=== PATIENT | male | born 2000 | race Caucasian/White ===

== ENCOUNTER 2020-02-02 20:01 | Emergency (ER) | payer BC, OTHER ==
[~2020-02-02] VITALS: Ht 188 cm; Wt 71.3 kg
[2020-02-02 20:21] LABS: BASOPHILS % (AUTO) 0 % (0-10); EOSINOPHILS # (AUTO) 0.2 10^3/uL (0.0-0.3); EOSINOPHILS % (AUTO) 3 % (0-10); HEMATOCRIT 50 % (40-54); HEMOGLOBIN 16.9 G/DL (13.3-17.7); LYMPHOCYTES # (AUTO) 2.8 X 10^3 (1.0-4.0); LYMPHOCYTES % (AUTO) 33 % (12-44); MEAN CORPUSCULAR HEMOGLOBIN 29 PG (25-34); MEAN CORPUSCULAR HGB CONC 34 G/DL (32-36); MEAN CORPUSCULAR VOLUME 86 FL (80-99); MEAN PLATELET VOLUME 11.5 FL (7.4-10.4); MONOCYTES # (AUTO) 0.7 X 10^3 (0.0-1.0); MONOCYTES % (AUTO) 8 % (0-12); NEUTROPHILS # (AUTO) 4.8 X 10^3 (1.8-7.8); NEUTROPHILS % (AUTO) 56 % (42-75); PLATELET COUNT 213 10^3/uL (130-400); RED CELL DISTRIBUTION WIDTH 12.9 % (10.0-14.5); WHITE BLOOD COUNT 8.6 10^3/uL (4.3-11.0)
[2020-02-02 20:26] LABS: BILIRUBIN,URINE NEGATIVE (NEGATIVE); CLARITY,URINE CLEAR; COLOR,URINE YELLOW; GLUCOSE, URINE (UA) NEGATIVE (NEGATIVE); KETONES,URINE NEGATIVE (NEGATIVE); LEUKOCYTE ESTERASE ,URINE NEGATIVE (NEGATIVE); NITRITE,URINE NEGATIVE (NEGATIVE); PH,URINE 7.5 (5-9); PROTEIN,URINE NEGATIVE (NEGATIVE)
--- NOTE | 2020-02-02 20:26 | ED Abdominal Pain ---
General Chief Complaint: Abdominal/GI Problems Stated Complaint: R SIDE PAIN Nursing Triage Note: right sided abdominal pain, worse today. Sepsis Screen: No Definite Risk Source of Information: Patient Exam Limitations: No Limitations History of Present Illness Date Seen by Provider: Feb 02, 2020 Time Seen by Provider: 20:13 Initial Comments 19-year-old male who presents to the emergency room with complaints of right lower quadrant abdominal pain that occurs every 3 months since 2017. He reports that the pain has been worse today and has mild diarrhea. He denies any fevers, nausea or vomiting. Associated Symptoms: Denies Symptoms Allergies and Home Medications Allergies Coded Allergies: No Known Drug Allergies (Unverified , 02/02/20) Home Medications No Active Prescriptions or Reported Meds Patient Home Medication List Home Medication List Reviewed: Yes Review of Systems Review of Systems Constitutional: see HPI; No chills, No fever Gastrointestinal: Abdominal Pain, Diarrhea All Other Systems Reviewed Negative Unless Noted: Yes Past Fkdoght-Ynzkip-Eqizwt Hx Past Med/Social Hx: Reviewed Nursing Past Med/Soc Hx Patient Social History Alcohol Use: Denies Use Recreational Drug Use: No Smoking Status: Never a Smoker 2nd Hand Smoke Exposure: No Recent Foreign Travel: No Contact w/Someone Who Travel: No Recent Infectious Disease Expo: No Recent Hopitalizations: No Physical Abuse: No Sexual Abuse: No Mistreated: No Fear: No Immunizations Up To Date Tetanus Booster (TDap): Unknown Seasonal Allergies Seasonal Allergies: No Past Medical History Surgeries: Yes (intestine resection as infant) Cardiac: No Neurological: No Genitourinary: No Gastrointestinal: No Musculoskeletal: No Endocrine: No HEENT: No Cancer: No Psychosocial: No Integumentary: No Blood Disorders: No Family Medical History Reviewed Nursing Family Hx Physical Exam Vital Signs Vital Signs - First Documented 02/02/20 20:06 Temp 37.1 Pulse 97 Resp 16 B/P (MAP) 129/87 (101) Pulse Ox 99 Capillary Refill : Less Than 3 Seconds Height/Weight/BMI Height: '" Weight: lbs. oz. kg; 20.00 BMI Method: General Appearance: WD/WN, no apparent distress Respiratory: chest non-tender, lungs clear, normal breath sounds, no respiratory distress, no accessory muscle use Cardiovascular: normal peripheral pulses, regular rate, rhythm, no edema, no gallop, no JVD, no murmur Gastrointestinal: normal bowel sounds, non tender, soft, no organomegaly, no pulsatile mass Extremities: normal capillary refill Neurologic/Psychiatric: alert, normal mood/affect, oriented x 3 Skin: normal color, warm/dry Progress/Results/Core Measures Results/Orders Lab Results Laboratory Tests Test 02/02/20 20:12 02/02/20 20:16 Range/Units White Blood Count 8.6 4.3-11.0 10^3/uL Red Blood Count 5.78 4.35-5.85 10^6/uL Hemoglobin 16.9 13.3-17.7 G/DL Hematocrit 50 40-54 % Mean Corpuscular Volume 86 80-99 FL Mean Corpuscular Hemoglobin 29 25-34 PG Mean Corpuscular Hemoglobin Concent 34 32-36 G/DL Red Cell Distribution Width 12.9 10.0-14.5 % Platelet Count 213 130-400 10^3/uL Mean Platelet Volume 11.5 H 7.4-10.4 FL Neutrophils (%) (Auto) 56 42-75 % Lymphocytes (%) (Auto) 33 12-44 % Monocytes (%) (Auto) 8 0-12 % Eosinophils (%) (Auto) 3 0-10 % Basophils (%) (Auto) 0 0-10 % Neutrophils # (Auto) 4.8 1.8-7.8 X 10^3 Lymphocytes # (Auto) 2.8 1.0-4.0 X 10^3 Monocytes # (Auto) 0.7 0.0-1.0 X 10^3 Eosinophils # (Auto) 0.2 0.0-0.3 10^3/uL Basophils # (Auto) 0.0 0.0-0.1 10^3/uL Sodium Level 141 135-145 MMOL/L Potassium Level 4.3 3.6-5.0 MMOL/L Chloride Level 103 98-107 MMOL/L Carbon Dioxide Level 27 21-32 MMOL/L Anion Gap 11 5-14 MMOL/L Blood Urea Nitrogen 16 7-18 MG/DL Creatinine 1.12 0.60-1.30 MG/DL Estimat Glomerular Filtration Rate > 60 BUN/Creatinine Ratio 14 Glucose Level 96 70-105 MG/DL Calcium Level 10.8 H 8.5-10.1 MG/DL Corrected Calcium 8.5-10.1 MG/DL Total Bilirubin 0.5 0.1-1.0 MG/DL Aspartate Amino Transf (AST/SGOT) 15 5-34 U/L Alanine Aminotransferase (ALT/SGPT) 17 0-55 U/L Alkaline Phosphatase 108 40-136 U/L Total Protein 8.0 6.4-8.2 GM/DL Albumin 4.9 H 3.2-4.5 GM/DL Amylase Level 63 25-125 U/L Lipase 19 8-78 U/L Urine Color YELLOW Urine Clarity CLEAR Urine pH 7.5 5-9 Urine Specific [place] 1.010 L 1.016-1.022 Urine Protein NEGATIVE NEGATIVE Urine Glucose (UA) NEGATIVE NEGATIVE Urine Ketones NEGATIVE NEGATIVE Urine Nitrite NEGATIVE NEGATIVE Urine Bilirubin NEGATIVE NEGATIVE Urine Urobilinogen 1.0 < = 1.0 MG/DL Urine Leukocyte Esterase NEGATIVE NEGATIVE Urine RBC (Auto) NEGATIVE NEGATIVE Urine RBC NONE /HPF Urine WBC NONE /HPF Urine Squamous Epithelial Cells RARE /HPF Urine Crystals NONE /LPF Urine Bacteria TRACE /HPF Urine Casts NONE /LPF Urine Mucus NEGATIVE /LPF Urine Culture Indicated NO My Orders Orders - HARSHAD SANFORD Ua Culture If Indicated (02/02/20 20:04) Comprehensive Metabolic Panel (02/02/20 20:12) Lipase (02/02/20 20:12) Amylase (02/02/20 20:12) Ed Iv/Invasive Line Start (02/02/20 20:12) Cbc With Automated Diff (02/02/20 20:12) Vital Signs/I&O 02/02/20 20:06 Temp 37.1 Pulse 97 Resp 16 B/P (MAP) 129/87 (101) Pulse Ox 99 Blood Pressure Mean: 101 Progress Progress Note : Time: 21:09 Progress Note I have seen and evaluated the patient. He is not tender on his abdominal exam. His labs were relatively normal. I have informed the patient of his laboratory findings. He agrees with plan of care, plans for discharge, return precautions were given. Departure Impression Primary Impression: Abdominal pain Additional Impression: Diarrhea Disposition: 01 HOME, SELF-CARE Condition: Stable/Unchanged Departure-Patient Inst. Decision time for Depature: 21:07 Referrals: NO,LOCAL PHYSICIAN (PCP/Family) Primary Care Physician Patient Instructions: Severe Abdominal Pain, Adult (DC) Add. Discharge Instructions: You may use ibuprofen and Tylenol as needed for pain relief. Take Imodium [id number] as needed for diarrhea. Follow-up with your primary care provider within 1 week for recheck. If you do not have one a list has been provided. Return back to the emergency room for worsening symptoms or concerns as needed. All discharge instructions reviewed with patient and/or family. Voiced understanding. Scripts No Active Prescriptions or Reported Meds HARSHAD SANFORD Feb 02, 2020 20:26
[2020-02-02 20:34] LABS: BACTERIA,URINE TRACE /HPF; SQUAMOUS EPITHELIAL CELL,UR RARE /HPF
[2020-02-02 20:44] LABS: ALANINE AMINOTRANSFERASE 17 U/L (0-55); ALBUMIN 4.9 GM/DL (3.2-4.5); ALKALINE PHOSPHATASE 108 U/L (40-136); AMYLASE 63 U/L (25-125); BILIRUBIN,TOTAL 0.5 MG/DL (0.1-1.0); BUN/CREATININE RATIO 14; CALCIUM 10.8 MG/DL (8.5-10.1); CARBON DIOXIDE 27 MMOL/L (21-32); CHLORIDE 103 MMOL/L (98-107); CREATININE SERUM 1.12 MG/DL (0.60-1.30); GFR ESTIMATED > 60; GLUCOSE 96 MG/DL (70-105); LIPASE 19 U/L (8-78); POTASSIUM 4.3 MMOL/L (3.6-5.0); SODIUM 141 MMOL/L (135-145)
[2020-02-02 21:21] VITALS: BP 126/87
== END 2020-02-02 21:22 | disposition home or self-care (01) ==
LOC: ER 20:04
DX: R10.31 Right lower quadrant pain (principal); R19.7 Diarrhea, unspecified
CPT/HCPCS: 36415; 80053; 81000; 82150; 83690; 85025

== ENCOUNTER 2020-02-03 18:18 | Inpatient (IN) | payer BC ==
[~2020-02-03] VITALS: Ht 187 cm; Wt 74.9 kg
[2020-02-03] MEDS ORDERED: LACTATED RINGERS 1,000 ML IV ONE (18:32)
--- NOTE | 2020-02-03 18:41 | ED Abdominal Pain ---
General Stated Complaint: RLQ PAIN Source of Information: Patient History of Present Illness Date Seen by Provider: Feb 03, 2020 Time Seen by Provider: 18:30 Initial Comments C/O RIGHT SIDED ABDOMINAL PAIN SINCE Thursday01/29/20 PAIN COMES AND GOES, AND IS SEVERE AT TIMES PT STATES LAYING DOWN IMPROVES PAIN, WALKING WORSENS PAIN TRIED TO EACH CHICKEN SOUP JUST PRIOR TO ARRIVAL, AND PAIN WAS SEVERE, SO CAME HERE NO NAUSEA/VOMITING/DIARRHEA LAST BM WAS Thursday02/01/20 NO FEVER DOES HAVE SOME RIGHT SIDED PAIN ON URINATION SEEN HERE YESTERDAY FOR SAME, LAB DONE,BUT NO CT OR ULTRASOUND OR XRAYS. HAS HAD THIS PROBLEM OFF AND ON FOR MANY YEARS "AT LEAST 10-15 TIMES" "AND THEY CAN NEVER FIND ANYTHING" HAS NOT TAKEN ANYTHING FOR PAIN Allergies and Home Medications Allergies Coded Allergies: No Known Drug Allergies (Unverified , 02/02/20) Home Medications No Active Prescriptions or Reported Meds Patient Home Medication List Home Medication List Reviewed: Yes Review of Systems Review of Systems Constitutional: no symptoms reported; No chills, No diaphoresis, No fever Respiratory: No Symptoms Reported Cardiovascular: No Symptoms Reported Gastrointestinal: See HPI, Abdominal Pain, Constipated; Denies Diarrhea, Denies Nausea; Poor Appetite; Denies Vomiting Genitourinary: See HPI Musculoskeletal: no symptoms reported; No back pain Skin: no symptoms reported Psychiatric/Neurological: No Symptoms Reported Endocrine: No Symptoms Reported Hematologic/Lymphatic: No Symptoms Reported Past Bpiiqsh-Aanjss-Miyiow Hx Past Med/Social Hx: Reviewed and Corrections made Patient Social History Alcohol Use: Denies Use Recreational Drug Use: No Smoking Status: Never a Smoker 2nd Hand Smoke Exposure: No Recent Foreign Travel: No Contact w/Someone Who Travel: No Recent Hopitalizations: No Immunizations Up To Date Tetanus Booster (TDap): Unknown Seasonal Allergies Seasonal Allergies: No Past Medical History Surgeries: Yes (intestine resection as ) Abdominal Respiratory: No Cardiac: No Neurological: No Genitourinary: No Gastrointestinal: Yes (INTESTINAL RESECTION INFANT) Musculoskeletal: No Endocrine: No HEENT: No Cancer: No Psychosocial: No Integumentary: No Blood Disorders: No Physical Exam Vital Signs Vital Signs - First Documented 02/03/20 18:45 Temp 37.1 Pulse 107 Resp 20 B/P (MAP) 115/83 (94) Pulse Ox 99 O2 Delivery Room Air Capillary Refill : Height/Weight/BMI Height: '" Weight: lbs. oz. kg; 20.00 BMI Method: General Appearance: WD/WN, no apparent distress, thin, other (WALKS UPRIGHT AND MOVES WITHOUT DIFFICULTY. 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, no motor/sensory deficits, alert, normal mood/affect, oriented x 3 Skin: normal color, warm/dry; No rash Progress/Results/Core Measures Results/Orders Lab Results Laboratory Tests Test 02/03/20 18:40 Range/Units White Blood Count 8.7 4.3-11.0 10^3/uL Red Blood Count 6.41 H 4.35-5.85 10^6/uL Hemoglobin 18.5 H 13.3-17.7 G/DL Hematocrit 55 H 40-54 % Mean Corpuscular Volume 85 80-99 FL Mean Corpuscular Hemoglobin 29 25-34 PG Mean Corpuscular Hemoglobin Concent 34 32-36 G/DL Red Cell Distribution Width 13.0 10.0-14.5 % Platelet Count 239 130-400 10^3/uL Mean Platelet Volume 11.5 H 7.4-10.4 FL Neutrophils (%) (Auto) 65 42-75 % Lymphocytes (%) (Auto) 25 12-44 % Monocytes (%) (Auto) 8 0-12 % Eosinophils (%) (Auto) 2 0-10 % Basophils (%) (Auto) 0 0-10 % Neutrophils # (Auto) 5.7 1.8-7.8 X 10^3 Lymphocytes # (Auto) 2.2 1.0-4.0 X 10^3 Monocytes # (Auto) 0.7 0.0-1.0 X 10^3 Eosinophils # (Auto) 0.2 0.0-0.3 10^3/uL Basophils # (Auto) 0.0 0.0-0.1 10^3/uL Sodium Level 137 135-145 MMOL/L Potassium Level 4.2 3.6-5.0 MMOL/L Chloride Level 99 98-107 MMOL/L Carbon Dioxide Level 26 21-32 MMOL/L Anion Gap 12 5-14 MMOL/L Blood Urea Nitrogen 13 7-18 MG/DL Creatinine 1.10 0.60-1.30 MG/DL Estimat Glomerular Filtration Rate > 60 BUN/Creatinine Ratio 12 Glucose Level 100 70-105 MG/DL Calcium Level 10.7 H 8.5-10.1 MG/DL Corrected Calcium 8.5-10.1 MG/DL Total Bilirubin 0.7 0.1-1.0 MG/DL Aspartate Amino Transf (AST/SGOT) 20 5-34 U/L Alanine Aminotransferase (ALT/SGPT) 20 0-55 U/L Alkaline Phosphatase 114 40-136 U/L Total Protein 8.9 H 6.4-8.2 GM/DL Albumin 5.2 H 3.2-4.5 GM/DL Amylase Level 58 25-125 U/L Lipase 11 8-78 U/L My Orders Orders - MATY BRIONES DO Ed Iv/Invasive Line Start (02/03/20 18:32) Ct Abd/Pelv W (Appendicitis) (02/03/20 18:32) Amylase (02/03/20 18:32) Cbc With Automated Diff (02/03/20 18:32) Comprehensive Metabolic Panel (02/03/20 18:32) Drug Screen Stat (Urine) (02/03/20 18:32) Lipase (02/03/20 18:32) Ua Culture If Indicated (02/03/20 18:32) Ed Iv/Invasive Line Start (02/03/20 18:32) Lactated Ringers (Lr 1000 Ml Iv Solution (02/03/20 18:32) Iohexol Injection (Omnipaque 350 Mg/Ml 1 (02/03/20 19:15) Received Contrast (Hold Metformin- Contr (02/03/20 19:15) Sodium Chloride Flush (Catheter Flush Sy (02/03/20 19:15) Ns (Ivpb) (Sodium Chloride 0.9% Ivpb Bag (02/03/20 19:15) Medications Given in ED Current Medications Medications Dose Ordered Sig/Devorah Route Start Time Stop Time Status Last Admin Dose Admin Iohexol 100 ml ONCE ONCE IV 02/03/20 19:15 02/03/20 19:16 DC 02/03/20 19:13 85 ML Lactated Ringer's 1,000 ml @ 0 mls/hr Q0M ONCE IV 02/03/20 18:32 02/03/20 18:34 DC 02/03/20 18:56 0 MLS/HR Sodium Chloride 10 ml NEEDED PRN IV 02/03/20 19:15 02/03/20 19:13 10 ML Sodium Chloride 100 ml ONCE ONCE IV 02/03/20 19:15 02/03/20 19:16 DC 02/03/20 19:13 80 ML Vital Signs/I&O 02/03/20 18:45 Temp 37.1 Pulse 107 Resp 20 B/P (MAP) 115/83 (94) Pulse Ox 99 O2 Delivery Room Air Progress Progress Note : Progress Note UNEVENTFUL ER STAY Diagnostic Imaging Comments CT ABDOMEN/PELVIS--PER RADIOLOGIST REPORT AT 193 INDICATION: Right lower quadrant pain Lung bases are clear. Liver appears normal. Gallbladder is present. Pancreas is normal. Spleen is not enlarged. Kidneys and adrenals appear normal. Aorta and IVC appear normal. Urinary bladder appears normal. The stomach is decompressed. The colon is decompressed. There are markedly dilated loops of small bowel in the upper abdomen measuring up to 11.4 cm in diameter that contain air-fluid levels. There is no intraperitoneal free air or free fluid. IMPRESSION: There appears be a closed loop obstruction of the small bowel. This could be from an internal hernia Departure Communication (Admissions) Family Conversation 1934--SPOKE WITH DAD ON PHONE, INFORMED HIM OF PT'S CONDITION AND NEED FOR ADMIT. 1931--SPOKE WITH DR. DSOUZA, SURGEON, ACCEPTS PT FOR ADMIT. WILL PLACE NG TUBE AND DO SMALL BOWEL FOLLOW THROUGH IN AM. Impression Primary Impression: Small bowel obstruction Disposition: ADMITTED INPATIENT Condition: Stable Admissions Decision to Admit Reason: Admit from ER (General) Decision to Admit/Date: Feb 03, 2020 Time/Decision to Admit Time: 19:35 Departure-Patient Inst. Referrals: NO,LOCAL PHYSICIAN (PCP/Family) Primary Care Physician Scripts No Active Prescriptions or Reported Meds MATY BRIONES DO Feb 03, 2020 18:41
[2020-02-03 18:53] LABS: BASOPHILS % (AUTO) 0 % (0-10); EOSINOPHILS % (AUTO) 2 % (0-10); HEMATOCRIT 55 % (40-54); HEMOGLOBIN 18.5 G/DL (13.3-17.7); LYMPHOCYTES % (AUTO) 25 % (12-44); MEAN CORPUSCULAR HEMOGLOBIN 29 PG (25-34); MEAN CORPUSCULAR HGB CONC 34 G/DL (32-36); MEAN CORPUSCULAR VOLUME 85 FL (80-99); MEAN PLATELET VOLUME 11.5 FL (7.4-10.4); MONOCYTES % (AUTO) 8 % (0-12); NEUTROPHILS # (AUTO) 5.7 X 10^3 (1.8-7.8); NEUTROPHILS % (AUTO) 65 % (42-75); PLATELET COUNT 239 10^3/uL (130-400); WHITE BLOOD COUNT 8.7 10^3/uL (4.3-11.0)
[2020-02-03 18:54] LABS: EOSINOPHILS # (AUTO) 0.2 10^3/uL (0.0-0.3); LYMPHOCYTES # (AUTO) 2.2 X 10^3 (1.0-4.0); MONOCYTES # (AUTO) 0.7 X 10^3 (0.0-1.0)
--- NOTE | 2020-02-03 18:55 | NUR ---
REPORT FROM YEN MENARD
[2020-02-03 19:11] LABS: ALANINE AMINOTRANSFERASE 20 U/L (0-55); ALBUMIN 5.2 GM/DL (3.2-4.5); ALKALINE PHOSPHATASE 114 U/L (40-136); AMYLASE 58 U/L (25-125); BILIRUBIN,TOTAL 0.7 MG/DL (0.1-1.0); BUN/CREATININE RATIO 12; CALCIUM 10.7 MG/DL (8.5-10.1); CARBON DIOXIDE 26 MMOL/L (21-32); CHLORIDE 99 MMOL/L (98-107); GFR ESTIMATED > 60; GLUCOSE 100 MG/DL (70-105); LIPASE 11 U/L (8-78); POTASSIUM 4.2 MMOL/L (3.6-5.0); SODIUM 137 MMOL/L (135-145); TOTAL PROTEIN 8.9 GM/DL (6.4-8.2)
[2020-02-03] MEDS ORDERED: IOHEXOL 350 MG/ML 100 ML (OMNIPAQUE 350) VIAL IV ONE (19:15)
[2020-02-03] MEDS ORDERED: CATHETER FLUSH 10 ML SYR IV PRN (19:15)
[2020-02-03] MEDS ORDERED: NS 100 ML (IVPB) BAG IV ONE (19:15)
[2020-02-03] MEDS ORDERED: HOLD METFORMIN - RECEIVED CONTRAST 20 ML VIAL IV SCH (19:15)
--- NOTE | 2020-02-03 19:28 | Diagnostic Imaging Report ---
PROCEDURE: CT abdomen and pelvis with contrast, rule out appendicitis. TECHNIQUE: Multiple contiguous axial images were obtained through the abdomen and pelvis after the administration of intravenous contrast. All CT scans use one or more of the following dose optimizing techniques: automated exposure control, MA and/or KvP adjustment based on patient size and exam type or iterative reconstruction. INDICATION: Right lower quadrant pain Lung bases are clear. Liver appears normal. Gallbladder is present. Pancreas is normal. Spleen is not enlarged. Kidneys and adrenals appear normal. Aorta and IVC appear normal. Urinary bladder appears normal. The stomach is decompressed. The colon is decompressed. There are markedly dilated loops of small bowel in the upper abdomen measuring up to 11.4 cm in diameter that contain air-fluid levels. There is no intraperitoneal free air or free fluid. IMPRESSION: There appears be a closed loop obstruction of the small bowel. This could be from an internal hernia Dictated by: Dictated on workstation # [id number]
[2020-02-03] MEDS ORDERED: fentaNYL INJECTION 100 MCG/2 ML AMP IVP STA (19:40)
[2020-02-03] MEDS ORDERED: PANTOPRAZOLE 40 MG (PROTONIX) VIAL IV ONE (19:45)
--- NOTE | 2020-02-03 19:58 | NUR ---
18F NG TUBE PLACED TO RT NARE BY THIS RN. PT TOLERATED WELL. GASTRIC CONTENTS NOTED WHEN ATTACHED TO LOW WALL SUCTION
[2020-02-03 20:07] LABS: BILIRUBIN,URINE NEGATIVE (NEGATIVE); CLARITY,URINE CLEAR; COLOR,URINE YELLOW; GLUCOSE, URINE (UA) NEGATIVE (NEGATIVE); KETONES,URINE NEGATIVE (NEGATIVE); LEUKOCYTE ESTERASE ,URINE NEGATIVE (NEGATIVE); NITRITE,URINE NEGATIVE (NEGATIVE); PROTEIN,URINE NEGATIVE (NEGATIVE)
[2020-02-03 20:15] LABS: AMPHETAMINE SCREEN, URINE NEGATIVE (NEGATIVE); BARBITURATE SCREEN URINE NEGATIVE (NEGATIVE); BENZODIAZEPINES SCREEN URINE NEGATIVE (NEGATIVE); CANNABINOID SCREEN, URINE NEGATIVE (NEGATIVE); COCAINE SCREEN URINE NEGATIVE (NEGATIVE); METHADONE STAT NEGATIVE (NEGATIVE); METHAMPHETAMINE SCREEN URINE S NEGATIVE (NEGATIVE); OPIATE SCREEN URINE NEGATIVE (NEGATIVE); OXYCODONE STAT NEGATIVE (NEGATIVE); PROPOXYPHENE STAT NEGATIVE (NEGATIVE); TRICYCLIC ANTIDEPRESSANTS SCRE NEGATIVE (NEGATIVE)
[2020-02-03 20:16] LABS: BACTERIA,URINE NEGATIVE /HPF; SQUAMOUS EPITHELIAL CELL,UR RARE /HPF
[2020-02-03 21:40] VITALS: BP 131/92
--- NOTE | 2020-02-03 22:06 | NUR ---
MATT NAPOLES admitted to room 418-1, with an admitting diagnosis of small bowel obstruction, on 02/03/20 from ED via wheelchair accompanied by staff.MATT NAPOLES introduced to surroundings, call light, bed controls, phone, TV, temperature control, lights, meal times, smoking policy, visitor policy, side rail policy, bathrooms and showers. Patient Rights given to patient in the handbook. MATT NAPOLES verbalizes understanding that [facility] is not responsible for the loss or damage to any personal effects or valuables that are kept in the patients posession during their hospitalization.
[2020-02-03] MEDS: D5 1/2 NS W/KCL 20 MEQ/L 1,000 ML IV SCH (23:07)
[2020-02-03 23:30] VITALS: BP 139/76
--- NOTE | 2020-02-03 23:47 | History & Physical-Surgical ---
History of Present Illness History of Present Illness Reason for visit/HPI CC: abdominal pain 19 year old male who had previous bowel surgery when born. Last several years been having episodes where belly gets big and uncomfortable and resolves on his own. Has been getting worse over the last 6 days and today severe 12/10 pain when he came to ER. RIght side no radiation of pain. Laying down made better, and walking was making it worse. Now he rates his pain at a 2. He is passing flatus. Has seen several surgeons before for similar episode. His abdomen was a lot bigger, but ng tube was placed and he said it went down a lot. Had a ct scan showing obstruction possibly internal hernia. Denies fever sweats chills shortness of breath chest pain. Date of Admission Feb 03, 2020 at 19:35 Date Seen by a Provider: Feb 03, 2020 Time Seen by a Provider: 11:22 I consulted on this patient on 02/03/20 23:42 Attending Physician Mitali Jordan DO Admitting Physician No,Local Physician Consult Allergies and Home Medications Allergies Coded Allergies: No Known Drug Allergies (Unverified , 02/02/20) Home Medications No Active Prescriptions or Reported Meds Patient Home Medication List Home Medication List Reviewed: Yes Past Smflkzi-Wfwdms-Osywyi Hx Patient Social History Alcohol Use: Denies Use Recreational Drug Use: No Smoking Status: Never a Smoker 2nd Hand Smoke Exposure: No Recent Foreign Travel: No Contact w/Someone Who Travel: No Recent Infectious Disease Expo: No Recent Hopitalizations: No Immunizations Up To Date Tetanus Booster (TDap): Unknown Seasonal Allergies Seasonal Allergies: No Surgeries History of Surgeries: Yes (intestine resection as infant) Surgeries: Abdominal Respiratory History of Respiratory Disorde: No Cardiovascular History of Cardiac Disorders: No Neurological History of Neurological Disord: No Genitourinary History of Genitourinary Disor: No Gastrointestinal History of Gastrointestinal Di: Yes (INTESTINAL RESECTION ) Musculoskeletal History of Musculoskeletal Dis: No Endocrine History of Endocrine Disorders: No HEENT History of HEENT Disorders: No Cancer History of Cancer: No Psychosocial History of Psychiatric Problem: No Integumentary History of Skin or Integumenta: No Blood Transfusions History of Blood Disorders: No Reviewed Nursing Assessment Reviewed/Agree w Nursing PMH: Yes Family Medical History Significant Family History: No Pertinent Family Hx Review of Systems Constitutional: No chills, No diaphoresis EENTM: No blurred vision, No double vision Respiratory: No cough, No dyspnea on exertion Cardiovascular: No chest pain, No palpitations Gastrointestinal: abdominal pain (RLQ); No nausea, No vomiting Genitourinary: No decreased output, No discharge Musculoskeletal: No back pain, No joint pain Skin: No change in color, No change in hair/nails Psychiatric/Neurological: Denies Anxiety, Denies Depressed All Other Systems Reviewed Negative Unless Noted: Yes (Negative excepted noted.) Physical Exam Vital Signs Vital Signs - First Documented 02/03/20 18:45 Temp 37.1 Pulse 107 Resp 20 B/P (MAP) 115/83 (94) Pulse Ox 99 O2 Delivery Room Air Capillary Refill : Less Than 3 Seconds Height, Weight, BMI Height: '" Weight: lbs. oz. kg; 19.44 BMI Method: General Appearance: No Apparent Distress, WD/WN HEENT: PERRL/EOMI, Normal ENT Inspection, Other (NG Tube in place) Neck: Normal Inspection, Non Tender Respiratory: Chest Non Tender, No Accessory Muscle Use, No Respiratory Distress Cardiovascular: Regular Rate, Rhythm, No Edema Gastrointestinal: Soft, Distended (minimal), Tenderness (minimal right side, scar right side of abdomen) Rectal: Deferred Back: No CVA Tenderness, No Vertebral Tenderness Extremity: Normal Inspection, Non Tender, No Calf Tenderness Neurologic/Psychiatric: Alert, Oriented x3, No Motor/Sensory Deficits, Normal Mood/Affect, 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 Skin: Normal Color, Warm/Dry Lymphatic: No Adenopathy Data Review Labs Laboratory Tests 02/03/20 18:40: White Blood Count 8.7, Red Blood Count 6.41H, Hemoglobin 18.5H, Hematocrit 55H, Mean Corpuscular Volume 85, Mean Corpuscular Hemoglobin 29, Mean Corpuscular Hemoglobin Concent 34, Red Cell Distribution Width 13.0, Platelet Count 239, Mean Platelet Volume 11.5H, Neutrophils (%) (Auto) 65, Lymphocytes (%) (Auto) 25, Monocytes (%) (Auto) 8, Eosinophils (%) (Auto) 2, Basophils (%) (Auto) 0, Neutrophils # (Auto) 5.7, Lymphocytes # (Auto) 2.2, Monocytes # (Auto) 0.7, Eosinophils # (Auto) 0.2, Basophils # (Auto) 0.0, Sodium Level 137, Potassium Level 4.2, Chloride Level 99, Carbon Dioxide Level 26, Anion Gap 12, Blood Urea Nitrogen 13, Creatinine 1.10, Estimat Glomerular Filtration Rate > 60, BUN/Creatinine Ratio 12, Glucose Level 100, Calcium Level 10.7H, Corrected Calcium , Total Bilirubin 0.7, Aspartate Amino Transf (AST/SGOT) 20, Alanine Aminotransferase (ALT/SGPT) 20, Alkaline Phosphatase 114, Total Protein 8.9H, Albumin 5.2H, Amylase Level 58, Lipase 11 02/03/20 19:50: Urine Color YELLOW, Urine Clarity CLEAR, Urine pH 7.0, Urine Specific [place] <=1.005, Urine Protein NEGATIVE, Urine Glucose (UA) NEGATIVE, Urine Ketones NEGATIVE, Urine Nitrite NEGATIVE, Urine Bilirubin NEGATIVE, Urine Urobilinogen 0.2, Urine Leukocyte Esterase NEGATIVE, Urine RBC (Auto) NEGATIVE, Urine RBC NONE, Urine WBC NONE, Urine Squamous Epithelial Cells RARE, Urine Crystals NONE, Urine Bacteria NEGATIVE, Urine Casts NONE, Urine Mucus NEGATIVE, Urine Culture Indicated NO, Urine Opiates Screen NEGATIVE, Urine Oxycodone Screen NEGATIVE, Urine Methadone Screen NEGATIVE, Urine Propoxyphene Screen NEGATIVE, Urine Barbiturates Screen NEGATIVE, Ur Tricyclic Antidepressants Screen NEGATIVE, Urine Phencyclidine Screen NEGATIVE, Urine Amphetamines Screen NEGATIVE, Urine Methamphetamines Screen NEGATIVE, Urine Benzodiazepines Screen NEGATIVE, Urine Cocaine Screen NEGATIVE, Urine Cannabinoids Screen NEGATIVE Assessment/Plan Assessment/Plan Admission Diagonsis Small bowel obstruction right abdominal pain History of bowel resection as child. Admission Status: Inpatient Order (span 2 midnights) Reason for Inpatient Admission: Patient to stay over two midnights for imaging studies and need for repeat follow up exams. Trying conservative measures,but still may need surgical intervention. Assessment/Plan Small bowel obstruction right abdominal pain History of bowel resection as child. Ng tube placed and feeling much better, to liws will get small bowel follow through in am scd's for dvt prophylaxis NPO Iv hydration will try conservative measures, like he has had in the past and resolved on its own. may need surgical intervention which he understands. Clinical Quality Measures DVT/VTE Risk/Contraindication: Risk Factor Score Per Nursin RFS Level Per Nursing on Admit: 2=Moderate MITALI JORDAN DO Feb 03, 2020 23:47
[2020-02-04] VITALS (21 sets, daily range): BP systolic 112–151; BP diastolic 72–95
[2020-02-04] MEDS: D5 1/2 NS W/KCL 20 MEQ/L 1,000 ML IV SCH ×3 (05:43→18:07)
[2020-02-04 07:03] LABS: BASOPHILS % (AUTO) 0 % (0-10); EOSINOPHILS # (AUTO) 0.1 10^3/uL (0.0-0.3); EOSINOPHILS % (AUTO) 2 % (0-10); HEMATOCRIT 47 % (40-54); HEMOGLOBIN 15.9 G/DL (13.3-17.7); LYMPHOCYTES % (AUTO) 33 % (12-44); MEAN CORPUSCULAR HEMOGLOBIN 29 PG (25-34); MEAN CORPUSCULAR HGB CONC 34 G/DL (32-36); MEAN CORPUSCULAR VOLUME 87 FL (80-99); MEAN PLATELET VOLUME 11.6 FL (7.4-10.4); MONOCYTES # (AUTO) 0.5 X 10^3 (0.0-1.0); MONOCYTES % (AUTO) 8 % (0-12); NEUTROPHILS # (AUTO) 3.5 X 10^3 (1.8-7.8); NEUTROPHILS % (AUTO) 58 % (42-75); PLATELET COUNT 185 10^3/uL (130-400); WHITE BLOOD COUNT 6.1 10^3/uL (4.3-11.0)
[2020-02-04 07:25] LABS: ALANINE AMINOTRANSFERASE 14 U/L (0-55); ALBUMIN 4.3 GM/DL (3.2-4.5); ALKALINE PHOSPHATASE 92 U/L (40-136); BILIRUBIN,TOTAL 0.6 MG/DL (0.1-1.0); BUN/CREATININE RATIO 10; CALCIUM 9.4 MG/DL (8.5-10.1); CARBON DIOXIDE 24 MMOL/L (21-32); CHLORIDE 107 MMOL/L (98-107); CREATININE SERUM 0.98 MG/DL (0.60-1.30); GFR ESTIMATED > 60; GLUCOSE 110 MG/DL (70-105); POTASSIUM 4.2 MMOL/L (3.6-5.0); SODIUM 140 MMOL/L (135-145)
--- NOTE | 2020-02-04 08:07 | Progress Note - Surgery ---
JANETADRIANO MED STUDENT 02/04/20 0807: Subjective Date Seen by a Provider: Feb 04, 2020 Time Seen by a Provider: 07:40 Subjective/Events-last exam Pt comfortable sitting up in bed in NAD. Reports that pain has subsided to a 0/10 and his only complaint now is discomfort from the NG tube. Claims he has been passing gas but no BM currently. Says he feels like he will have a BM soon. Abdomen is nontender. Denies n/v, fever, chills, sob, chest pain. Objective Exam Vital Signs Date Time Temp Pulse Resp B/P (MAP) Pulse Ox O2 Delivery O2 Flow Rate FiO2 02/04/20 04:00 36.6 75 20 120/72 (88) 99 Room Air 02/03/20 23:53 99 Room Air 02/03/20 23:30 36.8 97 20 139/76 (97) 99 Room Air 02/03/20 23:08 92 02/03/20 21:40 37.6 107 18 131/92 99 Room Air 02/03/20 21:35 106 18 117/92 98 Room Air 02/03/20 18:45 37.1 107 20 115/83 (94) 99 Room Air I & O 02/04/20 07:00 Intake Total 1010 ml Output Total 725 ml Balance 285 ml Capillary Refill : Less Than 3 Seconds General Appearance: No Apparent Distress, WD/WN HEENT: PERRL/EOMI, Normal ENT Inspection, Other (NG Tube in place) Neck: Normal Inspection, Non Tender Respiratory: Chest Non Tender, No Accessory Muscle Use, No Respiratory Distress Cardiovascular: Regular Rate, Rhythm, No Edema Gastrointestinal: soft, no organomegaly, no pulsatile mass, abnormal bowel sounds (DECREASED); No distended, No guarding, No rebound; tenderness (DIFFUSE RIGHT SIDED TENDERNESS, MOST TENDER IN RIGHT MID ABDOMEN); No hernia, No mass Extremity: Normal Inspection, Non Tender, No Calf Tenderness Neurologic/Psychiatric: Alert, Oriented x3, No Motor/Sensory Deficits, Normal Mood/Affect, motorman/woman II-XII Norm as Tested Skin: Normal Color, Warm/Dry Lymphatic: No Adenopathy Results Lab Laboratory Tests 02/03/20 18:40: White Blood Count 8.7, Red Blood Count 6.41H, Hemoglobin 18.5H, Hematocrit 55H, Mean Corpuscular Volume 85, Mean Corpuscular Hemoglobin 29, Mean Corpuscular Hemoglobin Concent 34, Red Cell Distribution Width 13.0, Platelet Count 239, Mean Platelet Volume 11.5H, Neutrophils (%) (Auto) 65, Lymphocytes (%) (Auto) 25, Monocytes (%) (Auto) 8, Eosinophils (%) (Auto) 2, Basophils (%) (Auto) 0, Neutrophils # (Auto) 5.7, Lymphocytes # (Auto) 2.2, Monocytes # (Auto) 0.7, Eosinophils # (Auto) 0.2, Basophils # (Auto) 0.0, Sodium Level 137, Potassium Level 4.2, Chloride Level 99, Carbon Dioxide Level 26, Anion Gap 12, Blood Urea Nitrogen 13, Creatinine 1.10, Estimat Glomerular Filtration Rate > 60, BUN/Creatinine Ratio 12, Glucose Level 100, Calcium Level 10.7H, Corrected Calcium , Total Bilirubin 0.7, Aspartate Amino Transf (AST/SGOT) 20, Alanine Aminotransferase (ALT/SGPT) 20, Alkaline Phosphatase 114, Total Protein 8.9H, Albumin 5.2H, Amylase Level 58, Lipase 11 02/03/20 19:50: Urine Color YELLOW, Urine Clarity CLEAR, Urine pH 7.0, Urine Specific Hudson <=1.005, Urine Protein NEGATIVE, Urine Glucose (UA) NEGATIVE, Urine Ketones NEGATIVE, Urine Nitrite NEGATIVE, Urine Bilirubin NEGATIVE, Urine Urobilinogen 0.2, Urine Leukocyte Esterase NEGATIVE, Urine RBC (Auto) NEGATIVE, Urine RBC NONE, Urine WBC NONE, Urine Squamous Epithelial Cells RARE, Urine Crystals NONE, Urine Bacteria NEGATIVE, Urine Casts NONE, Urine Mucus NEGATIVE, Urine Culture Indicated NO, Urine Opiates Screen NEGATIVE, Urine Oxycodone Screen NEGATIVE, Urine Methadone Screen NEGATIVE, Urine Propoxyphene Screen NEGATIVE, Urine Barbiturates Screen NEGATIVE, Ur Tricyclic Antidepressants Screen NEGATIVE, Urine Phencyclidine Screen NEGATIVE, Urine Amphetamines Screen NEGATIVE, Urine Methamphetamines Screen NEGATIVE, Urine Benzodiazepines Screen NEGATIVE, Urine Cocaine Screen NEGATIVE, Urine Cannabinoids Screen NEGATIVE 02/04/20 06:20: White Blood Count 6.1, Red Blood Count 5.40, Hemoglobin 15.9, Hematocrit 47, Mean Corpuscular Volume 87, Mean Corpuscular Hemoglobin 29, Mean Corpuscular Hemoglobin Concent 34, Red Cell Distribution Width 12.8, Platelet Count 185, Mean Platelet Volume 11.6H, Neutrophils (%) (Auto) 58, Lymphocytes (%) (Auto) 33, Monocytes (%) (Auto) 8, Eosinophils (%) (Auto) 2, Basophils (%) (Auto) 0, Neutrophils # (Auto) 3.5, Lymphocytes # (Auto) 2.0, Monocytes # (Auto) 0.5, Eosinophils # (Auto) 0.1, Basophils # (Auto) 0.0, Sodium Level 140, Potassium Level 4.2, Chloride Level 107, Carbon Dioxide Level 24, Anion Gap 9, Blood Urea Nitrogen 10, Creatinine 0.98, Estimat Glomerular Filtration Rate > 60, BUN/Creatinine Ratio 10, Glucose Level 110H, Calcium Level 9.4, Corrected Calcium 9.2, Total Bilirubin 0.6, Aspartate Amino Transf (AST/SGOT) 15, Alanine Aminotransferase (ALT/SGPT) 14, Alkaline Phosphatase 92, Total Protein 7.0, Albumin 4.3 Assessment/Plan Assessment/Plan Assessment/Plan Small bowel obstruction History of bowel resection as child. sbft today scd's for dvt prophylaxis remove ng tube increase diet and activity if sbft shows improved obstruction Clinical Quality Measures DVT/VTE Risk/Contraindication: Risk Factor Score Per Nursin RFS Level Per Nursing on Admit: 2=Moderate MITALI JORDAN DO 02/04/20 1148: Subjective Subjective/Events-last exam More comfortable today. Not having much pain/discomfort. Passing some flatus, no bm. NPO NG tube in place Objective Exam General Appearance: No Apparent Distress, WD/WN HEENT: PERRL/EOMI, Normal ENT Inspection, Other (NG Tube in place) Neck: Normal Inspection Respiratory: Chest Non Tender, No Accessory Muscle Use, No Respiratory Distress Cardiovascular: Regular Rate, Rhythm, No Edema Gastrointestinal: distended (minimal distention); No guarding, No rebound; tenderness (DIFFUSE RIGHT SIDED TENDERNESS, MOST TENDER IN RIGHT MID ABDOMEN) Extremity: Normal Inspection, Non Tender, No Calf Tenderness Neurologic/Psychiatric: Alert, Oriented x3, No Motor/Sensory Deficits, Normal Mood/Affect, motorman/woman II-XII Norm as Tested Skin: Normal Color, Warm/Dry Lymphatic: No Adenopathy Assessment/Plan Assessment/Plan Assessment/Plan small bowel obstruction history of bowel resection as child has been having intermittent small bowel obstruction, i am concerned he has an internal hernia i discussed with patient and patient father and they are concerned that this continues to occur. we discussed doing exploratory laparotomy all other indicated procedures and they understand and wish to proceed. NPO To OR today. Supervisory-Addendum Brief Verification & Attestation Participated in pt care: history, MDM, physical Personally performed: exam, history, MDM, supervision of care Care discussed with: Medical Student Procedures: n/a Results interpretation: Verified all documentation Verification and Attestation of Medical Student E/M Service A medical student performed and documented this service in my presence. I reviewed and verified all information documented by the medical student and made modifications to such information, when appropriate. I personally performed the physical exam and medical decision making. Mitali Jordan, Feb 04, 2020,11:52 ADRIANO GONZALES MED STUDENT Feb 04, 2020 08:07 MITALI JORDAN DO Feb 04, 2020 11:48
[2020-02-04] MEDS: PANTOPRAZOLE 40 MG (PROTONIX) VIAL IV SCH (08:48)
--- NOTE | 2020-02-04 09:00 | NUR ---
NG CLAMPED AND DOWN FOR SM BOWEL FOLLOW THROUGH
[2020-02-04] MEDS ORDERED: DIATRIZOATE MEGLUM/SODIUM 37% 120 ML (GASTROGRAFIN) NG ONE (09:15)
[2020-02-04] MEDS ORDERED: ceFAZolin INJECTION 1,000 MG in WATER (STERILE) FOR INJECTION 10 ML IV ONE (12:00)
[2020-02-04] MEDS ORDERED: MEPERIDINE (DEMEROL) INJ 50 MG/ML ONE (12:20)
[2020-02-04] MEDS ORDERED: HYDROmorphone 2 MG/ML VIAL (DILAUDID) ONE ×2 (12:20→14:50)
[2020-02-04] MEDS ORDERED: morphine INJ 10 MG/ML 1ML (SYR OR VIAL) ONE (12:20)
[2020-02-04] MEDS ORDERED: proPOfol 200 MG/20 ML (DIPRIVAN) VIAL IV ONE (12:23)
[2020-02-04] MEDS ORDERED: SEVOFLURANE (ULTANE) 15 ML INHAL SOLN ONE ×7 (12:23→15:06)
[2020-02-04] MEDS ORDERED: MIDAZOLAM 2 MG/2 ML (VERSED) VIAL ONE ×2 (12:23→13:15)
[2020-02-04] MEDS ORDERED: ROCURONIUM 10 MG/ML 5 ML SYRINGE IV ONE (12:23)
[2020-02-04] MEDS ORDERED: LIDOCAINE PF 2% 5 ML (XYLOCAINE) VIAL ONE (12:23)
[2020-02-04] MEDS ORDERED: fentaNYL INJECTION 100 MCG/2 ML AMP ONE (12:24)
[2020-02-04] MEDS ORDERED: BUP/EPI 0.5% 1:200,000 (MARCAINE) 10ML VIAL IJ ONE (12:47)
--- NOTE | 2020-02-04 13:06 | NUR ---
PT TAKEN DOWN TO PREOP --
[2020-02-04] MEDS ORDERED: LACTATED RINGERS 1,000 ML IV PRN (13:51)
[2020-02-04] MEDS ORDERED: GLYCOPYRROLATE 0.2 MG/ML (ROBINUL) 2 ML VIAL ONE (14:35)
[2020-02-04] MEDS ORDERED: NEOSTIGMINE 3 MG/3 ML VIAL ONE (14:35)
[2020-02-04] MEDS ORDERED: HYDROmorphone 2 MG/ML VIAL (DILAUDID) IV ONE (15:00)
[2020-02-04] MEDS ORDERED: morphine INJ 10 MG/ML 1ML (SYR OR VIAL) IVP ONE (15:00)
[2020-02-04] MEDS ORDERED: MEPERIDINE (DEMEROL) INJ 50 MG/ML IVP ONE (15:00)
--- NOTE | 2020-02-04 15:01 | Progress Note-Post Operative ---
Post-Operative Progess Note Surgeon (s)/Phys Assistant (s) Surgeon MITALI DSOUZA DO Phys Assistant: Dr. Simms Pre-Operative Diagnosis small bowel obstruction Post-Operative Diagnosis small bowel obstruction secondary to internal hernia due to adhesive bands appendicolith Procedure & Operative Findings Date of Procedure 02/04/20 Procedure Performed/Findings exploratory laparotomy release of small bowel obstruction secondary to internal hernia caused by adhesive bands lysis of adhesions 40 min appendectomy Anesthesia Type gen Estimated Blood Loss Estimated blood loss (mL): min Specimens/Packing Specimens Removed appendix MITALI DSOUZA DO Feb 04, 2020 15:01
[2020-02-04] MEDS ORDERED: BUPIVACAINE 0.5% 30 ML (SENSORCAINE) VIAL ONE (15:03)
--- NOTE | 2020-02-04 16:33 | Diagnostic Imaging Report ---
HISTORY: Small bowel obstruction. COMPARISON: CT from 02/03/2020 TECHNIQUE: 120 mL of Gastrografin with 120 mL wire was administered via the enteric tube in the stomach. Multiple abdominal radiographs were obtained. FINDINGS: There is severe bowel distention of the small bowel. Contrast does move through the small bowel into the colon and is seen definitively in the colon by 1 hour and 30 minutes. No large collection of free air is appreciated. IMPRESSION: Severe distention of small bowel; however, small bowel transit of contrast to the colon is normal. Dictated by: Dictated on workstation # [id number]
--- NOTE | 2020-02-04 16:50 | NUR ---
DR DSOUZA NOTIFIED THIS NURSE HE WOULD LIKE TO KEEP PT IN ICU FOR PAIN CONTROL AND EXTRA MONITORING. DR DSOUZA AWARE PT PAIN IS NOT CONTROLLED AT THIS TIME. THIS NURSE TO CALL EICU OR DR DSOUZA IF PAIN CONTINUES TO BE OUT OF CONTROL.
[2020-02-04] MEDS: ONDANSETRON 4 MG/2 ML (SDV) Z0FRAN IVP PRN (16:54)
[2020-02-04] MEDS: fentaNYL INJECTION 100 MCG/2 ML AMP IV PRN ×3 (16:56→23:35)
--- NOTE | 2020-02-04 17:19 | NUR ---
THIS NURSE NOTIFIED DR Terry WITH EICU THAT PT PAIN IS NOT UNDER CONTROL. THIS NURSE NOTIFIED DR Terry WHAT PAIN MEDICATIONS THE PT HAD RECEIVED IN RECOVERY, WHAT THIS NURSE HAD ADMINISTERED, AND THE PT WAS STILL MOANING IN PAIN AND HIS IS HEART RATE IN 140-150S. ORDER GIVEN FOR ONE TIME DOSE OF TORADOL. SEE ORDER HX. WILL CONTINUE TO MONITOR AND UPDATE EICU OF PT CONDITION. Addendum: 02/04/20 at 2017 by LEA MCMAHON RN THIS NURSE NOTIFIED DR Terry WITH EICU THAT PT PAIN IS NOT UNDER CONTROL. THIS NURSE NOTIFIED DR Terry WHAT PAIN MEDICATIONS THE PT HAD RECEIVED IN RECOVERY, WHAT THIS NURSE HAD ADMINISTERED, AND THE PT WAS STILL MOANING IN PAIN AND HIS HEART RATE IN 140-150S. ORDER GIVEN FOR ONE TIME DOSE OF TORADOL. SEE ORDER HX. WILL CONTINUE TO MONITOR AND UPDATE EICU OF PT CONDITION.
[2020-02-04] MEDS ORDERED: KETOROLAC 30 MG/ML VIAL ONE (17:25)
[2020-02-04] MEDS ORDERED: KETOROLAC 30 MG/ML VIAL IVP ONE (17:30)
--- NOTE | 2020-02-04 17:40 | NUR ---
THIS NURSE RECEIVED REPORT FROM DHARMESH MENARD ON FOURTH FLOOR.
[2020-02-04] MEDS ORDERED: RT-ALBUTEROL SULF 2.5 MG/3 ML PRE-MIX VIAL INH PRN (19:30)
--- NOTE | 2020-02-04 20:45 | NUR ---
Pt reports pain when blood pressure cuff inflates, and also when SCDs inflate. He states the pain travels to his abdomen and hurts. Pt also reports that his pain was better when he could "swallow my own saliva". This RN attempted therapeutic communication, discussed splinting with a pillow and discussed importance of early ambulation for pain control. Ice pack placed on abdomen, mouth swabs given with ice water for pt comfort.
[2020-02-04] MEDS ORDERED: WATER (STERILE) FOR INJECTION 10 ML ONE (21:01)
[2020-02-04] MEDS ORDERED: ceFAZolin INJECTION 1,000 MG ONE (21:01)
[2020-02-04] MEDS: ceFAZolin INJECTION 1,000 MG in WATER (STERILE) FOR INJECTION 10 ML IV SCH (21:22)
--- NOTE | 2020-02-04 21:30 | NUR ---
Pt has not yet urinated, this RN assisted pt get out of bed, therapeutic communication attempted, instructed at length on importance of early ambulation and deep breathing, utilizing IS at bedside and splinting to assist with pain. Pt states he feels like he has to urinate, but it hurts too bad for him to try. This RN attempted multiple techniques to assist pt, encouraged pt with getting up and ambulating at bedside, guided imagery, breathing techniques, etc to help with pain and assist pt with urination. Pt states he is in too much pain to urinate.
--- NOTE | 2020-02-04 21:44 | OPERATIVE REPORT ---
DATE OF SERVICE: 02/04/2020 PREOPERATIVE DIAGNOSIS: Small-bowel obstruction. POSTOPERATIVE DIAGNOSES: Small-bowel obstruction secondary to internal hernia due to adhesive bands, appendicolith, multiple adhesions. PROCEDURE: Exploratory laparotomy with release of small bowel obstruction secondary to internal hernia caused by adhesive bands, lysis of adhesions 40 minutes, appendectomy and decompression of small bowel. SURGEON: Philippe Jordan DO DEPARTMENT STORE DOOR GREETER: Dr. Simms, assisted in retraction, dissection and closure. ANESTHESIA: General. ESTIMATED BLOOD LOSS: 100 mL or minimum. INDICATIONS: The patient is a 19-year-old male who had a previous abdominal surgery a 1-day old unknown exactly what surgical intervention was, but approximately for the last 3 to 5 years he has been having episodes of abdominal pain, distention and symptoms that are consistent with bowel obstruction that has always resolved on its own, but continued to be occurring. He has been evaluated at other facilities and he states that nothing has ever been done. The patient was evaluated in the Emergency Department last night while he has been visiting a family member. He started having symptoms again, so he was evaluated in the Emergency Department and admitted. The patient had CT findings consistent with small bowel obstruction, which is suggestive of an internal hernia. The patient today was feeling better, but overall I do not feel his symptoms long-term will improve without surgical intervention. He understood risks and benefits of procedure, also discussed with his father, which they understand and wish to proceed. Consent was signed in the chart. DESCRIPTION OF PROCEDURE: The patient was taken to the operating suite. He was prepped and draped in sterile fashion. Timeout was performed. Midline incision was made. Cautery was used to dissect down to the subcutaneous tissue and the abdomen was then entered. The small bowel was extremely dilated and then begun to be run towards the right colon. There was an internal hernia noted created by 3 adhesive bands which were then cauterized and removed, freeing the defect. The small bowel was then continued to be ran noting multiple adhesions throughout the abdomen of small bowel. The small bowel which were then approximately 40 minutes were used freeing all of these adhesions. The small bowel was then able to be ran from the cecum, proximal still noting significant dilatation of the small bowel, but as it was continued to be ran the adhesions were continued to be dissected and freed with both cautery and Metzenbaums all the way to the ligament of Treitz. At this time, the area of distention, a small enterostomy was created and a pursestring suture was placed around it and the small bowel was then decompressed. This was then tied and then oversewn with 3-0 Vicryl. The small bowel again was then ran from the cecum all the way to the ligament of Treitz, noting an anastomosis near the cecum. The appendix was visualized, appeared to be slightly enlarged and it did feel to be an appendicolith. Therefore, the base was dissected around an Endo-STARLA 2.5 stapler was then fired across the base of the appendix. A 2.0 reload was then fired across the mesoappendix. A specimen was sent for pathology. The abdomen was then irrigated with copious amounts of irrigation and suction. The fascia was then closed using 1-0 looped PDS and the skin was then stapled closed. The area was washed and dried and sterile bandage was applied. The patient tolerated procedure well without any complications and taken to recovery room in stable condition. Job ID: [id number] DocumentID: [id number] Dictated Date: 02/04/2020 16:31:36 Networking Technology Instructor Date: 02/04/2020 21:43:40 Dictated By: DO CHUCK DELUCA
--- NOTE | 2020-02-04 23:50 | NUR ---
Pt requesting a Harley, reports being unable to urinate d/t "it hurts too much." Therapeutic communication attempted, urinal at bedside, this RN described the process at length, pt still agrees, says he "can't pee". Harley placed, see interventions. Importance of early ambulation discussed with pt, along with consequences of not moving frequently, Pt verbalized understanding, needs reinforcement.
[2020-02-05] VITALS (21 sets, daily range): BP systolic 104–131; BP diastolic 72–96
--- NOTE | 2020-02-05 00:52 | NUR ---
This RN to room, pt c/o pain rated 9/10 and "hot flashes". Pt reports that the pain is intensified by the SCD's. This RN attempted therapeutic communication, adjusted pillows/blankets, took SCD's off, refilled ice bag on abdomen. Pt states that the pain medication doesn't last very long. This RN educated pt again on guided imagery and breathing techniques, and called teleICU to request Tordol.
[2020-02-05] MEDS ORDERED: KETOROLAC 30 MG/ML VIAL ONE (01:22)
[2020-02-05] MEDS: KETOROLAC 30 MG/ML VIAL IVP PRN ×4 (01:27→21:29)
--- NOTE | 2020-02-05 01:30 | NUR ---
Pt called out, repeatedly hitting call button, crying, screaming, rating pain "24" out of 10. Tordol given for pain. Therapeutic communication attempted, breathing techniques attempted, pt continues to scream, stating "it hurts to breath, I can't do this", reports that if a family member could stay with him, it would help his pain. Repositioning attempted, pt to side of bed, this RN held pt's hand, coaching him again on breathing exercises and utilizing distraction techniques. Pt states "I can't breath like this, you might as well ventilate me." This RN again attempted therapeutic communication and encouraged pt with breathing exercises, distraction techniques, and guided imagery. Pt requesting nurses stay at his side all night "so you can be here when it hurts again."
[2020-02-05] MEDS: D5 1/2 NS W/KCL 20 MEQ/L 1,000 ML IV SCH ×3 (01:45→14:56)
[2020-02-05] MEDS: fentaNYL INJECTION 100 MCG/2 ML AMP IV PRN (02:02)
--- NOTE | 2020-02-05 02:09 | NUR ---
Prn fentanyl administered as ordered, pt contacted grandmother, requested her to come in and sit with him. This RN contacted cost control supervisor to approve exception for this visitor.
--- NOTE | 2020-02-05 02:35 | NUR ---
Pt c/o pain coming back, rating it "12 out of 10". Dr Jordan contacted, updated on pt condition, orders received for one-time ativan 0.25mg IV, and fentanyl ALL ROUND LOGGER.
[2020-02-05] MEDS ORDERED: fentaNYL INJECTION 1,000 MCG in NS (IVPB) 80 ML IV SCH (02:45)
[2020-02-05] MEDS ORDERED: LORazepam INJ 2 MG/ML (ATIVAN) VIAL ONE (02:45)
[2020-02-05] MEDS ORDERED: LORazepam INJ 2 MG/ML (ATIVAN) VIAL IVP ONE (02:45)
[2020-02-05] MEDS ORDERED: NALOXONE 0.4 MG/ML 1 ML (NARCAN) VIAL IV PRN (02:45)
[2020-02-05] MEDS ORDERED: NS (IVPB) 100 ML ONE (02:52)
[2020-02-05] MEDS ORDERED: fentaNYL (OMNICELL DRIP KIT ONLY) 250 MCG/5 ML AMP ONE (02:52)
[2020-02-05] MEDS ORDERED: FENTANYL IV SCH (03:00)
[2020-02-05] MEDS ORDERED: NS IV SCH (03:00)
--- NOTE | 2020-02-05 03:45 | NUR ---
Pt's gma at bedside, pt still c/o pain, is drowsy and appears comfortable. Pt repositioned, gma reports to this RN that pt is an anxious person. Pt and gma updated, all questions answered, will continue to monitor.
--- NOTE | 2020-02-05 05:14 | NUR ---
End-tidal CO2 monitoring has been on pt during this RN's entire shift, see interventions.
[2020-02-05] MEDS ORDERED: ceFAZolin INJECTION 1,000 MG ONE (05:22)
[2020-02-05] MEDS ORDERED: WATER (STERILE) FOR INJECTION 10 ML ONE (05:22)
[2020-02-05] MEDS: ceFAZolin INJECTION 1,000 MG in WATER (STERILE) FOR INJECTION 10 ML IV SCH (05:28)
[2020-02-05 06:08] LABS: HEMOGLOBIN 16.1 G/DL (13.3-17.7); MEAN PLATELET VOLUME 11.3 FL (7.4-10.4); WHITE BLOOD COUNT 8.3 10^3/uL (4.3-11.0)
[2020-02-05 06:34] LABS: BUN/CREATININE RATIO 12; CALCIUM 8.8 MG/DL (8.5-10.1); CARBON DIOXIDE 22 MMOL/L (21-32); CHLORIDE 107 MMOL/L (98-107); CREATININE SERUM 1.04 MG/DL (0.60-1.30); GFR ESTIMATED > 60; GLUCOSE 104 MG/DL (70-105); MAGNESIUM 1.6 MG/DL (1.6-2.4); POTASSIUM 4.6 MMOL/L (3.6-5.0); SODIUM 139 MMOL/L (135-145)
--- NOTE | 2020-02-05 08:01 | Progress Note - Surgery ---
JANETADRIANO MED STUDENT 02/05/20 0801: Subjective Date Seen by a Provider: Feb 05, 2020 Time Seen by a Provider: 07:42 Subjective/Events-last exam Pt in NAD but in visible discomfort sitting up in bed. States he has been having left sided abdominal pain radiating around his left side. Describes the pain as stabbing and is 12/10 at its worst and 4/10 currently. Incision site c/d/i and very tender. Pt says he is using IS but has struggled with it due to his pain. Denies n/v, fever, chills, sob, chest pain. Objective Exam Vital Signs Date Time Temp Pulse Resp B/P (MAP) Pulse Ox O2 Delivery O2 Flow Rate FiO2 02/05/20 07:44 16 02/05/20 07:00 113 17 97 Room Air 02/05/20 07:00 113 02/05/20 06:00 110 22 96 Room Air 02/05/20 05:00 102 15 113/75 (88) 96 Room Air 02/05/20 04:00 104 16 110/80 (90) 95 Room Air 02/05/20 04:00 Room Air 02/05/20 03:56 36.8 02/05/20 03:00 121 14 116/84 (95) 97 Room Air 02/05/20 03:00 Room Air 02/05/20 02:00 Room Air 02/05/20 02:00 112 12 104/86 (92) 92 Room Air 02/05/20 01:30 Room Air 02/05/20 01:00 87 02/05/20 01:00 Nasal Cannula 1.00 02/05/20 01:00 101 16 118/88 (98) 97 Nasal Cannula 1.00 02/05/20 00:00 Nasal Cannula 1.00 02/05/20 00:00 101 24 115/85 (95) 96 Nasal Cannula 1.00 02/04/20 23:54 Nasal Cannula 1.00 02/04/20 23:37 37.4 02/04/20 23:00 111 12 112/90 (97) 97 Nasal Cannula 2.00 02/04/20 23:00 Nasal Cannula 2.00 02/04/20 22:00 Nasal Cannula 2.00 02/04/20 22:00 110 12 116/82 (93) 96 Nasal Cannula 2.00 02/04/20 21:00 Nasal Cannula 2.00 02/04/20 21:00 87 15 121/89 (100) 98 Nasal Cannula 2.00 02/04/20 20:04 37.2 Nasal Cannula 2.00 02/04/20 20:00 87 19 112/72 (85) 96 Nasal Cannula 3.00 02/04/20 20:00 Nasal Cannula 3.00 02/04/20 20:00 Nasal Cannula 2.00 02/04/20 19:24 36.2 94 96 21 02/04/20 19:00 129 15 119/81 (94) 98 Nasal Cannula 3.00 02/04/20 19:00 Nasal Cannula 3.00 02/04/20 19:00 Nasal Cannula 3.00 02/04/20 19:00 123 02/04/20 18:00 95 12 128/80 (96) 97 Room Air 02/04/20 17:30 100 Nasal Cannula 3.00 02/04/20 17:00 117 12 141/85 (103) 96 Room Air 02/04/20 16:59 106 02/04/20 16:45 126 19 136/94 (108) 100 Room Air 02/04/20 16:30 36.2 20 141/88 (105) 100 Nasal Cannula 3 02/04/20 16:30 Nasal Cannula 3 02/04/20 16:20 20 151/95 (113) 99 Nasal Cannula 3 02/04/20 16:15 Nasal Cannula 3 02/04/20 16:10 20 140/87 (104) 100 Nasal Cannula 3 02/04/20 16:00 20 132/94 (107) 100 Nasal Cannula 3 02/04/20 16:00 Nasal Cannula 3 02/04/20 15:50 20 132/94 (107) 100 OxyMask 3 02/04/20 15:45 OxyMask 4 02/04/20 15:40 20 133/94 (107) 100 OxyMask 4 02/04/20 15:30 20 135/82 (99) 100 OxyMask 5 02/04/20 15:30 OxyMask 5 02/04/20 15:20 20 130/72 (91) 100 OxyMask 5 02/04/20 15:15 36.2 20 132/92 (105) 100 OxyMask 5 02/04/20 15:15 OxyMask 5 02/04/20 12:24 36.7 84 20 118/80 (93) 96 Room Air 02/04/20 08:01 99 Room Air 02/04/20 08:00 36.9 86 20 129/84 (99) 95 Room Air I & O 02/05/20 07:00 Intake Total 2030 ml Output Total 2000 ml Balance 30 ml Capillary Refill : Less Than 3 SecondsLess Than 3 Seconds General Appearance: No Apparent Distress, WD/WN, Anxious HEENT: PERRL/EOMI, Normal ENT Inspection, Other (NG Tube in place) Neck: Normal Inspection Respiratory: Chest Non Tender, No Accessory Muscle Use, No Respiratory Distress Cardiovascular: Regular Rate, Rhythm, No Edema Gastrointestinal: distended (minimal distention); No guarding, No rebound; tenderness (DIFFUSE RIGHT SIDED TENDERNESS, MOST TENDER IN RIGHT MID ABDOMEN) Extremity: Normal Inspection, Non Tender, No Calf Tenderness Neurologic/Psychiatric: Alert, Oriented x3, No Motor/Sensory Deficits, Normal Mood/Affect, 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 as Tested Skin: Normal Color, Warm/Dry Lymphatic: No Adenopathy Results Lab Laboratory Tests 02/05/20 05:35: White Blood Count 8.3, Red Blood Count 5.52, Hemoglobin 16.1, Hematocrit 48, Mean Corpuscular Volume 87, Mean Corpuscular Hemoglobin 29, Mean Corpuscular Hemoglobin Concent 34, Red Cell Distribution Width 13.3, Platelet Count 214, Mean Platelet Volume 11.3H, Sodium Level 139, Potassium Level 4.6, Chloride Level 107, Carbon Dioxide Level 22, Anion Gap 10, Blood Urea Nitrogen 12, Creatinine 1.04, Estimat Glomerular Filtration Rate > 60, BUN/Creatinine Ratio 12, Glucose Level 104, Calcium Level 8.8, Magnesium Level 1.6 Assessment/Plan Assessment/Plan Assessment/Plan small bowel obstruction history of bowel resection as child exlap post-op monitor incision site healing increase diet and activity as tolerated pain control Clinical Quality Measures DVT/VTE Risk/Contraindication: Risk Factor Score Per Nursin RFS Level Per Nursing on Admit: 2=Moderate MITALI JORDAN DO 02/05/20 1022: Subjective Subjective/Events-last exam Had trouble urinating and arreola had to be placed overnight. Patient pain hard to get under control. Better this morning. Pain around incision and at worst is 12/10. Not using IS much. Denies n/v fever sweats chills shortness of breath or chest pain. 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 as Tested Skin: Normal Color (incision c/d/i no signs of infection), Warm/Dry Lymphatic: No Adenopathy Assessment/Plan Assessment/Plan Assessment/Plan small bowel obstruction history of bowel resection as child s/p exlap release of sbo secondary to 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, appendectomy, lysis of adhesions, decompression of small bowel urinary retention arreola for accurate i/o and retention pain control 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 I rev iewed and verified all information documented by the medical student and made modifications to such information, when appropriate. I personally performed the physical exam and medical decision making. Mitali Jordan, Feb 05, 2020,10:22 ADRIANO GNOZALES MED STUDENT Feb 05, 2020 08:01 MITALI JORDAN DO Feb 05, 2020 10:22
[2020-02-05] MEDS: PANTOPRAZOLE 40 MG (PROTONIX) VIAL IV SCH (08:22)
[2020-02-05] MEDS: ONDANSETRON 4 MG/2 ML (SDV) Z0FRAN IV PRN (08:51)
--- NOTE | 2020-02-05 09:36 | NUR ---
jennifer dc per Dr Jordan.
--- NOTE | 2020-02-05 12:43 | Anesthesia-General Post-Op ---
General Patient Condition Mental Status/LOC: Same as Preop Cardiovascular: Satisfactory Nausea/Vomiting: Absent Respiratory: Satisfactory Pain: Controlled Complications: Absent Post Op Complications Complications None Follow Up Care/Instructions Patient Instructions None needed. Anesthesia/Patient Condition Patient Condition Patient is doing well, no complaints, stable vital signs, no apparent adverse anesthesia problems. No complications reported per nursing. DISHA RANGEL CRNA Feb 05, 2020 12:43
[2020-02-05] MEDS ORDERED: ENOXAPARIN 30 MG/0.3 ML (LOVENOX) SYR SC SCH (15:00)
--- NOTE | 2020-02-05 18:36 | NUR ---
THIS NURSE NOTIFIED E-ICU PT URINE OUT PUT HAS BEEN MINIMAL THAT LAST FEW HOURS AND THROUGHOUT THE DAY. PT IS ABLE TO TAKE SIPS OF WATER BUT IS NOT EATING. ORDER GIVEN. SEE ORDER HX.
[2020-02-05] MEDS: LACTATED RINGERS 500 ML IV SCH ×2 (18:45→22:10)
--- NOTE | 2020-02-05 20:30 | NUR ---
This Alliance Manager in to see pt per RN request, pt requesting someone to stay the night with him "or I don't know what is going to happen." Pt and grandmother at bedside, this HS visited in length with pt and grandmother. Pt appears very anxious, pt and grandmother and pt advised this HS that there were a lot of psycho-social issues that were going on with pt. This HS offered therapeutic communication, discussed the importance of mental health and counselors for helping with issues, social service consult placed.
[2020-02-06] VITALS (15 sets, daily range): BP systolic 94–132; BP diastolic 64–84
[2020-02-06] MEDS: D5 1/2 NS W/KCL 20 MEQ/L 1,000 ML IV SCH ×3 (00:19→18:37)
[2020-02-06 04:01] LABS: BASOPHILS % (AUTO) 0 % (0-10); EOSINOPHILS # (AUTO) 0.2 10^3/uL (0.0-0.3); EOSINOPHILS % (AUTO) 4 % (0-10); HEMATOCRIT 45 % (40-54); HEMOGLOBIN 14.9 G/DL (13.3-17.7); LYMPHOCYTES # (AUTO) 1.3 X 10^3 (1.0-4.0); LYMPHOCYTES % (AUTO) 25 % (12-44); MEAN CORPUSCULAR HEMOGLOBIN 30 PG (25-34); MEAN CORPUSCULAR HGB CONC 33 G/DL (32-36); MEAN CORPUSCULAR VOLUME 89 FL (80-99); MEAN PLATELET VOLUME 11.4 FL (7.4-10.4); MONOCYTES # (AUTO) 0.6 X 10^3 (0.0-1.0); MONOCYTES % (AUTO) 11 % (0-12); NEUTROPHILS # (AUTO) 3.2 X 10^3 (1.8-7.8); NEUTROPHILS % (AUTO) 60 % (42-75); PLATELET COUNT 159 10^3/uL (130-400); WHITE BLOOD COUNT 5.3 10^3/uL (4.3-11.0)
[2020-02-06 04:18] LABS: ALANINE AMINOTRANSFERASE 20 U/L (0-55); ALBUMIN 3.9 GM/DL (3.2-4.5); ALKALINE PHOSPHATASE 85 U/L (40-136); BILIRUBIN,TOTAL 0.9 MG/DL (0.1-1.0); BUN/CREATININE RATIO 11; CARBON DIOXIDE 22 MMOL/L (21-32); CHLORIDE 103 MMOL/L (98-107); CREATININE SERUM 1.08 MG/DL (0.60-1.30); GFR ESTIMATED > 60; GLUCOSE 102 MG/DL (70-105); POTASSIUM 4.4 MMOL/L (3.6-5.0); SODIUM 135 MMOL/L (135-145); TOTAL PROTEIN 6.8 GM/DL (6.4-8.2)
--- NOTE | 2020-02-06 07:44 | Progress Note - Surgery ---
JANETADRIANO MED STUDENT 02/06/20 0744: Subjective Date Seen by a Provider: Feb 06, 2020 Time Seen by a Provider: 07:20 Subjective/Events-last exam Pt much more comfortable today sitting up in bed. Says his pain is improved and he has been able to start moving around. Denies flatulence. Is improving using IS. Incision c/d/i. Denies n/v, fever, chills, sob, chest pain. Objective Exam Vital Signs Date Time Temp Pulse Resp B/P (MAP) Pulse Ox O2 Delivery O2 Flow Rate FiO2 02/06/20 07:39 16 02/06/20 06:00 69 15 100/67 (78) 99 Room Air 02/06/20 05:00 74 16 100/66 (77) 98 Room Air 02/06/20 04:18 37.0 02/06/20 04:00 100 Room Air 02/06/20 04:00 71 25 111/69 (83) 100 Room Air 02/06/20 03:00 84 20 116/78 (91) 99 Room Air 02/06/20 02:00 67 15 94/64 (74) 99 Room Air 02/06/20 01:59 97 Room Air 02/06/20 01:00 75 02/06/20 01:00 75 16 100/66 (77) 96 Room Air 02/06/20 00:00 100 Room Air 02/06/20 00:00 90 18 108/78 (88) 96 Room Air 02/05/20 23:46 37.2 02/05/20 23:00 84 17 112/75 (87) 98 Room Air 02/05/20 22:00 83 23 110/76 (87) 98 Room Air 02/05/20 21:00 16 02/05/20 21:00 94 23 131/82 (98) 99 Room Air 02/05/20 20:22 37.4 02/05/20 20:00 85 10 117/80 (92) 100 Room Air 02/05/20 20:00 100 Room Air 02/05/20 19:00 87 25 107/73 (84) 99 Room Air 02/05/20 19:00 87 02/05/20 16:00 100 Room Air 02/05/20 16:00 87 18 117/76 (90) 99 Room Air 02/05/20 15:00 97 23 116/96 (103) 98 Room Air 02/05/20 14:00 102 19 108/90 (96) 97 Room Air 02/05/20 13:00 113 29 117/89 (98) 98 Room Air 02/05/20 12:39 110 02/05/20 12:00 110 29 105/85 (92) 97 Room Air 02/05/20 11:43 100 Room Air 02/05/20 11:30 36.8 02/05/20 11:00 110 14 111/82 (92) 99 Room Air 02/05/20 10:00 111 33 109/79 (89) 92 Room Air 02/05/20 09:00 112 12 117/72 (87) 96 Room Air 02/05/20 08:00 100 Room Air 02/05/20 08:00 113 13 124/86 (99) 97 Room Air 02/05/20 08:00 37.5 02/05/20 07:44 16 I & O 02/06/20 07:00 Intake Total 600 ml Output Total 1250 ml Balance -650 ml Capillary Refill : Less Than 3 SecondsLess Than 3 Seconds General Appearance: No Apparent Distress, WD/WN, Anxious HEENT: PERRL/EOMI, Normal ENT Inspection, Other (NG Tube in place) Neck: Normal Inspection Respiratory: Chest Non Tender, No Accessory Muscle Use, No Respiratory Distress Cardiovascular: No Edema, Tachycardia Gastrointestinal: soft, distended (minimal distention); No guarding, No rebound; tenderness (incisional) Extremity: Normal Inspection, Non Tender, No Calf Tenderness Neurologic/Psychiatric: Alert, Oriented x3, No Motor/Sensory Deficits, Normal Mood/Affect, 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 Norm as Tested Skin: Normal Color (incision c/d/i no signs of infection), Warm/Dry Lymphatic: No Adenopathy Results Lab Laboratory Tests 02/06/20 03:49: White Blood Count 5.3, Red Blood Count 5.04, Hemoglobin 14.9, Hematocrit 45, Mean Corpuscular Volume 89, Mean Corpuscular Hemoglobin 30, Mean Corpuscular Hemoglobin Concent 33, Red Cell Distribution Width 13.3, Platelet Count 159, Mean Platelet Volume 11.4H, Neutrophils (%) (Auto) 60, Lymphocytes (%) (Auto) 25, Monocytes (%) (Auto) 11, Eosinophils (%) (Auto) 4, Basophils (%) (Auto) 0, Neutrophils # (Auto) 3.2, Lymphocytes # (Auto) 1.3, Monocytes # (Auto) 0.6, Eosinophils # (Auto) 0.2, Basophils # (Auto) 0.0, Sodium Level 135, Potassium Level 4.4, Chloride Level 103, Carbon Dioxide Level 22, Anion Gap 10, Blood Urea Nitrogen 12, Creatinine 1.08, Estimat Glomerular Filtration Rate > 60, BUN/Creatinine Ratio 11, Glucose Level 102, Calcium Level 9.0, Corrected Calcium 9.1, Total Bilirubin 0.9, Aspartate Amino Transf (AST/SGOT) 25, Alanine Aminotransferase (ALT/SGPT) 20, Alkaline Phosphatase 85, Total Protein 6.8, Albumin 3.9 Microbiology 02/04/20 MRSA Screen - Final, Complete MRSA not isolated Assessment/Plan Assessment/Plan Assessment/Plan small bowel obstruction history of bowel resection as child s/p exlap release of sbo secondary to 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 Ambulating. Using IS some. No bowel function. Harley removed and urinating. Denies n/v fever sweats chills shortness of breath or chest pain. Objective Exam General Appearance: No Apparent Distress, WD/WN, Anxious HEENT: PERRL/EOMI, Normal ENT Inspection Neck: Normal Inspection, Non Tender Respiratory: Chest Non Tender, No Accessory Muscle Use, No Respiratory Distress Cardiovascular: Regular Rate, Rhythm, No Edema Gastrointestinal: soft, distended (minimal distention); No guarding, No rebound; tenderness (incisional, incision c/d/i no erythema) Extremity: Normal Inspection, Non Tender, No Calf Tenderness Neurologic/Psychiatric: Alert, Oriented x3, No Motor/Sensory Deficits, Normal Mood/Affect, 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 Norm as Tested Skin: Normal Color, Warm/Dry Lymphatic: No Adenopathy Assessment/Plan Assessment/Plan Assessment/Plan small bowel obstruction history of bowel resection as child s/p exlap release of sbo secondary to 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 I reviewed and verified all information documented by the medical student and made modifications to such information, when appropriate. I personally performed the physical exam and medical decision making. Mitali Jordan, Feb 06, 2020,17:52 ADRIANO GONZALES MED STUDENT Feb 06, 2020 07:44 MITALI JORDAN DO Feb 07, 2020 07:52
[2020-02-06] MEDS: PANTOPRAZOLE 40 MG (PROTONIX) VIAL IV SCH (08:26)
--- NOTE | 2020-02-06 09:00 | NUR ---
[place] CATHETER REMOVED WITHOUT DIFFICULTIES. PT TO SEE PATIENT AND HE WALKED WITH ONLY SBA AROUND ICU X2. PT DID WELL. ENCOURAGED USE OF IS. PT STATES IT HURTS TO DO IT. ADVISED PATIENT TO USE 10X HR AND EDUCATED ON RISK OF PNEUMONIA IF CONTINUE TO BREATH SHALLOW.
--- NOTE | 2020-02-06 09:39 | Physical Therapy Evaluation ---
PT Evaluation-General Medical Diagnosis Admission Date Feb 03, 2020 at 19:35 Medical Diagnosis: small bowel obstruction Onset Date: Feb 03, 2020 Therapy Diagnosis Therapy Diagnosis: debility Precautions Precautions/Isolations: Fall Prevention, Standard Precautions Weight Bear Status Right Lower Extremity: Right Weight Bearing/Tolerated Left Lower Extremity: Left Weight Bearing/Tolerated Referral Physician: Nikki Reason for Referral: Evaluation/Treatment Medical History Current History ER with abdominal pain Reviewed History: Yes Social History Home: Single Level Current Living Status: Alone Prior Prior Level of Function SCALE: Activities may be completed with or without assistive devices. 0-Millojjltz-exwygsx completes the activity by him/herself with no assistance from a helper. 5-Set-up or Clean-up Assistance-helper sets up or cleans up; patient completes activity. Ethel assists only prior to or following the activity. 4-Supervision or Touching Assistance-helper provides verbal cues and/or touching/steadying and/or contact guard assistance as patient completes activity. Assistance may be provided throughout the activity or intermittently. 3-Partial/Moderate Assistance-helper does LESS THAN HALF the effort. Ethel lifts, holds or supports trunk or limbs, but provides less than half the effort. 2-Substantial/Maximal Assistance-helper does MORE THAN HALF the effort. Ethel lifts or holds trunk or limbs and provides more than half the effort. 1-Ozcgbkrxk-xxuuvm does ALL the effort. Patient does none of the effort to complete the activity. Or, the assistance of 2 or more helpers is required for the patient to complete the activity. If activity was not attempted, code reason: 7-Patient Refused. 9-Not Applicable-not attempted and the patient did not perform the activity before the current illness, exacerbation or injury. 10-Not Attempted due to Environmental Limitations-(lack of equipment, weather restraints, etc.). 88-Not Attempted due to Medical Conditions or Safety Concerns. Bed Mobility: 6 Transfers (B,C,W/C): 6 Gait: 6 Stairs: 6 Indoor Mobility (Ambulation): Independent Stairs: Independent Prior Devices Use: None PT Evaluation-Current Subjective Patient agrees to PT. He reports his pain is under control. Pain Numeric Pain Scale: 5-Moderate Pain Location: Medial, Lower Location Body Site: Abdomen Pain Description: Acute Objective Patient Orientation: Normal For Age Attachments: Oxygen, IV ROM/Strength ROM Lower Extremities bilateral LE WFL Strength Lower Extremities 5/5 grossly bilateral LE Integumentary/Posture Integumentary refer to nursing notes Bowel Incontinence: No Bladder Incontinence: No Posture slightly kyphotic due to abdominal pain Neuromuscular (Tone, Coordination, Reflexes) grossly intact Sensory Vision: Wears Glasses Hearing: Functional Sensation Right Lower Extremit: Intact Sensation Left Lower Extremity: Intact Transfers Roll Left to Right (QC): 6 Sit to Lying (QC): 6 Lying to Sitting/Side of Bed(Q: 6 Sit to Stand (QC): 6 Chair/Cqb-jw-Cmzie Xfer(QC): 6 Gait Does the Patient Walk?: Yes Mode of Locomotion: Walk Anticipated Mode of Locomotion: Walk Walk 10 feet (QC): 6 Walk 50 ft with 2 Turns(QC): 6 Walk 150 ft (QC): 6 Distance: 700' Gait Assistive Device: None Comments/Gait Description safe and functional with no deviation Balance Sitting Static: Normal Sitting Dynamic: Normal Standing Static: Normal Standing Dynamic: Normal Assessment/Needs 19 y.o. male, is currently at [facility] with gross motor skills and does not require skilled therapy intervention. Patient and family have been instructed to ambulate PRN in hallway. RN notified. Rehab Potential: Good PT Plan Treatment/Plan Treatment Plan: Discontinue PT, goals met Treatment Duration: Feb 06, 2020 Frequency: 1 time per week Estimated Hrs Per Day: .25 hour per day Patient and/or Family Agrees t: Yes Time/GCodes Time In: 910 Time Out: 920 Total Billed Treatment Time: 10 Total Billed Treatment 1 visit EVLowC 10 min CARLOS GARCIA PT Feb 06, 2020 09:39
--- NOTE | 2020-02-06 10:10 | NUR ---
REPORT GIVEN TO BOB MENARD AND PATIENT TRANSPORTED TO ROOM 422 VIA WHEELCHAIR. PATIENT ASKED GRANDMOTHER TO HELP HIM GET UP. THIS RN ASKED PATIENT TO TRY HIMSELF AND HE DID INDEPENDENTLY WITH NO DIFFICULTIES. PT DOES REPORT A GAS TYPE PAIN AND FULLNESS IN HIS ABDOMEN WHEN HE STANDS UP AND TRIES TO SIT DOWN. ALL PATIENTS BELONGINGS WITH PATIENT UPON TRANSFER. GRANDMOTHER AT SIDE. BOB MENARD AT BEDSIDE UPON ENTERING ROOM.
[2020-02-06] MEDS: KETOROLAC 30 MG/ML VIAL IVP PRN ×2 (10:40→22:34)
[2020-02-06] MEDS: fentaNYL INJECTION 100 MCG/2 ML AMP IV PRN ×2 (12:18→16:03)
[2020-02-06] MEDS ORDERED: OMEP20TA33 PO (13:09)
[2020-02-06] MEDS ORDERED: ACET325T38 PO (13:09)
[2020-02-06] MEDS ORDERED: IBUP-2185 PO (13:09)
--- NOTE | 2020-02-06 13:37 | NUR ---
SPOKE WITH PT TO COMPLETE THE MED REC PT DENIES TAKING ANY PRESCRIPTION MEDICATION OTC MEDS: PRILOSEC TYLENOL IBUPROFEN I DID ENTER [place] FOR THE PATIENTS PREFERRED PHARMACY PT THOUGHT THAT WOULD BE THE MOST CONVENIENT TO STOP AT
--- NOTE | 2020-02-06 13:53 | NUR ---
"RD ASSESSMENT PMHx: hx of gastrointestinal resection as infant; Current - SBO PT INTERACTION: Pt was awake and pleasant during dietary consult for MST score. Pt states current appetite is poor. Note pt has been NPO x2d, per chart review. Pt states following a regular diet at home, and has no issues with chewing/swallowing food. Pt states some recent issues with constipation and diarrhea, and that his last BM was 01/31. Note pt not currently on bowel regimen per chart review. Pt states recent 30# wt loss x7mon. This is 15% x7mon. Note unable to determine recent wt hx, per chart review. Upon visual assessment, pt appears to be adequately nourished with no visible signs of muscle/fat wasting, and a BMI of 21.4 (Normal BMI for age). Though PO intake is poor, given visual assessment and wt hx, pt does not meet criteria for malnutrition per ASPEN guidelines at this time. ABNORMAL NUTRITION-RELATED LAB VALUES Labs WNL at this time Est. kcal needs: 1875 kcal | 25 kcal/kg Est. Pro needs: 60 g Pro | 0.8 g Pro/kg PES STATEMENT: Inadequate oral intake (NI-2.1) related to loss of appetite | constipation | diarrhea | NPO status as evidenced by pt interview | chart review INTERVENTION: Note pt is currently NPO. Would recommend diet advancement as medically able and as tolerated, to avoid increased risk of malnutrition. Will continue to follow and reassess as pt needs, intake, and status change. MONITOR/EVALUATE: PO Intake; Plan of Care; Hydration Status; Weight Status; Lab Values Cande Hubbard, MS, RD, LD"
[2020-02-06] MEDS ORDERED: RT-ALBUTEROL SULF 2.5 MG/3 ML PRE-MIX VIAL INH PRN (14:00)
[2020-02-06] MEDS: LORazepam INJ 2 MG/ML (ATIVAN) VIAL IVP PRN ×2 (16:04→22:34)
[2020-02-06] MEDS: ENOXAPARIN 40 MG/0.4 ML (LOVENOX) SYR SC SCH (16:06)
[2020-02-07] MEDS: D5 1/2 NS W/KCL 20 MEQ/L 1,000 ML IV SCH ×4 (03:01→20:17)
[2020-02-07 03:30] VITALS: BP 140/93
[2020-02-07] MEDS: ONDANSETRON 4 MG/2 ML (SDV) Z0FRAN IV PRN ×3 (03:31→16:45)
[2020-02-07] MEDS: fentaNYL INJECTION 100 MCG/2 ML AMP IV PRN ×4 (03:31→21:47)
[2020-02-07] MEDS: KETOROLAC 30 MG/ML VIAL IVP PRN ×3 (05:51→19:33)
--- NOTE | 2020-02-07 07:19 | Progress Note - Surgery ---
JANETADRIANO MED STUDENT 02/07/20 0719: Subjective Date Seen by a Provider: Feb 07, 2020 Time Seen by a Provider: 07:05 Subjective/Events-last exam Pt comfortable sitting up in bed. Reports and episode of emesis overnight of little volume. Believes episode was due to the pain he is in. Abdomen still diffusely sore but tenderness seems improved. Tolerated increase in activity and IS usage well yesterday. Pt also states he experienced some flatulence this morning. Incision site c/d/i. Denies fever, chills, sob, chest pain. Objective Exam Vital Signs Date Time Temp Pulse Resp B/P (MAP) Pulse Ox O2 Delivery O2 Flow Rate FiO2 02/07/20 03:30 37.2 89 18 140/93 (109) 98 Room Air 02/06/20 23:55 37.1 94 18 129/76 (93) 98 Room Air 02/06/20 21:20 Room Air 02/06/20 21:20 37.4 107 20 132/84 (100) 98 Room Air 02/06/20 15:30 36.6 82 20 117/75 (89) 100 Room Air 02/06/20 12:53 36.6 84 99 21 02/06/20 12:00 36.6 85 16 117/72 (87) 97 Room Air 02/06/20 09:00 90 16 122/78 (93) 98 Room Air 02/06/20 08:00 75 19 105/77 (86) 100 Room Air 02/06/20 07:42 36.7 02/06/20 07:40 100 Room Air 02/06/20 07:39 16 I & O 02/07/20 07:00 Intake Total 175 ml Output Total 2350 ml Balance -2175 ml Capillary Refill : Less Than 3 SecondsLess Than 3 Seconds General Appearance: No Apparent Distress, WD/WN, Anxious HEENT: PERRL/EOMI, Normal ENT Inspection, Other (NG Tube in place) Neck: Normal Inspection Respiratory: Chest Non Tender, No Accessory Muscle Use, No Respiratory Distress Cardiovascular: No Edema, Tachycardia Gastrointestinal: soft, distended (minimal distention); No guarding, No rebound; tenderness (incisional) Extremity: Normal Inspection, Non Tender, No Calf Tenderness Neurologic/Psychiatric: Alert, Oriented x3, No Motor/Sensory Deficits, Normal Mood/Affect, buyer planner II-XII Norm as Tested Skin: Normal Color (incision c/d/i no signs of infection), Warm/Dry Lymphatic: No Adenopathy Results Lab Microbiology 02/04/20 MRSA Screen - Final, Complete MRSA not isolated Assessment/Plan Assessment/Plan Assessment/Plan small bowel obstruction history of bowel resection as child s/p exlap release of sbo secondary to 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, appendectomy, lysis of adhesions, decompression of small bowel pain control on fentanyl 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 Had nose bleed. Pain better. Pass some flatus/diarrhea. Minimal use of IS. Ambulating some. Denies fever sweats chills shortness of breath or chest pain. Objective Exam General Appearance: No Apparent Distress HEENT: PERRL/EOMI Neck: Normal Inspection Respiratory: Chest Non Tender, No Accessory Muscle Use, No Respiratory Distress Cardiovascular: Regular Rate, Rhythm, No Edema Gastrointestinal: soft, distended (minimal distention); No guarding, No rebound; tenderness (incisional) Neurologic/Psychiatric: Alert, Oriented x3, No Motor/Sensory Deficits, Normal Mood/Affect Skin: Normal Color (incision c/d/i no signs of infection), Warm/Dry Lymphatic: No Adenopathy Assessment/Plan Assessment/Plan Assessment/Plan small bowel obstruction history of bowel resection as child s/p exlap release of sbo secondary to 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, appendectomy, lysis of adhesions, decompression of small bowel increase use of is increase activity clears since started having bowel function if emesis will replace NG Supervisory-Addendum Brief Verification & Attestation Participated in pt care: history, MDM, physical Personally performed: exam, history, MDM, supervision of care Care discussed with: Medical Student Procedures: n/a Results interpretation: Verified all documentation Verification and Attestation of Medical Student E/M Service A medical student performed and documented this service in my presence. I reviewed and verified all information documented by the medical student and made modifications to such information, when appropriate. I personally performed the physical exam and medical decision making. Mitali Jordan, Feb 07, 2020,08:26 ADRIANO GONZALES MED STUDENT Feb 07, 2020 07:19 MITALI JORDAN DO Feb 08, 2020 08:26
--- NOTE | 2020-02-07 07:20 | NUR ---
pt is in no respiratory distress at this time. pt is feeling nauseated. pt denies any problems breathing. pt is on room air at this time. Addendum: 02/07/20 at 1037 by JENNIFER RASHID RT Amended: Links added.
[2020-02-07 08:00] VITALS: BP 136/99
[2020-02-07] MEDS: PANTOPRAZOLE 40 MG (PROTONIX) VIAL IV SCH (08:32)
--- NOTE | 2020-02-07 08:50 | NUR ---
PT RELUCTANT AT FIRST BUT AGREED TO AMBULATE IN HALLWAY WITH THIS RN . REPORTS HE IS DIZZY AND HIS PAIN IS TO BAD TO AMBULATE BUT THAT HE WILL TRY, ALSO STATES HE MAY NEED TO SIT IN A CHAIR IN THE HALLWAY LIKE HE HAD TO DO YESTERDAY. PT WAS GIVEN PILLOW TO HOLD TO ABDOMEN AND WAS ABLE TO STAND UP FROM CHAIR ON HIS OWN WITH DIRECTIONS FROM THIS RN. PT AMBULATED 300 FT IN HALLWAY AND TOLERATED FAIRLY. PT REPORTS GAS PAINS, EDUCATED PT ON CONTINUING TO AMBULATING TO HELP WITH THE GAS PAINS. PAIN MEDIATION WAS GIVEN AT 0830 PRIOR TO AMBULATING.
--- NOTE | 2020-02-07 10:09 | NUR ---
CM/SS: Visited with pt as to plan for discharge and per consult related to mental health needs Plan: Pt reports going to his aunts home who lives local prior to returning home with his father and sister in [place], [place] Summary: Pt reports that he feels as if he is going to vomit as he has already and that he thinks he will again. Pt reports that he has been previously living at home with his dad and sister age 13 and that his mother of brain cancer and breast cancer in 2011. Pt was in counseling services throughout high school and no longer attends counseling. Was unable to pursue this further as pt was talking about being sick and going to vomit again. Note: Pt never vomited during this worker visit, only indicated that he felt like it. Pt does share that he has the support of his grandparents and that they have been able to come and see him. Pt report he has graduated from high school in 2019 and he went to [employer] through [employer] for [employer]. Pt has had a couple of jobs. One he shares he was fired from as he backed a $70,000 truck through a closed garage. Pt reports currently he is looking for a job. Pt continues to share that he going to be sick. Pt reports that he thought he was feeling better until this morning and then he vomited and reports he is not better. Pt is encouraged to think positive thoughts and know that he will have pain, and should feel a little better each day. Pt disagrees with that. Pt request to talk later as he is not feeling well at this time. Pt does share that a grand father will plan to visit today. This worker will follow up.
--- NOTE | 2020-02-07 10:47 | NUR ---
PT REPORTS PASSING GAS AND X1 MED LOOSE BM THIS AM PT NOTED TO HAVE X1 EMESIS AT 0915 THIS AM. CLEAR LIQUID BILE. HR RANGING FROM 100-108. 1030 PT HAD X1 EMESIS PER AIDE THAT SMELLED LIKE BM AND WAS BROWN IN COLOR. VS OBTAINED: 36.6 TEMP 101 HR 20 RESP. 97% ON RA BP 129/88. DR DSOUZA NOTIFIED VIA PHONE. ORDER RECEIVED TO GIVE PRN ATIVAN AND TO ORDER CBC,BMP,MAG AT THIS TIME.
[2020-02-07] MEDS: LORazepam INJ 2 MG/ML (ATIVAN) VIAL IVP PRN ×2 (10:59→21:47)
[2020-02-07 11:33] LABS: BASOPHILS % (AUTO) 0 % (0-10); EOSINOPHILS # (AUTO) 0.1 10^3/uL (0.0-0.3); EOSINOPHILS % (AUTO) 2 % (0-10); HEMATOCRIT 47 % (40-54); HEMOGLOBIN 15.4 G/DL (13.3-17.7); LYMPHOCYTES # (AUTO) 0.3 X 10^3 (1.0-4.0); LYMPHOCYTES % (AUTO) 6 % (12-44); MEAN CORPUSCULAR HEMOGLOBIN 29 PG (25-34); MEAN CORPUSCULAR HGB CONC 33 G/DL (32-36); MEAN CORPUSCULAR VOLUME 88 FL (80-99); MEAN PLATELET VOLUME 10.7 FL (7.4-10.4); MONOCYTES # (AUTO) 0.5 X 10^3 (0.0-1.0); MONOCYTES % (AUTO) 9 % (0-12); NEUTROPHILS # (AUTO) 4.1 X 10^3 (1.8-7.8); NEUTROPHILS % (AUTO) 83 % (42-75); PLATELET COUNT 200 10^3/uL (130-400)
[2020-02-07 11:59] LABS: BUN/CREATININE RATIO 10; CALCIUM 9.8 MG/DL (8.5-10.1); CARBON DIOXIDE 21 MMOL/L (21-32); CHLORIDE 103 MMOL/L (98-107); CREATININE SERUM 0.86 MG/DL (0.60-1.30); GFR ESTIMATED > 60; GLUCOSE 134 MG/DL (70-105); MAGNESIUM 2.1 MG/DL (1.6-2.4); POTASSIUM 4.7 MMOL/L (3.6-5.0); SODIUM 137 MMOL/L (135-145)
[2020-02-07 12:00] VITALS: BP 133/92
[2020-02-07] MEDS: ENOXAPARIN 40 MG/0.4 ML (LOVENOX) SYR SC SCH ×2 (15:16→16:00)
[2020-02-07 15:44] VITALS: BP 134/94
--- NOTE | 2020-02-07 16:00 | NUR ---
LOVENOX HELD TODAY PER DR DSOUZA ORDER D/T PT HAVING NOSE BLEEDS.
[2020-02-07] MEDS: ONDANSETRON 4 MG/2 ML (SDV) Z0FRAN IVP PRN (19:33)
[2020-02-07 19:38] VITALS: BP 133/87
[2020-02-08] VITALS (7 sets, daily range): BP systolic 111–143; BP diastolic 66–99
[2020-02-08] MEDS: fentaNYL INJECTION 100 MCG/2 ML AMP IV PRN ×7 (00:56→23:32)
--- NOTE | 2020-02-08 01:11 | NUR ---
This RN notified Dr. Jordan at 0034 on 02/08/20. was notified pt this pt was expieriencing consistent vommiting of brown bile, a firm/distended abdomen, chest pain from gas, and and increase in swelling of the pt's right testicle (testicle is more swollen/warm). ordered a NG tube in the left nare on low intermittent suction and was notified of the pt's frequent nose bleeds and that we are holding lovenox. A NG tube was then placed in the pt's left nare, and immediately drained 1,600 mL of brown/green bile on continuous low suction. Once drainage started to slow, we placed suction on low intermittent. Will continue to monitor pt's status.
[2020-02-08] MEDS: KETOROLAC 30 MG/ML VIAL IVP PRN ×4 (01:54→20:45)
[2020-02-08 05:10] LABS: BASOPHILS % (AUTO) 0 % (0-10); EOSINOPHILS # (AUTO) 0.2 10^3/uL (0.0-0.3); EOSINOPHILS % (AUTO) 2 % (0-10); HEMATOCRIT 41 % (40-54); LYMPHOCYTES # (AUTO) 0.8 X 10^3 (1.0-4.0); LYMPHOCYTES % (AUTO) 14 % (12-44); MEAN CORPUSCULAR HEMOGLOBIN 30 PG (25-34); MEAN CORPUSCULAR HGB CONC 34 G/DL (32-36); MEAN CORPUSCULAR VOLUME 87 FL (80-99); MEAN PLATELET VOLUME 10.7 FL (7.4-10.4); MONOCYTES # (AUTO) 0.7 X 10^3 (0.0-1.0); MONOCYTES % (AUTO) 11 % (0-12); NEUTROPHILS # (AUTO) 4.5 X 10^3 (1.8-7.8); NEUTROPHILS % (AUTO) 73 % (42-75); PLATELET COUNT 225 10^3/uL (130-400); WHITE BLOOD COUNT 6.2 10^3/uL (4.3-11.0)
[2020-02-08 05:37] LABS: BUN/CREATININE RATIO 12; CARBON DIOXIDE 25 MMOL/L (21-32); CHLORIDE 101 MMOL/L (98-107); CREATININE SERUM 1.01 MG/DL (0.60-1.30); GFR ESTIMATED > 60; GLUCOSE 134 MG/DL (70-105); MAGNESIUM 1.9 MG/DL (1.6-2.4); POTASSIUM 4.3 MMOL/L (3.6-5.0); SODIUM 139 MMOL/L (135-145)
[2020-02-08] MEDS: ONDANSETRON 4 MG/2 ML (SDV) Z0FRAN IV PRN (06:06)
--- NOTE | 2020-02-08 07:45 | NUR ---
DR DSOUZA NOTIFIED OF PAIN RATING AND NG OUTPUT OVERNIGHT. ABD X-RAY ORDERED
--- NOTE | 2020-02-08 07:57 | NUR ---
Initial Spiritual Care visit by PRN Associate Land Law Examineradalid Chand.
--- NOTE | 2020-02-08 07:58 | Progress Note - Surgery ---
ABBIELEOBARDO MED STUDENT 02/08/20 0758: Subjective Date Seen by a Provider: Feb 08, 2020 Time Seen by a Provider: 07:45 Subjective/Events-last exam Pt in severe pain this morning and experiencing constant nausea with no vomiting since yesterday, although he vomited 10-15 times yesterday. He has new onset LUQ/chest pain that began last night which is sharp and comes in waves rated at a 10/10 at times. Incision site c/d/i. He denies shortness of breath and fevers. Objective Exam Vital Signs Date Time Temp Pulse Resp B/P (MAP) Pulse Ox O2 Delivery O2 Flow Rate FiO2 02/08/20 04:00 37.0 112 18 132/94 (107) 98 Room Air 02/08/20 00:00 37.6 136 18 143/84 (103) 96 Room Air 02/07/20 19:52 100 Room Air 02/07/20 19:38 37.7 109 20 133/87 (102) 96 Room Air 02/07/20 18:45 Room Air 02/07/20 15:44 37.1 99 20 134/94 (107) 99 Room Air 02/07/20 12:00 37.1 109 20 133/92 (106) 99 Room Air 02/07/20 09:00 100 Room Air 02/07/20 08:00 37.0 108 20 136/99 (111) 100 Room Air I & O 02/08/20 07:00 Intake Total 1200 ml Output Total 2100 ml Balance -900 ml Capillary Refill : Less Than 3 SecondsLess Than 3 Seconds General Appearance: WD/WN, Anxious HEENT: PERRL/EOMI Respiratory: No Chest Non Tender; Lungs Clear, Normal Breath Sounds, No Accessory Muscle Use, No Respiratory Distress Cardiovascular: No Edema, No Murmur, Tachycardia Gastrointestinal: soft, tenderness Neurologic/Psychiatric: Alert, Oriented x3, No Motor/Sensory Deficits, Normal Mood/Affect, mender knit goods II-XII Norm as Tested Skin: Normal Color, Warm/Dry Results Lab Laboratory Tests 02/07/20 11:28: White Blood Count 5.0, Red Blood Count 5.29, Hemoglobin 15.4, Hematocrit 47, Mean Corpuscular Volume 88, Mean Corpuscular Hemoglobin 29, Mean Corpuscular Hemoglobin Concent 33, Red Cell Distribution Width 13.2, Platelet Count 200, Mean Platelet Volume 10.7H, Neutrophils (%) (Auto) 83H, Lymphocytes (%) (Auto) 6L, Monocytes (%) (Auto) 9, Eosinophils (%) (Auto) 2, Basophils (%) (Auto) 0, Neutrophils # (Auto) 4.1, Lymphocytes # (Auto) 0.3L, Monocytes # (Auto) 0.5, Eosinophils # (Auto) 0.1, Basophils # (Auto) 0.0, Sodium Level 137, Potassium Level 4.7, Chloride Level 103, Carbon Dioxide Level 21, Anion Gap 13, Blood Urea Nitrogen 9, Creatinine 0.86, Estimat Glomerular Filtration Rate > 60, BUN/Creatinine Ratio 10, Glucose Level 134H, Calcium Level 9.8, Magnesium Level 2.1 02/08/20 04:55: White Blood Count 6.2, Red Blood Count 4.71, Hemoglobin 14.0, Hematocrit 41, Mean Corpuscular Volume 87, Mean Corpuscular Hemoglobin 30, Mean Corpuscular Hemoglobin Concent 34, Red Cell Distribution Width 12.8, Platelet Count 225, Mean Platelet Volume 10.7H, Neutrophils (%) (Auto) 73, Lymphocytes (%) (Auto) 14, Monocytes (%) (Auto) 11, Eosinophils (%) (Auto) 2, Basophils (%) (Auto) 0, Neutrophils # (Auto) 4.5, Lymphocytes # (Auto) 0.8L, Monocytes # (Auto) 0.7, Eosinophils # (Auto) 0.2, Basophils # (Auto) 0.0, Sodium Level 139, Potassium Level 4.3, Chloride Level 101, Carbon Dioxide Level 25, Anion Gap 13, Blood Urea Nitrogen 12, Creatinine 1.01, Estimat Glomerular Filtration Rate > 60, BUN/Creatinine Ratio 12, Glucose Level 134H, Calcium Level 9.0, Magnesium Level 1.9 Microbiology 02/04/20 MRSA Screen - Final, Complete MRSA not isolated Assessment/Plan Assessment/Plan Assessment/Plan small bowel obstruction history of bowel resection as child s/p exlap release of sbo secondary to 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, appendectomy, lysis of adhesions, decompression of small bowel Clinical Quality Measures DVT/VTE Risk/Contraindication: Risk Factor Score Per Nursin RFS Level Per Nursing on Admit: 2=Moderate PHILIPPE JORDAN DO 02/08/20 0950: Subjective Subjective/Events-last exam Having nausea and vomiting. Ng tub placed. Luq abd pain. comes and goes. Anxious. Denies fever sweats chills shortness of breath or chest pain. minimal ambulation/use of IS Objective Exam General Appearance: Anxious HEENT: PERRL/EOMI Respiratory: Chest Non Tender, No Accessory Muscle Use, No Respiratory Distress Cardiovascular: Regular Rate, Rhythm, No Edema Gastrointestinal: non tender, distended (minimal), tenderness (incisional) Neurologic/Psychiatric: Alert, Oriented x3 Skin: Normal Color, Warm/Dry Lymphatic: No Adenopathy Assessment/Plan Assessment/Plan Assessment/Plan small bowel obstruction history of bowel resection as child s/p exlap release of sbo secondary to 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, appendectomy, lysis of adhesions, decompression of small bowel Postop ileus N/V ng tube placed get abd x ray increase activity ng tube to liws Supervisory-Addendum Brief Verification & Attestation Participated in pt care: history, MDM, physical Personally performed: exam, history, MDM, supervision of care Care discussed with: Medical Student Procedures: n/a Results interpretation: Verified all documentation Verification and Attestation of Medical Student E/M Service A medical student performed and documented this service in my presence. I reviewed and verified all information documented by the medical student and made modifications to such information, when appropriate. I personally performed the physical exam and medical decision making. Philippe Jordan, Feb 08, 2020,09:50 LEOBARDO LEIVA MED STUDENT Feb 08, 2020 07:58 PHILIPPE JORDAN DO Feb 08, 2020 09:50
[2020-02-08] MEDS: PANTOPRAZOLE 40 MG (PROTONIX) VIAL IV SCH (08:07)
[2020-02-08] MEDS: LORazepam INJ 2 MG/ML (ATIVAN) VIAL IVP PRN (08:38)
--- NOTE | 2020-02-08 09:45 | NUR ---
PT TO X-RAY VIA WC
[2020-02-08] MEDS: D5 1/2 NS W/KCL 20 MEQ/L 1,000 ML IV SCH ×3 (10:24→20:03)
--- NOTE | 2020-02-08 10:58 | NUR ---
PT UP AMBULATING IN [place] WITH FAMILY
--- NOTE | 2020-02-08 11:28 | Diagnostic Imaging Report ---
INDICATION: Abdominal pain and diarrhea. TIME OF EXAM: 9:51 AM. FINDINGS: Midline skin kimmie are noted. There is contrast throughout the colon. There are continued gaseous distended bowel loops in the upper abdomen, similar to the small bowel study of 3 days earlier. These appear to represent small bowel loops. No wall thickening is seen. No unexpected radiopaque foreign object is identified. IMPRESSION: Continued marked gaseous distended small bowel loops in the central and upper abdomen, similar to the CT study from 02/03/2020 as well as the small bowel study from 02/04/2020. The colon is decompressed. There are postop changes. The NG tube appears to be within the stomach. No unexpected radiopaque foreign object is detected. Dictated by: Dictated on workstation # [id number]
--- NOTE | 2020-02-08 13:18 | NUR ---
Pt ambulating in [place] with family.
--- NOTE | 2020-02-08 15:17 | Consultation - Hospitalist ---
HPI History of Present Illness: HPI/Chief Complaint Pt is a 19yoCM with a PMH of multiple abdominal surgeries who presented to the ER due to right sided abdominal pain. It states on 01/28. He was found to have an SBO. He was admitted on 02/02 and went to the OR for resection on 02/03. He has had a protracted recovery and I am consulted for medical management. He had a BM and gas yesterday but then became very nauseated and had his NGT replaced with over 2L out. He feels better today and has been up and ambulating. No further BM or gas though. Only complaint is about the NGT bothering his throat. Source: patient Date Seen 02/08/20 Attending Physician Mitali Dsouza DO PCP No,Local Physician Referring Physician Date of Admission Feb 03, 2020 at 19:35 Home Medications & Allergies Home Medications Reviewed patient Home Medication Reconciliation performed by pharmacy medication reconciliations photonic laboratory technician and/or nursing. Patients Allergies have been reviewed. Allergies Allergies Coded Allergies No Known Drug Allergies (Unverified02/02/20) Past Baqndsz-Xmgvkb-Aoyywm Hx Past Med/Social Hx: Reviewed Nursing Past Med/Soc Hx, Reviewed and Corrections made Patient Social History Alcohol Use: Denies Use Recreational Drug Use: No Smoking Status: Never a Smoker 2nd Hand Smoke Exposure: No Recent Foreign Travel: No Contact w/other who traveled: No Recent Hopitalizations: No Recent Infectious Disease Expo: No Immunizations Up To Date Tetanus Booster (TDap): Unknown Seasonal Allergies Seasonal Allergies: No Past Medical History Surgeries: Abdominal Currently Using CPAP: No Currently Using BIPAP: No History of Blood Disorders: No Family History Reviewed Nursing Family Hx No Pertinent Family Hx Review of Systems Constitutional: No chills, No fever EENTM: throat pain Respiratory: No cough, No short of breath Cardiovascular: chest pain Gastrointestinal: abdominal pain, constipation, nausea, vomiting Genitourinary: No dysuria, No frequency Musculoskeletal: no symptoms reported Skin: no symptoms reported Psychiatric/Neurological: No Symptoms Reported Physical Exam Physical Exam Vital Signs Vital Signs - First Documented 02/03/20 02/04/20 18:45 19:24 Temp 37.1 Pulse 107 Resp 20 B/P (MAP) 115/83 (94) Pulse Ox 99 O2 Delivery Room Air FiO2 21 Capillary Refill : Less Than 3 SecondsLess Than 3 Seconds Height, Weight, BMI Height: '" Weight: lbs. oz. kg; 19.44 BMI Method: General Appearance: No Apparent Distress, WD/WN HEENT: Moist Mucous Membranes, Other (NGT in place) Respiratory: Lungs Clear, No Accessory Muscle Use, No Respiratory Distress Cardiovascular: Regular Rate, Rhythm, No Edema Gastrointestinal: Soft, Abnormal Bowel Sounds (absent), Distended (minimal), Tenderness (diffuse, mild) Neurologic/Psychiatric: Alert, Oriented x3, Normal Mood/Affect Skin: Normal Color, Warm/Dry Lymphatic: No Adenopathy Results Results/Procedures Labs Laboratory Tests 02/07/20 11:28 02/08/20 04:55 Patient resulted labs reviewed. Imaging: Reviewed Imaging Report Imaging [facility] [place], [place] NAME: [facility] REC#: [id number] PT STATUS: ADM IN : 2000 PHYSICIAN: MITALI DSOUZA DO ADMIT DATE: 02/03/20 Draft Date of Exam:02/08/20 ABDOMEN/KUB 1VIEW INDICATION: Abdominal pain and diarrhea. TIME OF EXAM: 9:51 AM. FINDINGS: Midline skin kimmie are noted. There is contrast throughout the colon. There are continued gaseous distended bowel loops in the upper abdomen, similar to the small bowel study of 3 days earlier. These appear to represent small bowel loops. No wall thickening is seen. No unexpected radiopaque foreign object is identified. IMPRESSION: Continued marked gaseous distended small bowel loops in the central and upper abdomen, similar to the CT study from 02/03/2020 as well as the small bowel study from 02/04/2020. The colon is decompressed. There are postop changes. The NG tube appears to be within the stomach. No unexpected radiopaque foreign object is detected. Dictated on workstation # [id number] Dict: 02/08/20 1117 Trans: 02/08/20 1127 [id number] Interpreted by: NASIR ZAZUETA MD Electronically signed by: Assessment/Plan Assessment and Plan Assess & Plan/Chief Complaint SBO s/p resection Postop ileus Intractable nausea Improved with NGT Chloraseptic spray prn for throat discomfort Discussed expectant management for patient Pain management per primary IVF Will round prn Clinical Quality Measures DVT/VTE Risk/Contraindication: Risk Factor Score Per Nursin RFS Level Per Nursing on Admit: 2=Moderate KRISTI HOUSER MD Feb 08, 2020 15:17
[2020-02-08] MEDS: ENOXAPARIN 40 MG/0.4 ML (LOVENOX) SYR SC SCH (15:25)
--- NOTE | 2020-02-08 16:30 | NUR ---
PT AMBULATING IN [place] WITH FAMILY
--- NOTE | 2020-02-08 16:47 | Diagnostic Imaging Report ---
INDICATION: Postop abdomen. Now with pain. COMPARISON: None. FINDINGS: A single frontal radiographic view of the chest was obtained and demonstrates a large amount of free air under the diaphragm. The lungs are clear. There is no focal consolidation, large effusion, or pneumothorax. The cardiac silhouette and pulmonary vasculature are within normal limits. An indwelling gastric tube is noted with the side-port likely just above the esophageal hiatus. The tip is likely within the lumen of the stomach. The osseous structures show no acute abnormalities. IMPRESSION: 1. Large amount of pneumoperitoneum. This is greater than expected to be residual from recent abdominal surgery and does raise concern for hollow viscus perforation. 2. No acute cardiopulmonary process. 3. The results were called to Dr. Simms by Dr. Garcia at 1630 hours on 02/08/2020. Dictated by: Dictated on workstation # [id number]
[2020-02-08] MEDS: CHLORASEPTIC SPRAY 177 ML LIQUID MC PRN ×2 (16:53→20:41)
--- NOTE | 2020-02-08 18:41 | NUR ---
PT AMBULATING IN [place]
--- NOTE | 2020-02-09 03:18 | NUR ---
THIS RN NOTIFIED MEET OF PT'S C/O INCREASE IN SCROTAL/TESTICULAR PAIN, RIB DISCOMFORT, 101.4 TEMP, AND URINE RETENTION OF 557ML. ORDERS TO START [place], STAT CHEST XRAY, ULTRA SOUND OF SCROTUM, UA, STOP TORADOL, AND CONSULT KO IN THE AM. Addendum: 02/09/20 at 0518 by ROGERIO ALEMAN RN MEET ALSO NOTIFIED OF CHANGE IN NG TUBE OUTPUT FROM LIGHT GREEN TO DARK GREEN.
[2020-02-09] MEDS ORDERED: LIDOCAINE UROJET 2% GEL 10 ML PKG ONE (03:33)
[2020-02-09] MEDS: LORazepam INJ 2 MG/ML (ATIVAN) VIAL IVP PRN ×2 (03:43→20:26)
[2020-02-09] MEDS: fentaNYL INJECTION 100 MCG/2 ML AMP IV PRN ×5 (03:44→18:46)
[2020-02-09] MEDS ORDERED: LIDOCAINE UROJET 2% GEL 10 ML PKG TOP ONE (03:45)
[2020-02-09] MEDS: D5 1/2 NS W/KCL 20 MEQ/L 1,000 ML IV SCH ×3 (04:09→20:25)
[2020-02-09 04:23] LABS: HEMOGLOBIN 13.2 G/DL (13.3-17.7); MEAN PLATELET VOLUME 10.6 FL (7.4-10.4); WHITE BLOOD COUNT 6.5 10^3/uL (4.3-11.0)
[2020-02-09 04:43] LABS: BILIRUBIN,URINE NEGATIVE (NEGATIVE); CLARITY,URINE SL CLOUDY; COLOR,URINE YELLOW; GLUCOSE, URINE (UA) NEGATIVE (NEGATIVE); KETONES,URINE NEGATIVE (NEGATIVE); LEUKOCYTE ESTERASE ,URINE NEGATIVE (NEGATIVE); NITRITE,URINE NEGATIVE (NEGATIVE); PH,URINE 7.5 (5-9); PROTEIN,URINE NEGATIVE (NEGATIVE)
[2020-02-09 04:43] LABS: CHLORIDE 103 MMOL/L (98-107); POTASSIUM 4.2 MMOL/L (3.6-5.0); SODIUM 136 MMOL/L (135-145)
[2020-02-09 04:44] LABS: CALCIUM 8.7 MG/DL (8.5-10.1); GLUCOSE 114 MG/DL (70-105)
[2020-02-09 04:46] LABS: CARBON DIOXIDE 21 MMOL/L (21-32)
[2020-02-09 04:48] LABS: CREATININE SERUM 0.88 MG/DL (0.60-1.30); GFR ESTIMATED > 60
[2020-02-09 04:49] LABS: BUN/CREATININE RATIO 14
[2020-02-09 04:51] LABS: MAGNESIUM 1.9 MG/DL (1.6-2.4)
[2020-02-09 05:00] VITALS: BP 133/61
[2020-02-09 05:00] LABS: BACTERIA,URINE NEGATIVE /HPF; SQUAMOUS EPITHELIAL CELL,UR RARE /HPF
--- NOTE | 2020-02-09 05:28 | Diagnostic Imaging Report ---
INDICATION: Pneumoperitoneum. Recent abdominal surgery. Indwelling gastric tube. COMPARISON: 02/08/2020 FINDINGS: Single frontal radiographic view of the chest was obtained and shows normal cardiac silhouette and pulmonary vasculature. Lungs are clear. There is no focal consolidation, large effusion, nor pneumothorax. Osseous structures show no new acute abnormalities. Indwelling gastric tube has since been advanced. Side port and tip now likely terminate within the lumen of the stomach. Moderate amount of pneumoperitoneum is also again identified. IMPRESSION: 1. Gastric tube as above. 2. Redemonstration of moderate pneumoperitoneum. 3. No new acute cardiopulmonary process. Dictated by: Dictated on workstation # [id number]
--- NOTE | 2020-02-09 06:52 | NUR ---
ATTEMPTED TO CONTACT KO FOR CONSULTATION. NO ANSWER.
--- NOTE | 2020-02-09 07:59 | Progress Note - Surgery ---
DAYLEOBARDO Spicer MED STUDENT 02/09/20 0759: Subjective Date Seen by a Provider: Feb 09, 2020 Time Seen by a Provider: 07:45 Subjective/Events-last exam Pt seemed to be in slightly less pain this morning. He rates his abdominal pain as a 6/10 and was TTP mostly in RLQ. He did not mention the chest pain that was bothering him yesterday. He has not had a bowel movement since yesterday but reports increased activity walking in hallway. Last night he started having increased right testicular pain and an US has been performed, awaiting results. He denies nausea and vomiting, chills, and chest pain. He reports mild shortness of breath and a fever last night. Incision is i/c/d. Objective Exam Vital Signs Date Time Temp Pulse Resp B/P (MAP) Pulse Ox O2 Delivery O2 Flow Rate FiO2 02/09/20 05:00 37.6 88 20 133/61 (85) 95 Room Air 02/08/20 23:31 38.4 87 18 119/66 (83) 96 Room Air 02/08/20 20:13 Room Air 02/08/20 19:13 37.4 97 16 113/73 (86) 98 Room Air 02/08/20 15:29 37.1 91 16 111/75 (87) 100 Room Air 02/08/20 11:40 36.6 99 18 116/72 (87) 96 Room Air 02/08/20 08:00 36.4 113 20 127/99 (108) 97 Room Air 02/08/20 08:00 Room Air I & O 02/09/20 07:00 Output Total 3250 ml Balance -3250 ml Capillary Refill : Less Than 3 SecondsLess Than 3 Seconds General Appearance: No Apparent Distress, WD/WN HEENT: Moist Mucous Membranes, Other (NGT in place) Respiratory: Lungs Clear, No Accessory Muscle Use, No Respiratory Distress Cardiovascular: Regular Rate, Rhythm, No Edema, No Murmur, Normal Peripheral Pulses (mildly tachycardic) Gastrointestinal: non tender, distended (minimal), tenderness (RLQ) Neurologic/Psychiatric: Alert, Oriented x3, Normal Mood/Affect Skin: Normal Color, Warm/Dry Lymphatic: No Adenopathy Results Lab Laboratory Tests 02/09/20 04:16: White Blood Count 6.5, Red Blood Count 4.52, Hemoglobin 13.2L, Hematocrit 40, Mean Corpuscular Volume 88, Mean Corpuscular Hemoglobin 29, Mean Corpuscular Hemoglobin Concent 33, Red Cell Distribution Width 12.7, Platelet Count 223, Mean Platelet Volume 10.6H, Sodium Level 136, Potassium Level 4.2, Chloride L evel 103, Carbon Dioxide Level 21, Anion Gap 12, Blood Urea Nitrogen 12, Creatinine 0.88, Estimat Glomerular Filtration Rate > 60, BUN/Creatinine Ratio 14, Glucose Level 114H, Calcium Level 8.7, Magnesium Level 1.9 02/09/20 04:20: Urine Color YELLOW, Urine Clarity SL CLOUDY, Urine pH 7.5, Urine Specific [place] 1.010L, Urine Protein NEGATIVE, Urine Glucose (UA) NEGATIVE, Urine Ketones NEGATIVE, Urine Nitrite NEGATIVE, Urine Bilirubin NEGATIVE, Urine Urobilinogen 0.2, Urine Leukocyte Esterase NEGATIVE, Urine RBC (Auto) NEGATIVE, Urine RBC NONE, Urine WBC NONE, Urine Squamous Epithelial Cells RARE, Urine Crystals NONE, Urine Bacteria NEGATIVE, Urine Casts NONE, Urine Mucus NEGATIVE, Urine Culture Indicated NO Microbiology 02/04/20 MRSA Screen - Final, Complete MRSA not isolated Assessment/Plan Assessment/Plan Assessment/Plan small bowel obstruction history of bowel resection as child s/p exlap release of sbo secondary to 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, appendectomy, lysis of adhesions, decompression of small bowel Postop ileus Right testicular pain Clinical Quality Measures DVT/VTE Risk/Contraindication: Risk Factor Score Per Nursin RFS Level Per Nursing on Admit: 2=Moderate MITALI DSOUZA DO 02/09/202047: Subjective Subjective/Events-last exam Paitent with fever over night. Unable to urinate, arreola had to be placed. Complains of right testicular pain. U/s showing no evidence of testicular mass or vascular compromise. Findings suggestive of epididymitis. There is also a moderate-sized hydrocele on the right which does show some complexity and debris. Ng tube in place. No fever since fever last night. Using IS minimally. Not ambulating today thus far. No flatus or bm. Had chest x ray showing moderate free air and dilated loops of small bowel. Objective Exam General Appearance: No Apparent Distress, Anxious HEENT: PERRL/EOMI, Normal ENT Inspection, Other (NGT in place) Neck: Normal Inspection, Non Tender Respiratory: Chest Non Tender, No Accessory Muscle Use, No Respiratory Distress Cardiovascular: Regular Rate, Rhythm, No Edema Gastrointestinal: distended (minimal), tenderness (minimal mostly to right of incision, incision c/d/i) Extremity: Non Tender, No Calf Tenderness Neurologic/Psychiatric: Alert, Oriented x3 Skin: Normal Color, Warm/Dry Lymphatic: No Adenopathy Assessment/Plan Assessment/Plan Assessment/Plan small bowel obstruction history of bowel resection as child s/p exlap release of sbo secondary to 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, appendectomy, lysis of adhesions, decompression of small bowel Postop ileus Right testicular pain Urinary retention chest x ray with free air and and dilated bowels, his exam is what i would expect postoperatively. patient told he needs to ambulate and use IS Still holding lovenox since nose bleed and reported some red ng output over night, it is clear now. await bowel function urology consulted Supervisory-Addendum Brief Verification & Attestation Participated in pt care: history, MDM, physical Personally performed: exam, history, MDM, supervision of care Care discussed with: Medical Student Procedures: n/a Results interpretation: Verified all documentation Verification and Attestation of Medical Student E/M Service A medical student performed and documented this service in my presence. I reviewed and verified all information documented by the medical student and made modifications to such information, when appropriate. I personally performed the physical exam and medical decision making. Mitali Dsouza, Feb 09, 2020,20:48 LEOBARDO LEIVA MED STUDENT Feb 09, 2020 07:59 MITALI DSOUZA DO Feb 09, 2020 20:48
[2020-02-09 08:00] VITALS: BP 118/67
[2020-02-09] MEDS: PANTOPRAZOLE 40 MG (PROTONIX) VIAL IV SCH (09:27)
--- NOTE | 2020-02-09 09:35 | Diagnostic Imaging Report ---
PROCEDURE: US Scrotum. TECHNIQUE: Multiple real-time grayscale images were obtained over the scrotum in various projections bilaterally. INDICATION: Testicular pain and edema. Right testicle measures 2.6 x 1.7 x 1.6 cm and the left testicle measures 2.6 x 1.4 x 1.8 cm. Both testes demonstrate homogeneous echotexture. No testicular mass is detected. There is blood flow to the testes. Both epididymides are somewhat prominent and show some increased vascularity which could indicate epididymitis. There is a moderate-sized hydrocele as well on the right which does show some internal debris. No left-sided hydrocele is seen. There is no varicocele. IMPRESSION: 1. No evidence of testicular mass or vascular compromise. 2. Findings suggestive of epididymitis. There is also a moderate-sized hydrocele on the right which does show some complexity and debris. Dictated by: Dictated on workstation # [id number]
--- NOTE | 2020-02-09 10:30 | NUR ---
PT AMBULATED IN HALLWAY
--- NOTE | 2020-02-09 11:25 | NUR ---
DR CONNELL NOTIFIED OF CONSULT AND WILL SEE PT SHORTLY
[2020-02-09 12:00] VITALS: BP 118/74
--- NOTE | 2020-02-09 12:00 | NUR ---
PT DECLINED TO GET INTO CHAIR AND WALK AT THIS TIME.
[2020-02-09] MEDS: cefTRIAXone FOR IV USE 1,000 MG in WATER (STERILE) FOR INJECTION 10 ML IV SCH (12:30)
[2020-02-09] MEDS: CHLORASEPTIC SPRAY 177 ML LIQUID MC PRN ×2 (12:32→15:13)
--- NOTE | 2020-02-09 14:39 | CONSULTATION REPORT ---
DATE OF SERVICE: 02/09/2020 ATTENDING PHYSICIAN: Dr. Philippe Jordan/Francisco Simms DO. SUMMARY: After reviewing the patient's records, interviewing him and examining him, this is a 19-year-old white man, who underwent an exploratory laparotomy with release of adhesions and appendectomy as well as decompression of small bowel about 5 days ago. He was voiding well, but then went into retention. The catheter was reinserted. He also started having nausea and vomiting. An NG tube was inserted. The patient denies any voiding symptoms at home. He also did some heavy lifting prior to admission and then later on gradually started having pain and swelling of the right testicle. He had an ultrasound. On physical exam, the phallus is with adequate meatus with catheter draining clear urine. The left testicle and epididymis are normal and the right testicle is normal. The right epididymis is tender and 1+ enlarged and firm with some fluid reactive type hydrocele. His ultrasound, I reviewed it and it did confirm this diagnosis. He is not actually now on any antibiotics. ALLERGIES: He has no known drug allergies. IMPRESSION: 1. Postoperative urinary retention, neurogenic secondary to surgical procedure, intraoperative and postoperative. 2. Right epididymo-orchitis. PLAN: 1. Start him on Rocephin. 2. Scrotal support. 3. Once he gets more active and the NG tube is out, we will give him trial of voiding. Plan was fully explained to him and his grandmother. Job ID: [id number] DocumentID: [id number] Dictated Date: 02/09/2020 11:51:02 Hog Room Supervisor Date: 02/09/2020 14:38:43 Dictated By: SARAH CONNELL MD
[2020-02-09 14:52] VITALS: BP 118/74
[2020-02-09 15:58] VITALS: BP 116/80
[2020-02-09 19:41] VITALS: BP 123/79
[2020-02-09] MEDS: ONDANSETRON 4 MG/2 ML (SDV) Z0FRAN IV PRN (20:25)
[2020-02-09] MEDS: ENOXAPARIN 40 MG/0.4 ML (LOVENOX) SYR SC SCH (20:58)
[2020-02-10 00:47] VITALS: BP 138/75
[2020-02-10 04:00] VITALS: BP 115/68
[2020-02-10] MEDS: D5 1/2 NS W/KCL 20 MEQ/L 1,000 ML IV SCH ×2 (04:08→11:52)
[2020-02-10] MEDS: CHLORASEPTIC SPRAY 177 ML LIQUID MC PRN (04:10)
[2020-02-10] MEDS: fentaNYL INJECTION 100 MCG/2 ML AMP IV PRN ×6 (05:55→23:10)
[2020-02-10] MEDS: ONDANSETRON 4 MG/2 ML (SDV) Z0FRAN IV PRN ×2 (05:55→23:10)
--- NOTE | 2020-02-10 07:49 | Progress Note - Surgery ---
ABBIELEOBARDO MED STUDENT 02/10/20 0749: Subjective Date Seen by a Provider: Feb 10, 2020 Time Seen by a Provider: 07:35 Subjective/Events-last exam Pt is feeling "a lot better" this morning and seems to be encouraged with his progress. He has passed gas but not had a bowel movement and denies N/V. His abdominal pain and right testicular pain are minimal today and chest pain has subsided. He denies shortness of breath and has not had a fever in the last 24 hours. He reports increased activity and use of incentive spirometer. Incision is c/d/i. Objective Exam Vital Signs Date Time Temp Pulse Resp B/P (MAP) Pulse Ox O2 Delivery O2 Flow Rate FiO2 02/10/20 07:36 96 Room Air 02/10/20 06:17 36.2 02/10/20 05:55 36.2 02/10/20 04:40 36.2 02/10/20 04:10 36.2 02/10/20 04:00 37.2 98 20 115/68 (84) 100 Room Air 02/10/20 00:47 36.2 71 21 138/75 (96) 96 Room Air 02/09/20 22:56 Nasal Cannula 1.00 02/09/20 20:00 99 Room Air 1.00 02/09/20 19:41 37.8 114 18 123/79 (94) 99 Room Air 02/09/20 19:16 37.8 02/09/20 15:58 37.8 108 18 116/80 (92) 98 Room Air 02/09/20 14:52 93 Room Air 02/09/20 14:52 37.1 96 93 21 02/09/20 12:00 37.1 98 24 118/74 (89) 99 Room Air 02/09/20 09:00 97 Room Air 02/09/20 08:00 37.3 93 24 118/67 (84) 97 Room Air I & O 02/10/20 07:00 Intake Total 0 ml Output Total 2625 ml Balance -2625 ml Capillary Refill : Less Than 3 SecondsLess Than 3 Seconds General Appearance: No Apparent Distress, WD/WN HEENT: PERRL/EOMI, Moist Mucous Membranes, Other (NGT in place) Neck: Normal Inspection, Non Tender Respiratory: Chest Non Tender, No Accessory Muscle Use, No Respiratory Distress Cardiovascular: Regular Rate, Rhythm, No Edema, No Gallop, No Murmur, Normal Peripheral Pulses Gastrointestinal: non tender, soft, no pulsatile mass Extremity: Non Tender, No Calf Tenderness Neurologic/Psychiatric: Alert, Oriented x3, Normal Mood/Affect Skin: Normal Color, Warm/Dry Lymphatic: No Adenopathy Results Lab Microbiology 02/04/20 MRSA Screen - Final, Complete MRSA not isolated Assessment/Plan Assessment/Plan Assessment/Plan small bowel obstruction history of bowel resection as child s/p exlap release of sbo secondary to 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, appendectomy, lysis of adhesions, decompression of small bowel Postop ileus Right testicular pain Urinary retention Clinical Quality Measures DVT/VTE Risk/Contraindication: Risk Factor Score Per Nursin RFS Level Per Nursing on Admit: 2=Moderate PHILIPPE DSOUZA DO 02/10/202048: Subjective Subjective/Events-last exam Feeling better. Passed flatus one time, no bm, but none since. Pain controll ed. Not ambulating much. Not using incentive spirometer. NG tube in place. Arreola removed today and has voided without difficulty. Father at bedside. Hgb stable. Objective Exam General Appearance: No Apparent Distress, WD/WN HEENT: PERRL/EOMI, Moist Mucous Membranes, Other (NGT in place) Neck: Normal Inspection, Non Tender Respiratory: Chest Non Tender, No Accessory Muscle Use, No Respiratory Distress Cardiovascular: Regular Rate, Rhythm, No Edema Gastrointestinal: non tender, soft Extremity: Non Tender, No Calf Tenderness Neurologic/Psychiatric: Alert, Oriented x3 Skin: Normal Color, Warm/Dry Lymphatic: No Adenopathy Assessment/Plan Assessment/Plan Assessment/Plan small bowel obstruction history of bowel resection as child s/p exlap release of sbo secondary to 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, appendectomy, lysis of adhesions, decompression of small bowel Postop ileus Right testicular pain Urinary retention epididymitis right on rocephin for epididymitis arreola removed today and urinating okay so far small amount of flatus one time, if it continue remove ng and start on diet since has not been able to eat will start tpn and have picc line placed dvt prophylaxis was on hold will restart patient and father encouraged to increase ambulation and use incentive spirometer, which patient has not been compliant with doing thus far. Supervisory-Addendum Brief Verification & Attestation Participated in pt care: history, MDM, physical Personally performed: exam, history, MDM, supervision of care Care discussed with: Medical Student Procedures: n/a Results interpretation: Verified all documentation Verification and Attestation of Medical Student E/M Service A medical student performed and documented this service in my presence. I reviewed and verified all information documented by the medical student and made modifications to such information, when appropriate. I personally performed the physical exam and medical decision making. Philippe Dsouza, Feb 10, 2020,20:49 LEOBARDO LEIVA MED STUDENT Feb 10, 2020 07:49 PHILIPPE DSOUZA DO Feb 10, 2020 20:49
[2020-02-10 08:00] VITALS: BP 112/70
[2020-02-10 08:20] LABS: HEMOGLOBIN 13.5 G/DL (13.3-17.7); MEAN PLATELET VOLUME 10.4 FL (7.4-10.4); WHITE BLOOD COUNT 7.7 10^3/uL (4.3-11.0)
[2020-02-10 08:39] LABS: ALANINE AMINOTRANSFERASE 12 U/L (0-55); ALBUMIN 3.7 GM/DL (3.2-4.5); ALKALINE PHOSPHATASE 70 U/L (40-136); BILIRUBIN,TOTAL 0.5 MG/DL (0.1-1.0); BUN/CREATININE RATIO 10; CALCIUM 9.5 MG/DL (8.5-10.1); CARBON DIOXIDE 27 MMOL/L (21-32); CHLORIDE 101 MMOL/L (98-107); CREATININE SERUM 0.78 MG/DL (0.60-1.30); GFR ESTIMATED > 60; GLUCOSE 101 MG/DL (70-105); MAGNESIUM 2.1 MG/DL (1.6-2.4); SODIUM 138 MMOL/L (135-145); TOTAL PROTEIN 6.8 GM/DL (6.4-8.2)
[2020-02-10] MEDS: PANTOPRAZOLE 40 MG (PROTONIX) VIAL IV SCH (08:40)
[2020-02-10] MEDS: cefTRIAXone FOR IV USE 1,000 MG in WATER (STERILE) FOR INJECTION 10 ML IV SCH (08:40)
[2020-02-10 11:48] VITALS: BP 109/72
[2020-02-10] MEDS ORDERED: TPN IV SCH (12:00)
--- NOTE | 2020-02-10 12:06 | Progress Note - Urology ---
Progress Note-Urology Progress Notes/Assess & Plan Progress/Assessment & Plan PLAN TOV TODAY Final Diagnosis URINE RETENTION SARAH CONNELL MD Feb 10, 2020 12:06
[2020-02-10 12:55] LABS: INR 1.3 (0.8-1.4); PROTHROMBIN TIME PATIENT 16.3 SEC (12.2-14.7)
--- NOTE | 2020-02-10 13:26 | NUR ---
TPN: TPN TO START AT 78 ML/HR, WILL PROVIDE 2090 KCAL WITH 100 GM PROTEIN, 0.45%NS AT 35 ML/HR.
--- NOTE | 2020-02-10 14:43 | NUR ---
Visited with patient et his father via phone about continued care planning. We talked about the importance of ambulation and using the incentive spirometer. Jabari reports that Dr. Jordan instructed him to use his incentive spirometry 10X every hour and so we set a goal for him to walk around the loop(around the nurses station) 10X every hour as well. He reports that he is using the IV Fentanyl and asked if he should not use that. I encouraged him that has that ordered and available for him but also reminded him that narcotics slow the motility of the bowel. He voiced understanding and reported that he is going to walk more and use his pain medication less if he can. We also talked about him having [facility] home benefits available to him if needed. His father and the patient voiced that they would like to try and avoid that level of care and go straight home from the hospital if they can. Encouraged them in that and again stressed the importance of movement/ambulation. voiced that he was hopeful he could remove the NG tube on Thursday and begin a clear liquid diet depending on the patient's bowel function. I talked with both Jabari and his dad about that plan. Jabari appeared to be motivated by having clear goals set for him to obtain. Will f/u on Thursday to see how he is feeling.
[2020-02-10 16:00] VITALS: BP 107/72
--- NOTE | 2020-02-10 16:33 | Progress Note - Hospitalist ---
Subjective HPI/CC On Admission Date Seen by Provider: Feb 10, 2020 Time Seen by Provider: 16:32 Pt is a 19yoCM with a PMH of multiple abdominal surgeries who presented to the ER due to right sided abdominal pain. It states on 01/28. He was found to have an SBO. He was admitted on 02/02 and went to the OR for resection on 02/03. He has had a protracted recovery and I am consulted for medical management. He had a BM and gas yesterday but then became very nauseated and had his NGT replaced with over 2L out. He feels better today and has been up and ambulating. No further BM or gas though. Only complaint is about the NGT bothering his throat. Subjective/Events-last exam Pt reports feeling ok today. Still having pain but has been up and moving. Had flatus today. Still no BM. Objective Exam Vital Signs Vital Signs Date Time Temp Pulse Resp B/P (MAP) Pulse Ox O2 Delivery O2 Flow Rate FiO2 02/10/20 15:50 37.2 02/10/20 11:48 82 18 109/72 (84) 99 Room Air 02/09/20 22:56 1.00 02/09/20 14:52 21 Capillary Refill : Less Than 3 SecondsLess Than 3 Seconds General Appearance: No Apparent Distress, Thin HEENT: Other (NGT in place) Respiratory: Lungs Clear, No Respiratory Distress Cardiovascular: Regular Rate, Rhythm, No Murmur Gastrointestinal: Abnormal Bowel Sounds (absent); No Guarding, No Tenderness Neurologic/Psychiatric: Alert, Oriented x3 Results/Procedures Lab Laboratory Tests 02/10/20 08:10 Patient resulted labs reviewed. Imaging: Reviewed Imaging Report Assessment/Plan Assessment and Plan Assess & Plan/Chief Complaint SBO s/p resection Postop ileus Intractable nausea Improved with NGT Chloraseptic spray prn for throat discomfort Discussed expectant management for patient Encouraged ambulation and IS use Pain management per primary IVF TPN started today Will round prn Clinical Quality Measures DVT/VTE Risk/Contraindication: Risk Factor Score Per Nursin RFS Level Per Nursing on Admit: 2=Moderate KRISTI HOUSER MD Feb 10, 2020 16:33
[2020-02-10] MEDS: SODIUM ACETATE IV SCH ×11 (16:59)
[2020-02-10] MEDS: SODIUM CHLORIDE IV SCH ×11 (16:59)
[2020-02-10] MEDS: [UNRECOGNIZED DRUG - OTHER] IV SCH ×11 (16:59)
[2020-02-10] MEDS: 1/2 NS IV SOLUTION 1,000 ML IV SCH (17:26)
[2020-02-10 20:00] VITALS: BP 119/82
[2020-02-10] MEDS ORDERED: CYCLOBENZAPRINE 10 MG (FLEXERIL) TAB PO PRN (23:00)
[2020-02-10] MEDS ORDERED: CYCLOBENZAPRINE 10 MG (FLEXERIL) TAB ONE (23:01)
[2020-02-11] VITALS (8 sets, daily range): BP systolic 97–131; BP diastolic 65–80
[2020-02-11] MEDS: LORazepam INJ 2 MG/ML (ATIVAN) VIAL IVP PRN ×2 (00:14→22:08)
[2020-02-11] MEDS: fentaNYL INJECTION 100 MCG/2 ML AMP IV PRN ×4 (03:13→12:32)
[2020-02-11 07:10] LABS: HEMOGLOBIN 12.9 G/DL (13.3-17.7); MEAN PLATELET VOLUME 10.2 FL (7.4-10.4); WHITE BLOOD COUNT 8.1 10^3/uL (4.3-11.0)
[2020-02-11] MEDS: ONDANSETRON 4 MG/2 ML (SDV) Z0FRAN IV PRN ×2 (07:11→12:32)
[2020-02-11 07:23] LABS: CHLORIDE 103 MMOL/L (98-107); POTASSIUM 4.3 MMOL/L (3.6-5.0); SODIUM 138 MMOL/L (135-145)
[2020-02-11 07:24] LABS: CALCIUM 8.7 MG/DL (8.5-10.1)
[2020-02-11 07:25] LABS: GLUCOSE 89 MG/DL (70-105)
[2020-02-11 07:26] LABS: CARBON DIOXIDE 23 MMOL/L (21-32)
[2020-02-11 07:28] LABS: CREATININE SERUM 0.65 MG/DL (0.60-1.30); GFR ESTIMATED > 60
[2020-02-11 07:29] LABS: BUN/CREATININE RATIO 15
[2020-02-11 07:31] LABS: MAGNESIUM 2.3 MG/DL (1.6-2.4)
[2020-02-11] MEDS: PANTOPRAZOLE 40 MG (PROTONIX) VIAL IV SCH (09:47)
[2020-02-11] MEDS: cefTRIAXone FOR IV USE 1,000 MG in WATER (STERILE) FOR INJECTION 10 ML IV SCH (09:47)
--- NOTE | 2020-02-11 11:43 | NUR ---
TRANSFER OF CARE TO BERE MENARD.
--- NOTE | 2020-02-11 12:00 | Progress Note ---
Subjective Date Seen by a Provider: Feb 11, 2020 Time Seen by a Provider: 11:20 Subjective/Events-last exam Patient seen with Dr. Willis. Patient sitting in bedside chair with mother at bedside. Reports having some abdominal pain as well as nausea vomiting. No flatus or BM. No fever or chills. Reports that he did ambulate yesterday and this morning. Objective Exam Vital Signs Date Time Temp Pulse Resp B/P (MAP) Pulse Ox O2 Delivery O2 Flow Rate FiO2 02/11/20 08:00 37.5 103 20 116/77 (90) 97 Room Air 02/11/20 08:00 97 Room Air 02/11/20 06:25 Room Air 02/11/20 04:00 37.5 100 18 124/80 (95) 99 Room Air 02/11/20 00:15 37.7 105 18 104/71 (82) 98 Room Air 02/10/20 20:30 Room Air 02/10/20 20:00 37.9 105 20 119/82 (94) 97 Room Air 02/10/20 18:43 98 Room Air 02/10/20 16:00 36.8 88 18 107/72 (84) 98 Room Air 02/10/20 15:50 37.2 I & O 02/11/20 07:00 Intake Total 760 ml Output Total 2400 ml Balance -1640 ml Capillary Refill : Less Than 3 SecondsLess Than 3 Seconds General Appearance: No Apparent Distress, WD/WN Neck: Full Range of Motion, Normal Inspection, Supple Respiratory: No Accessory Muscle Use, No Respiratory Distress Cardiovascular: Regular Rate, Rhythm, No Edema Gastrointestinal: soft, tenderness Extremity: Normal Inspection, Normal Range of Motion Neurologic/Psychiatric: Alert, Oriented x3 Skin: Normal Color, Warm/Dry, Other (Abdominal incision C/D/I with no signs of infection. Hai in place) Results Lab Laboratory Tests 02/10/20 12:35: Prothrombin Time 16.3H, INR Comment 1.3 02/11/20 06:50: White Blood Count 8.1, Red Blood Count 4.42, Hemoglobin 12.9L, Hematocrit 39L, Mean Corpuscular Volume 87, Mean Corpuscular Hemoglobin 29, Mean Corpuscular Hemoglobin Concent 33, Red Cell Distribution Width 12.7, Platelet Count 290, Mean Platelet Volume 10.2, Sodium Level 138, Potassium Level 4.3, Chloride Level 103, Carbon Dioxide Level 23, Anion Gap 12, Blood Urea Nitrogen 10, Creatinine 0.65, Estimat Glomerular Filtration Rate > 60, BUN/Creatinine Ratio 15, Glucose Level 89, Calcium Level 8.7, Magnesium Level 2.3 Microbiology 02/04/20 MRSA Screen - Final, Complete MRSA not isolated Assessment/Plan Assessment/Plan Assess & Plan/Chief Complaint A 19 year old male with small bowel obstruction, history of bowel resection as child, s/p exlap release of sbo secondary to 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, appendectomy, lysis of adhesions, decompression of small bowel, Postop ileus VSS WBC WNL Continue IV fluids, TPN, and NGT Pain and nausea medications as needed Encourage ambulation and IS Will await bowel function and then may start diet once occurs Clinical Quality Measures DVT/VTE Risk/Contraindication: Risk Factor Score Per Nursin RFS Level Per Nursing on Admit: 2=Moderate SAMANTHA MCCORD MANAGER RENTAL Feb 11, 2020 12:00
[2020-02-11] MEDS: HYDROcodone/APAP 7.5MG-325 MG/15 ML (LORTAB) UDC PO PRN ×2 (13:47→20:24)
--- NOTE | 2020-02-11 15:15 | NUR ---
Pt ambulating in ort[place] with family
[2020-02-11] MEDS: 1/2 NS IV SOLUTION 1,000 ML IV SCH (17:10)
[2020-02-11] MEDS: [UNRECOGNIZED DRUG - OTHER] IV SCH ×11 (17:10)
[2020-02-11] MEDS: SODIUM CHLORIDE IV SCH ×11 (17:10)
[2020-02-11] MEDS: SODIUM ACETATE IV SCH ×11 (17:10)
[2020-02-12] MEDS: HYDROcodone/APAP 7.5MG-325 MG/15 ML (LORTAB) UDC PO PRN ×5 (00:28→17:13)
[2020-02-12 03:00] VITALS: BP 113/75
[2020-02-12 08:00] VITALS: BP 112/76
--- NOTE | 2020-02-12 08:15 | NUR ---
MAT and prn albuterol txs d/c'd at this time since pt has not needed them
--- NOTE | 2020-02-12 08:55 | NUR ---
LORTAB ELIXIR PO AND NG CLAMPED FOR C/O ABD PAIN.
[2020-02-12] MEDS: cefTRIAXone FOR IV USE 1,000 MG in WATER (STERILE) FOR INJECTION 10 ML IV SCH (09:08)
[2020-02-12] MEDS: PANTOPRAZOLE 40 MG (PROTONIX) VIAL IV SCH (09:08)
--- NOTE | 2020-02-12 10:17 | Progress Note - Urology ---
Progress Note-Urology Progress Notes/Assess & Plan Progress/Assessment & Plan VOIDING WELL. EMPTUING WELL. SOME DYSURIA EXPECTED AFTER [place] IN. REASSURED. OBSERVE Final Diagnosis URINE RETENTION (RESOLVED) SARAH CONNELL MD Feb 12, 2020 10:17
--- NOTE | 2020-02-12 10:30 | NUR ---
DR. HALL AT BEDSIDE. FEW PRIYA REMOVED FROM BOTTOM OF WOUND AND PACKED AND DRESSED BY
--- NOTE | 2020-02-12 11:00 | NUR ---
KIMBERLY POOLE PER ORDER.
--- NOTE | 2020-02-12 11:47 | Progress Note ---
Subjective Date Seen by a Provider: Feb 12, 2020 Time Seen by a Provider: 09:30 Subjective/Events-last exam Patient seen with Dr. Willis. Patient reports doing better with oral pain medication. Denies any nausea or vomiting. No fever or chills. Reports that he is having some lower incision discomfort. Denies any flatus or BM. Reports is ambulating better and tolerating IS more. Objective Exam Vital Signs Date Time Temp Pulse Resp B/P (MAP) Pulse Ox O2 Delivery O2 Flow Rate FiO2 02/12/20 08:00 37.0 110 20 112/76 (88) 96 Room Air 02/12/20 07:17 Room Air 02/12/20 03:00 37.0 106 18 113/75 (88) 98 Room Air 02/11/20 23:30 37.4 95 16 97/65 (76) 97 Room Air 02/11/20 20:15 Room Air 02/11/20 20:12 37.4 90 18 100/65 (77) 98 Room Air 02/11/20 19:43 95 Room Air 02/11/20 15:30 37.3 102 16 107/70 (82) 96 Room Air 02/11/20 13:24 37.5 02/11/20 12:00 37.0 106 20 131/75 (93) 97 Room Air I & O 02/12/20 07:00 Intake Total 0 ml Output Total 300 ml Balance -300 ml Capillary Refill : Less Than 3 SecondsLess Than 3 Seconds General Appearance: No Apparent Distress, WD/WN Neck: Full Range of Motion, Non Tender, Supple Respiratory: No Accessory Muscle Use, No Respiratory Distress Cardiovascular: Regular Rate, Rhythm, No Edema Gastrointestinal: soft, tenderness, other (There is some increasing erythema and mild redness of the lower midline abominal incision. There is warm to touch as well as painful. There is a fluctuance upon palpaton and there is purulent material expelled from incision.) Extremity: Normal Inspection, Normal Range of Motion Neurologic/Psychiatric: Alert, Oriented x3 Skin: Normal Color, Warm/Dry Results Lab Microbiology 02/04/20 MRSA Screen - Final, Complete MRSA not isolated Assessment/Plan Assessment/Plan Assess & Plan/Chief Complaint A 19 year old male with small bowel obstruction, history of bowel resection as child, s/p exlap release of sbo secondary to 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, appendectomy, lysis of adhesions, decompression of small bowel, Postop ileus VSS WBC WNL Continue IV fluids and TPN Pain and nausea medications as needed Encourage ambulation and IS He has developed an abscess of the lower incision and will remove some of the skin kimmie and pack with wet to dry dressing changes twice daily. Will DC Rocephin and start Zosyn IV Will remove NGT and proceed with trial of ice chips as well as reglan every 6 hours Clinical Quality Measures DVT/VTE Risk/Contraindication: Risk Factor Score Per Nursin RFS Level Per Nursing on Admit: 2=Moderate SAMANTHA MCCORD CNC SET UP OPERATOR Feb 12, 2020 11:47
[2020-02-12 12:00] VITALS: BP 107/60
[2020-02-12] MEDS ORDERED: PIPERACILLIN/TAZO 4.5 GM/NS 100 ML IV NR ×2 (12:00)
--- NOTE | 2020-02-12 13:00 | NUR ---
LORTAB ELIXIR PO FOR ABD PAIN.
[2020-02-12] MEDS: METOCLOPRAMIDE INJ 10 MG/2 ML (REGLAN) IVP SCH ×2 (13:01→18:09)
[2020-02-12 16:00] VITALS: BP 114/69
[2020-02-12] MEDS: 1/2 NS IV SOLUTION 1,000 ML IV SCH (17:14)
[2020-02-12] MEDS: SODIUM ACETATE IV SCH ×11 (17:15)
[2020-02-12] MEDS: [UNRECOGNIZED DRUG - OTHER] IV SCH ×11 (17:15)
[2020-02-12] MEDS: SODIUM CHLORIDE IV SCH ×11 (17:15)
--- NOTE | 2020-02-12 17:15 | NUR ---
LORTAB 7.5 FOR PAIN.
[2020-02-12] MEDS: PIPERACILLIN/TAZOBACTAM (BULK) 4.5 GM in NS (IVPB) 100 ML IV SCH (18:09)
[2020-02-12] MEDS: LORazepam INJ 2 MG/ML (ATIVAN) VIAL IVP PRN (20:01)
[2020-02-12] MEDS: ONDANSETRON 4 MG/2 ML (SDV) Z0FRAN IV PRN (20:01)
[2020-02-12 20:45] VITALS: BP 108/72
[2020-02-13] MEDS: PIPERACILLIN/TAZOBACTAM (BULK) 4.5 GM in NS (IVPB) 100 ML IV SCH ×3 (00:29→18:00)
[2020-02-13] MEDS: METOCLOPRAMIDE INJ 10 MG/2 ML (REGLAN) IVP SCH ×4 (00:29→17:59)
[2020-02-13 00:38] VITALS: BP 110/78
[2020-02-13 03:51] VITALS: BP 126/82
[2020-02-13] MEDS: HYDROcodone/APAP 7.5MG-325 MG/15 ML (LORTAB) UDC PO PRN ×5 (04:40→21:44)
[2020-02-13] MEDS: LORazepam INJ 2 MG/ML (ATIVAN) VIAL IVP PRN (04:41)
[2020-02-13 07:48] LABS: HEMOGLOBIN 11.9 G/DL (13.3-17.7); MEAN PLATELET VOLUME 9.9 FL (7.4-10.4); WHITE BLOOD COUNT 7.4 10^3/uL (4.3-11.0)
[2020-02-13 07:58] LABS: CHLORIDE 104 MMOL/L (98-107); POTASSIUM 4.3 MMOL/L (3.6-5.0); SODIUM 136 MMOL/L (135-145)
[2020-02-13 07:59] LABS: CALCIUM 8.4 MG/DL (8.5-10.1)
[2020-02-13 08:00] VITALS: BP 102/71
[2020-02-13 08:00] LABS: GLUCOSE 108 MG/DL (70-105); TOTAL PROTEIN 5.8 GM/DL (6.4-8.2); TRIGLYCERIDES 59 MG/DL (<150)
[2020-02-13 08:01] LABS: CARBON DIOXIDE 24 MMOL/L (21-32)
[2020-02-13 08:02] LABS: BILIRUBIN,TOTAL 0.4 MG/DL (0.1-1.0)
[2020-02-13 08:04] LABS: ALKALINE PHOSPHATASE 94 U/L (40-136); CREATININE SERUM 0.67 MG/DL (0.60-1.30); GFR ESTIMATED > 60; PHOSPHORUS 4.2 MG/DL (2.3-4.7)
[2020-02-13 08:05] LABS: BUN/CREATININE RATIO 22
[2020-02-13 08:06] LABS: MAGNESIUM 2.1 MG/DL (1.6-2.4)
[2020-02-13 08:07] LABS: ALANINE AMINOTRANSFERASE 14 U/L (0-55)
[2020-02-13] MEDS: PANTOPRAZOLE 40 MG (PROTONIX) VIAL IV SCH (09:23)
--- NOTE | 2020-02-13 09:41 | Progress Note - Surgery ---
DAYLEOBARDO Spicer MED STUDENT 02/13/20 0941: Subjective Date Seen by a Provider: Feb 13, 2020 Time Seen by a Provider: 08:45 Subjective/Events-last exam Pt reports BM this morning and decreased abdominal pain. Incision is clean and dry with the caudal portion open and packed. He denies N/V, fever and chills. He reports increased activity ambulating in hallway and use of IS. Objective Exam Vital Signs Date Time Temp Pulse Resp B/P (MAP) Pulse Ox O2 Delivery O2 Flow Rate FiO2 02/13/20 08:00 37.7 104 18 102/71 (81) 98 Room Air 02/13/20 03:51 36.6 100 18 126/82 (97) 99 Room Air 02/13/20 00:38 36.8 98 17 110/78 (89) 98 Room Air 02/12/20 20:45 36.6 103 18 108/72 (84) 99 Room Air 02/12/20 20:00 Room Air 02/12/20 16:00 36.5 115 16 114/69 (84) 97 Room Air 02/12/20 12:00 36.8 105 20 107/60 (76) 98 Room Air I & O 02/13/20 07:00 Intake Total 3080 ml Balance 3080 ml Capillary Refill : Less Than 3 SecondsLess Than 3 Seconds General Appearance: No Apparent Distress, WD/WN HEENT: PERRL/EOMI, Moist Mucous Membranes, Other (NGT in place) Neck: Full Range of Motion, Non Tender, Supple Respiratory: No Accessory Muscle Use, No Respiratory Distress Cardiovascular: Regular Rate, Rhythm, No Edema, No Murmur Gastrointestinal: soft, tenderness, other (Lower portion of incision open and packed. It is clean and dry.) Extremity: Normal Inspection, Normal Range of Motion Neurologic/Psychiatric: Alert, Oriented x3 Skin: Normal Color, Warm/Dry Lymphatic: No Adenopathy Results Lab Laboratory Tests 02/13/20 07:35: White Blood Count 7.4, Red Blood Count 4.14L, Hemoglobin 11.9L, Hematocrit 36L, Mean Corpuscular Volume 87, Mean Corpuscular Hemoglobin 29, Mean Corpuscular Hemoglobin Concent 33, Red Cell Distribution Width 12.7, Platelet Count 318, Mean Platelet Volume 9.9, Sodium Level 136, Potassium Level 4.3, Chloride Level 104, Carbon Dioxide Level 24, Anion Gap 8, Blood Urea Nitrogen 15, Creatinine 0.67, Estimat Glomerular Filtration Rate > 60, BUN/Creatinine Ratio 22, Glucose Level 108H, Calcium Level 8.4L, Corrected Calcium 9.2, Phosphorus Level 4.2, Magnesium Level 2.1, Total Bilirubin 0.4, Aspartate Amino Transf (AST/SGOT) 16, Alanine Aminotransferase (ALT/SGPT) 14, Alkaline Phosphatase 94, Total Protein 5.8L, Albumin 3.0L, Triglycerides Level 59 Microbiology 02/04/20 MRSA Screen - Final, Complete MRSA not isolated Assessment/Plan Assessment/Plan Assessment/Plan A 19 year old male with small bowel obstruction, history of bowel resection as child, s/p exlap release of sbo secondary to 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, appendectomy, lysis of adhesions, decompression of small bowel, Postop ileus WBC WNL Begin clear liquid diet Pain medications as needed Encourage ambulation and IS Continue packing lower incision with wet to dry dressing changes twice daily Clinical Quality Measures DVT/VTE Risk/Contraindication: Risk Factor Score Per Nursin RFS Level Per Nursing on Admit: 2=Moderate MITALI JORDAN DO 02/13/20 1518: Subjective Subjective/Events-last exam + flatus and bm. feeling better. tolerating ice chips. ambulating and using is a little more. Lower incision opened and packed. Denies n/v fever sweats chills shortness of breath or chest pain. TPN. Objective Exam General Appearance: No Apparent Distress, WD/WN HEENT: PERRL/EOMI, Moist Mucous Membranes Neck: Full Range of Motion, Non Tender, Supple Respiratory: Chest Non Tender, No Accessory Muscle Use Cardiovascular: Regular Rate, Rhythm, No Edema, No Murmur Gastrointestinal: soft, tenderness (incisional, lower portion of incision openeded no purulent drainage), other (Lower portion of incision open and packed. It is clean and dry.) Extremity: Normal Inspection, Normal Range of Motion Neurologic/Psychiatric: Alert, Oriented x3 Skin: Normal Color, Warm/Dry Lymphatic: No Adenopathy Assessment/Plan Assessment/Plan Assessment/Plan A 19 year old male with small bowel obstruction, history of bowel resection as child, s/p exlap release of sbo secondary to 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, appendectomy, lysis of adhesions, decompression of small bowel, Postop ileus lower portion of incision open having bowel function will start clears if tolerates will advance diet home likely tomorrow. Supervisory-Addendum Brief Verification & Attestation Participated in pt care: history, MDM, physical Personally performed: exam, history, MDM, supervision of care Care discussed with: Medical Student Procedures: n/a Results interpretation: Verified all documentation Verification and Attestation of Medical Student E/M Service A medical student performed and documented this service in my presence. I revie wed and verified all information documented by the medical student and made modifications to such information, when appropriate. I personally performed the physical exam and medical decision making. Mitali Jordan, Feb 13, 2020,15:17 LEOBARDO LEIVA MED STUDENT Feb 13, 2020 09:41 MITALI JORDAN DO Feb 13, 2020 15:18
[2020-02-13 12:00] VITALS: BP 101/68
--- NOTE | 2020-02-13 12:03 | Progress Note - Urology ---
Progress Note-Urology Progress Notes/Assess & Plan Progress/Assessment & Plan CONTINUES VOIDING WELL. DYSURIA BETTER. WE WILL SEE PRN Final Diagnosis URINE RETENTION (RESOLVED) SARAH CONNELL MD Feb 13, 2020 12:03
--- NOTE | 2020-02-13 13:11 | Progress Note - Hospitalist ---
Subjective HPI/CC On Admission Date Seen by Provider: Feb 13, 2020 Time Seen by Provider: 09:15 Pt is a 19yoCM with a PMH of multiple abdominal surgeries who presented to the ER due to right sided abdominal pain. It states on 01/28. He was found to have an SBO. He was admitted on 02/02 and went to the OR for resection on 02/03. He has had a protracted recovery and I am consulted for medical management. He had a BM and gas yesterday but then became very nauseated and had his NGT replaced with over 2L out. He feels better today and has been up and ambulating. No further BM or gas though. Only complaint is about the NGT bothering his throat. Subjective/Events-last exam he reports feeling tired today. He had a bowel movement this morning. He denies abdominal pain. He denies nausea vomiting. He has no other complaints or concerns. Objective Exam Vital Signs Vital Signs Date Time Temp Pulse Resp B/P (MAP) Pulse Ox O2 Delivery O2 Flow Rate FiO2 02/13/20 12:00 36.9 102 18 101/68 (79) 97 Room Air 02/09/20 22:56 1.00 02/09/20 14:52 21 Capillary Refill : Less Than 3 SecondsLess Than 3 Seconds General Appearance: No Apparent Distress, Thin Neck: Normal Inspection, Supple Respiratory: Lungs Clear, Normal Breath Sounds, No Respiratory Distress Cardiovascular: Regular Rate, Rhythm, No Edema, No Murmur Gastrointestinal: Normal Bowel Sounds, Non Tender, Soft, Other (midline abdominal incision with wound packing in place) Extremity: Normal Inspection, Non Tender, No Pedal Edema Neurologic/Psychiatric: Alert, Oriented x3, No Motor/Sensory Deficits, Normal Mood/Affect Skin: Normal Color, Warm/Dry Results/Procedures Lab Laboratory Tests 02/13/20 07:35 Patient resulted labs reviewed. Imaging: Reviewed Imaging Report Assessment/Plan Assessment and Plan Assess & Plan/Chief Complaint SBO s/p resection Postop ileus Intractable nausea, resolved Urinary retention, resolved ileus improving antiemetics and pain medication as needed Advancing diet today Thank you for the consult. We will follow up as needed. Diagnosis/Problems Diagnosis/Problems (1) Small bowel obstruction Status: Acute Clinical Quality Measures DVT/VTE Risk/Contraindication: Risk Factor Score Per Nursin RFS Level Per Nursing on Admit: 2=Moderate JOSSELIN AVILA MD Feb 13, 2020 13:11
--- NOTE | 2020-02-13 13:32 | NUR ---
CM/SS: Visited with pt as to plan for discharge - pt is feeling better today Plan: Pt will go to his Aunt's Home for two weeks post discharge with [facility] Home Care Summary: Pt is feeling better, and his grandmother(mother's mother) is at the bedside. Home Care is discussed. Pt confirms that he will be staying with his Aunt Kym Smith - phone [phone] - for a couple of weeks and then return to his home in [place]. Pt seems more upbeat and did apologize for his not talking to this worker on last week. Pt also seems motivated to get home and get to feeling better. Pt's grandma did ask about financial assistance after the insurance paid. Pt is directed to look on statement and it should have a phone number on it for financial services. He can call that and get some information on help with his bill. He did verbalize understanding. This worker will follow up.
--- NOTE | 2020-02-13 14:26 | NUR ---
"RD ASSESSMENT PMHx: gastrointestinal resection as ; current - SBO PT INTERACTION: Pt was awake and pleasant during nutrition follow-up. Note pt currently NPO x9d, per chart review. Note pt currently receiving TPN, providing 2090 kcal (28 kcal/kg); and 100 g Pro (1.3 g Pro/kg). Currently this meets pt's nutritional needs. Note recent issues with nausea and vomiting since last assessment, per chart review. Note last BM was 02/02, and not currently on bowel regimen per chart review. ABNORMAL NUTRITION-RELATED LAB VALUES LOW: Ca 8.4; Pro 5.8; alb 3.0 HIGH: glu 108 Est. kcal needs: 1875 kcal | 25 kcal/kg Est. Pro needs: 75 g Pro | 1.0 g Pro/kg PES STATEMENT: Inadequate oral intake (NI-2.1) related to NPO status as evidenced by pt interview | chart review INTERVENTION: Note pt currently NPO. Would recommend diet advancement as medically able and as tolerated. Recommend continuation of current TPN order, providing 2090 kcal (28 kcal/kg) and 100 g Pro (1.3 g Pro/kg). This will meet pt's nutritional needs. Will continue to follow and reassess as pt needs, intake, and status change. MONITOR/EVALUATE: PO Intake; Plan of Care; Hydration Status; Weight Status; Lab Values Cande Hubbard, MS, RD, LD"
[2020-02-13 16:00] VITALS: BP 100/62
[2020-02-13] MEDS: SODIUM ACETATE IV SCH ×11 (18:00)
[2020-02-13] MEDS: 1/2 NS IV SOLUTION 1,000 ML IV SCH (18:00)
[2020-02-13] MEDS: SODIUM CHLORIDE IV SCH ×11 (18:00)
[2020-02-13] MEDS: [UNRECOGNIZED DRUG - OTHER] IV SCH ×11 (18:00)
[2020-02-13 20:00] VITALS: BP 109/73
--- NOTE | 2020-02-14 00:55 | NUR ---
AT APPROXIMATELY 0045 PT CALLED NURSE INTO ROOM AND STATED THAT HE WAS HAVING INCREASED ABDOMINAL PAIN. PT STATED THAT HE IS FEELING BLOATED AND HAS NOT PASSED GAS SINCE 8AM. PT ALSO STATED THAT HIS PAIN MEDICATION HAS NOT BEEN EFFECTIVE IT HAD BEEN. THIS RN ASSESSED PT AND NOTED THAT PT's ABDOMEN WAS SLIGHTLY DISTENDED. PT REPORTED TENDERNESS UPON PALPATION OF STOMACH. BOWEL SOUNDS ASSESSED AND PRESENT X4 QUADS. THIS RN LEFT PT's ROOM TO CONTACT DOCTOR. THIS NURSE LEFT ROOM PT PUT CALL LIGHT BACK ON TO REPORT THAT HE HAD JUST PASSED SOME GAS. THIS RN CONTACTED DR. DSOUZA AND NOTIFIED HIM OF PT's CONCERNS. NEW ORDER WAS GIVEN TO CHANGE DIET BACK TO NPO.
[2020-02-14] MEDS: PIPERACILLIN/TAZOBACTAM (BULK) 4.5 GM in NS (IVPB) 100 ML IV SCH ×2 (01:15→11:00)
[2020-02-14] MEDS: METOCLOPRAMIDE INJ 10 MG/2 ML (REGLAN) IVP SCH ×3 (01:16→14:06)
[2020-02-14] MEDS: LORazepam INJ 2 MG/ML (ATIVAN) VIAL IVP PRN (01:16)
[2020-02-14] MEDS: HYDROcodone/APAP 7.5MG-325 MG/15 ML (LORTAB) UDC PO PRN ×4 (02:00→15:59)
[2020-02-14 04:00] VITALS: BP 105/71
--- NOTE | 2020-02-14 07:43 | Progress Note - Surgery ---
NATALIE QUINONEZ MED STUDENT 02/14/20 0743: Subjective Date Seen by a Provider: Feb 14, 2020 Time Seen by a Provider: 07:25 Subjective/Events-last exam Passed gas and had small BM last night with improvement in bloating. No fever, chills, nausea, or vomiting. Notes mild unchanged pain at site of packing. Has been ambulating and had improved use of IS with new pain medication. Review of Systems Gastrointestinal: No: Nausea, Vomiting Objective Exam Vital Signs Date Time Temp Pulse Resp B/P (MAP) Pulse Ox O2 Delivery O2 Flow Rate FiO2 02/14/20 04:00 36.5 105 18 105/71 (82) 98 Room Air 02/13/20 20:30 Room Air 02/13/20 20:00 37.0 115 16 109/73 (85) 98 Room Air 02/13/20 16:00 36.5 98 16 100/62 (75) 97 Room Air 02/13/20 12:00 36.9 102 18 101/68 (79) 97 Room Air 02/13/20 09:00 Room Air 02/13/20 08:00 37.7 104 18 102/71 (81) 98 Room Air I & O 02/14/20 07:00 Intake Total 910 ml Balance 910 ml Capillary Refill : Less Than 3 SecondsLess Than 3 Seconds General Appearance: No Apparent Distress, WD/WN HEENT: PERRL/EOMI, Other (mildly dry mucous membranes) Neck: Full Range of Motion, Non Tender, Supple Respiratory: Chest Non Tender, Lungs Clear, Normal Breath Sounds, No Accessory Muscle Use, No Respiratory Distress Cardiovascular: Regular Rate, Rhythm, No Edema, No Murmur Gastrointestinal: soft, other (Lower portion of incision packed and covered with bandage; incision is clean, dry, intact, well-healing) Extremity: Normal Inspection, Normal Range of Motion Neurologic/Psychiatric: Alert, Oriented x3, Normal Mood/Affect Skin: Normal Color, Warm/Dry Lymphatic: No Adenopathy Results Lab Microbiology 02/04/20 MRSA Screen - Final, Complete MRSA not isolated Assessment/Plan Assessment/Plan Assessment/Plan A 19 year old male with small bowel obstruction, history of bowel resection as child, s/p exlap release of sbo secondary to 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, appendectomy, lysis of adhesions, decompression of small bowel, Postop ileus lower portion of incision open having bowel function will start clears if tolerates will advance diet home likely tomorrow. Agree with plan listed above from yesterday. Pt will return home after diet is advanced. Clinical Quality Measures DVT/VTE Risk/Contraindication: Risk Factor Score Per Nursin RFS Level Per Nursing on Admit: 2=Moderate MITALI JORDAN DO 02/14/20 1458: Subjective Subjective/Events-last exam +bm and flatus. tolerating diet. pain controlled. using incentive spirometer. ambulating better. No new complaints. Urinating without difficulty. Denies n/v fever sweats chills shortness of breath or chest pain. Objective Exam General Appearance: No Apparent Distress, WD/WN HEENT: PERRL/EOMI Neck: Full Range of Motion, Non Tender, Supple Respiratory: Chest Non Tender, No Accessory Muscle Use, No Respiratory Distress Cardiovascular: Regular Rate, Rhythm, No Edema Gastrointestinal: soft, other (Lower portion of incision packed and covered with bandage; incision is clean, dry, intact, well-healing) Extremity: Normal Inspection, Normal Range of Motion Neurologic/Psychiatric: Alert, Oriented x3, Normal Mood/Affect Skin: Normal Color, Warm/Dry Lymphatic: No Adenopathy Assessment/Plan Assessment/Plan Assessment/Plan small bowel obstruction, history of bowel resection as child, s/p exlap release of sbo secondary to 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, appendectomy, lysis of adhesions, decompression of small bowel, Postop ileus, epididymitis right, urinary retention resolved tolerating diet pain controlled bowel function wound care okay to dc home needs daily wound dressing changed until healed f/u with me 2 weeks. patient instructed any issues notify me at that time. Supervisory-Addendum Brief Verification & Attestation Participated in pt care: history, MDM, physical Personally performed: exam, history, MDM, supervision of care Care discussed with: Medical Student Procedures: n/a Results interpretation: Verified all documentation Verification and Attestation of Medical Student E/M Service A medical student performed and documented this service in my presence. I reviewed and verified all information documented by the medical student and made modifications to such information, when appropriate. I personally performed the physical exam and medical decision making. Mitali Jordan, Feb 14, 2020,14:58 NATALIE QUINONEZ MED STUDENT Feb 14, 2020 07:43 MITALI JORDAN DO Feb 14, 2020 14:58
[2020-02-14 08:00] VITALS: BP 109/75
[2020-02-14] MEDS: PANTOPRAZOLE 40 MG (PROTONIX) VIAL IV SCH (08:39)
[2020-02-14 12:00] VITALS: BP 101/75
[2020-02-14 12:01] LABS: ALANINE AMINOTRANSFERASE 31 U/L (0-55); ALKALINE PHOSPHATASE 96 U/L (40-136); BILIRUBIN,TOTAL 0.5 MG/DL (0.1-1.0); BUN/CREATININE RATIO 23; CALCIUM 8.7 MG/DL (8.5-10.1); CARBON DIOXIDE 25 MMOL/L (21-32); CHLORIDE 104 MMOL/L (98-107); CREATININE SERUM 0.66 MG/DL (0.60-1.30); GFR ESTIMATED > 60; GLUCOSE 108 MG/DL (70-105); MAGNESIUM 2.1 MG/DL (1.6-2.4); PHOSPHORUS 3.8 MG/DL (2.3-4.7); POTASSIUM 4.3 MMOL/L (3.6-5.0); SODIUM 137 MMOL/L (135-145); TOTAL PROTEIN 5.9 GM/DL (6.4-8.2)
--- NOTE | 2020-02-14 12:26 | NUR ---
PT TOLERATED CLEAR LIQUIDS THIS AM. REPORTS FEELING HUNGRY. DR DSOUZA GAVE ORDERS TO ADVANCE DIET. DIET CHANGED IN EMR
[2020-02-14] MEDS ORDERED: HYDR-4226 PO (13:16)
[2020-02-14] MEDS ORDERED: DOCU-143 PO (13:16)
--- NOTE | 2020-02-14 13:18 | Discharge Inst-Simple/Standard ---
Discharge Inst-Standard Discharge Medications New, Converted or Re-Newed RX: RX on Chart Patient Instructions/Follow Up Plan of Care/Instructions/FU: 2 weeks Nikki Activity as Tolerated: No Discharge Diet: Regular Diet (small frequent meals) Other Inst to Patient Follow up Appt: Make appointment for 2 weeks. Instructions: No lifting greater than 10 pounds. No strenuous activity. May shower in 24 hours, no tub bath or soaking. Use incentive spirometer at home as directed. No Smoking Skin/Wound Care: Clean wound with normal saline and pack wound daily with gauze and place tape over gauze. This will be done till it can not be packed any further. Symptoms to Report: Appetite Changes, Extremity Discoloration, Numbness/Tingling, Swelling Increased, Bleeding Excessive, Eyesight Changes, Pain Increased, Urine Color Change, Constipation(Persistent), Fever over 101 degree F, Pain/Pressure in chest, Urinating Difficulty, Cough Up/Vomit Blood, Heart Beat Irreg/Pounding, Pain/Pressure in jaw, Vaginal Bleeding Increase, Cramps in feet or legs, Ligh theadedness, Pain/Pressure in shoulder, Diarrhea(Persistent), Memory Changes Suddenly, Questions/Concerns, Weight gain consecutive days, Dizziness/Fainting, Nausea/Vomiting, Shortness of Breath, Weight gain over 2 pounds If questions or concerns contact your physician Or seek help at emergency department. MITALI DSOUZA DO Feb 14, 2020 13:18
--- NOTE | 2020-02-14 14:46 | D/C HH Face to Face Order ---
D/C Face to Face Orders Instructions for Patient [facility], Patient Instructions/FollowUp: 2 weeks Nikki Physician to follow Patient: Nikki Discharge Diet for Home: Regular Diet Patient Data-Allergies,Ht & Wt Patient Allergies: Coded Allergies: No Known Drug Allergies (Unverified , 02/02/20) Home Health Need/Face to Face Date of Face to Face: Feb 14, 2020 Clinical Findings: Other-list in note (Patient with open midline wound) I have seen Pt [id number]: Yes Discharged To: Home Diagnosis/Conditions: s/p ex lap, release of small bowel obstruction appendectomy open wound midline abdomen postoperative ileus urinary retention epididymitis right Patient is Homebound due to: Muscle weakness Patient with open wound, higher risk of infection Homebound Status Due to the above stated illness, injury or surgical procedure (medical condition or diagnosis) and associated clinical findings, the patient is homebound because of his/her inability to leave home except with aid of a supportive device and/or person AND leaving the home requires a considerable and taxing effort or is medically contraindicated. Pt req the following assistanc: Aid of another person (dressing changes) Home Health Nursing Orders Home Health Services Order: Wound Care-Eval/Treat Home Health Infusion Therapy Line Start Date: Feb 10, 2020 Certify Stmt I certify that this patient is under my care and that I, a nurse practitioner or a physician; a front end assistant working with me, had a face to face encounter that - meets the physician face to face encounter requirements with this patient as dated. MITALI DSOUZA DO Feb 14, 2020 14:44
--- NOTE | 2020-02-14 15:16 | NUR ---
CM/SS: Visited with pt as to his current status and plan for discharge Plan: Pt will discharge to his Aunts home with [facility] home care Summary: Pt shares he had drank some soda and that his stomach feels bloated. Pt continue to plan to go home today. He verifies that he will be going to his Aunts home in [place] with home care services. Discuss the goals of home care and that at some point they may want to teach someone the dressing changes for the his wound. Grandfather is at the bedside and reports that aunt can help with changing the wound dressing. Pt is also reminded to answer his phone as home care will be calling to set up a time to make a home visit. Pt verbalizes understanding. Pt is wished well.
[2020-02-14 16:00] VITALS: BP 104/66
[2020-02-14 17:00] VITALS: BP 104/66
== END 2020-02-14 17:00 | disposition home or self-care (01) | DRG 336 ==
LOC: EDUNIT# 18:18 → ER 18:19 → 4TH 19:35 → ICU 02-04 17:01 → 4TH 02-06 10:10
PROVIDERS: ADMIT Surgery; ATTEND Surgery
PROC: 0DTJ0ZZ Resection of Appendix, Open Approach (ICD-10-PCS; 2020-02-04)
PROC: 0DN80ZZ Release Small Intestine, Open Approach (ICD-10-PCS; principal; 2020-02-04 13:18)
DX: K46.0 Unspecified abdominal hernia with obstruction, without gangrene (principal); K56.50 Intestinal adhesions [bands], unspecified as to partial versus complete obstruction; K56.7 Ileus, unspecified; K38.1 Appendicular concretions; K38.8 Other specified diseases of appendix; Z90.49 Acquired absence of other specified parts of digestive tract; R33.9 Retention of urine, unspecified; N45.1 Epididymitis
CPT/HCPCS: 36415; 36569; 71045; 74018; 74177; 74250; 76870; 76937; 80048; 80053; 80306; 81000; 82150; 83690; 83735; 84100; 84134; 84478; 85025; 85027; 85610; 87081; 88304; 94664; 94760; 96361; 96365; 96375

== ENCOUNTER 2020-02-16 03:39 | Inpatient (IN) | payer BC ==
[~2020-02-16] VITALS: Ht 185.5 cm; Wt 61.6 kg
[~2020-02-16 03:39] MED LIST: ACET325T38 PO; DOCU-143 PO; HYDR-4226 PO; IBUP-2185 PO; OMEP20TA33 PO
[2020-02-16] MEDS ORDERED: LACTATED RINGERS 1,000 ML IV ONE (04:03)
[2020-02-16 04:08] VITALS: BP_SYST 124; BP_SYST 125; BP_SYST 133; BP_DIAS 87; BP_DIAS 90; BP_DIAS 98
--- NOTE | 2020-02-16 04:11 | ED Abdominal Pain ---
General Chief Complaint: General Problems/Pain Stated Complaint: COLD CHILLS,NAUSEA,NO BOWEL MOVEMENTS,GILMORE TO PEE Source of Information: Patient Exam Limitations: No Limitations History of Present Illness Date Seen by Provider: Feb 16, 2020 Time Seen by Provider: 03:50 Initial Comments Patient presents ER by private conveyance with chief complaint of chills without fever, abdominal discomfort, no bowel movement for 29 hours, pain in his right testicle for the past couple days and dysuria. He recently had a bowel resection for bowel obstruction by Dr. Dsouza about 2 weeks ago and spent 12 days in the hospital. He had a little bit of the wound breakdown at the base of his midline abdominal incision that was repacked in the ER. He is not taking any antipyretics. He has some mild nausea but does not have any nausea medicines at home and has not been vomiting. Last oral intake was around 9:00 last night. He was told to follow up with urologist, Dr. Chaudhry if his testicular pain did not improve in a few days but he said he was calling out to see if it would get better since it is intermittent. He thinks he had a Harley catheter. He has had one other abdominal surgery when he was a day-old he had some bowel resection related to volvulus. His abdominal discomfort is generalized, nonradiating. No chest pain shortness of air. Patient complains that his penis turned purple distally when he is in the shower standing up. Primary care at [facility]. Allergies and Home Medications Allergies Coded Allergies: No Known Drug Allergies (Unverified , 02/02/20) Home Medications Acetaminophen 325 Mg Tablet, 650 MG PO Q6H PRN for PAIN-MILD (1-4), (Reported) Docusate Sodium 100 Mg Capsule, 100 MG PO BID Prescribed by: MITALI DSOUZA on 02/14/20 1316 Hydrocodone/Acetaminophen 1 Each Tablet, 1 TAB PO Q4-6HR Prescribed by: MITALI DSOUZA on 02/14/20 1316 Ibuprofen 200 Mg Capsule, 400 MG PO Q8H PRN for PAIN-MILD (1-4), (Reported) Omeprazole Magnesium 20 Mg Tablet.dr 20 MG PO DAILY, (Reported) Patient Home Medication List Home Medication List Reviewed: Yes Review of Systems Review of Systems Constitutional: chills, dizziness; No fever; malaise EENTM: No Blurred Vision, No Double Vision Respiratory: Denies Cough, Denies Shortness of Air Cardiovascular: Denies Chest Pain, Denies Edema Gastrointestinal: See HPI, Abdominal Pain, Constipated; Denies Diarrhea; Nausea; Denies Poor Fluid Intake, Denies Vomiting Genitourinary: Denies Burning, Denies Discharge Musculoskeletal: No back pain, No joint pain Psychiatric/Neurological: Anxiety; Denies Depressed All Other Systems Reviewed Negative Unless Noted: Yes Past Lsaujxw-Uaycfm-Cpivsp Hx Patient Social History Alcohol Use: Denies Use Recreational Drug Use: No Smoking Status: Never a Smoker 2nd Hand Smoke Exposure: No Recent Foreign Travel: No Contact w/Someone Who Travel: No Recent Hopitalizations: Yes (small bowel obstruction 02/03/20) Physical Abuse: No Sexual Abuse: No Mistreated: No Fear: No Immunizations Up To Date Tetanus Booster (TDap): Unknown PED Vaccines UTD: Yes Seasonal Allergies Seasonal Allergies: No Past Medical History Surgeries: Yes (intestine resection as infant) Abdominal Respiratory: No Currently Using CPAP: No Currently Using BIPAP: No Cardiac: No Neurological: No Genitourinary: No Gastrointestinal: Yes (INTESTINAL RESECTION INFANT) Musculoskeletal: No Endocrine: No HEENT: No Cancer: No Psychosocial: No Integumentary: No Blood Disorders: No Family Medical History No Pertinent Family Hx Physical Exam Vital Signs Vital Signs - First Documented 02/16/20 03:40 Temp 37.2 Pulse 108 Resp 20 B/P (MAP) 126/107 O2 Delivery Room Air Capillary Refill : Height/Weight/BMI Height: '" Weight: lbs. oz. kg; 19.44 BMI Method: General Appearance: mild distress HEENT: PERRL/EOMI, normal ENT inspection, TMs normal, pharynx normal Neck: full range of motion, supple, normal inspection Respiratory: lungs clear, normal breath sounds, no respiratory distress, no accessory muscle use Cardiovascular: normal peripheral pulses, regular rate, rhythm, tachycardia (110) Peripheral Pulses: 2+ Dorsalis Pedis (R), 2+ Left Dors-Pedis (L), 2+ Radial Pulses (R), 2+ Radial Pulses (L) Gastrointestinal: normal bowel sounds (quiescent), soft, no organomegaly; No guarding; other (stapled, clean dry intact midline abdominal incision except for the final 3 x 4 cm ulcerated breakdown which has a beefy red clean wound base packed with moist gauze. Serous drainage. ) Genital/Rectal: normal genital exam, other (no edema or erythema or discoloration. No discharge from the urethra.) Extremities: normal range of motion, normal inspection, normal capillary refill Neurologic/Psychiatric: alert, oriented x 3, other (talkative) Skin: normal color, warm/dry Progress/Results/Core Measures Results/Orders Lab Results Laboratory Tests Test 02/16/20 04:01 02/16/20 05:58 Range/Units White Blood Count 10.9 4.3-11.0 10^3/uL Red Blood Count 4.50 4.35-5.85 10^6/uL Hemoglobin 12.8 L 13.3-17.7 G/DL Hematocrit 39 L 40-54 % Mean Corpuscular Volume 86 80-99 FL Mean Corpuscular Hemoglobin 28 25-34 PG Mean Corpuscular Hemoglobin Concent 33 32-36 G/DL Red Cell Distribution Width 12.9 10.0-14.5 % Platelet Count 475 H 130-400 10^3/uL Mean Platelet Volume 10.3 7.4-10.4 FL Neutrophils (%) (Auto) 61 42-75 % Lymphocytes (%) (Auto) 22 12-44 % Monocytes (%) (Auto) 9 0-12 % Eosinophils (%) (Auto) 8 0-10 % Basophils (%) (Auto) 0 0-10 % Neutrophils # (Auto) 6.6 1.8-7.8 X 10^3 Lymphocytes # (Auto) 2.4 1.0-4.0 X 10^3 Monocytes # (Auto) 1.0 0.0-1.0 X 10^3 Eosinophils # (Auto) 0.8 H 0.0-0.3 10^3/uL Basophils # (Auto) 0.0 0.0-0.1 10^3/uL Sodium Level 137 135-145 MMOL/L Potassium Level 5.1 H 3.6-5.0 MMOL/L Chloride Level 100 98-107 MMOL/L Carbon Dioxide Level 22 21-32 MMOL/L Anion Gap 15 H 5-14 MMOL/L Blood Urea Nitrogen 11 7-18 MG/DL Creatinine 0.81 0.60-1.30 MG/DL Estimat Glomerular Filtration Rate > 60 BUN/Creatinine Ratio 14 Glucose Level 97 70-105 MG/DL Calcium Level 9.6 8.5-10.1 MG/DL Corrected Calcium 10.0 8.5-10.1 MG/DL Total Bilirubin 0.6 0.1-1.0 MG/DL Aspartate Amino Transf (AST/SGOT) 29 5-34 U/L Alanine Aminotransferase (ALT/SGPT) 31 0-55 U/L Alkaline Phosphatase 121 40-136 U/L Total Protein 7.8 6.4-8.2 GM/DL Albumin 3.5 3.2-4.5 GM/DL My Orders Orders - RYNE LOPEZ Cbc With Automated Diff (02/16/20 04:03) Comprehensive Metabolic Panel (02/16/20 04:03) Ua Culture If Indicated (02/16/20 04:03) Drug Screen Stat (Urine) (02/16/20 04:03) Pantoprazole Injection (Protonix Injecti (02/16/20 04:15) Ondansetron Injection (Zofran Injectio (02/16/20 04:15) Ed Iv/Invasive Line Start (02/16/20 04:03) Lactated Ringers (Lr 1000 Ml Iv Solution (02/16/20 04:03) Orthostatic Vital Signs (Adult (02/16/20 04:03) Ct Abdomen/Pelvis W (02/16/20 04:03) Blood Culture (02/16/20 04:13) Iohexol Injection (Omnipaque 350 Mg/Ml 1 (02/16/20 05:30) Received Contrast (Hold Metformin- Contr (02/16/20 05:30) Sodium Chloride Flush (Catheter Flush Sy (02/16/20 05:30) Ns (Ivpb) (Sodium Chloride 0.9% Ivpb Bag (02/16/20 05:30) Morphine Injection (Morphine Injection (02/16/20 05:27) Morphine Injection (Morphine Injection (02/16/20 06:01) Medications Given in ED Current Medications Medications Dose Ordered Sig/Devorah Route Start Time Stop Time Status Last Admin Dose Admin Iohexol 100 ml ONCE ONCE IV 02/16/20 05:30 02/16/20 05:31 UNV 02/16/20 05:25 85 ML Lactated Ringer's 1,000 ml @ 0 mls/hr Q0M ONCE IV 02/16/20 04:03 02/16/20 04:06 DC 02/16/20 04:14 1,000 MLS/HR Ondansetron HCl 4 mg ONCE ONCE IVP 02/16/20 04:15 02/16/20 04:16 DC 02/16/20 04:14 4 MG Pantoprazole 40 mg ONCE ONCE IV 02/16/20 04:15 02/16/20 04:16 DC 02/16/20 04:14 40 MG Sodium Chloride 10 ml NEEDED PRN IV 02/16/20 05:30 UNV 02/16/20 05:25 10 ML Sodium Chloride 100 ml ONCE ONCE IV 02/16/20 05:30 02/16/20 05:31 UNV 02/16/20 05:25 80 ML Vital Signs/I&O 02/16/20 02/16/20 03:40 04:08 Temp 37.2 Pulse 108 101 114 120 Resp 20 B/P (MAP) 126/107 125/87 (100) 124/98 (107) 133/90 (104) O2 Delivery Room Air Progress Progress Note #1: Time: 04:11 Progress Note Wound base looks good and does not show any signs of infection. His abdomen is not tympanic however his bowel sounds are slow and he has not had a bowel movement 29 hours which is concerning him for recurrent bowel obstruction. His testicular pain has been intermittent and on external examination is unremarkable. Plan to get some urine and look for UTI/orchitis possibly related to catheter. He is tachycardic but has no fever. Looking for another sign of a systemic inflammatory response as well as source of infection. We'll go ahead and get blood cultures. Plan to get a CT of his abdomen pelvis. Part of his lightheadedness might be related to hypovolemia so we'll get some orthostatic vital signs. Start with a liter of lactated Ringer's as she does appear a little dry on clinical exam. Ondansetron for his nausea. Progress Note #2: Time: 04:37 Progress Note Blood pressure did not change with orthostatics but his heart rate did go up from 100 to 120 lying to standing. We're giving him a liter of fluids. Progress Note #3: Time: 06:07 Progress Note The patient's pain started to mount so 2 mg morphine were given. 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 The 2 mg morphine did not seem to help so we ordered another 4 mg of morphine. If this does not help we have discussed with nursing staff starting an NG/OG tube to decompress the bowels. We have discussed the case with Dr. Avalos and the patient is admitted to surgery with consultation to medicine. Plan is to control his symptoms and pursue barium enema inpatient. Diagnostic Imaging Diagonstic Imaging: CT Plain Films/CT/US/NM/MRI: abdomen, pelvis Comments Sigmoid Volvulus with severe grade obstruction. No pneumatosis or free air. Reviewed: Reviewed Night Hawk Study, Reviewed by Me, Discussed w/Radiologist (Dr Hung) Transfer of Care Time: 06:08 Care transferred to: Dr. Avalos Departure Communication (Admissions) Time/Spoke to Admitting Phy: 05:45 Discussed the case with Dr. Dsouza, General Surgery. He like to try barium enema and he will see the patient. He would like the patient consulted with medicine services. Time/Spoke to Consulting Phy: 06:00 Dr. Ocampo, internal medicine agrees to consult on the case. Impression Primary Impression: Volvulus of sigmoid colon Additional Impression: Bowel obstruction Qualified Codes: K56.2 - Volvulus Disposition: ADMITTED INPATIENT Condition: Stable Admissions Decision to Admit Reason: Admit from ER (General) Decision to Admit/Date: Feb 16, 2020 Time/Decision to Admit Time: 05:30 Departure-Patient Inst. Referrals: NO,LOCAL PHYSICIAN (PCP/Family) Primary Care Physician RYNE LOPEZ Feb 16, 2020 04:11
[2020-02-16 04:12] LABS: BASOPHILS % (AUTO) 0 % (0-10); EOSINOPHILS # (AUTO) 0.8 10^3/uL (0.0-0.3); EOSINOPHILS % (AUTO) 8 % (0-10); HEMATOCRIT 39 % (40-54); HEMOGLOBIN 12.8 G/DL (13.3-17.7); LYMPHOCYTES # (AUTO) 2.4 X 10^3 (1.0-4.0); LYMPHOCYTES % (AUTO) 22 % (12-44); MEAN CORPUSCULAR HEMOGLOBIN 28 PG (25-34); MEAN CORPUSCULAR HGB CONC 33 G/DL (32-36); MEAN CORPUSCULAR VOLUME 86 FL (80-99); MEAN PLATELET VOLUME 10.3 FL (7.4-10.4); MONOCYTES % (AUTO) 9 % (0-12); NEUTROPHILS # (AUTO) 6.6 X 10^3 (1.8-7.8); NEUTROPHILS % (AUTO) 61 % (42-75); PLATELET COUNT 475 10^3/uL (130-400); WHITE BLOOD COUNT 10.9 10^3/uL (4.3-11.0)
[2020-02-16] MEDS ORDERED: ONDANSETRON 4 MG/2 ML (SDV) Z0FRAN IVP ONE (04:15)
[2020-02-16] MEDS ORDERED: PANTOPRAZOLE 40 MG (PROTONIX) VIAL IV ONE (04:15)
[2020-02-16 04:27] LABS: ALBUMIN 3.5 GM/DL (3.2-4.5); CALCIUM 9.6 MG/DL (8.5-10.1); CARBON DIOXIDE 22 MMOL/L (21-32); CHLORIDE 100 MMOL/L (98-107); GLUCOSE 97 MG/DL (70-105); SODIUM 137 MMOL/L (135-145); TOTAL PROTEIN 7.8 GM/DL (6.4-8.2)
[2020-02-16 04:29] LABS: BILIRUBIN,TOTAL 0.6 MG/DL (0.1-1.0); POTASSIUM 5.1 MMOL/L (3.6-5.0)
[2020-02-16 04:37] LABS: ALANINE AMINOTRANSFERASE 31 U/L (0-55); ALKALINE PHOSPHATASE 121 U/L (40-136); BUN/CREATININE RATIO 14; CREATININE SERUM 0.81 MG/DL (0.60-1.30); GFR ESTIMATED > 60
[2020-02-16] MEDS ORDERED: morphine INJ 10 MG/ML 1ML (SYR OR VIAL) IVP STA ×2 (05:27→06:01)
[2020-02-16] MEDS ORDERED: IOHEXOL 350 MG/ML 100 ML (OMNIPAQUE 350) VIAL IV ONE (05:30)
[2020-02-16] MEDS ORDERED: NS 100 ML (IVPB) BAG IV ONE (05:30)
[2020-02-16] MEDS ORDERED: HOLD METFORMIN - RECEIVED CONTRAST 20 ML VIAL IV SCH (05:30)
[2020-02-16] MEDS ORDERED: CATHETER FLUSH 10 ML SYR IV PRN (05:30)
--- NOTE | 2020-02-16 05:44 | NUR ---
PATIENT APPEARS ANXIOUS STATES THE PIN MEDICATION MAKES HIM TALK NON STOP, AND INTURUPT PEOPLE AND MAKES HIM FEEL VERY ANXIOUS. PAIN MED GIVEN AT THIS TIME. BLANKET PROVIDED. CALL LIGHT IN REACH, MONITORING MAINTAINED.
--- NOTE | 2020-02-16 06:00 | NUR ---
IN ROOM TO COLLECT UA, PATIENT UPDATED ON ADMISSION STATUS BY DR LOPEZ. INFORMED ADMISSION WILL TAKE PLACE AFTER 0700. CALL LIGHT IN REACH, MONITORING MAINTAINED.
--- NOTE | 2020-02-16 06:14 | NUR ---
PATIENT CALLS THIS RN BACK INTO THE ROOM TO REPORT ABDOMINAL PAIN AND BLOATING. PATIENT WAS GIVEN 4 MG OF MORPHINE MINUTES PRIOR TO THIS CALL SO TIS RN REMINDS PATIENT HE WAS JUST GIVEN PAIN MEDICATION FOR HIS ABDOMINAL PAIN. PATIENT STATES HE DIDNT REMEMBER IT HAD ONLY BEEN MINUTES, PATIENT CONTINUES TO EXHIBT ANXIOUS BEHAVIORS. DR STALEY.
[2020-02-16 06:25] LABS: BACTERIA,URINE NEGATIVE /HPF; BILIRUBIN,URINE NEGATIVE (NEGATIVE); CLARITY,URINE SL CLOUDY; COLOR,URINE YELLOW; GLUCOSE, URINE (UA) NEGATIVE (NEGATIVE); KETONES,URINE NEGATIVE (NEGATIVE); LEUKOCYTE ESTERASE ,URINE NEGATIVE (NEGATIVE); NITRITE,URINE NEGATIVE (NEGATIVE); PH,URINE 7.5 (5-9); PROTEIN,URINE NEGATIVE (NEGATIVE)
[2020-02-16 06:26] LABS: AMPHETAMINE SCREEN, URINE NEGATIVE (NEGATIVE); BARBITURATE SCREEN URINE NEGATIVE (NEGATIVE); BENZODIAZEPINES SCREEN URINE NEGATIVE (NEGATIVE); CANNABINOID SCREEN, URINE NEGATIVE (NEGATIVE); COCAINE SCREEN URINE NEGATIVE (NEGATIVE); METHADONE STAT NEGATIVE (NEGATIVE); METHAMPHETAMINE SCREEN URINE S NEGATIVE (NEGATIVE); OPIATE SCREEN URINE POSITIVE (NEGATIVE); OXYCODONE STAT NEGATIVE (NEGATIVE); PROPOXYPHENE STAT NEGATIVE (NEGATIVE); TRICYCLIC ANTIDEPRESSANTS SCRE NEGATIVE (NEGATIVE)
--- NOTE | 2020-02-16 06:30 | NUR ---
pain reassessed patient states pain is "much better". call light in reach.
--- NOTE | 2020-02-16 07:05 | NUR ---
attempted to call report to fourth for this patient, informed they will call back.
--- NOTE | 2020-02-16 07:10 | Diagnostic Imaging Report ---
PROCEDURE: CT abdomen and pelvis with contrast. TECHNIQUE: Multiple contiguous axial images were obtained through the abdomen and pelvis after administration of intravenous contrast. Auto Exposure Controls were utilized during the CT exam to meet ALARA standards for radiation dose reduction. INDICATION: Abdominal pain. Comparison made with prior examination 02/03/2020 FINDINGS: The heart size is normal. Lung bases are clear. Liver is normal in size without focal lesions. Gallbladder is unremarkable. The spleen is normal. The pancreas and adrenal glands are unremarkable. Kidneys are normal. Aorta is nonaneurysmal. There is moderate ascites. There is marked small bowel dilatation suspect for small bowel obstruction. Colon appears to be decompressed. There is no free air. There is no pneumatosis. There is no portal venous gas. There is no pelvic mass or adenopathy. The osseous structures are unremarkable. IMPRESSION: Findings suspect for high-grade small bowel obstruction. No other acute abnormality in the abdomen or pelvis. Dictated by: Dictated on workstation # [id number]
[2020-02-16] MEDS ORDERED: morphine INJ 10 MG/ML 1ML (SYR OR VIAL) IVP ONE (07:15)
[2020-02-16] MEDS ORDERED: HURRICAINE EXT TUBE (BENZOCAINE) ONE (07:24)
--- NOTE | 2020-02-16 07:47 | NUR ---
Attempted to call for reports; nurse unavailable
--- NOTE | 2020-02-16 07:55 | NUR ---
Pt c/o abdominal pain. Pt reports pain medication is only working 4-5 minutes. Pt rating pain 8/10. Pt repositioned to see if this aleved pain. Pt reports no relief. [place] notified. Call light within reach. Will continue to monitor.
--- NOTE | 2020-02-16 07:58 | NUR ---
Pt called this nurse back into room to report a hot flash.
--- NOTE | 2020-02-16 08:25 | NUR ---
MATT NAPOLES admitted to room 426-1, with an admitting diagnosis of SMALL BOWEL OBSTRUCTION, on 02/16/20 from ED via W/C, accompanied by STAFF. MATT NAPOLES introduced to surroundings, call light, bed controls, phone, TV, temperature control, lights, meal times, smoking policy, visitor policy, side rail policy, bathrooms and showers. Patient Rights given to patient in the handbook. MATT NAPOLES verbalizes understanding that [facility] is not responsible for the loss or damage to any personal effects or valuables that are kept in the patients posession during their hospitalization. The following Patient Care Plans were discussed with the PATIENT: Discharge Planning, SMALL BOWEL OBSTRUCTION AND KNOWLEDGE MATT NAPOLES verbalizes understanding of Interdisciplinary Patient Education. Patient and/or family were informed about the Rapid Response Team and its purpose.
[2020-02-16] MEDS ORDERED: PROMETHAZINE INJ 25 MG/ML (PHENERGAN) AMP IVP PRN (09:00)
[2020-02-16] MEDS ORDERED: PANTOPRAZOLE 40 MG (PROTONIX) VIAL IV SCH (09:00)
[2020-02-16 09:15] VITALS: BP 121/83
[2020-02-16] MEDS: NS IV 1000 ML 1,000 ML IV SCH ×4 (09:41→23:24)
[2020-02-16] MEDS ORDERED: DCS100C PO (10:40)
--- NOTE | 2020-02-16 10:42 | NUR ---
SPOKE WITH THE PT AND WENT THRU THE EXT MED HISTORY TO COMPLETE THE MED REC PT WAS HERE AT THE END OF JANUARY 2020 AND I SPOKE WITH HIM ON 02-06-2020 TO COMPLETE THE MED REC WHEN HE WAS DISCHARGED WITH NORCO 5/325MG WAS FILLED AND PICKED UP AT [facility] ON 02-14-2020 #20. PT SAID AFTER HE PICKED THE MED AND ONLY TOOK A COUPLE DOSES AND THEN QUIT TAKING DUE TO THE SIDE EFFECTS. OTC MEDS: TYLENOL IBUPROFEN OMEPRAZOLE
[2020-02-16] MEDS: HYDROmorphone 2 MG/ML VIAL (DILAUDID) IV PRN (10:52)
[2020-02-16] MEDS: morphine INJ 10 MG/ML 1ML (SYR OR VIAL) IVP PRN ×2 (12:29→19:50)
[2020-02-16] MEDS: LORazepam INJ 2 MG/ML (ATIVAN) VIAL IVP PRN (13:03)
--- NOTE | 2020-02-16 13:32 | History & Physical-Surgical ---
NATALIE QUINONEZ MED STUDENT 02/16/20 1332: History of Present Illness History of Present Illness Reason for visit/HPI abdominal pain/bloating Date of Admission Feb 16, 2020 at 06:00 Date Seen by a Provider: Feb 16, 2020 Time Seen by a Provider: 07:45 I consulted on this patient on 02/16/20 07:45 Attending Physician Mitali Jordan DO Admitting Physician Josselyn,Local Physician Consult This is a 19 YO male with history of bowel resection at 1 day old and has been having intermittent abdominal pain/bloating for the past several years. He came to the ER and was admitted on 02/03/2020. He was found to have an obstruction with an internal hernia and had an exploratory laparotomy. Pt was discharged ho wv on 02/14/2020, but returned to the ER this morning for increased abdominal pain and bloating. CT scan was initially read as volvulus, but is more likely SBO considering his medical history. Allergies and Home Medications Allergies Coded Allergies: No Known Drug Allergies (Unverified , 02/02/20) Home Medications Acetaminophen 325 Mg Tablet, 650 MG PO Q6H PRN for PAIN-MILD (1-4), (Reported) Docusate Sodium 100 Mg Capsule, 100 MG PO BID, (Reported) Ibuprofen 200 Mg Capsule, 400 MG PO Q8H PRN for PAIN-MILD (1-4), (Reported) Omeprazole Magnesium 20 Mg Tablet.dr, 20 MG PO DAILY, (Reported) Past Auqjlya-Lyspff-Lnhpla Hx Patient Social History Alcohol Use: Denies Use Recreational Drug Use: No Smoking Status: Never a Smoker 2nd Hand Smoke Exposure: No Recent Foreign Travel: No Contact w/Someone Who Travel: No Recent Infectious Disease Expo: No Recent Hopitalizations: Yes (small bowel obstruction 02/03/20) Physical Abuse Screen: No Sexual Abuse: No Immunizations Up To Date Tetanus Booster (TDap): Unknown PED Vaccines UTD: Yes Seasonal Allergies Seasonal Allergies: No Surgeries History of Surgeries: Yes (intestine resection as infant) Surgeries: Abdominal Respiratory History of Respiratory Disorde: No Cardiovascular History of Cardiac Disorders: No Neurological History of Neurological Disord: No Genitourinary History of Genitourinary Disor: No Gastrointestinal History of Gastrointestinal Di: Yes ( INTESTINAL SURG INFANT -- BOWEL SURG ) Musculoskeletal History of Musculoskeletal Dis: No Endocrine History of Endocrine Disorders: No HEENT History of HEENT Disorders: No Cancer History of Cancer: No Psychosocial History of Psychiatric Problem: No Integumentary History of Skin or Integumenta: No Blood Transfusions History of Blood Disorders: No Family Medical History Significant Family History: No Pertinent Family Hx Review of Systems Constitutional: chills; No fever Respiratory: no symptoms reported Cardiovascular: no symptoms reported Gastrointestinal: see HPI Musculoskeletal: no symptoms reported Skin: no symptoms reported Psychiatric/Neurological: No Symptoms Reported All Other Systems Reviewed Negative Unless Noted: Yes Physical Exam Vital Signs Vital Signs - First Documented 02/16/20 02/16/20 03:40 08:19 Temp 37.2 Pulse 108 Resp 20 B/P (MAP) 126/107 Pulse Ox 93 O2 Delivery Room Air Capillary Refill : Height, Weight, BMI Height: '" Weight: lbs. oz. kg; 19.55 BMI Method: General Appearance: No Apparent Distress Eyes: Bilateral Eye Normal Inspection, Bilateral Eye EOMI HEENT: PERRL/EOMI Neck: Normal Inspection Respiratory: No Accessory Muscle Use, No Respiratory Distress Cardiovascular: No Edema Gastrointestinal: Other (diffuse tenderness and bloating) Extremity: Normal Inspection Neurologic/Psychiatric: Alert, Oriented x3, Normal Mood/Affect Skin: Normal Color, Warm/Dry Lymphatic: No Adenopathy Data Review Labs Laboratory Tests 02/16/20 04:01: White Blood Count 10.9, Red Blood Count 4.50, Hemoglobin 12.8L, Hematocrit 39L, Mean Corpuscular Volume 86, Mean Corpuscular Hemoglobin 28, Mean Corpuscular Hemoglobin Concent 33, Red Cell Distribution Width 12.9, Platelet Count 475H, Mean Platelet Volume 10.3, Neutrophils (%) (Auto) 61, Lymphocytes (%) (Auto) 22, Monocytes (%) (Auto) 9, Eosinophils (%) (Auto) 8, Basophils (%) (Auto) 0, Neutrophils # (Auto) 6.6, Lymphocytes # (Auto) 2.4, Monocytes # (Auto) 1.0, Eosinophils # (Auto) 0.8H, Basophils # (Auto) 0.0, Sodium Level 137, Potassium Level 5.1H, Chloride Level 100, Carbon Dioxide Level 22, Anion Gap 15H, Blood Urea Nitrogen 11, Creatinine 0.81, Estimat Glomerular Filtration Rate > 60, BUN/Creatinine Ratio 14, Glucose Level 97, Calcium Level 9.6, Corrected Calcium 10.0, Total Bilirubin 0.6, Aspartate Amino Transf (AST/SGOT) 29, Alanine Aminotransferase (ALT/SGPT) 31, Alkaline Phosphatase 121, Total Protein 7.8, Albumin 3.5 02/16/20 05:58: Urine Color YELLOW, Urine Clarity SL CLOUDY, Urine pH 7.5, Urine Specific [place] <=1.005, Urine Protein NEGATIVE, Urine Glucose (UA) NEGATIVE, Urine K etones NEGATIVE, Urine Nitrite NEGATIVE, Urine Bilirubin NEGATIVE, Urine Urobilinogen 0.2, Urine Leukocyte Esterase NEGATIVE, Urine RBC (Auto) NEGATIVE, Urine RBC NONE, Urine WBC NONE, Urine Crystals NONE, Urine Bacteria NEGATIVE, Urine Casts NONE, Urine Mucus NEGATIVE, Urine Culture Indicated NO, Urine Opiates Screen POSITIVEH, Urine Oxycodone Screen NEGATIVE, Urine Methadone Screen NEGATIVE, Urine Propoxyphene Screen NEGATIVE, Urine Barbiturates Screen NEGATIVE, Ur Tricyclic Antidepressants Screen NEGATIVE, Urine Phencyclidine Screen NEGATIVE, Urine Amphetamines Screen NEGATIVE, Urine Methamphetamines Screen NEGATIVE, Urine Benzodiazepines Screen NEGATIVE, Urine Cocaine Screen NEGATIVE, Urine Cannabinoids Screen NEGATIVE Radiology Date of Exam:02/16/20 CT ABDOMEN/PELVIS W PROCEDURE: CT abdomen and pelvis with contrast. TECHNIQUE: Multiple contiguous axial images were obtained through the abdomen and pelvis after administration of intravenous contrast. Auto Exposure Controls were utilized during the CT exam to meet ALARA standards for radiation dose reduction. INDICATION: Abdominal pain. Comparison made with prior examination 02/03/2020 FINDINGS: The heart size is normal. Lung bases are clear. Liver is normal in size without focal lesions. Gallbladder is unremarkable. The spleen is normal. The pancreas and adrenal glands are unremarkable. Kidneys are normal. Aorta is nonaneurysmal. There is moderate ascites. There is marked small bowel dilatation suspect for small bowel obstruction. Colon appears to be decompressed. There is no free air. There is no pneumatosis. There is no portal venous gas. There is no pelvic mass or adenopathy. The osseous structures are unremarkable. IMPRESSION: Findings suspect for high-grade small bowel obstruction. No other acute abnormality in the abdomen or pelvis. Dictated by: Dictated on workstation # [id number] Assessment/Plan Assessment/Plan Admission Diagonsis SBO Assessment/Plan SBO anxiety NG tube placed with intermittent lower wall suction Give Ativan 0.25 mg q6h for anxiety Schedule small bowel resection for tomorrow. Clinical Quality Measures DVT/VTE Risk/Contraindication: Risk Factor Score Per Nursin RFS Level Per Nursing on Admit: 2=Moderate MITALI JORDAN DO 02/16/202129: History of Present Illness History of Present Illness Reason for visit/HPI CC: abdominal pain, nausea Patient is a 19 year old male with history of bowel resection at 1 day old and has been having intermittent abdominal pain/bloating for the past several years. He came to the ER and was admitted on 02/03/2020. He was found to have an obstruction with an internal hernia and had an exploratory laparotomy release of small bowel internal hernia caused by bands appendectdomy . Pt was discharged home on 02/14/2020, but returned to the ER this morning for increased abdominal pain and bloating. CT scan was initially read as sigmoid volvulus, but I reviewed and colon is decompressed and had extremely dilated small bowel, as he did initially. Patient Pain is diffuse and severe. He has nause, no emesis he states. Patient states nothing makes better or worse. He is not passing flatus or bm. Allergies and Home Medications Allergies Coded Allergies: No Known Drug Allergies (Unverified , 02/02/20) Home Medications Acetaminophen 325 Mg Tablet, 650 MG PO Q6H PRN for PAIN-MILD (1-4), (Reported) Docusate Sodium 100 Mg Capsule, 100 MG PO BID, (Reported) Ibuprofen 200 Mg Capsule, 400 MG PO Q8H PRN for PAIN-MILD (1-4), (Reported) Omeprazole Magnesium 20 Mg Tablet.dr, 20 MG PO DAILY, (Reported) Patient Home Medication List Home Medication List Reviewed: Yes Past Rbirrad-Fjnxhx-Bfnvqv Hx Reviewed Nursing Assessment Reviewed/Agree w Nursing PMH: Yes Family Medical History Significant Family History: No Pertinent Family Hx Review of Systems Constitutional: chills; No fever EENTM: No blurred vision, No double vision Respiratory: No cough, No dyspnea on exertion Cardiovascular: No chest pain, No palpitations Gastrointestinal: abdominal pain, nausea; No vomiting Genitourinary: No decreased output, No discharge Musculoskeletal: No back pain, No joint pain Skin: No change in color, No change in hair/nails Psychiatric/Neurological: Anxiety All Other Systems Reviewed Negative Unless Noted: Yes (Negative excepted noted.) Physical Exam General Appearance: Anxious, Thin HEENT: PERRL/EOMI, Normal ENT Inspection Neck: Non Tender, Other (ng tube) Respiratory: Chest Non Tender, No Accessory Muscle Use, No Respiratory Distress Cardiovascular: Regular Rate, Rhythm, No Edema Gastrointestinal: Distended, Other (diffuse tenderness no guarding or rebounding, midline incsision bottom small opening) Extremity: Normal Inspection Neurologic/Psychiatric: Alert, Oriented x3, Normal Mood/Affect Skin: Normal Color, Warm/Dry Lymphatic: No Adenopathy Assessment/Plan Assessment/Plan Admission Diagonsis high grade small bowel obstruction patient had internal hernia s/p ex lap with release of adhesions appendectomy at that time bowel was chronically dilated it was decompressed, anxiety. patient on ct still showing significantly dilated small bowel consistent with high grade small bowel obstruction. I feel that this area since has been chronically dilated for so many years will not improve despite previous surgical intervention. we discussed risks and benefits of exploratory laparotomy all other indicated procedures and likely will need small bowel resection. he understands. We discussed possibility of needing to resect small bowel, and if so, with his prior small bowel resection as a may have possibility of short gut syndrome. Patient understands and wishes to proceed. Will keep NG to LIWS. Plan surgical intervention tomorrow. Also discussed this with patient father who understands as well. Admission Status: Inpatient Order (span 2 midnights) Reason for Inpatient Admission: Patient will need surgical intervention, and postoperative care which will need 2 midnight stay minimum. Assessment/Plan high grade small bowel obstruction patient had internal hernia s/p ex lap with release of adhesions appendectomy at that time bowel was chronically dilated it was decompressed, anxiety. patient on ct still showing significantly dilated small bowel consistent with high grade small bowel obstruction. I feel that this area since has been chronically dilated for so many years will not improve despite previous surgical intervention. we discussed risks and benefits of exploratory laparotomy all other indicated procedures and likely will need small bowel resection. he understands. We discussed possibility of needing to resect small bowel, and if so, with his prior small bowel resection as a may have possibility of short gut syndrome. Patient understands and wishes to proceed. Will keep NG to LIWS. Plan surgical intervention tomorrow. Also discussed this with patient father who understands as well. Supervisory-Addendum Brief Verification & Attestation Participated in pt care: history, MDM, physical Personally performed: exam, history, MDM, supervision of care Care discussed with: Medical Student Procedures: n/a Results interpretation: Verified all documentation Verification and Attestation of Medical Student E/M Service A medical student performed and documented this service in my presence. I reviewed and verified all information documented by the medical student and made modifications to such information, when appropriate. I personally performed the physical exam and medical decision making. Mitali Jordan, Feb 16, 2020,21:41 NATALIE QUINONEZ MED STUDENT Feb 16, 2020 13:32 MITALI JORDAN DO Feb 16, 2020 21:30
[2020-02-16] MEDS ORDERED: LACTATED RINGERS 1,000 ML IV PRN (15:55)
[2020-02-16 16:15] VITALS: BP 106/56
--- NOTE | 2020-02-16 16:25 | Consultation - Hospitalist ---
HPI History of Present Illness: HPI/Chief Complaint Jabari Santiago is a 19-year-old male who was recently admitted for small bowel obstruction who presented with worsening abdominal pain. His imaging upon arrival showed a high-grade obstruction. He was admitted to the surgery service. He reports that he has not had a bowel movement or passed gas and over 24 hours. He reports having nausea when he arrived to the hospital. He denies any nausea or vomiting since that time. He has an NG tube in place. He denies any fevers or chills. He denies any chest pain or shortness of breath. Source: patient Exam Limitations: no limitations Date Seen 02/16/20 Attending Physician Philippe Jordan DO PCP No,Local Physician Referring Physician Date of Admission Feb 16, 2020 at 06:00 Home Medications & Allergies Home Medications Reviewed patient Home Medication Reconciliation performed by pharmacy medication reconciliations semiconductor technician and/or nursing. Patients Allergies have been reviewed. Allergies Allergies Coded Allergies No Known Drug Allergies (Unverified02/02/20) Past Fvmeltn-Rqxgvr-Ivayvd Hx Past Med/Social Hx: Reviewed Nursing Past Med/Soc Hx Patient Social History Alcohol Use: Denies Use Recreational Drug Use: No Smoking Status: Never a Smoker 2nd Hand Smoke Exposure: No Physical Abuse Screen: No Sexual Abuse: No Recent Foreign Travel: No Contact w/other who traveled: No Recent Hopitalizations: Yes (small bowel obstruction 02/03/20) Recent Infectious Disease Expo: No Immunizations Up To Date Tetanus Booster (TDap): Unknown Pediatric: Yes Seasonal Allergies Seasonal Allergies: No Past Medical History Surgeries: Abdominal Currently Using CPAP: No Currently Using BIPAP: No History of Blood Disorders: No Family History No Pertinent Family Hx Review of Systems Constitutional: no symptoms reported EENTM: no symptoms reported Respiratory: no symptoms reported Cardiovascular: no symptoms reported Gastrointestinal: abdominal pain, nausea Genitourinary: no symptoms reported Musculoskeletal: no symptoms reported Skin: no symptoms reported Psychiatric/Neurological: No Symptoms Reported Physical Exam Physical Exam Vital Signs Vital Signs - First Documented 02/16/20 02/16/20 03:40 08:19 Temp 37.2 Pulse 108 Resp 20 B/P (MAP) 126/107 Pulse Ox 93 O2 Delivery Room Air Capillary Refill : Height, Weight, BMI Height: '" Weight: lbs. oz. kg; 19.55 BMI Method: General Appearance: No Apparent Distress, Thin Eyes: Bilateral Eye Normal Inspection, Bilateral Eye EOMI HEENT: PERRL/EOMI, Pharynx Normal Neck: Normal Inspection, Supple Respiratory: Lungs Clear, Normal Breath Sounds, No Respiratory Distress Cardiovascular: Regular Rate, Rhythm, No Edema, No Murmur Gastrointestinal: Non Tender, Soft, Abnormal Bowel Sounds (absent), Distended; No Guarding Extremity: Normal Inspection, Non Tender, No Pedal Edema Neurologic/Psychiatric: Alert, Oriented x3, Normal Mood/Affect Skin: Normal Color, Warm/Dry Results Results/Procedures Labs Laboratory Tests 02/16/20 04:01 Patient resulted labs reviewed. Imaging: Reviewed Imaging Report Assessment/Plan Assessment and Plan Assess & Plan/Chief Complaint small bowel obstruction General Surgery primary CT scan revealed high-grade obstruction Planning for surgical intervention tomorrow Nothing by mouth Pain regimen ordered incentive spirometry Diagnosis/Problems Diagnosis/Problems (1) Bowel obstruction Status: Acute Qualifiers: Intestinal obstruction type: unspecified Intestinal obstruction extent: unspecified extent Qualified Codes: K56.609 - Unspecified intestinal obs truction, unspecified as to partial versus complete obstruction Clinical Quality Measures DVT/VTE Risk/Contraindication: Risk Factor Score Per Nursin RFS Level Per Nursing on Admit: 2=Moderate JOSSELIN AVILA MD Feb 16, 2020 16:24
[2020-02-16 20:00] VITALS: BP 107/68
[2020-02-16] MEDS ORDERED: CHLORASEPTIC SPRAY 177 ML LIQUID ONE (22:08)
[2020-02-16] MEDS: CHLORASEPTIC SPRAY 177 ML LIQUID MC PRN (22:27)
[2020-02-17] VITALS (12 sets, daily range): BP systolic 91–140; BP diastolic 54–101
[2020-02-17] MEDS: morphine INJ 10 MG/ML 1ML (SYR OR VIAL) IVP PRN ×4 (01:53→23:50)
[2020-02-17] MEDS: NS IV 1000 ML 1,000 ML IV SCH (05:27)
[2020-02-17 05:46] LABS: BASOPHILS % (AUTO) 0 % (0-10); EOSINOPHILS # (AUTO) 0.7 10^3/uL (0.0-0.3); EOSINOPHILS % (AUTO) 7 % (0-10); HEMATOCRIT 39 % (40-54); HEMOGLOBIN 12.8 G/DL (13.3-17.7); LYMPHOCYTES # (AUTO) 2.1 X 10^3 (1.0-4.0); LYMPHOCYTES % (AUTO) 23 % (12-44); MEAN CORPUSCULAR HEMOGLOBIN 29 PG (25-34); MEAN CORPUSCULAR HGB CONC 33 G/DL (32-36); MEAN CORPUSCULAR VOLUME 88 FL (80-99); MEAN PLATELET VOLUME 10.5 FL (7.4-10.4); MONOCYTES # (AUTO) 0.6 X 10^3 (0.0-1.0); MONOCYTES % (AUTO) 7 % (0-12); NEUTROPHILS % (AUTO) 64 % (42-75); PLATELET COUNT 439 10^3/uL (130-400); WHITE BLOOD COUNT 9.4 10^3/uL (4.3-11.0)
[2020-02-17 05:56] LABS: ALBUMIN 3.3 GM/DL (3.2-4.5); CHLORIDE 105 MMOL/L (98-107); POTASSIUM 4.2 MMOL/L (3.6-5.0); SODIUM 140 MMOL/L (135-145)
[2020-02-17 05:58] LABS: CALCIUM 9.4 MG/DL (8.5-10.1)
[2020-02-17 05:59] LABS: GLUCOSE 62 MG/DL (70-105)
[2020-02-17 06:00] LABS: CARBON DIOXIDE 18 MMOL/L (21-32)
[2020-02-17 06:01] LABS: BILIRUBIN,TOTAL 0.9 MG/DL (0.1-1.0)
[2020-02-17 06:02] LABS: ALKALINE PHOSPHATASE 424 U/L (40-136); CREATININE SERUM 0.74 MG/DL (0.60-1.30); GFR ESTIMATED > 60
[2020-02-17 06:03] LABS: BUN/CREATININE RATIO 18
[2020-02-17 06:05] LABS: ALANINE AMINOTRANSFERASE 32 U/L (0-55)
[2020-02-17] MEDS ORDERED: fentaNYL INJECTION 100 MCG/2 ML AMP ONE (07:05)
[2020-02-17] MEDS ORDERED: LIDOCAINE PF 2% 5 ML (XYLOCAINE) VIAL ONE (07:05)
[2020-02-17] MEDS ORDERED: SEVOFLURANE (ULTANE) 15 ML INHAL SOLN ONE ×5 (07:05→10:56)
[2020-02-17] MEDS ORDERED: MIDAZOLAM 2 MG/2 ML (VERSED) VIAL ONE (07:05)
[2020-02-17] MEDS ORDERED: GLYCOPYRROLATE 0.2 MG/ML (ROBINUL) 2 ML VIAL ONE (07:05)
[2020-02-17] MEDS ORDERED: NEOSTIGMINE 3 MG/3 ML VIAL ONE (07:05)
[2020-02-17] MEDS ORDERED: ONDANSETRON 4 MG/2 ML (SDV) Z0FRAN ONE (07:05)
[2020-02-17] MEDS ORDERED: ROCURONIUM 10 MG/ML 5 ML SYRINGE IV ONE ×2 (07:05→09:17)
[2020-02-17] MEDS ORDERED: proPOfol 200 MG/20 ML (DIPRIVAN) VIAL IV ONE (07:05)
--- NOTE | 2020-02-17 07:39 | Progress Note - Hospitalist ---
JAY MARTINEZ MED STUDENT 02/17/20 0739: Subjective HPI/CC On Admission Date Seen by Provider: Feb 17, 2020 Time Seen by Provider: 07:28 Jabari Santiago is a 19-year-old male who was recently admitted for small bowel obstruction who presented with worsening abdominal pain. His imaging upon arrival showed a high-grade obstruction. He was admitted to the surgery service. He reports that he has not had a bowel movement or passed gas and over 24 hours. He reports having nausea when he arrived to the hospital. He denies any nausea or vomiting since that time. He has an NG tube in place. He denies any fevers or chills. He denies any chest pain or shortness of breath. Subjective/Events-last exam Jabari is feeling prepared for surgery this morning. His anxiety has improved compared to yesterday. He felt a little nauseous after showering but no longer feels nauseous. Not concerned about pain currently. Surgical team arrived prior to performance of PE. Objective Exam Vital Signs Vital Signs Date Time Temp Pulse Resp B/P (MAP) Pulse Ox O2 Delivery O2 Flow Rate FiO2 02/17/20 04:35 36.7 96 16 91/54 (66) 97 Room Air Capillary Refill : General Appearance: No Apparent Distress, WD/WN HEENT: PERRL/EOMI, Pharynx Normal, Other (NG tube in place) Neurologic/Psychiatric: Alert, Oriented x3, Normal Mood/Affect Results/Procedures Lab Laboratory Tests 02/17/20 05:33 Patient resulted labs reviewed. Imaging: Reviewed Imaging Report Assessment/Plan Assessment and Plan Assess & Plan/Chief Complaint previous SI resection recurrent abdominal pain and bowel motility issues SBO Plan for further resection of SI shortly Clinical Quality Measures DVT/VTE Risk/Contraindication: Risk Factor Score Per Nursin RFS Level Per Nursing on Admit: 2=Moderate PHILIPPE JORDAN DO 02/17/20 1113: Subjective Subjective/Events-last exam Patient abdomen distended. Having pain diffusely, no radiation. NG tube in place. No flatus or bm. Denies fever sweats chills shortness of breath or chest pain. Objective Exam General Appearance: No Apparent Distress, Anxious, Thin HEENT: PERRL/EOMI, Other (NG tube in place) Neck: Non Tender, Supple Respiratory: Chest Non Tender, No Accessory Muscle Use, No Respiratory Distress Cardiovascular: Regular Rate, Rhythm Gastrointestinal: Distended; No Guarding; Tenderness (diffusely) Rectal: Deferred Back: No CVA Tenderness, No Vertebral Tenderness Neurologic/Psychiatric: Alert, Oriented x3, Normal Mood/Affect, Other (slightly anxious) Assessment/Plan Assessment and Plan Assess & Plan/Chief Complaint high grade small bowel obstruction recent exploratory laparaotomy release of small bowel obstruction due to internal hernia, appendectomy anxiety patient with significantly dilated small bowel, slightly worse pain today. anxiety better controlled no bowel function do not feel this is going to resolve due to chronic dilation of small bowel with his history of small bowel resection at 1 day old. patient and family understands risks and benefits and wishes to proceed. to or for exploratory laparatomy all other indicated procedures. Supervisory-Addendum Brief Verification & Attestation Participated in pt care: history, MDM, physical Personally performed: exam, history, MDM, supervision of care Care discussed with: Medical Student Procedures: n/a Results interpretation: Verified all documentation Verification and Attestation of Medical Student E/M Service A medical student performed and documented this service in my presence. I reviewed and verified all information documented by the medical student and made modifications to such information, when appropriate. I personally performed the physical exam and medical decision making. Philippe Jordan, Feb 17, 2020,08:03 JAY MARTINEZ MED STUDENT Feb 17, 2020 07:39 PHILIPPE JORDAN DO Feb 17, 2020 11:13
[2020-02-17] MEDS ORDERED: HYDROmorphone 2 MG/ML VIAL (DILAUDID) ONE (07:52)
[2020-02-17] MEDS ORDERED: 0.9% SODIUM CHLORIDE PF INJ 20 ML VIAL ONE (07:56)
[2020-02-17] MEDS ORDERED: ceFAZolin INJECTION 1,000 MG ONE ×2 (07:56→22:01)
[2020-02-17] MEDS ORDERED: WATER (STERILE) FOR INJECTION 0 ML ONE (07:56)
[2020-02-17] MEDS: LACTATED RINGERS 1,000 ML IV PRN ×2 (08:56→10:53)
[2020-02-17] MEDS: PANTOPRAZOLE 40 MG (PROTONIX) VIAL IV SCH (09:00)
[2020-02-17] MEDS ORDERED: BUPIVACAINE 0.5% 30 ML (SENSORCAINE) VIAL ONE (10:08)
[2020-02-17] MEDS ORDERED: TPN IV SCH (10:30)
[2020-02-17] MEDS ORDERED: HYDROmorphone 2 MG/ML VIAL (DILAUDID) IV ONE (10:45)
[2020-02-17] MEDS ORDERED: morphine INJ 10 MG/ML 1ML (SYR OR VIAL) IVP ONE (10:45)
[2020-02-17] MEDS ORDERED: ONDANSETRON 4 MG/2 ML (SDV) Z0FRAN IVP PRN (10:45)
[2020-02-17] MEDS ORDERED: KETOROLAC 30 MG/ML VIAL ONE (10:47)
[2020-02-17] MEDS ORDERED: KETOROLAC 30 MG/ML VIAL IVP ONE (11:00)
--- NOTE | 2020-02-17 11:24 | Progress Note-Post Operative ---
Post-Operative Progess Note Surgeon (s)/Educational Technician (s) Surgeon MITALI DSOUZA DO Educational Technician: Dr. Simms Pre-Operative Diagnosis small bowel obstruction Post-Operative Diagnosis small bowel obstruction with chronic distention and small portion of ischemic bowel Procedure & Operative Findings Date of Procedure 02/17/20 Procedure Performed/Findings exploratory laparotomy, lysis of adhesion 45 min, small bowel resection with side to side anastamosis Anesthesia Type gen Estimated Blood Loss Estimated blood loss (mL): 200 ml Specimens/Packing Specimens Removed small bowel MITALI DSOUZA DO Feb 17, 2020 11:24
[2020-02-17 12:00] LABS: HEMOGLOBIN 12.8 G/DL (13.3-17.7); MEAN PLATELET VOLUME 10.4 FL (7.4-10.4); WHITE BLOOD COUNT 15.9 10^3/uL (4.3-11.0)
[2020-02-17] MEDS: ENOXAPARIN 40 MG/0.4 ML (LOVENOX) SYR SC SCH (12:21)
[2020-02-17 12:39] LABS: PHOSPHORUS 4.6 MG/DL (2.3-4.7)
[2020-02-17 12:41] LABS: MAGNESIUM 1.6 MG/DL (1.6-2.4)
[2020-02-17] MEDS: LORazepam INJ 2 MG/ML (ATIVAN) VIAL IVP PRN ×2 (13:56→21:13)
[2020-02-17] MEDS: ceFAZolin INJECTION 1,000 MG in WATER (STERILE) FOR INJECTION 10 ML IV SCH ×2 (14:47→22:09)
[2020-02-17] MEDS: MAGNESIUM 1 GM/D5W 100 ML IVPB IV SCH ×3 (14:47→17:50)
--- NOTE | 2020-02-17 15:16 | Diagnostic Imaging Report ---
INDICATION: Status post PICC line placement. COMPARISON: CT abdomen and pelvis dated 02/16/2020. FINDINGS: Single frontal radiographic view of the chest was obtained and demonstrates indwelling gastric tube with tip and side-port projecting in the left upper abdominal quadrant, presumably within the stomach. Large amount of air is seen under the hemidiaphragm, but is shown to be contained within the colon on CT abdomen from one day prior. Right upper extremity PICC line is present with tip in the right atrium. Cardiac silhouette and pulmonary vasculature are within normal limits. Lungs are clear. There is no focal consolidation, large effusion, nor pneumothorax. Osseous structures show no gross acute abnormalities. IMPRESSION: 1. Lines and tubes as above. 2. Otherwise, no acute cardiopulmonary process. Dictated by: Dictated on workstation # [id number]
--- NOTE | 2020-02-17 15:36 | Physical Therapy Evaluation ---
PT Evaluation-General Medical Diagnosis Admission Date Feb 16, 2020 at 06:00 Medical Diagnosis: SBO Onset Date: Feb 17, 2020 Therapy Diagnosis Therapy Diagnosis: Impaired mobility and gait Precautions Precautions/Isolations: Standard Precautions Weight Bear Status Right Lower Extremity: Right Full Weight Bearing Left Lower Extremity: Left Full Weight Bearing Referral Physician: Nikki Reason for Referral: Evaluation/Treatment Medical History Additional Medical History Hx of abdominal surgeries Reviewed History: Yes Social History Home: Single Level Current Living Status: Parents Entry Into Home: Stairs With Railing, Stairs Without Railing PT Steps Into Home: 4 PT Steps Inside Home: 0 Pt lives at home with parents who can provided assistance to him if needed. Prior Prior Level of Function SCALE: Activities may be completed with or without assistive devices. 2-Hyiukmmosn-qonwlkb completes the activity by him/herself with no assistance from a helper. 5-Set-up or Clean-up Assistance-helper sets up or cleans up; patient completes activity. [place] assists only prior to or following the activity. 4-Supervision or Touching Assistance-helper provides verbal cues and/or touching/steadying and/or contact guard assistance as patient completes activity. Assistance may be provided throughout the activity or intermittently. 3-Partial/Moderate Assistance-helper does LESS THAN HALF the effort. [place] lifts, holds or supports trunk or limbs, but provides less than half the effort. 2-Substantial/Maximal Assistance-helper does MORE THAN HALF the effort. [place] lifts or holds trunk or limbs and provides more than half the effort. 4-Kqisarykh-eentpn does ALL the effort. Patient does none of the effort to complete the activity. Or, the assistance of 2 or more helpers is required for the patient to complete the activity. If activity was not attempted, code reason: 7-Patient Refused. 9-Not Applicable-not attempted and the patient did not perform the activity before the current illness, exacerbation or injury. 10-Not Attempted due to Environmental Limitations-(lack of equipment, weather restraints, etc.). 88-Not Attempted due to Medical Conditions or Safety Concerns. Bed Mobility: 6 Transfers (B,C,W/C): 6 Gait: 6 Stairs: 6 Wheelchair Mobility: 9 Indoor Mobility (Ambulation): Independent Stairs: Independent Prior Devices Use: None PT Evaluation-Current Subjective Pt presents supine in bed; pt agrees to PT. Pt reports abdominal pain; pt ensured that he had already been given pain medication. Pt/Family Goals Return to PLOF Objective Patient Orientation: Normal For Age Attachments: NG Tube, Harley Catheter, IV ROM/Strength ROM Lower Extremities WFL Strength Lower Extremities B Hip flexion 4+/5 R knee ext 5/5 L knee ext 4/5 B knee flex 5/5 B ankle pf/df 5/5 Sensory Vision: Wears Glasses Hearing: Functional Sensation Right Lower Extremit: Intact Sensation Left Lower Extremity: Intact Transfers Roll Left to Right (QC): 3 Lying to Sitting/Side of Bed(Q: 3 Sit to Stand (QC): 4 Chair/Nwc-jx-Gdzrt Xfer(QC): 4 Gait Does the Patient Walk?: Yes Mode of Locomotion: Walk Anticipated Mode of Locomotion: Walk Walk 10 feet (QC): 4 Walk 50 ft with 2 Turns(QC): 4 Walk 150 ft (QC): 4 Distance: 200' Gait Assistive Device: FWW Comments/Gait Description Pt required motivation to get up and walk; first 10' were difficulty and painful but once in the hallway pt enjoyed walking. Pt is unable to stand up straight during ambulation; does not want to stretch out abdomen. Pt requires pillow to abdomen, no pressure needed; PT held this during ambulation so pt was able to keep B UEs on walker. Balance Sitting Static: Good Sitting Dynamic: Good Standing Static: Good Standing Dynamic: Good Treatment seated exercises (marching, LAQ, AP) x20 Assessment/Needs Pt fearful of pain with movement, complaints decreased by the end of therapy. Wi th encouragement pt able to ambulate and preform LE exercises. Rehab Potential: Fair PT Longterm Goals Sider Goals PT Sider Goals Time Frame: Feb 24, 2020 Sit to Lying (QC): 6 Lying-Sitting on Side/Bed(QC): 6 Sit to Stand (QC): 6 Toilet Transfer (QC): 6 Car Transfer (QC): 6 Does the Patient Walk: Yes Walk 10 feet (QC): 6 Walk 50ft with 2 Turns (QC): 6 Walk 150 ft (QC): 6 4 Steps (QC): 6 PT Plan Problem List Problem List: Activity Tolerance, Functional Strength, Safety, Gait, Transfer, Bed Mobility Treatment/Plan Treatment Plan: Continue Plan of Care Treatment Plan: Bed Mobility, Education, Functional Strength, Gait, Safety, Therapeutic Exercise, Transfers Treatment Duration: Feb 24, 2020 Frequency: 6 times per week Estimated Hrs Per Day: .25 hour per day Patient and/or Family Agrees t: Yes Safety Risks/Education Patient Education: Gait Training, Transfer Techniques, Reviewed Precautions, Correct Positioning, Safety Issues Teaching Recipient: Patient, Family Teaching Methods: Demonstration, Discussion Response to Teaching: Reinforcement Needed Discharge Recommendations Plan Bed mobility, Ambulation, Transfers, LE strength Therapy Discharge Recommendati: Home & Family Time/GCodes Time In: 1455 Time Out: 1520 Total Billed Treatment Time: 25 Total Billed Treatment 1 visit Cynthia 15' GT 10' BARBY NUÑEZ PT Feb 17, 2020 15:36
[2020-02-17] MEDS: HYDROmorphone 2 MG/ML VIAL (DILAUDID) IV PRN ×2 (16:51→21:56)
[2020-02-17] MEDS: CHLORASEPTIC SPRAY 177 ML LIQUID MC PRN ×2 (16:52→20:06)
[2020-02-17] MEDS: 1/2 NS IV SOLUTION 1,000 ML IV SCH (17:50)
[2020-02-17] MEDS: [UNRECOGNIZED DRUG - OTHER] IV SCH ×10 (17:52)
[2020-02-17] MEDS: SODIUM ACETATE IV SCH ×10 (17:52)
[2020-02-17] MEDS: SODIUM PHOSPHATE IV SCH ×10 (17:52)
[2020-02-17] MEDS: POTASSIUM CHLORIDE IV SCH ×10 (17:52)
[2020-02-17] MEDS ORDERED: WATER (STERILE) FOR INJECTION 10 ML ONE (22:01)
[2020-02-18] VITALS: BP 118/80
[2020-02-18] MEDS: HYDROmorphone 2 MG/ML VIAL (DILAUDID) IV PRN ×4 (02:03→21:23)
--- NOTE | 2020-02-18 02:35 | OPERATIVE REPORT ---
DATE OF SERVICE: 02/17/2020 PREOPERATIVE DIAGNOSIS: High-grade small bowel obstruction. POSTOPERATIVE DIAGNOSIS: Chronic distention and small bowel obstruction with small section of ischemic bowel. PROCEDURE: Exploratory laparotomy, lysis of adhesions approximately 45 minutes, small bowel resection with gshw-mo-dfwz anastomosis. SURGEON: Philippe Jordan DO BIZTALK ADMINISTRATOR: Dr. Simms, assisted in retraction, dissection and closure. ANESTHESIA: General. ESTIMATED BLOOD LOSS: 200 mL. COMPLICATIONS: None. INDICATIONS: The patient is a 19-year-old male who previously had internal hernia, had exploratory laparotomy with release of small bowel obstruction. The patient had previous bowel resection at 1-day old. From this adhesive band causing an area for internal hernia. The patient postoperatively had slow recovery at that time. He did regain bowel function, was able to be discharged home. The patient returned to the hospital with significant abdominal distention and having pain. CT scan demonstrated significant distention of small bowel. Physical findings was discussed, risks and benefits of procedure explained and he and family wished to proceed with procedure. Consent was signed in the chart. DESCRIPTION OF PROCEDURE: The patient was taken to the operating suite, prepped and draped in sterile fashion. Timeout was performed. Midline incision was made opening up his previous midline incision. The abdomen was then entered. A significantly distended small bowel was present and with multiple adhesions causing rotated the area where his previous anastomosis was performed as a child. The small bowel was then continued to be ran and adhesions were dissected with both cautery and Metzenbaums. The previous anastomosis, the small bowel was completely collapsed with distention of the small bowel greater than 12 cm in diameter. This was able to be ran the area just proximal to the distention, had ischemic appearing changes. Therefore, the small bowel was then continued to be ran all the way to the ligament of Treitz. The proximal portion to the ischemic area had normal appearance. The area of ischemic changes did not improve and the bowel had edematous changes through this area as well. At this time, it was decided to resect these chronic small bowel where I believe this is causing his problems. An Endo-STARLA was then fired proximal to the ischemic changes and then the LigaSure was then used to begin dividing the mesentery. This was then continued to be divided all the way to the terminal ileum where the small bowel was collapsed, keeping as much length of small bowel as possible. The distal portion of the ileum was then dissected around bluntly and a STARLA was then used to transect the small bowel. This was also removing the segment of chronic dilated and ischemic bowel. The small bowel was then brought together in a swfm-wg-tlgc fashion using a STARLA stapler and suture, also putting a crotch stitch. Once the ajro-ta-hikr anastomosis was recreated, small bowel was reinspected noting no other abnormality. The abdomen was then irrigated with copious amounts of irrigation and suction. The defect was then closed also using it to cover the anastomosis. The colon had a collapse appearance with no abnormality visualized. The fascia was then closed using 1-0 looped PDS. The wound was then irrigated with copious amounts of irrigation and suctioned and the skin was then closed with kimmie. The patient tolerated procedure well without any complications. He was taken to recovery room in stable condition. Job ID: [id number] DocumentID: [id number] Dictated Date: 02/17/2020 20:45:18 Machine Tool Dresser Date: 02/18/2020 02:34:39 Dictated By: DO CHUCK DELUCA
[2020-02-18 04:00] VITALS: BP 129/81
[2020-02-18] MEDS: morphine INJ 10 MG/ML 1ML (SYR OR VIAL) IVP PRN ×4 (05:42→18:34)
[2020-02-18 06:49] LABS: ALBUMIN 2.4 GM/DL (3.2-4.5); CHLORIDE 102 MMOL/L (98-107); POTASSIUM 3.9 MMOL/L (3.6-5.0); SODIUM 136 MMOL/L (135-145)
[2020-02-18 06:50] LABS: CALCIUM 7.5 MG/DL (8.5-10.1)
[2020-02-18 06:51] LABS: GLUCOSE 144 MG/DL (70-105)
[2020-02-18 06:52] LABS: CARBON DIOXIDE 26 MMOL/L (21-32)
[2020-02-18 06:53] LABS: BILIRUBIN,TOTAL 0.2 MG/DL (0.1-1.0)
[2020-02-18 06:54] LABS: PHOSPHORUS 2.3 MG/DL (2.3-4.7)
[2020-02-18 06:55] LABS: ALKALINE PHOSPHATASE 171 U/L (40-136); CREATININE SERUM 0.63 MG/DL (0.60-1.30); GFR ESTIMATED > 60
[2020-02-18 06:56] LABS: BUN/CREATININE RATIO 19
[2020-02-18 06:58] LABS: ALANINE AMINOTRANSFERASE 15 U/L (0-55); MAGNESIUM 1.9 MG/DL (1.6-2.4)
[2020-02-18] MEDS: 1/2 NS IV SOLUTION 1,000 ML IV SCH ×2 (07:06→22:54)
[2020-02-18 08:00] VITALS: BP 119/73
[2020-02-18] MEDS: PANTOPRAZOLE 40 MG (PROTONIX) VIAL IV SCH (08:04)
[2020-02-18] MEDS: ONDANSETRON 4 MG/2 ML (SDV) Z0FRAN IVP PRN ×2 (09:11→19:33)
--- NOTE | 2020-02-18 10:37 | Anesthesia-General Post-Op ---
General Patient Condition Mental Status/LOC: Same as Preop Cardiovascular: Satisfactory Nausea/Vomiting: Absent Respiratory: Satisfactory Pain: Controlled Complications: Absent Post Op Complications Complications None Follow Up Care/Instructions Patient Instructions None needed. Anesthesia/Patient Condition Patient Condition Patient is doing well, no complaints, stable vital signs, no apparent adverse anesthesia problems. No complications reported per nursing. KRISTIAN DOMINGO CRNA Feb 18, 2020 10:37
--- NOTE | 2020-02-18 11:27 | Progress Note - Surgery ---
JAY MARTINEZ MED STUDENT 02/18/20 1126: Subjective Date Seen by a Provider: Feb 18, 2020 Time Seen by a Provider: 08:15 Subjective/Events-last exam Jabari complains of a large amount of postoperative pain. Feels nauseous, no vomiting. Has not passed gas yet. Walked the hallway yesterday. States he has been using spirometer as instructed. PICC line in place with parenteral nutrition. Gastroesophageal tube in place. Urinary catheter in place with 1770 mL output yesterday per documentation. Objective Exam Vital Signs Date Time Temp Pulse Resp B/P (MAP) Pulse Ox O2 Delivery O2 Flow Rate FiO2 02/18/20 08:00 37.1 121 18 119/73 (88) 98 Room Air 02/18/20 08:00 97 Room Air 02/18/20 04:00 37.2 120 20 129/81 (97) 98 Room Air 02/18/20 00:00 36.9 120 20 118/80 (93) 97 Room Air 02/17/20 20:00 97 Room Air 02/17/20 19:54 37.3 103 20 106/63 (77) 96 Room Air 02/17/20 16:17 36.9 107 20 109/64 (79) 96 Room Air 02/17/20 12:00 37.3 118 18 132/77 (95) 91 Room Air 02/17/20 11:30 Room Air 02/17/20 11:30 37.5 16 129/83 (98) 92 Room Air 02/17/20 11:20 OxyMask 2 02/17/20 11:20 16 140/99 (113) 98 OxyMask 2 I & O 02/18/20 07:00 Intake Total 2030 ml Output Total 1820 ml Balance 210 ml Capillary Refill : Less Than 3 Seconds General Appearance: No Apparent Distress, Anxious, Thin HEENT: PERRL/EOMI, Other (NG tube in place) Neck: Non Tender, Supple Respiratory: Chest Non Tender, No Accessory Muscle Use, No Respiratory Distress Cardiovascular: Regular Rate, Rhythm, No Gallop Peripheral Pulses: 2+ Dorsalis Pedis (R), 2+ Left Dors-Pedis (L), 2+ Radial Pulses (R), 2+ Radial Pulses (L) Gastrointestinal: normal bowel sounds (quiescent), soft, no organomegaly, dis tended (mildly), tenderness (moderate to severe with light palpation, worse on the LLQ), other (incision site covered by midline abdominal bandage. ) Extremity: Normal Inspection, Other (Harley catheter in place, minimal erythema surrounding insertion site at urethral opening) Neurologic/Psychiatric: Alert, Oriented x3, Normal Mood/Affect Skin: Normal Color, Warm/Dry Lymphatic: No Adenopathy Results Lab Laboratory Tests 02/17/20 11:44: White Blood Count 15.9H, Red Blood Count 4.49, Hemoglobin 12.8L, Hematocrit 39L, Mean Corpuscular Volume 87, Mean Corpuscular Hemoglobin 29, Mean Corpuscular Hemoglobin Concent 33, Red Cell Distribution Width 12.7, Platelet Count 523H, Mean Platelet Volume 10.4, Phosphorus Level 4.6, Magnesium Level 1.6, Prealbumin 5.7L, Triglycerides Level 109 02/18/20 00:30: Glucometer 174H 02/18/20 05:40: Phosphorus Level 2.3, Magnesium Level 1.9, Sodium Level 136, Potassium Level 3.9, Chloride Level 102, Carbon Dioxide Level 26, Anion Gap 8, Blood Urea Nitrogen 12, Creatinine 0.63, Estimat Glomerular Filtration Rate > 60, BU N/Creatinine Ratio 19, Glucose Level 144H, Calcium Level 7.5L, Corrected Calcium 8.8, Total Bilirubin 0.2, Aspartate Amino Transf (AST/SGOT) 14, Alanine Aminotransferase (ALT/SGPT) 15, Alkaline Phosphatase 171H, Total Protein 5.0L, Albumin 2.4L Microbiology 02/16/20 Blood Culture - Preliminary, Resulted Staphylococcus hominis Assessment/Plan Assessment/Plan Admission Diagonsis SBO Assessment/Plan high grade small bowel obstruction s/p exploratory laparotomy and small bowel resection Harley catheter placed prior to surgery yesterday PICC placed for PN post-surgery yesterday Bedside inhaled spirometer Remove Harley catheter today Keep NG to LIWS. continue spirometry 10x per hour walk multiple times a day, multiple laps as possible Will continue to monitor labs and surgical incision site Clinical Quality Measures DVT/VTE Risk/Contraindication: Risk Factor Score Per Nursin RFS Level Per Nursing on Admit: 2=Moderate PHILIPPE JORDAN DO 02/18/20 1437: Subjective Subjective/Events-last exam Having pain at incision. Using incentive spirometer some. Nauseated. Has ng tube. No bowel function. Harley for accurate I/o. Denies fever sweats chills shortness of breath or chest pain. Objective Exam General Appearance: No Apparent Distress, Anxious, Thin HEENT: PERRL/EOMI, Other (NG tube in place) Neck: Non Tender, Supple Respiratory: Chest Non Tender, No Accessory Muscle Use, No Respiratory Distress Cardiovascular: No Edema, Tachycardia Peripheral Pulses: 2+ Dorsalis Pedis (R), 2+ Left Dors-Pedis (L), 2+ Radial Pulses (R), 2+ Radial Pulses (L) Gastrointestinal: soft, no organomegaly, distended (minimal), tenderness (incisional, c/d/i no erythema), other Extremity: Normal Inspection, Non Tender Neurologic/Psychiatric: Alert, Oriented x3, Normal Mood/Affect Skin: Normal Color, Warm/Dry Lymphatic: No Adenopathy Assessment/Plan Assessment/Plan Assessment/Plan high grade small bowel obstruction s/p exploratory laparotomy and small bowel resection PICC placed for TPN post-surgery yesterday to improve nutritional status Keep NG to LIWS. Await bowel function continue incentive spirometry 10x per hour Lovenox for dvt prophylaxis encouraged ambulation Supervisory-Addendum Brief Verification & Attestation Participated in pt care: history, MDM, physical Personally performed: exam, history, MDM, supervision of care Care discussed with: Medical Student Procedures: n/a Results interpretation: Verified all documentation Verification and Attestation of Medical Student E/M Service A medical student performed and documented this service in my presence. I reviewed and verified all information documented by the medical student and made modifications to such information, when appropriate. I personally performed the physical exam and medical decision making. Philippe Jordan, Feb 18, 2020,14:37 JAY MARTINEZ MED STUDENT Feb 18, 2020 11:26 PHILIPPE JORDAN DO Feb 18, 2020 14:37
[2020-02-18 12:00] VITALS: BP 117/67
[2020-02-18] MEDS: ENOXAPARIN 40 MG/0.4 ML (LOVENOX) SYR SC SCH (13:24)
[2020-02-18] MEDS: CHLORASEPTIC SPRAY 177 ML LIQUID MC PRN ×3 (13:25→22:56)
--- NOTE | 2020-02-18 14:25 | Physical Therapy Daily Note ---
PT Daily Note-Current Subjective Pt initially refused due to 10 pain. Returned 90min after pain medication was administered, and pt was still trying to refuse. Nursing and physician requested that he gets up. Pt convinced to get up and work with PT. Pain Numeric Pain Scale: 10-Worst Possible Pain Location Body Site: Abdomen Pain Description: Sharp, Cramping Mental Status Patient Orientation: Person, Place, Time, Situation Attachments: Central Line, NG Tube, Harley Catheter Transfers SCALE: Activities may be completed with or without assistive devices. 3-Efrhjedaui-ejhmbio completes the activity by him/herself with no assistance from a helper. 5-Set-up or Clean-up Assistance-helper sets up or cleans up; patient completes activity. [place] assists only prior to or following the activity. 4-Supervision or Touching Assistance-helper provides verbal cues and/or touching/steadying and/or contact guard assistance as patient completes activity. Assistance may be provided throughout the activity or intermittently. 3-Partial/Moderate Assistance-helper does LESS THAN HALF the effort. [place] lifts, holds or supports trunk or limbs, but provides less than half the effort. 2-Substantial/Maximal Assistance-helper does MORE THAN HALF the effort. [place] lifts or holds trunk or limbs and provides more than half the effort. 8-Nxhxtiwei-wrpkbw does ALL the effort. Patient does none of the effort to complete the activity. Or, the assistance of 2 or more helpers is required for the patient to complete the activity. If activity was not attempted, code reason: 7-Patient Refused. 9-Not Applicable-not attempted and the patient did not perform the activity before the current illness, exacerbation or injury. 10-Not Attempted due to Environmental Limitations-(lack of equipment, weather restraints, etc.). 88-Not Attempted due to Medical Conditions or Safety Concerns. Roll Left & Right (QC): 3 Sit to Lying (QC): 3 Lying to Sitting/Side of Bed(Q: 3 Sit to Stand (QC): 3 Chair/Yzy-nx-Pbtxd Xfer(QC): 3 Weight Bearing Right Lower Extremity: Right Full Weight Bearing Left Lower Extremity: Left Full Weight Bearing Gait Training Does the Patient Walk?: Yes Distance: 210ft Walk 10 feet (QC): 4 Walk 50 ft with 2 Turns(QC): 4 Walk 150 ft (QC): 4 Walking 10ft/uneven surface-QC: 4 Gait Persons Needed: 1 Gait Assistive Device: FWW Wheelchair Training Does the Pt Use a Wheelchair?: No Exercises Supine Ex: LE Protocol Supine Reps: 10 Pt was initially had poor tolerance to LE ROM and again attempted to refuse therapy. He was able to perform the lower extremity exercises and progress to bed mobility, transfers, and gait. Assessment Current Status: Fair Progress Pt was encouraged to get up and walk with therapy. Despite his early pain reports, he was able to ambulate with minimal difficulty, performed transfers with minimal difficulty after ambulating, and returned to the chair with min assist. PT Mcfp Goals Mcfp Goals PT Crowd Controller Goals Time Frame: Feb 24, 2020 Sit to Lying (QC): 6 Lying-Sitting on Side/Bed(QC): 6 Sit to Stand (QC): 6 Toilet Transfer (QC): 6 Car Transfer (QC): 6 Does the Patient Walk: Yes Walk 10 feet (QC): 6 Walk 50ft with 2 Turns (QC): 6 Walk 150 ft (QC): 6 4 Steps (QC): 6 PT Plan Treatment/Plan Treatment Plan: Continue Plan of Care Treatment Plan: Bed Mobility, Education, Functional Strength, Gait, Safety, Therapeutic Exercise, Transfers Treatment Duration: Feb 24, 2020 Frequency: 6 times per week Estimated Hrs Per Day: .25 hour per day Patient and/or Family Agrees t: Yes Time/GCodes Time In: 1100 Time Out: 1130 Total Billed Treatment Time: 30 Total Billed Treatment 1, gt 15, ex 15 MIKAELA HUBER PT Feb 18, 2020 14:25
[2020-02-18 16:06] VITALS: BP 119/79
[2020-02-18] MEDS: SODIUM PHOSPHATE IV SCH ×10 (17:01)
[2020-02-18] MEDS: LORazepam INJ 2 MG/ML (ATIVAN) VIAL IVP PRN (17:01)
[2020-02-18] MEDS: POTASSIUM CHLORIDE IV SCH ×10 (17:01)
[2020-02-18] MEDS: [UNRECOGNIZED DRUG - OTHER] IV SCH ×10 (17:01)
[2020-02-18] MEDS: SODIUM ACETATE IV SCH ×10 (17:01)
[2020-02-18 20:09] VITALS: BP 105/61
--- NOTE | 2020-02-18 22:25 | NUR ---
PT SHOWING S/S OF INCREASED AGITATION. PULLING AT IV LINES. DIVERSION ATTEMPTS UNSUCCESSFUL AT THIS TIME. PT WAS MADE NPO TODAY AND HASN'T RECEIVED HIS RISPERDAL 1 MG PO D/T THIS. DR. ANGELES NOTIFIED. NEW ORDERS FOR HALDOL 1 MG IM Q2 HOURS PRN AND ATIVAN 0.5 MG IV Q2 HOURS PRN RECEIVED. HALDOL 1 MG IM GIVEN TO LEFT VENTROGLUTEAL AT THIS TIME. WILL CONTINUE TO MONITOR. Addendum: 02/18/20 at 2236 by DARRIUS FUENTES RN DOCUMENTED ON WRONG PT.
[2020-02-19] VITALS: BP 99/62
[2020-02-19] MEDS: morphine INJ 10 MG/ML 1ML (SYR OR VIAL) IVP PRN ×3 (00:28→17:54)
[2020-02-19] MEDS: ONDANSETRON 4 MG/2 ML (SDV) Z0FRAN IVP PRN (00:28)
[2020-02-19] MEDS: LORazepam INJ 2 MG/ML (ATIVAN) VIAL IVP PRN ×3 (00:36→22:45)
[2020-02-19 04:00] VITALS: BP 95/59
[2020-02-19 05:23] LABS: HEMOGLOBIN 9.2 G/DL (13.3-17.7); MEAN PLATELET VOLUME 10.6 FL (7.4-10.4); WHITE BLOOD COUNT 10.3 10^3/uL (4.3-11.0)
[2020-02-19 05:34] LABS: ALBUMIN 2.3 GM/DL (3.2-4.5); CHLORIDE 101 MMOL/L (98-107); SODIUM 135 MMOL/L (135-145)
[2020-02-19 05:35] LABS: CALCIUM 7.8 MG/DL (8.5-10.1)
[2020-02-19 05:37] LABS: GLUCOSE 104 MG/DL (70-105); TOTAL PROTEIN 4.8 GM/DL (6.4-8.2)
[2020-02-19 05:38] LABS: BILIRUBIN,TOTAL 0.3 MG/DL (0.1-1.0); CARBON DIOXIDE 25 MMOL/L (21-32)
[2020-02-19 05:40] LABS: ALKALINE PHOSPHATASE 194 U/L (40-136); CREATININE SERUM 0.62 MG/DL (0.60-1.30); GFR ESTIMATED > 60; PHOSPHORUS 2.9 MG/DL (2.3-4.7)
[2020-02-19 05:41] LABS: BUN/CREATININE RATIO 19
[2020-02-19 05:43] LABS: ALANINE AMINOTRANSFERASE 21 U/L (0-55); MAGNESIUM 1.7 MG/DL (1.6-2.4)
--- NOTE | 2020-02-19 06:53 | NUR ---
TPN - Labs reviewed. No changes in TPN indicated.
[2020-02-19 08:00] VITALS: BP 110/76
[2020-02-19] MEDS: PANTOPRAZOLE 40 MG (PROTONIX) VIAL IV SCH (08:13)
[2020-02-19] MEDS: HYDROmorphone 2 MG/ML VIAL (DILAUDID) IV PRN ×3 (08:13→20:41)
--- NOTE | 2020-02-19 10:18 | Progress Note - Surgery ---
JAY MARTINEZ MED STUDENT 02/19/20 1017: Subjective Date Seen by a Provider: Feb 19, 2020 Time Seen by a Provider: 07:50 Subjective/Events-last exam walked as instructed yesterday. Pain improved today. decreased nausea compared to yesterday but still present. Not passing gas yet but says he has been burping. Arreola catheter output over 1L each day. BP found to be low last 2 days, 95/59 at 4 am, recheck when in the room 110s/70s. No chest pain, SOB, fever, chills, vomiting. Objective Exam Vital Signs Date Time Temp Pulse Resp B/P (MAP) Pulse Ox O2 Delivery O2 Flow Rate FiO2 02/19/20 04:00 37.2 115 18 95/59 (71) 96 Room Air 02/19/20 00:00 37.0 104 16 99/62 (74) 97 Room Air 02/18/20 20:09 37.0 115 18 105/61 (76) 98 Room Air 02/18/20 20:00 97 Room Air 02/18/20 16:06 37.2 109 16 119/79 (92) 99 Room Air 02/18/20 12:00 36.2 121 20 117/67 (84) 96 Room Air I & O 02/19/20 07:00 Intake Total 1000 ml Output Total 1450 ml Balance -450 ml Capillary Refill : Less Than 3 Seconds General Appearance: No Apparent Distress, Thin HEENT: PERRL/EOMI, Other (NG tube in place) Neck: Non Tender, Supple Respiratory: Chest Non Tender, No Accessory Muscle Use, No Respiratory Distress Cardiovascular: Regular Rate, Rhythm, No Edema Peripheral Pulses: 2+ Dorsalis Pedis (R), 2+ Left Dors-Pedis (L), 2+ Radial Pulses (R), 2+ Radial Pulses (L) Gastrointestinal: soft, no organomegaly, distended (minimal), tenderness (incisional, c/d/i no erythema) Extremity: Normal Inspection, Non Tender Neurologic/Psychiatric: Alert, Oriented x3, Normal Mood/Affect Skin: Normal Color, Warm/Dry Lymphatic: No Adenopathy Results Lab Laboratory Tests 02/18/20 13:37: Glucometer 94 02/19/20 05:08: White Blood Count 10.3, Red Blood Count 3.24L, Hemoglobin 9.2#L, Hematocrit 28L, Mean Corpuscular Volume 88, Mean Corpuscular Hemoglobin 28, Mean Corpuscular Hemoglobin Concent 32, Red Cell Distribution Width 12.8, Platelet Count 406H, Mean Platelet Volume 10.6H, Sodium Level 135, Potassium Level 4.0, Chloride Level 101, Carbon Dioxide Level 25, Anion Gap 9, Blood Urea Nitrogen 12, Creatinine 0.62, Estimat Glomerular Filtration Rate > 60, BUN/Creatinine Ratio 19, Glucose Level 104, Calcium Level 7.8L, Corrected Calcium 9.2, Phosphorus Level 2.9, Magnesium Level 1.7, Total Bilirubin 0.3, Aspartate Amino Transf (AST/SGOT) 19, Alanine Aminotransferase (ALT/SGPT) 21, Alkaline Phosphatase 194H , Total Protein 4.8L, Albumin 2.3L Microbiology 02/16/20 Blood Culture - Preliminary, Resulted Staphylococcus hominis Assessment/Plan Assessment/Plan Assessment/Plan high grade small bowel obstruction s/p exploratory laparotomy and small bowel resection PICC placed for TPN post-surgery yesterday to improve nutritional status Keep NG to LIWS. Await bowel function continue incentive spirometry 10x per hour encouraged ambulation Recheck HGB, check magnesium, continue to monitor BP depending on results may hold Lovenox Clinical Quality Measures DVT/VTE Risk/Contraindication: Risk Factor Score Per Nursin RFS Level Per Nursing on Admit: 2=Moderate MITALI DSOUZA DO 02/19/20 1653: Subjective Subjective/Events-last exam Pain improving. NG tube in place. using incentive spirometer and ambulating. NPO On TPN. No new complaints. Denies fever sweats chills shortness of breaht or chest pain. Objective Exam General Appearance: No Apparent Distress, Thin HEENT: PERRL/EOMI, Normal ENT Inspection, Other (NG tube in place) Neck: Non Tender, Supple Respiratory: Chest Non Tender, No Accessory Muscle Use, No Respiratory Distress Cardiovascular: Regular Rate, Rhythm, No Edema Gastrointestinal: soft, no organomegaly, distended (minimal), tenderness (incisional, c/d/i no erythema) Extremity: Normal Inspection, Non Tender Neurologic/Psychiatric: Alert, Oriented x3, Normal Mood/Affect Skin: Normal Color, Warm/Dry Lymphatic: No Adenopathy Assessment/Plan Assessment/Plan Assessment/Plan high grade small bowel obstruction s/p exploratory laparotomy and small bowel resection postoperative anemia PICC placed for TPN post-surgery to improve nutritional status Keep NG to LIWS. Await bowel function continue incentive spirometry 10x per hour encouraged ambulation Recheck HGB, check magnesium, continue to monitor BP depending on results may hold Lovenox dc arreola Supervisory-Addendum Brief Verification & Attestation Participated in pt care: history, MDM, physical Personally performed: exam, history, MDM, supervision of care Care discussed with: Medical Student Procedures: n/a Results interpretation: Verified all documentation Verification and Attestation of Medical Student E/M Service A medical student performed and documented this service in my presence. I reviewed and verified all information documented by the medical student and made modifications to such information, when appropriate. I personally performed the physical exam and medical decision making. Mitali Dsouza, Feb 19, 2020,16:52 JAY MARTINEZ MED STUDENT Feb 19, 2020 10:17 MITALI DSOUZA DO Feb 19, 2020 16:53
[2020-02-19] MEDS: 1/2 NS IV SOLUTION 1,000 ML IV SCH ×2 (10:22→16:58)
[2020-02-19] MEDS: CHLORASEPTIC SPRAY 177 ML LIQUID MC PRN (10:30)
[2020-02-19 12:00] VITALS: BP 102/64
[2020-02-19] MEDS: ENOXAPARIN 40 MG/0.4 ML (LOVENOX) SYR SC SCH (12:17)
[2020-02-19 16:19] VITALS: BP 109/69
[2020-02-19] MEDS: SODIUM ACETATE IV SCH ×10 (17:00)
[2020-02-19] MEDS: POTASSIUM CHLORIDE IV SCH ×10 (17:00)
[2020-02-19] MEDS: SODIUM PHOSPHATE IV SCH ×10 (17:00)
[2020-02-19] MEDS: [UNRECOGNIZED DRUG - OTHER] IV SCH ×10 (17:00)
[2020-02-19 20:57] VITALS: BP 106/72
--- NOTE | 2020-02-20 | NUR ---
assumed care of patient at this time
[2020-02-20 00:22] VITALS: BP 109/73
[2020-02-20] MEDS: ONDANSETRON 4 MG/2 ML (SDV) Z0FRAN IVP PRN ×2 (00:59→14:37)
[2020-02-20 03:31] LABS: HEMOGLOBIN 8.6 G/DL (13.3-17.7); MEAN PLATELET VOLUME 10.1 FL (7.4-10.4)
[2020-02-20 03:38] VITALS: BP 108/73
[2020-02-20 03:44] LABS: ALBUMIN 2.4 GM/DL (3.2-4.5)
[2020-02-20 03:45] LABS: CHLORIDE 103 MMOL/L (98-107); POTASSIUM 3.7 MMOL/L (3.6-5.0); SODIUM 138 MMOL/L (135-145)
[2020-02-20 03:46] LABS: CALCIUM 8.1 MG/DL (8.5-10.1)
[2020-02-20 03:47] LABS: GLUCOSE 118 MG/DL (70-105); TOTAL PROTEIN 5.1 GM/DL (6.4-8.2)
[2020-02-20 03:48] LABS: CARBON DIOXIDE 26 MMOL/L (21-32)
[2020-02-20 03:49] LABS: BILIRUBIN,TOTAL 0.2 MG/DL (0.1-1.0)
[2020-02-20 03:50] LABS: ALKALINE PHOSPHATASE 146 U/L (40-136)
[2020-02-20 03:51] LABS: GFR ESTIMATED > 60
[2020-02-20 03:52] LABS: BUN/CREATININE RATIO 17
[2020-02-20 03:53] LABS: ALANINE AMINOTRANSFERASE 25 U/L (0-55); MAGNESIUM 1.7 MG/DL (1.6-2.4)
[2020-02-20] MEDS: HYDROmorphone 2 MG/ML VIAL (DILAUDID) IV PRN ×4 (04:59→20:08)
[2020-02-20] MEDS: CHLORASEPTIC SPRAY 177 ML LIQUID MC PRN (05:19)
[2020-02-20] MEDS: 1/2 NS IV SOLUTION 1,000 ML IV SCH ×2 (06:58→20:50)
[2020-02-20 08:00] VITALS: BP 104/70
[2020-02-20] MEDS: PANTOPRAZOLE 40 MG (PROTONIX) VIAL IV SCH (08:17)
--- NOTE | 2020-02-20 09:30 | NUR ---
DILAUDID 0.5 FOR C/O PAIN.
[2020-02-20] MEDS: LORazepam INJ 2 MG/ML (ATIVAN) VIAL IVP PRN ×2 (10:00→18:18)
--- NOTE | 2020-02-20 10:00 | NUR ---
ATIVAN 0.5 IV FOR ANXIETY.
[2020-02-20 12:00] VITALS: BP 106/73
--- NOTE | 2020-02-20 12:25 | Physical Therapy Daily Note ---
PT Daily Note-Current Subjective Pt sitting up in chair upon arrival. Agrees to PT tx. Pain Numeric Pain Scale: 3 Location Body Site: Abdomen Pain Description: Ache Comment: C/o pain in stomach from NG Tube. RN notified and came in room to access Mental Status Patient Orientation: Person, Place, Time, Situation Attachments: NG Tube, IV Transfers SCALE: Activities may be completed with or without assistive devices. 4-Ngoviijqwc-utmlhjv completes the activity by him/herself with no assistance from a helper. 5-Set-up or Clean-up Assistance-helper sets up or cleans up; patient completes activity. [place] assists only prior to or following the activity. 4-Supervision or Touching Assistance-helper provides verbal cues and/or touching/steadying and/or contact guard assistance as patient completes activity. Assistance may be provided throughout the activity or intermittently. 3-Partial/Moderate Assistance-helper does LESS THAN HALF the effort. [place] lifts, holds or supports trunk or limbs, but provides less than half the effort. 2-Substantial/Maximal Assistance-helper does MORE THAN HALF the effort. [place] lifts or holds trunk or limbs and provides more than half the effort. 6-Cqefojjjn-aypmzr does ALL the effort. Patient does none of the effort to complete the activity. Or, the assistance of 2 or more helpers is required for the patient to complete the activity. If activity was not attempted, code reason: 7-Patient Refused. 9-Not Applicable-not attempted and the patient did not perform the activity before the current illness, exacerbation or injury. 10-Not Attempted due to Environmental Limitations-(lack of equipment, weather restraints, etc.). 88-Not Attempted due to Medical Conditions or Safety Concerns. Sit to Stand (QC): 4 Weight Bearing Right Lower Extremity: Right Full Weight Bearing Left Lower Extremity: Left Full Weight Bearing Gait Training Does the Patient Walk?: Yes Distance: 200' Walk 10 feet (QC): 4 Walk 50 ft with 2 Turns(QC): 4 Walk 150 ft (QC): 4 Gait Persons Needed: 1 Gait Assistive Device: None No FWW in room upon arrival. PT states that he has been ambulating w/ Nursing staff, while holding onto the IV pole. Exercises Seated Therapy Exercises: Ankle pumps, Long arc quads, Hip flexion, Hip abd/add Seated Reps: 15 (x2) Treatments Seated exercises done in chair. Pt ambulates in hallway w/ COLLECTIONS OFFICER; pt holds onto IV pole for assistance w/ ambulation. Pt has no LOB during ambulation. Assessment Current Status: Good Progress Pt motivated to complete therapy tx this visit. Pt states that his pain is more under control today. PT Mule Rider Goals Snf Goals PT Snf Goals Time Frame: Feb 24, 2020 Sit to Lying (QC): 6 Lying-Sitting on Side/Bed(QC): 6 Sit to Stand (QC): 6 Toilet Transfer (QC): 6 Car Transfer (QC): 6 Does the Patient Walk: Yes Walk 10 feet (QC): 6 Walk 50ft with 2 Turns (QC): 6 Walk 150 ft (QC): 6 4 Steps (QC): 6 PT Plan Problem List Problem List: Activity Tolerance, Functional Strength, Safety, Balance, Gait, Transfer Treatment/Plan Treatment Plan: Continue Plan of Care Treatment Plan: Bed Mobility, Education, Functional Strength, Gait, Safety, Therapeutic Exercise, Transfers Treatment Duration: Feb 24, 2020 Frequency: 6 times per week Estimated Hrs Per Day: .25 hour per day Patient and/or Family Agrees t: Yes Safety Risks/Education Patient Education: Gait Training, Correct Positioning, Safety Issues Teaching Recipient: Patient Teaching Methods: Discussion Response to Teaching: Verbalize Understanding Time/GCodes Time In: 1150 Time Out: 1216 Total Billed Treatment Time: 26 Total Billed Treatment 1, GT x1 (18m), EX x1 (8m) PATRICK CASAS COLLECTIONS OFFICER Feb 20, 2020 12:25
[2020-02-20] MEDS: ENOXAPARIN 40 MG/0.4 ML (LOVENOX) SYR SC SCH (13:01)
--- NOTE | 2020-02-20 14:06 | Progress Note - Surgery ---
JAY MARTINEZ MED STUDENT 02/20/20 1406: Subjective Date Seen by a Provider: Feb 20, 2020 Time Seen by a Provider: 07:20 Subjective/Events-last exam Jabari is feeling better today. He states he has been walking as instructed and is using his spirometer as instructed. Abdominal pain is decreased. He had his arreola catheter removed yesterday. urine output yesterday was 1680 mL. He complains of nausea still. Has not yet passed gas or stool. Jabari denies vomiting, chest pain, SOB, fever, chills, lightheadedness, dizziness. HGB at 8.6 this morning from 9.2 yesterday but BP up at 108/73 this morning. Objective Exam Vital Signs Date Time Temp Pulse Resp B/P (MAP) Pulse Ox O2 Delivery O2 Flow Rate FiO2 02/20/20 12:00 37.2 96 18 106/73 (84) 97 Room Air 02/20/20 08:00 36.9 99 20 104/70 (81) 98 Room Air 02/20/20 08:00 98 Room Air 02/20/20 03:38 36.7 91 14 108/73 (85) 98 Room Air 02/20/20 00:22 37.1 107 18 109/73 (85) 97 Room Air 02/19/20 20:57 37.1 108 16 106/72 (83) 99 Room Air 02/19/20 20:00 97 Room Air 02/19/20 16:19 36.9 102 18 109/69 (82) 100 Room Air I & O 02/20/20 07:00 Intake Total 1000 ml Output Total 1950 ml Balance -950 ml Capillary Refill : Less Than 3 SecondsLess Than 3 Seconds General Appearance: No Apparent Distress, Thin HEENT: PERRL/EOMI, Normal ENT Inspection, Other (NG tube in place) Neck: Non Tender, Supple, Other (midline vertical surgical kimmie in place without apparent drainage or signs of cellulitis. ) Respiratory: Chest Non Tender, No Accessory Muscle Use, No Respiratory Distress Cardiovascular: Regular Rate, Rhythm, No Edema Peripheral Pulses: 2+ Dorsalis Pedis (R), 2+ Left Dors-Pedis (L), 2+ Radial Pulses (R), 2+ Radial Pulses (L) Gastrointestinal: soft, no organomegaly, distended (minimal), tenderness (incisional, c/d/i no erythema) Extremity: Normal Inspection, Non Tender Neurologic/Psychiatric: Alert, Oriented x3, Normal Mood/Affect Skin: Normal Color, Warm/Dry Lymphatic: No Adenopathy Results Lab Laboratory Tests 02/20/20 03:24: White Blood Count 10.0, Red Blood Count 3.04L, Hemoglobin 8.6L, Hematocrit 27L, Mean Corpuscular Volume 88, Mean Corpuscular Hemoglobin 28, Mean Corpuscular Hemoglobin Concent 32, Red Cell Distribution Width 12.5, Platelet Count 418H, Mean Platelet Volume 10.1, Sodium Level 138, Potassium Level 3.7, Chloride Level 103, Carbon Dioxide Level 26, Anion Gap 9, Blood Urea Nitrogen 10, Creatinine 0.60, Estimat Glomerular Filtration Rate > 60, BUN/Creatinine Ratio 17, Glucose Level 118H, Calcium Level 8.1L, Corrected Calcium 9.4, Magnesium Level 1.7, Total Bilirubin 0.2, Aspartate Amino Transf (AST/SGOT) 22, Alanine Aminotransferase (ALT/SGPT) 25, Alkaline Phosphatase 146H, Total Protein 5.1L, Albumin 2.4L Microbiology 02/16/20 Blood Culture - Final, Complete Staphylococcus hominis Assessment/Plan Assessment/Plan Assessment/Plan high grade small bowel obstruction s/p exploratory laparotomy and small bowel resection postoperative anemia PICC placed for TPN post-surgery to improve nutritional status Keep NG to LIWS. Await bowel function continue incentive spirometry 10x per hour encouraged ambulation Recheck HGB, continue to monitor BP Clinical Quality Measures DVT/VTE Risk/Contraindication: Risk Factor Score Per Nursin RFS Level Per Nursing on Admit: 2=Moderate MITALI JORDAN DO 02/20/20 1545: Subjective Subjective/Events-last exam Feeling good. Using IS and ambulating. No bowel function. Less pain. Urinating without difficulty. Some nausea. Has NG tube and on TPN. Objective Exam General Appearance: No Apparent Distress HEENT: PERRL/EOMI, Normal ENT Inspection Neck: Non Tender, Supple Respiratory: Chest Non Tender, No Accessory Muscle Use, No Respiratory Distress Cardiovascular: Regular Rate, Rhythm, No JVD Gastrointestinal: soft, no organomegaly, distended (minimal), tenderness (incisional, c/d/i no erythema) Extremity: Normal Inspection, Non Tender Neurologic/Psychiatric: Alert, Oriented x3, No Motor/Sensory Deficits, Normal Mood/Affect, wool carder II-XII Norm as Tested Skin: Normal Color, Warm/Dry Lymphatic: No Adenopathy Assessment/Plan Assessment/Plan Assessment/Plan high grade small bowel obstruction s/p exploratory laparotomy and small bowel resection postoperative anemia PICC placed for TPN post-surgery to improve nutritional status Keep NG to LIWS. Await bowel function continue incentive spirometry 10x per hour encouraged ambulation lovenox for dvt prophylaxis follow labs Supervisory-Addendum Brief Verification & Attestation Participated in pt care: history, MDM, physical Personally performed: exam, history, MDM, supervision of care Care discussed with: Medical Student Procedures: n/a Results interpretation: Verified all documentation Verification and Attestation of Medical Student E/M Service A medical student performed and documented this service in my presence. I revi ewed and verified all information documented by the medical student and made modifications to such information, when appropriate. I personally performed the physical exam and medical decision making. Mitali Jordan, Feb 20, 2020,15:45 JAY MARTINEZ MED STUDENT Feb 20, 2020 14:06 MITALI JORDAN DO Feb 20, 2020 15:45
--- NOTE | 2020-02-20 14:40 | NUR ---
ZOFRAN 8MG IV AND DILAUDID 0.5MG FOR NAUSEA AND PAIN.
[2020-02-20 16:00] VITALS: BP 92/55
[2020-02-20] MEDS: [UNRECOGNIZED DRUG - OTHER] IV SCH ×10 (17:17)
[2020-02-20] MEDS: SODIUM ACETATE IV SCH ×10 (17:17)
[2020-02-20] MEDS: POTASSIUM CHLORIDE IV SCH ×10 (17:17)
[2020-02-20] MEDS: SODIUM PHOSPHATE IV SCH ×10 (17:17)
[2020-02-20 19:58] VITALS: BP 108/73
[2020-02-21] VITALS (7 sets, daily range): BP systolic 111–123; BP diastolic 71–82
[2020-02-21] MEDS: HYDROmorphone 2 MG/ML VIAL (DILAUDID) IV PRN ×6 (00:09→21:46)
[2020-02-21 07:31] LABS: HEMOGLOBIN 8.3 G/DL (13.3-17.7); WHITE BLOOD COUNT 9.1 10^3/uL (4.3-11.0)
[2020-02-21 07:44] LABS: CHLORIDE 104 MMOL/L (98-107); POTASSIUM 3.5 MMOL/L (3.6-5.0); SODIUM 138 MMOL/L (135-145)
[2020-02-21 07:45] LABS: CALCIUM 7.9 MG/DL (8.5-10.1); GLUCOSE 127 MG/DL (70-105)
[2020-02-21 07:47] LABS: CARBON DIOXIDE 26 MMOL/L (21-32)
[2020-02-21 07:49] LABS: CREATININE SERUM 0.58 MG/DL (0.60-1.30); GFR ESTIMATED > 60
[2020-02-21 07:50] LABS: BUN/CREATININE RATIO 17
[2020-02-21 07:52] LABS: MAGNESIUM 1.7 MG/DL (1.6-2.4)
[2020-02-21] MEDS: PANTOPRAZOLE 40 MG (PROTONIX) VIAL IV SCH (09:09)
--- NOTE | 2020-02-21 09:47 | Physical Therapy Daily Note ---
PT Daily Note-Current Subjective Patient reports, "I feel like a new man!" Agrees to PT. Pain Numeric Pain Scale: 5-Moderate Pain Location: Medial, Lower Location Body Site: Abdomen Pain Description: Acute Mental Status Patient Orientation: Normal For Age Attachments: NG Tube, IV Transfers SCALE: Activities may be completed with or without assistive devices. 9-Eprtqnpcbx-zpldmog completes the activity by him/herself with no assistance from a helper. 5-Set-up or Clean-up Assistance-helper sets up or cleans up; patient completes activity. [place] assists only prior to or following the activity. 4-Supervision or Touching Assistance-helper provides verbal cues and/or touching/steadying and/or contact guard assistance as patient completes activity. Assistance may be provided throughout the activity or intermittently. 3-Partial/Moderate Assistance-helper does LESS THAN HALF the effort. [place] lifts, holds or supports trunk or limbs, but provides less than half the effort. 2-Substantial/Maximal Assistance-helper does MORE THAN HALF the effort. [place] lifts or holds trunk or limbs and provides more than half the effort. 0-Sfcwdyswr-znvfjv does ALL the effort. Patient does none of the effort to complete the activity. Or, the assistance of 2 or more helpers is required for the patient to complete the activity. If activity was not attempted, code reason: 7-Patient Refused. 9-Not Applicable-not attempted and the patient did not perform the activity before the current illness, exacerbation or injury. 10-Not Attempted due to Environmental Limitations-(lack of equipment, weather restraints, etc.). 88-Not Attempted due to Medical Conditions or Safety Concerns. Roll Left & Right (QC): 6 Sit to Lying (QC): 6 Lying to Sitting/Side of Bed(Q: 6 Sit to Stand (QC): 6 Chair/Nbd-nw-Errle Xfer(QC): 6 Weight Bearing Right Lower Extremity: Right Full Weight Bearing Left Lower Extremity: Left Full Weight Bearing Gait Training Does the Patient Walk?: Yes Distance: 800' Walk 10 feet (QC): 6 Walk 50 ft with 2 Turns(QC): 6 Walk 150 ft (QC): 6 Gait Assistive Device: None trunk flexed posture due to abdominal discomfort. Assessment Patient is currently at [facility] with all gross motor skills and is ambulating PRN with nursing staff. PT to dismiss patient from services at this time. PT Nursing Home Goals Nursing Home Goals PT Nursing Home Goals Time Frame: Feb 24, 2020 Sit to Lying (QC): 6 Lying-Sitting on Side/Bed(QC): 6 Sit to Stand (QC): 6 Toilet Transfer (QC): 6 Car Transfer (QC): 6 Does the Patient Walk: Yes Walk 10 feet (QC): 6 Walk 50ft with 2 Turns (QC): 6 Walk 150 ft (QC): 6 4 Steps (QC): 6 PT Plan Treatment/Plan Treatment Plan: Discontinue PT, goals met Treatment Plan: Bed Mobility, Education, Functional Strength, Gait, Safety, Therapeutic Exercise, Transfers Treatment Duration: Feb 24, 2020 Frequency: 6 times per week Estimated Hrs Per Day: .25 hour per day Patient and/or Family Agrees t: Yes Time/GCodes Time In: 920 Time Out: 934 Total Billed Treatment Time: 14 Total Billed Treatment 1 visit FA 14 min CARLOS GARCIA PT Feb 21, 2020 09:47
[2020-02-21] MEDS: POTASSIUM CL 10MEQ/50ML IVPB 50 ML IV SCH ×3 (10:20→12:40)
[2020-02-21] MEDS: 1/2 NS IV SOLUTION 1,000 ML IV SCH ×2 (10:20→22:46)
--- NOTE | 2020-02-21 10:39 | Progress Note - Surgery ---
JAY MARTINEZ MED STUDENT 02/21/20 1038: Subjective Date Seen by a Provider: Feb 21, 2020 Time Seen by a Provider: 07:50 Subjective/Events-last exam Patient is doing well. HGB 8.3 from 8.6 yesterday, BP was 116/74 at 4am. Decreased abdominal pain, decreased nausea. Denies vomiting, chest pain, fever, chills, SOB. Has been using spirometer and walking as instructed. Complains of some irritation with NG tube but understands it must stay in. Objective Exam Vital Signs Date Time Temp Pulse Resp B/P (MAP) Pulse Ox O2 Delivery O2 Flow Rate FiO2 02/21/20 08:00 97 Room Air 02/21/20 08:00 37.4 102 16 117/82 (94) 98 Room Air 02/21/20 04:00 36.6 105 18 116/74 (88) 96 Room Air 02/21/20 00:05 37.0 92 16 113/71 (85) 98 Room Air 02/20/20 20:05 97 Room Air 02/20/20 19:58 37.7 98 16 108/73 (85) 97 Room Air 02/20/20 16:00 37.0 95 16 92/55 (67) 98 02/20/20 12:00 37.2 96 18 106/73 (84) 97 Room Air I & O 02/21/20 07:00 Intake Total 1774 ml Output Total 2125 ml Balance -351 ml Capillary Refill : Less Than 3 SecondsLess Than 3 Seconds General Appearance: No Apparent Distress, Thin HEENT: PERRL/EOMI, Normal ENT Inspection Neck: Non Tender, Supple Respiratory: Chest Non Tender, No Accessory Muscle Use, No Respiratory Distress Cardiovascular: No Edema, No JVD, Normal Peripheral Pulses Peripheral Pulses: 2+ Dorsalis Pedis (R), 2+ Left Dors-Pedis (L), 2+ Radial Pulses (R), 2+ Radial Pulses (L) Gastrointestinal: soft, no organomegaly, distended (minimal), tenderness (incisional, c/d/i no erythema) Extremity: Normal Inspection, Non Tender Neurologic/Psychiatric: Alert, Oriented x3, No Motor/Sensory Deficits, Normal Mood/Affect, material dispatcher II-XII Norm as Tested Skin: Normal Color, Warm/Dry Lymphatic: No Adenopathy Results Lab Laboratory Tests 02/21/20 04:58: Glucometer 152H 02/21/20 07:15: White Blood Count 9.1, Red Blood Count 2.92L, Hemoglobin 8.3L, Hematocrit 26L, Mean Corpuscular Volume 87, Mean Corpuscular Hemoglobin 28, Mean Corpuscular Hemoglobin Concent 33, Red Cell Distribution Width 12.6, Platelet Count 471H, Mean Platelet Volume 10.0, Sodium Level 138, Potassium Level 3.5L, Chloride Level 104, Carbon Dioxide Level 26, Anion Gap 8, Blood Urea Nitrogen 10, Creatinine 0.58L, Estimat Glomerular Filtration Rate > 60, BUN/Creatinine Ratio 17, Glucose Level 127H, Calcium Level 7.9L, Magnesium Level 1.7 Microbiology 02/16/20 Blood Culture - Final, Complete Staphylococcus hominis Assessment/Plan Assessment/Plan Assessment/Plan high grade small bowel obstruction s/p exploratory laparotomy and small bowel resection postoperative anemia PICC placed for TPN post-surgery to improve nutritional status Keep NG to LIWS. Await bowel function continue incentive spirometry 10x per hour encouraged ambulation lovenox for dvt prophylaxis follow labs Clinical Quality Measures DVT/VTE Risk/Contraindication: Risk Factor Score Per Nursin RFS Level Per Nursing on Admit: 2=Moderate MITALI JRODAN DO 02/21/20 1111: Subjective Subjective/Events-last exam Feeling okay today. Pain controlled. Ambulating some and using incentive spirometer. Nausea improving. Awaiting bowel function. On TPN. Objective Exam General Appearance: No Apparent Distress HEENT: PERRL/EOMI, Normal ENT Inspection Neck: Non Tender, Supple Respiratory: Chest Non Tender, No Accessory Muscle Use, No Respiratory Distress Cardiovascular: No Edema, Normal Peripheral Pulses Gastrointestinal: soft, no organomegaly, distended (minimal), tenderness (incisional, c/d/i no erythema) Extremity: Normal Inspection, Non Tender Neurologic/Psychiatric: Alert, Oriented x3, No Motor/Sensory Deficits, Normal Mood/Affect, material dispatcher II-XII Norm as Tested Skin: Normal Color, Warm/Dry Lymphatic: No Adenopathy Assessment/Plan Assessment/Plan Assessment/Plan high grade small bowel obstruction s/p exploratory laparotomy and small bowel resection postoperative anemia PICC placed for TPN post-surgery to improve nutritional status Keep NG to LIWS. Await bowel function continue incentive spirometry 10x per hour encouraged ambulation lovenox for dvt prophylaxis follow labs Supervisory-Addendum Brief Verification & Attestation Participated in pt care: history, MDM, physical Personally performed: exam, history, MDM, supervision of care Care discussed with: Medical Student Procedures: n/a Results interpretation: Verified all documentation Verification and Attestation of Medical Student E/M Service A medical student performed and documented this service in my presence. I reviewed and verified all information documented by the medical student and made modifications to such information, when appropriate. I personally performed the physical exam and medical decision making. Mitali Jordan, Feb 21, 2020,11:11 JAY MARTINEZ MED STUDENT Feb 21, 2020 10:38 MITALI JORDAN DO Feb 21, 2020 11:11
[2020-02-21] MEDS: ENOXAPARIN 40 MG/0.4 ML (LOVENOX) SYR SC SCH (12:40)
--- NOTE | 2020-02-21 14:59 | NUR ---
RD ASSESSMENT PMHx: gastrointestinal resection as ; SBO PT INTERACTION: Pt was awake and pleasant during nutrition assessment. Note pt currently NPO x5d, per chart review. Note pt currently receiving TPN, providing 2090 kcal (31 kcal/kg) and 100 g Pro (1.5 g Pro/kg). This provides pt with sufficient nutrition to meet needs. Pt states he is currently "very hungry" and has been passing "a lot of gas." Pt asked if he could try some ice chips to see if he could tolerate food orally. Note recent 16# wt loss x2w, per chart review. ABNORMAL NUTRITION-RELATED LAB VALUES LOW: K 3.5; cr 0.58; Ca 7.9 HIGH: glu 127 Est. kcal needs: 2024 kcal | 30 kcal/kg Est. Pro needs: 81 g Pro | 1.2 g Pro/kg PES STATEMENT: Inadequate oral intake (NI-2.1) related to NPO status as evidenced by pt interview | chart review INTERVENTION: Note pt is currently NPO, per chart review. Pt may benefit from diet advancement to Clear Liquid diet, as medically able and as tolerated. Continue with current TPN order, providing 2090 kcal and 100 g Pro. This will meet pt's current nutrition needs. Will continue to follow and reassess as pt needs, intake, and status change. MONITOR/EVALUATE: PO Intake; Plan of Care; Hydration Status; Weight Status; Lab Values Cande Hubbard, MS, RD, LD
[2020-02-21] MEDS: [UNRECOGNIZED DRUG - OTHER] IV SCH ×11 (17:44)
[2020-02-21] MEDS: SODIUM ACETATE IV SCH ×11 (17:44)
[2020-02-21] MEDS: SODIUM CHLORIDE IV SCH ×11 (17:44)
[2020-02-22] MEDS: LORazepam INJ 2 MG/ML (ATIVAN) VIAL IVP PRN ×2 (00:41→10:23)
[2020-02-22 04:30] VITALS: BP 116/77
[2020-02-22 05:18] LABS: HEMOGLOBIN 9.1 G/DL (13.3-17.7); MEAN PLATELET VOLUME 10.4 FL (7.4-10.4); WHITE BLOOD COUNT 11.4 10^3/uL (4.3-11.0)
[2020-02-22 05:53] LABS: BUN/CREATININE RATIO 19; CALCIUM 8.4 MG/DL (8.5-10.1); CARBON DIOXIDE 25 MMOL/L (21-32); CHLORIDE 105 MMOL/L (98-107); CREATININE SERUM 0.54 MG/DL (0.60-1.30); GFR ESTIMATED > 60; GLUCOSE 101 MG/DL (70-105); MAGNESIUM 1.9 MG/DL (1.6-2.4); POTASSIUM 4.1 MMOL/L (3.6-5.0); SODIUM 139 MMOL/L (135-145)
[2020-02-22] MEDS: HYDROmorphone 2 MG/ML VIAL (DILAUDID) IV PRN ×3 (06:03→20:51)
[2020-02-22 08:00] VITALS: BP 110/73
[2020-02-22] MEDS: PANTOPRAZOLE 40 MG (PROTONIX) VIAL IV SCH (08:12)
[2020-02-22] MEDS: morphine INJ 10 MG/ML 1ML (SYR OR VIAL) IVP PRN ×4 (08:12→22:56)
[2020-02-22] MEDS: 1/2 NS IV SOLUTION 1,000 ML IV SCH (10:23)
[2020-02-22] MEDS: ENOXAPARIN 40 MG/0.4 ML (LOVENOX) SYR SC SCH (11:35)
[2020-02-22 12:00] VITALS: BP 116/70
--- NOTE | 2020-02-22 13:21 | Progress Note - Surgery ---
JAY MARTINEZ MED STUDENT 02/22/20 1321: Subjective Date Seen by a Provider: Feb 22, 2020 Time Seen by a Provider: 06:40 Subjective/Events-last exam Jabari is improving. Doing spirometry and walking multiple times a day as instructed. Passed gas yesterday. Feels his NG tube is irritating the back of his throat, improved with chloraseptic spray he uses every hour. He states he is still having abdominal pain and states it is better when he takes pain medications for it. He says he takes them every 4 hours. Some minimal nausea still, but no vomiting, fever, chills, SOB, chest pain. HGB up to 9.1 from 8.3 yesterday. Objective Exam Vital Signs Date Time Temp Pulse Resp B/P (MAP) Pulse Ox O2 Delivery O2 Flow Rate FiO2 02/22/20 12:00 36.9 54 20 116/70 (85) 96 Room Air 02/22/20 08:00 37.1 99 18 110/73 (85) 96 Room Air 02/22/20 08:00 96 Room Air 02/22/20 04:30 37.1 104 20 116/77 (90) 98 Room Air 02/21/20 23:47 37.5 106 20 117/77 (90) 97 Room Air 02/21/20 19:45 Room Air 02/21/20 19:07 37.1 98 16 123/76 (92) 97 Room Air 02/21/20 16:55 37.4 96 16 119/79 (92) 99 Room Air I & O 02/22/20 07:00 Intake Total 4000 ml Output Total 3650 ml Balance 350 ml Capillary Refill : Less Than 3 SecondsLess Than 3 Seconds General Appearance: No Apparent Distress HEENT: PERRL/EOMI, Normal ENT Inspection Neck: Non Tender, Supple Respiratory: Chest Non Tender, Lungs Clear, No Accessory Muscle Use, No Respiratory Distress Cardiovascular: No Edema, No JVD, No Murmur, Normal Peripheral Pulses, Tachycardia Peripheral Pulses: 2+ Dorsalis Pedis (R), 2+ Left Dors-Pedis (L), 2+ Radial Pulses (R), 2+ Radial Pulses (L) Gastrointestinal: soft, no organomegaly, tenderness (incisional, c/d/i no erythema) Extremity: Normal Inspection, Non Tender Neurologic/Psychiatric: Alert, Oriented x3, No Motor/Sensory Deficits, Normal 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, 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 Skin: Normal Color, Warm/Dry Lymphatic: No Adenopathy Results Lab Laboratory Tests 02/22/20 05:14: White Blood Count 11.4H, Red Blood Count 3.22L, Hemoglobin 9.1L, Hematocrit 28L, Mean Corpuscular Volume 87, Mean Corpuscular Hemoglobin 28, Mean Corpuscular Hemoglobin Concent 32, Red Cell Distribution Width 12.6, Platelet Count 443H, Mean Platelet Volume 10.4, Sodium Level 139, Potassium Level 4.1, Chloride Level 105, Carbon Dioxide Level 25, Anion Gap 9, Blood Urea Nitrogen 10, Creatinine 0.54L, Estimat Glomerular Filtration Rate > 60, BUN/Creatinine Ratio 19, Glucose Level 101, Calcium Level 8.4L, Phosphorus Level 4.4, Magnesium Level 1.9 Microbiology 02/16/20 Blood Culture - Final, Complete Staphylococcus hominis Assessment/Plan Assessment/Plan Assessment/Plan high grade small bowel obstruction s/p exploratory laparotomy and small bowel resection postoperative anemia PICC placed for TPN post-surgery to improve nutritional status continue incentive spirometry 10x per hour encouraged ambulation lovenox for dvt prophylaxis follow labs given recent bowel activity can remove NG tube Clinical Quality Measures DVT/VTE Risk/Contraindication: Risk Factor Score Per Nursin RFS Level Per Nursing on Admit: 2=Moderate FRANCISCO SIMMS DO 02/22/20 1616: Subjective Time Seen by a Provider: 15:03 Subjective/Events-last exam Pt seen and examined, he was walking in the [place]. States he is doing ok with tube clamped, but does not want to remove NGT yet. Review of Systems Pulmonary: No Cough Cardiovascular: No: Chest Pain Gastrointestinal: Abdominal Pain; No: Nausea, Vomiting Objective Exam General Appearance: No Apparent Distress, Chronically ill, Thin Respiratory: Lungs Clear, No Accessory Muscle Use, No Respiratory Distress Cardiovascular: No Murmur, Tachycardia Gastrointestinal: soft, abnormal bowel sounds (hypoactive); No distended Assessment/Plan Assessment/Plan Assessment/Plan S/P SBR Encourage ambulation and IS use, will try d/c'ing NGT tomorrow. Supervisory-Addendum Brief Verification & Attestation Participated in pt care: history, MDM, physical Personally performed: exam, history, MDM Care discussed with: Medical Student Procedures: n/a Verification and Attestation of Medical Student E/M Service A medical student performed and documented this service. I then reviewed and verified all information documented by the medical student and made modifications to such information, when appropriate. I personally performed a physical exam, medical decision making and then discussed any differences between the notes and made revisions as necessary to create one note. Francisco Simms , 02/22/20 , 16:18 JAY MARTINEZ MED STUDENT Feb 22, 2020 13:21 FRANCISCO SIMMS DO Feb 22, 2020 16:16
[2020-02-22 16:08] VITALS: BP 104/66
[2020-02-22] MEDS: [UNRECOGNIZED DRUG - OTHER] IV SCH ×11 (16:45)
[2020-02-22] MEDS: SODIUM ACETATE IV SCH ×11 (16:45)
[2020-02-22] MEDS: SODIUM CHLORIDE IV SCH ×11 (16:45)
[2020-02-22 19:34] VITALS: BP 104/66
[2020-02-22 23:27] VITALS: BP 108/68
[2020-02-23] MEDS: 1/2 NS IV SOLUTION 1,000 ML IV SCH ×2 (00:42→12:00)
[2020-02-23] MEDS: HYDROmorphone 2 MG/ML VIAL (DILAUDID) IV PRN ×6 (00:58→22:56)
[2020-02-23] MEDS: morphine INJ 10 MG/ML 1ML (SYR OR VIAL) IVP PRN ×5 (03:19→20:15)
--- NOTE | 2020-02-23 07:45 | Progress Note - Surgery ---
NATALIE QUINONEZ MED STUDENT 02/23/20 0745: Subjective Date Seen by a Provider: Feb 23, 2020 Time Seen by a Provider: 07:05 Subjective/Events-last exam Pt states he initially he did not want to remove the NG tube because he was worried about vomiting, but states it fell out last night and he has been doing okay since. Pt has been having worsening abdominal pain since last night that he attributes to gas pain. He reports he is using incentive spirometer well, but has been walking less because of the pain. Has some suprapubic pain with urination when he urinates and some scrotal swelling, both of which he attributes to his abdominal gas/bloating. Also notes left rib pain with deep inspiration. Has not been passing gas. Objective Exam Vital Signs Date Time Temp Pulse Resp B/P (MAP) Pulse Ox O2 Delivery O2 Flow Rate FiO2 02/22/20 23:27 36.8 116 18 108/68 (81) 97 Room Air 02/22/20 20:00 96 Room Air 02/22/20 19:34 37.6 120 20 104/66 (79) 99 Room Air 02/22/20 16:08 37.6 120 20 104/66 (79) 99 Room Air 02/22/20 12:00 36.9 54 20 116/70 (85) 96 Room Air 02/22/20 08:00 37.1 99 18 110/73 (85) 96 Room Air 02/22/20 08:00 96 Room Air I & O 02/23/20 07:00 Intake Total 70 ml Output Total 2615 ml Balance -2545 ml Capillary Refill : Less Than 3 SecondsLess Than 3 Seconds General Appearance: No Apparent Distress, Chronically ill, Thin Neck: Supple Respiratory: Chest Non Tender, Lungs Clear, Normal Breath Sounds, No Accessory Muscle Use, No Respiratory Distress Cardiovascular: Regular Rate, Rhythm, No Murmur, Tachycardia Peripheral Pulses: 2+ Dorsalis Pedis (R), 2+ Left Dors-Pedis (L), 2+ Radial Pulses (R), 2+ Radial Pulses (L) Gastrointestinal: other (abdominal exam limited by pt refusal to anything other than very light palpation, which does elicit pain; kimmie are intact, no drainage or erythema around incision site) Extremity: Normal Inspection Neurologic/Psychiatric: Alert, Oriented x3, No Motor/Sensory Deficits, Normal Mood/Affect Skin: Normal Color, Warm/Dry Lymphatic: No Adenopathy Results Lab Laboratory Tests 02/23/20 05:23: Glucometer 120H Microbiology 02/16/20 Blood Culture - Final, Complete Staphylococcus hominis Assessment/Plan Assessment/Plan Assessment/Plan S/P SBR NG tube out, advance diet as tolerated continue ambulation and IS continue with pain control Clinical Quality Measures DVT/VTE Risk/Contraindication: Risk Factor Score Per Nursin RFS Level Per Nursing on Admit: 2=Moderate FRANCISCO SIMMS DO 02/23/20 1441: Subjective Time Seen by a Provider: 12:16 Subjective/Events-last exam Pt seen and examined, complains of pain that is maybe worse than yesterday. Denies flatus or BM. Review of Systems General: Fatigue, Malaise Cardiovascular: No: Chest Pain, Palpitations Gastrointestinal: Abdominal Pain; No: Nausea, Vomiting Genitourinary: Other (hurts when he "pushes to pee") Objective Exam General Appearance: No Apparent Distress, Chronically ill Respiratory: Lungs Clear, Normal Breath Sounds, No Accessory Muscle Use, No Respiratory Distress Gastrointestinal: soft, other (kimmie are intact, incision clean and dry. Pt states very severe pain with palpation) Assessment/Plan Assessment/Plan Assessment/Plan S/P SBR Abdominal pain Will leave NGT out and pt can have ice chips. Will switch him to liquid pain meds; "that helped me the most before". Pt told he must ambulate more and use IS, those two plus chewing some gum will hopefully help with bowel function. Unfortunately, the pain meds will slow down bowel function. Supervisory-Addendum Brief Verification & Attestation Participated in pt care: history, MDM, physical Personally performed: exam, history, MDM Care discussed with: Medical Student Procedures: n/a Verification and Attestation of Medical Student E/M Service A medical student performed and documented this service. I then reviewed and verified all information documented by the medical student and made modifications to such information, when appropriate. I personally performed a physical exam, medical decision making and then discussed any differences between the notes and made revisions as necessary to create one note. Francisco Simms , 02/23/20 , 14:41 NATALIE QUINONEZ MED STUDENT Feb 23, 2020 07:45 FRANCISCO SIMMS DO Feb 23, 2020 14:41
[2020-02-23] MEDS: PANTOPRAZOLE 40 MG (PROTONIX) VIAL IV SCH (07:55)
[2020-02-23 08:00] VITALS: BP 111/84
[2020-02-23] MEDS: ENOXAPARIN 40 MG/0.4 ML (LOVENOX) SYR SC SCH (11:55)
[2020-02-23] MEDS: HYDROcodone/APAP 7.5MG-325 MG/15 ML (LORTAB) UDC PO PRN (14:19)
[2020-02-23] MEDS ORDERED: HYDROcodone/APAP 7.5MG-325 MG/15 ML (LORTAB) UDC PO ONE (14:30)
[2020-02-23 16:52] VITALS: BP 111/64
[2020-02-23] MEDS: SODIUM ACETATE IV SCH ×11 (17:28)
[2020-02-23] MEDS: SODIUM CHLORIDE IV SCH ×11 (17:28)
[2020-02-23] MEDS: [UNRECOGNIZED DRUG - OTHER] IV SCH ×11 (17:28)
--- NOTE | 2020-02-23 17:45 | NUR ---
MATT NAPOLES demonstrates understanding of discharge instructions and accurately returns instructions upon questioning. Copy of Post-Discharge Instructions given to pt. MATT NAPOLES is able to manage continuing needs after discharge with assistance of home health care. Patients belongings returned to pt. Patient discharged from [facility] on 02/23/20 at 1745. MATT NAPOLES left floor via w/c, accompanied by staff and daughter per auto.
--- NOTE | 2020-02-23 19:50 | NUR ---
Claudine RN from previous shift messaged Dr. Simms stating that the patient was stating his ABD is painful and he is requesting a scan or xray. requests to order an acute abd series. This RN placed order.
--- NOTE | 2020-02-23 21:35 | Diagnostic Imaging Report ---
EXAM: Acute abd series INDICATION: Postop resection. Left upper quadrant abdominal pain. COMPARISON: CT abdomen and pelvis with IV contrast 02/16/2020. FINDINGS: Moderate amount of free intraperitoneal air appears to be layering under the diaphragm. This is separate from the colon which is well seen and normal in caliber. Nonspecific bowel gas pattern. Anastomosis in the right mid abdomen. Anterior skin kimmie. No suspicious radiopaque foreign body. Right PICC tip near the RA/SVC junction. Lungs are clear. No pleural effusion or pneumothorax. Normal heart size and central pulmonary vascularity. IMPRESSION: 1. Negative for postoperative purposes. 2. Moderate amount of free intraperitoneal air underlying the diaphragm is presumably postoperative. Dictated by: Dictated on workstation # [id number]
[2020-02-23 23:42] VITALS: BP 110/72
[2020-02-24] MEDS: morphine INJ 10 MG/ML 1ML (SYR OR VIAL) IVP PRN ×5 (00:08→20:41)
[2020-02-24] MEDS: 1/2 NS IV SOLUTION 1,000 ML IV SCH ×2 (04:01→17:31)
[2020-02-24 04:55] VITALS: BP 112/69
[2020-02-24] MEDS: HYDROmorphone 2 MG/ML VIAL (DILAUDID) IV PRN ×5 (05:52→22:33)
[2020-02-24 06:25] LABS: HEMOGLOBIN 8.9 G/DL (13.3-17.7); MEAN PLATELET VOLUME 10.6 FL (7.4-10.4); WHITE BLOOD COUNT 16.2 10^3/uL (4.3-11.0)
[2020-02-24 06:34] LABS: ALBUMIN 2.8 GM/DL (3.2-4.5); CHLORIDE 101 MMOL/L (98-107); POTASSIUM 4.4 MMOL/L (3.6-5.0); SODIUM 136 MMOL/L (135-145)
[2020-02-24 06:36] LABS: CALCIUM 8.6 MG/DL (8.5-10.1); TRIGLYCERIDES 49 MG/DL (<150)
[2020-02-24 06:37] LABS: GLUCOSE 121 MG/DL (70-105); TOTAL PROTEIN 6.1 GM/DL (6.4-8.2)
[2020-02-24 06:38] LABS: BILIRUBIN,TOTAL 0.6 MG/DL (0.1-1.0); CARBON DIOXIDE 24 MMOL/L (21-32)
[2020-02-24 06:40] LABS: ALKALINE PHOSPHATASE 141 U/L (40-136); GFR ESTIMATED > 60; PHOSPHORUS 4.2 MG/DL (2.3-4.7)
[2020-02-24 06:41] LABS: BUN/CREATININE RATIO 18
[2020-02-24 06:43] LABS: ALANINE AMINOTRANSFERASE 40 U/L (0-55)
[2020-02-24 06:44] LABS: MAGNESIUM 1.9 MG/DL (1.6-2.4)
[2020-02-24 07:30] VITALS: BP 110/76
[2020-02-24] MEDS: PANTOPRAZOLE 40 MG (PROTONIX) VIAL IV SCH (07:51)
--- NOTE | 2020-02-24 09:05 | Progress Note - Surgery ---
NATALIE QUINONEZ MED STUDENT 02/24/20 0905: Subjective Date Seen by a Provider: Feb 24, 2020 Time Seen by a Provider: 08:15 Subjective/Events-last exam Pt notes he is still having abdominal pain, which is worse when he urinates or tries to walk. He notes that he feels like he is having increased urine output and that it smells bad, but denies burning with urination. He has been passing gas and belching, but has not had a bowel movement. Has been walking and using incentive spirometer. Pt has only been eating ice chips. Denies fever, chills, CP, SOB. WBC today is 16.2 today, increased from 11.4 on 02/21. Hgb 8.9 today, 9.1 on 02/21. Acute abdominal series from last night shows moderate intraperitoneal air that is presumably post-op. Objective Exam Vital Signs Date Time Temp Pulse Resp B/P (MAP) Pulse Ox O2 Delivery O2 Flow Rate FiO2 02/24/20 04:55 37.4 110 12 112/69 (83) 99 02/23/20 23:42 37.8 120 16 110/72 (85) 98 Room Air 02/23/20 20:00 99 Room Air 02/23/20 16:52 37.7 114 18 111/64 (80) 99 Room Air I & O 02/24/20 07:00 Intake Total 0 ml Output Total 2560 ml Balance -2560 ml Capillary Refill : Less Than 3 SecondsLess Than 3 Seconds General Appearance: No Apparent Distress, Chronically ill Neck: Supple Respiratory: Lungs Clear, Normal Breath Sounds, No Accessory Muscle Use, No Respiratory Distress Cardiovascular: No Murmur, Tachycardia Peripheral Pulses: 2+ Dorsalis Pedis (R), 2+ Left Dors-Pedis (L), 2+ Radial Pulses (R), 2+ Radial Pulses (L) Gastrointestinal: soft, other (kimmie are intact, incision clean and dry; abdomen is tender to light touch, left more than right) Extremity: Normal Inspection, Other (RUE PICC line in place with no surrounding erythema) Neurologic/Psychiatric: Alert, Oriented x3, No Motor/Sensory Deficits, Normal Mood/Affect Skin: Normal Color, Warm/Dry Lymphatic: No Adenopathy Results Lab Laboratory Tests 02/24/20 05:40: White Blood Count 16.2H, Red Blood Count 3.15L, Hemoglobin 8.9L, Hematocrit 27L, Mean Corpuscular Volume 87, Mean Corpuscular Hemoglobin 28, Mean Corpuscular Hemoglobin Concent 33, Red Cell Distribution Width 13.0, Platelet Count 595H, Mean Platelet Volume 10.6H, Sodium Level 136, Potassium Level 4.4, Chloride Level 101, Carbon Dioxide Level 24, Anion Gap 11, Blood Urea Nitrogen 11, Creatinine 0.60, Estimat Glomerular Filtration Rate > 60, BUN/Creatinine Ratio 18, Glucose Level 121H, Calcium Level 8.6, Corrected Calcium 9.6, Phosphorus Level 4.2, Magnesium Level 1.9, Total Bilirubin 0.6, Aspartate Amino Transf (AST/SGOT) 34, Alanine Aminotransferase (ALT/SGPT) 40, Alkaline Phosphatase 141H , Total Protein 6.1L, Albumin 2.8L, Triglycerides Level 49 Microbiology 02/16/20 Blood Culture - Final, Complete Staphylococcus hominis Assessment/Plan Assessment/Plan Assessment/Plan S/P SBR Abdominal pain Pt doing well with ice chips, will advance diet as tolerated Will order CXR and UA for elevated WBC and urinary complaints Continue pain management Clinical Quality Measures DVT/VTE Risk/Contraindication: Risk Factor Score Per Nursin RFS Level Per Nursing on Admit: 2=Moderate FRANCISCO SIMMS DO 02/24/20 1128: Subjective Time Seen by a Provider: 09:56 Subjective/Events-last exam Pt seen and examined, states he is passing gas now. However, now he is complaining that xray showed gas on both sides and he has pain on both sides. Nurse states he is taking his pain meds every 2 hours "like clockwork". Review of Systems Pulmonary: No Dyspnea, No Cough Cardiovascular: No: Chest Pain, Palpitations Gastrointestinal: Abdominal Pain; No: Nausea, Vomiting Objective Exam General Appearance: Chronically ill, Thin Respiratory: Lungs Clear, Normal Breath Sounds, No Accessory Muscle Use, No Respiratory Distress Cardiovascular: No Murmur, Tachycardia Gastrointestinal: soft, other (kimmie are intact, incision clean and dry; abd omen is tender to light touch, left more than right) Assessment/Plan Assessment/Plan Assessment/Plan S/P SBR Pt is passing some gas, so will hold off on SBFT. Pt must walk, he is still not walking "because of pain". Continue using IS. Supervisory-Addendum Brief Verification & Attestation Participated in pt care: history, MDM, physical Personally performed: exam, history, MDM Care discussed with: Medical Student Procedures: n/a Verification and Attestation of Medical Student E/M Service A medical student performed and documented this service. I then reviewed and verified all information documented by the medical student and made modifications to such information, when appropriate. I personally performed a physical exam, medical decision making and then discussed any differences between the notes and made revisions as necessary to create one note. Francisco Simms , 02/24/20 , 11:28 NATALIE QUINONEZ MED STUDENT Feb 24, 2020 09:05 FRANCISCO SIMMS DO Feb 24, 2020 11:28
[2020-02-24 11:50] LABS: BILIRUBIN,URINE NEGATIVE (NEGATIVE); CLARITY,URINE CLEAR; COLOR,URINE YELLOW; GLUCOSE, URINE (UA) NEGATIVE (NEGATIVE); KETONES,URINE NEGATIVE (NEGATIVE); LEUKOCYTE ESTERASE ,URINE NEGATIVE (NEGATIVE); NITRITE,URINE NEGATIVE (NEGATIVE); PROTEIN,URINE NEGATIVE (NEGATIVE)
[2020-02-24 11:52] VITALS: BP 114/72
[2020-02-24 11:57] LABS: BACTERIA,URINE NEGATIVE /HPF
[2020-02-24] MEDS: ENOXAPARIN 40 MG/0.4 ML (LOVENOX) SYR SC SCH (12:32)
[2020-02-24 16:08] VITALS: BP 106/56
[2020-02-24] MEDS: [UNRECOGNIZED DRUG - OTHER] IV SCH ×11 (17:29)
[2020-02-24] MEDS: SODIUM CHLORIDE IV SCH ×11 (17:29)
[2020-02-24] MEDS: SODIUM ACETATE IV SCH ×11 (17:29)
--- NOTE | 2020-02-24 18:54 | NUR ---
WALKED IN [place] WITH ENCOURAGEMENT, MARY WELL
[2020-02-24 20:29] VITALS: BP 121/75
[2020-02-24 23:59] VITALS: BP 100/67
[2020-02-25] MEDS: morphine INJ 10 MG/ML 1ML (SYR OR VIAL) IVP PRN ×2 (00:47→05:12)
[2020-02-25 08:00] VITALS: BP 114/60
[2020-02-25] MEDS: PANTOPRAZOLE 40 MG (PROTONIX) VIAL IV SCH (08:26)
[2020-02-25] MEDS: morphine INJ 4 MG/ML 1 ML (VIAL/SYRINGE) IV PRN ×4 (09:15→23:01)
[2020-02-25 11:23] LABS: HEMOGLOBIN 8.8 G/DL (13.3-17.7); WHITE BLOOD COUNT 16.2 10^3/uL (4.3-11.0)
[2020-02-25 11:36] LABS: CHLORIDE 102 MMOL/L (98-107); POTASSIUM 4.3 MMOL/L (3.6-5.0); SODIUM 136 MMOL/L (135-145)
[2020-02-25 11:37] LABS: CALCIUM 8.5 MG/DL (8.5-10.1); GLUCOSE 104 MG/DL (70-105)
[2020-02-25 11:39] LABS: CARBON DIOXIDE 23 MMOL/L (21-32)
[2020-02-25 11:41] LABS: CREATININE SERUM 0.56 MG/DL (0.60-1.30); GFR ESTIMATED > 60
[2020-02-25 11:42] LABS: BUN/CREATININE RATIO 20
--- NOTE | 2020-02-25 11:53 | Progress Note ---
Subjective Date Seen by a Provider: Feb 25, 2020 Time Seen by a Provider: 10:40 Subjective/Events-last exam Patient seen with Dr. Willis. Patient reports doing better today than yesterday. Still having pain in the LLQ. Denies any fevers or chills. Reports passing lots of gas. Reports pain after urination but has been ongoing and UA performed yesterday and was negative. Denies any nausea or vomiting. Tolerating ice chips. Has been ambulating this morning. Objective Exam Vital Signs Date Time Temp Pulse Resp B/P (MAP) Pulse Ox O2 Delivery O2 Flow Rate FiO2 02/25/20 08:00 36.8 122 22 114/60 (78) 100 Room Air 02/25/20 08:00 Room Air 02/24/20 23:59 37.4 110 14 100/67 (78) 96 Room Air 02/24/20 20:29 38.2 125 20 121/75 (90) 98 Room Air 02/24/20 20:00 99 Room Air 02/24/20 16:08 37.7 115 22 106/56 (73) 99 Room Air 02/24/20 11:52 37.1 110 19 114/72 (86) 97 Room Air I & O 02/25/20 07:00 Intake Total 1000 ml Output Total 3100 ml Balance -2100 ml Capillary Refill : Less Than 3 SecondsLess Than 3 Seconds General Appearance: No Apparent Distress, WD/WN Neck: Full Range of Motion, Normal Inspection Respiratory: Normal Breath Sounds, No Accessory Muscle Use, No Respiratory Distress Cardiovascular: Regular Rate, Rhythm, No Edema Gastrointestinal: normal bowel sounds, soft, tenderness (LLQ) Extremity: Normal Inspection, Normal Range of Motion, No Calf Tenderness Neurologic/Psychiatric: Alert, Oriented x3 Skin: Normal Color, Warm/Dry, Other (Midline incision C/D/I with no signs of infection.) Results Lab Laboratory Tests 02/25/20 06:13: Glucometer 136H 02/25/20 11:11: White Blood Count 16.2H, Red Blood Count 3.17L, Hemoglobin 8.8L, Hematocrit 27L, Mean Corpuscular Volume 86, Mean Corpuscular Hemoglobin 28, Mean Corpuscular Hemoglobin Concent 33, Red Cell Distribution Width 13.2, Platelet Count 630H, Mean Platelet Volume 10.0, Sodium Level 136, Potassium Level 4.3, Chloride Level 102, Carbon Dioxide Level 23, Anion Gap 11, Blood Urea Nitrogen 11, Creatinine 0.56L, Estimat Glomerular Filtration Rate > 60, BUN/Creatinine Ratio 20, Glucose Level 104, Calcium Level 8.5 Microbiology 02/16/20 Blood Culture - Final, Complete Staphylococcus hominis Assessment/Plan Assessment/Plan Assess & Plan/Chief Complaint S/P SBR VSS Will repeat CBC and check BMP today. Patient is passing flatus and will start clear liquids. Encourage ambulation and IS Pain medication as needed. Will check labs in AM Clinical Quality Measures DVT/VTE Risk/Contraindication: Risk Factor Score Per Nursin RFS Level Per Nursing on Admit: 2=Moderate SAMANTHA MCCORD DEBUG TECHNICIAN Feb 25, 2020 11:53
[2020-02-25] MEDS: ENOXAPARIN 40 MG/0.4 ML (LOVENOX) SYR SC SCH (12:57)
--- NOTE | 2020-02-25 13:46 | Diagnostic Imaging Report ---
EXAMINATION: Chest 1 view HISTORY: Leukocytosis COMPARISON: 02/17/2020 FINDINGS: Right upper extremity peripherally inserted central venous catheter tip terminates in the superior vena cava. Large amount of free air remains in the abdomen. IMPRESSION: 1. Clear lungs. 2. Large amount of free air in the abdomen is unchanged. Dictated by: Dictated on workstation # [id number]
[2020-02-25 16:00] VITALS: BP 105/70
[2020-02-25] MEDS: SODIUM ACETATE IV SCH ×11 (17:36)
[2020-02-25] MEDS: SODIUM CHLORIDE IV SCH ×11 (17:36)
[2020-02-25] MEDS: 1/2 NS IV SOLUTION 1,000 ML IV SCH (17:36)
[2020-02-25] MEDS: [UNRECOGNIZED DRUG - OTHER] IV SCH ×11 (17:36)
[2020-02-25 23:30] VITALS: BP 111/70
[2020-02-26] MEDS: morphine INJ 4 MG/ML 1 ML (VIAL/SYRINGE) IV PRN ×5 (03:11→21:28)
[2020-02-26 03:26] VITALS: BP 111/71
[2020-02-26 05:59] LABS: BASOPHILS % (AUTO) 0 % (0-10); EOSINOPHILS # (AUTO) 0.5 10^3/uL (0.0-0.3); EOSINOPHILS % (AUTO) 3 % (0-10); HEMATOCRIT 24 % (40-54); HEMOGLOBIN 7.6 G/DL (13.3-17.7); LYMPHOCYTES # (AUTO) 1.3 X 10^3 (1.0-4.0); LYMPHOCYTES % (AUTO) 9 % (12-44); MEAN CORPUSCULAR HEMOGLOBIN 28 PG (25-34); MEAN CORPUSCULAR HGB CONC 32 G/DL (32-36); MEAN CORPUSCULAR VOLUME 86 FL (80-99); MEAN PLATELET VOLUME 10.4 FL (7.4-10.4); MONOCYTES # (AUTO) 1.8 X 10^3 (0.0-1.0); MONOCYTES % (AUTO) 12 % (0-12); NEUTROPHILS # (AUTO) 11.7 X 10^3 (1.8-7.8); NEUTROPHILS % (AUTO) 77 % (42-75); PLATELET COUNT 583 10^3/uL (130-400); WHITE BLOOD COUNT 15.2 10^3/uL (4.3-11.0)
[2020-02-26 06:09] LABS: ALBUMIN 2.7 GM/DL (3.2-4.5); CHLORIDE 103 MMOL/L (98-107); SODIUM 137 MMOL/L (135-145)
[2020-02-26] MEDS: 1/2 NS IV SOLUTION 1,000 ML IV SCH ×2 (06:10→19:48)
[2020-02-26 06:11] LABS: CALCIUM 8.3 MG/DL (8.5-10.1)
[2020-02-26 06:12] LABS: GLUCOSE 124 MG/DL (70-105); TOTAL PROTEIN 6.2 GM/DL (6.4-8.2)
[2020-02-26 06:13] LABS: CARBON DIOXIDE 23 MMOL/L (21-32)
[2020-02-26 06:14] LABS: BILIRUBIN,TOTAL 0.8 MG/DL (0.1-1.0)
[2020-02-26 06:15] LABS: ALKALINE PHOSPHATASE 213 U/L (40-136); CREATININE SERUM 0.56 MG/DL (0.60-1.30); GFR ESTIMATED > 60
[2020-02-26 06:16] LABS: BUN/CREATININE RATIO 20
[2020-02-26 06:18] LABS: ALANINE AMINOTRANSFERASE 181 U/L (0-55)
[2020-02-26 08:00] VITALS: BP 105/66
[2020-02-26] MEDS: PANTOPRAZOLE 40 MG (PROTONIX) VIAL IV SCH (08:04)
[2020-02-26 09:10] LABS: BAND NEUTROPHILS 4 %; BASOPHILS % (MANUAL) 0 %; EOSINOPHILS % (MANUAL) 6 %; HYPOCHROMASIA SLIGHT; LYMPHOCYTES % (MANUAL) 9 %; MONOCYTES % (MANUAL) 15 %; NEUTROPHILS % (MANUAL) 66 %; POLYCHROMASIA SLIGHT
[2020-02-26] MEDS: ENOXAPARIN 40 MG/0.4 ML (LOVENOX) SYR SC SCH (12:22)
--- NOTE | 2020-02-26 13:32 | Progress Note ---
Subjective Date Seen by a Provider: Feb 26, 2020 Time Seen by a Provider: 12:00 Subjective/Events-last exam Patient seen with Dr. Willis. Patient reports continues to improve but still having abdominal pain. Has had 4 liquid bowel movements since yesterday. Denies any fever, chills, nausea, vomiting. Tolerating liquid diet. Objective Exam Vital Signs Date Time Temp Pulse Resp B/P (MAP) Pulse Ox O2 Delivery O2 Flow Rate FiO2 02/26/20 08:00 Room Air 02/26/20 08:00 37.1 107 20 105/66 (79) 99 Room Air 02/26/20 03:26 37.6 112 16 111/71 (84) 98 Room Air 02/25/20 23:30 38.0 115 18 111/70 (84) 97 Room Air 02/25/20 20:00 99 Room Air 02/25/20 16:00 38.1 121 18 105/70 (82) 100 Room Air I & O 02/26/20 07:00 Intake Total 110 ml Output Total 2325 ml Balance -2215 ml Capillary Refill : Less Than 3 SecondsLess Than 3 Seconds General Appearance: No Apparent Distress, WD/WN Neck: Full Range of Motion, Normal Inspection Respiratory: Normal Breath Sounds, No Accessory Muscle Use, No Respiratory Di stress Cardiovascular: Regular Rate, Rhythm, No Edema Gastrointestinal: normal bowel sounds, soft, guarding, tenderness (Diffuse. Mid abdominal incision C/D/I with no signs of infection.) Extremity: Normal Inspection, Normal Range of Motion Neurologic/Psychiatric: Alert, Oriented x3 Skin: Normal Color, Warm/Dry Results Lab Laboratory Tests 02/26/20 05:40: Glucometer 132H 02/26/20 05:50: White Blood Count 15.2H, Red Blood Count 2.74L, Hemoglobin 7.6L, Hematocrit 24L, Mean Corpuscular Volume 86, Mean Corpuscular Hemoglobin 28, Mean Corpuscular Hemoglobin Concent 32, Red Cell Distribution Width 13.1, Platelet Count 583H, Mean Platelet Volume 10.4, Neutrophils (%) (Auto) 77H, Lymphocytes (%) (Auto) 9L , Monocytes (%) (Auto) 12, Eosinophils (%) (Auto) 3, Basophils (%) (Auto) 0, Neutrophils # (Auto) 11.7H, Lymphocytes # (Auto) 1.3, Monocytes # (Auto) 1.8H, Eosinophils # (Auto) 0.5H, Basophils # (Auto) 0.0, Neutrophils % (Manual) 66, Lymphocytes % (Manual) 9, Monocytes % (Manual) 15, Eosinophils % (Manual) 6, Basophils % (Manual) 0, Band Neutrophils 4, Polychromasia SLIGHT, Hypochromasia SLIGHT, Sodium Level 137, Potassium Level 4.0, Chloride Level 103, Carbon Dioxide Level 23, Anion Gap 11, Blood Urea Nitrogen 11, Creatinine 0.56L, Estimat Glomerular Filtration Rate > 60, BUN/Creatinine Ratio 20, Glucose Level 124H, Calcium Level 8.3L, Corrected Calcium 9.3, Total Bilirubin 0.8, Aspartate Amino Transf (AST/SGOT) 124H, Alanine Aminotransferase (ALT/SGPT) 181H, Alkaline Phosphatase 213H, Total Protein 6.2L, Albumin 2.7L Microbiology 02/16/20 Blood Culture - Final, Complete Staphylococcus hominis Assessment/Plan Assessment/Plan Assess & Plan/Chief Complaint S/P SBR VSS WBC 15.2 Patient is having BMs will advance to soft diet Encourage ambulation and IS Pain medication as needed. Will check labs in AM Clinical Quality Measures DVT/VTE Risk/Contraindication: Risk Factor Score Per Nursin RFS Level Per Nursing on Admit: 2=Moderate SAMANTHA MCCORD GUMMING MACHINE OPERATOR Feb 26, 2020 13:32
[2020-02-26 16:55] VITALS: BP 115/67
[2020-02-26] MEDS: SODIUM CHLORIDE IV SCH ×11 (17:11)
[2020-02-26] MEDS: [UNRECOGNIZED DRUG - OTHER] IV SCH ×11 (17:11)
[2020-02-26] MEDS: SODIUM ACETATE IV SCH ×11 (17:11)
[2020-02-27] VITALS: BP 103/68
[2020-02-27] MEDS: morphine INJ 4 MG/ML 1 ML (VIAL/SYRINGE) IV PRN ×6 (01:45→22:48)
[2020-02-27 06:51] LABS: BASOPHILS % (AUTO) 0 % (0-10); EOSINOPHILS # (AUTO) 0.5 10^3/uL (0.0-0.3); EOSINOPHILS % (AUTO) 3 % (0-10); HEMATOCRIT 26 % (40-54); HEMOGLOBIN 8.2 G/DL (13.3-17.7); LYMPHOCYTES # (AUTO) 1.5 X 10^3 (1.0-4.0); LYMPHOCYTES % (AUTO) 10 % (12-44); MEAN CORPUSCULAR HEMOGLOBIN 27 PG (25-34); MEAN CORPUSCULAR HGB CONC 32 G/DL (32-36); MEAN CORPUSCULAR VOLUME 86 FL (80-99); MEAN PLATELET VOLUME 10.4 FL (7.4-10.4); MONOCYTES # (AUTO) 2.3 X 10^3 (0.0-1.0); MONOCYTES % (AUTO) 16 % (0-12); NEUTROPHILS # (AUTO) 10.3 X 10^3 (1.8-7.8); NEUTROPHILS % (AUTO) 70 % (42-75); PLATELET COUNT 619 10^3/uL (130-400); WHITE BLOOD COUNT 14.7 10^3/uL (4.3-11.0)
[2020-02-27 07:10] LABS: ALANINE AMINOTRANSFERASE 209 U/L (0-55); ALBUMIN 2.6 GM/DL (3.2-4.5); ALKALINE PHOSPHATASE 242 U/L (40-136); BILIRUBIN,TOTAL 0.7 MG/DL (0.1-1.0); BUN/CREATININE RATIO 20; CALCIUM 8.2 MG/DL (8.5-10.1); CARBON DIOXIDE 24 MMOL/L (21-32); CHLORIDE 104 MMOL/L (98-107); CREATININE SERUM 0.55 MG/DL (0.60-1.30); GFR ESTIMATED > 60; GLUCOSE 116 MG/DL (70-105); POTASSIUM 3.9 MMOL/L (3.6-5.0); SODIUM 138 MMOL/L (135-145)
--- NOTE | 2020-02-27 07:40 | Progress Note - Surgery ---
NATALIE QUINONEZ MED STUDENT 02/27/20 0740: Subjective Date Seen by a Provider: Feb 27, 2020 Time Seen by a Provider: 07:00 Subjective/Events-last exam Pt has been passing gas and had 4 liquid BM's yesterday, but no BM's yet today. Pt still notes the same abdominal pain, but says he has weaned off the Dilaudid and is now on morphine only. Pt has advanced to a soft diet, but says he has not been eating much because he doesn't feel hungry. No N/V, CP, SOB, fever, or chills. Still has abdominal pain with urination, but UA on 02/23 was unremarkable. Notes some increased amount of clear drainage from incision site. CXR from 02/24 showed free intraperitoneal air unchanged from previous, otherwise unremarkable. Objective Exam Vital Signs Date Time Temp Pulse Resp B/P (MAP) Pulse Ox O2 Delivery O2 Flow Rate FiO2 02/27/20 00:00 37.7 112 18 103/68 (80) 98 Room Air 02/26/20 20:00 98 Room Air 02/26/20 16:55 38.8 120 18 115/67 (83) 98 Room Air 02/26/20 08:00 Room Air 02/26/20 08:00 37.1 107 20 105/66 (79) 99 Room Air I & O 02/27/20 07:00 Intake Total 640 ml Output Total 1750 ml Balance -1110 ml Capillary Refill : Less Than 3 SecondsLess Than 3 Seconds General Appearance: No Apparent Distress, Thin Neck: Normal Inspection Respiratory: Lungs Clear, Normal Breath Sounds, No Accessory Muscle Use, No Respiratory Distress Cardiovascular: No Murmur, Tachycardia Peripheral Pulses: 2+ Dorsalis Pedis (R), 2+ Left Dors-Pedis (L), 2+ Radial Pulses (R), 2+ Radial Pulses (L) Gastrointestinal: soft, tenderness (diffuse, left more than right; pt would not allow palpation on the left d/t pain), other (incision is clean and intact; dressing is wet with drainage from incision) Extremity: Normal Inspection Neurologic/Psychiatric: Alert, Oriented x3, Normal Mood/Affect Skin: Normal Color, Warm/Dry Lymphatic: No Adenopathy Results Lab Laboratory Tests 02/27/20 06:20: White Blood Count 14.7H, Red Blood Count 3.00L, Hemoglobin 8.2L, Hematocrit 26L, Mean Corpuscular Volume 86, Mean Corpuscular Hemoglobin 27, Mean Corpuscular Hemoglobin Concent 32, Red Cell Distribution Width 13.5, Platelet Count 619H, Mean Platelet Volume 10.4, Neutrophils (%) (Auto) 70, Lymphocytes (%) (Auto) 10L , Monocytes (%) (Auto) 16H, Eosinophils (%) (Auto) 3, Basophils (%) (Auto) 0, Neutrophils # (Auto) 10.3H, Lymphocytes # (Auto) 1.5, Monocytes # (Auto) 2.3H, Eosinophils # (Auto) 0.5H, Basophils # (Auto) 0.0, Sodium Level 138, Potassium Level 3.9, Chloride Level 104, Carbon Dioxide Level 24, Anion Gap 10, Blood Urea Nitrogen 11, Creatinine 0.55L, Estimat Glomerular Filtration Rate > 60, BUN/Creatinine Ratio 20, Glucose Level 116H, Calcium Level 8.2L, Corrected Calcium 9.3, Total Bilirubin 0.7, Aspartate Amino Transf (AST/SGOT) 109H, Alanine Aminotransferase (ALT/SGPT) 209H, Alkaline Phosphatase 242H, Total Protein 6.0L, Albumin 2.6L 02/27/20 06:34: Glucometer 101 Microbiology 02/16/20 Blood Culture - Final, Complete Staphylococcus hominis Assessment/Plan Assessment/Plan Assessment/Plan S/P SBR WBC 15.2 Encourage pt to eat soft diet Encourage ambulation and IS Pain medication as needed. Clinical Quality Measures DVT/VTE Risk/Contraindication: Risk Factor Score Per Nursin RFS Level Per Nursing on Admit: 2=Moderate PHILIPPE JORDAN DO 02/27/201924: Subjective Subjective/Events-last exam Has had fever and elevated wbc. Tolerating some diet. Having flatus. Abdominal pain controlled. Denies n/v sweats chills shortness of breath or chest pain. Objective Exam General Appearance: No Apparent Distress HEENT: PERRL/EOMI Neck: Normal Inspection Respiratory: Chest Non Tender, No Accessory Muscle Use, No Respiratory Distress Cardiovascular: Tachycardia Gastrointestinal: soft, tenderness (diffuse, incision some slight drainage no surrounding erythema) Neurologic/Psychiatric: Alert, Oriented x3 Skin: Normal Color, Warm/Dry Lymphatic: No Adenopathy Assessment/Plan Assessment/Plan Assessment/Plan s/p small bowel resection fever leukocytosis will get ct abd/pelvis c iv/oral contrast he does have bowel function Ct abd pelvis reviewed no extravasation of contrast appears to have abscess in pelvis to have drained by IR Keep npo start alessandra Supervisory-Addendum Brief Verification & Attestation Participated in pt care: history, MDM, physical Personally performed: exam, history, MDM, supervision of care Care discussed with: Medical Student Procedures: n/a Results interpretation: Verified all documentation Verification and Attestation of Medical Student E/M Service A medical student performed and documented this service in my presence. I reviewed and verified all information documented by the medical student and made modifications to such information, when appropriate. I personally performed the physical exam and medical decision making. Philippe Jordan, Feb 27, 2020,19:25 NATALIE QUNIONEZ MED STUDENT Feb 27, 2020 07:40 PHILIPPE JORDAN DO Feb 27, 2020 19:25
[2020-02-27 07:45] VITALS: BP 106/70
[2020-02-27] MEDS: PANTOPRAZOLE 40 MG (PROTONIX) VIAL IV SCH (08:40)
[2020-02-27] MEDS: 1/2 NS IV SOLUTION 1,000 ML IV SCH ×2 (08:40→22:58)
[2020-02-27] MEDS ORDERED: DIATRIZOATE MEGLUM/SODIUM 37% 120 ML (GASTROGRAFIN) PO ONE (09:45)
--- NOTE | 2020-02-27 10:40 | NUR ---
Master Merchandiser offered prayer and blessing.
[2020-02-27] MEDS: ENOXAPARIN 30 MG/0.3 ML (LOVENOX) SYR SC SCH (12:18)
--- NOTE | 2020-02-27 13:06 | Diagnostic Imaging Report ---
PROCEDURE: CT abdomen and pelvis without contrast. TECHNIQUE: Multiple contiguous axial images were obtained through the abdomen and pelvis without the use of intravenous contrast. Oral contrast was administered. Auto Exposure Controls were utilized during the CT exam to meet ALARA standards for radiation dose reduction. INDICATION: Abdominal distention and continued pneumoperitoneum. Patient is post operative. This study was performed for followup. COMPARISON: Correlation is made with the preoperative CT of the abdomen and pelvis performed on 02/16/2020. FINDINGS: The lung bases are clear. There is a large pneumoperitoneum present. There is contrast seen within the stomach as well as small bowel loops. There appear to be midline skin kimmie present. There are post surgical changes involving bowel loops in the left paramidline abdomen. No definite contrast extravasation is detected; however, there is a very large fluid collection in the midline lower abdomen and upper pelvis measuring approximately 14 cm cephalocaudal by 9 cm AP by 15 cm transverse. This most likely represents a large abscess. No gas within the collection is detected. No definite bowel obstruction is seen. There is no free fluid identified. The liver, gallbladder, and spleen are unremarkable. The pancreas, adrenal glands, and kidneys are unremarkable. The aorta is nonaneurysmal. The bladder is unremarkable. IMPRESSION: Post surgical changes. There is a large pneumoperitoneum, much larger than expected for a patient approximately 1 week post operative. While no definite contrast extravasation is identified to suggest a leak, the patient has developed a very large fluid collection in the lower abdomen and upper pelvis in the midline, suspicious for a developing abscess. No bowel obstruction is identified at this time. This would be amenable to percutaneous drainage. Dictated by: Dictated on workstation # [id number]
--- NOTE | 2020-02-27 13:26 | NUR ---
"RD ASSESSMENT PMHx: gastrointestinal resection as ; SBO PT INTERACTION: Pt was awake and pleasant during nutrition assessment. Pt states he is trying to eat a little better. Note avg PO intake <25% x2d, per chart review. Note pt currently receiving TPN, providing 2090 kcal (33 kcal/kg), and 100g Pro (1.6 g Pro/kg). Note pt is currently NPO, pending procedure. Pt states no issues with nausea, vomiting, constipation, or diarrhea since last assessment. Note last BM was 02/25, and pt not currently on bowel regimen per chart review. Note pt has lost 24# x3w, per chart review. ABNORMAL NUTRITION-RELATED LAB VALUES LOW: cr 0.55; Ca 8.2; Pro 6.0; alb 2.6 HIGH: AST 109; ALT 204; alkphos 242 Est. kcal needs: 1925 kcal | 30 kcal/kg Est. Pro needs: 77 g Pro | 1.2 g Pro/kg PES STATEMENT: Inadequate oral intake (NI-2.1) related to loss of appetite | NPO status as evidenced by pt interview | avg PO intake <25% x2d INTERVENTION: Note pt currently NPO, pending procedure. Would recommend diet advancement, when medically able and as tolerated. Upon diet advancement, add Ensure Enlive (vary) to meals TID, for increased kcal intake. Provides 350 kcal and 13 g Pro per serving. Recommendation of continuation of TPN, providing 2090 kcal (33 kcal/kg); and 100g Pro (1.6 g Pro/kg). Any PO intake will supplement TPN until pt is consuming at least 75% of meals. Will continue to follow and reassess as pt needs, intake, and status change. MONITOR/EVALUATE: PO Intake; Plan of Care; Hydration Status; Weight Status; Lab Values Cande Hubbard, MS, RD, LD"
[2020-02-27 14:20] LABS: INR 1.5 (0.8-1.4); PROTHROMBIN TIME PATIENT 18.5 SEC (12.2-14.7)
[2020-02-27 16:10] VITALS: BP 106/71
[2020-02-27] MEDS ORDERED: PIPERACILLIN/TAZO 4.5 GM/NS 100 ML IV ONE ×2 (17:00)
[2020-02-27] MEDS: SODIUM ACETATE IV SCH ×11 (17:06)
[2020-02-27] MEDS: SODIUM CHLORIDE IV SCH ×11 (17:06)
[2020-02-27] MEDS: [UNRECOGNIZED DRUG - OTHER] IV SCH ×11 (17:06)
--- NOTE | 2020-02-27 21:30 | NUR ---
Walked with patient in hallway x3 laps. Patient tolerated well and denies increased pain.
[2020-02-27] MEDS: PIPERACILLIN/TAZOBACTAM (BULK) 4.5 GM in NS (IVPB) 100 ML IV SCH (22:59)
[2020-02-28] VITALS (18 sets, daily range): BP systolic 86–128; BP diastolic 58–84
[2020-02-28] MEDS: morphine INJ 4 MG/ML 1 ML (VIAL/SYRINGE) IV PRN ×5 (02:44→19:56)
--- NOTE | 2020-02-28 05:46 | NUR ---
ordered CBC and CMP per TPN protocol
--- NOTE | 2020-02-28 07:15 | Progress Note - Surgery ---
NATALIE QUINONEZ MED STUDENT 02/28/20 0715: Subjective Date Seen by a Provider: Feb 28, 2020 Time Seen by a Provider: 07:00 Subjective/Events-last exam Pt states abdominal pain is same from yesterday. Has been ambulating and using IS. Still having drainage from incision. Had a BM last night. Pt eating ice chips only per Dr. Jordan's orders. Has been getting IV Zosyn since yesterday afternoon. Initial labs run this morning were contaminated, redrawn labs showed WBC 9.9 today, down from 14.7 yesterday. Hgb is 8.9 today from 8.[address] scan last night showed [id number] cm abscess in the lower abdomen/upper pelvis. Pt states he is scheduled for and I&D with radiology today at noon and is very anxious about it. Objective Exam Vital Signs Date Time Temp Pulse Resp B/P (MAP) Pulse Ox O2 Delivery O2 Flow Rate FiO2 02/28/20 00:00 37.2 110 14 106/58 (74) 98 Room Air 02/27/20 20:00 99 Room Air 02/27/20 16:10 37.6 109 18 106/71 (83) 100 Room Air 02/27/20 08:00 Room Air 02/27/20 07:45 38.0 107 16 106/70 (82) 100 Room Air I & O 02/28/20 07:00 Intake Total 420 ml Output Total 2551 ml Balance -2131 ml Capillary Refill : Less Than 3 SecondsLess Than 3 Seconds General Appearance: No Apparent Distress, Thin Neck: Normal Inspection Respiratory: Lungs Clear, Normal Breath Sounds, No Accessory Muscle Use, No Respiratory Distress Cardiovascular: Tachycardia Peripheral Pulses: 2+ Dorsalis Pedis (R), 2+ Left Dors-Pedis (L), 2+ Radial Pulses (R), 2+ Radial Pulses (L) Gastrointestinal: other (pt will not allow palpation d/t pain, but states left abdomen hurts worse than right; incision is non-erythematous, but continues to drain fluid) Extremity: Normal Inspection Neurologic/Psychiatric: Alert, Oriented x3, Other (anxious) Skin: Normal Color, Warm/Dry Lymphatic: No Adenopathy Results Lab Laboratory Tests 02/27/20 13:56: Prothrombin Time 18.5H, INR Comment 1.5H 02/28/20 06:00: White Blood Count 10.4, Red Blood Count 2.52L, Hemoglobin 7.1L, Hematocrit 22L, Mean Corpuscular Volume 88, Mean Corpuscular Hemoglobin 28, Mean Corpuscular Hemoglobin Concent 32, Red Cell Distribution Width 13.4, Platelet Count 531H, Mean Platelet Volume 11.5H, Neutrophils (%) (Auto) 63, Lymphocytes (%) (Auto) 17, Monocytes (%) (Auto) 14H, Eosinophils (%) (Auto) 5, Basophils (%) (Auto) 0, Neutrophils # (Auto) 6.6, Lymphocytes # (Auto) 1.8, Monocytes # (Auto) 1.5H, Eosinophils # (Auto) 0.5H, Basophils # (Auto) 0.0 02/28/20 06:57: Glucometer 115H Microbiology 02/16/20 Blood Culture - Final, Complete Staphylococcus hominis Assessment/Plan Assessment/Plan Assessment/Plan s/p small bowel resection fever he does have bowel function Ct abd pelvis reviewed no extravasation of contrast appears to have abscess in pelvis to have drained by IR Keep npo Continue zosyn Clinical Quality Measures DVT/VTE Risk/Contraindication: Risk Factor Score Per Nursin RFS Level Per Nursing on Admit: 2=Moderate MITALI JORDAN DO 02/28/202058: Subjective Subjective/Events-last exam Patient no new complaints. Found to have abscess and to IR for percutaneous drainage of intrabdominal abscess. Pain controlled. WBC improving on Zosyn. On TPN. Using IS and ambulating. Objective Exam General Appearance: No Apparent Distress, Anxious HEENT: PERRL/EOMI, Normal ENT Inspection Neck: Full Range of Motion, Normal Inspection Respiratory: Chest Non Tender, No Accessory Muscle Use, No Respiratory Distress Cardiovascular: No JVD, Tachycardia Gastrointestinal: other (slight drainage from midline incsion, no surrounding erythema, mildly tender to palpation lower abdomen.) Extremity: Normal Inspection, Non Tender Neurologic/Psychiatric: Alert, Oriented x3 Skin: Normal Color, Warm/Dry Lymphatic: No Adenopathy Assessment/Plan Assessment/Plan Assessment/Plan s/p small bowel resection intrabdominal abscess fever IR drain placed will need ct scan to re-evaluate in about 2 days npo flush drain every 8 hrs with 10 ml of saline continue Zosyn dvt prophylaxis Supervisory-Addendum Brief Verification & Attestation Participated in pt care: history, MDM, physical Personally performed: exam, history, MDM, supervision of care Care discussed with: Medical Student Procedures: n/a Results interpretation: Verified all documentation Verification and Attestation of Medical Student E/M Service A medical student performed and documented this service in my presence. I reviewed and verified all information documented by the medical student and made modifications to such information, when appropriate. I personally performed the physical exam and medical decision making. Mitali Jordan, Feb 28, 2020,20:59 NATALIE QUINONEZ MED STUDENT Feb 28, 2020 07:15 MITALI JORDAN DO Feb 28, 2020 20:59
[2020-02-28] MEDS: PIPERACILLIN/TAZOBACTAM (BULK) 4.5 GM in NS (IVPB) 100 ML IV SCH ×3 (07:53→23:05)
[2020-02-28] MEDS: PANTOPRAZOLE 40 MG (PROTONIX) VIAL IV SCH (07:54)
[2020-02-28 08:08] LABS: BASOPHILS % (AUTO) 0 % (0-10); EOSINOPHILS # (AUTO) 0.5 10^3/uL (0.0-0.3); EOSINOPHILS % (AUTO) 5 % (0-10); HEMATOCRIT 28 % (40-54); HEMOGLOBIN 8.9 G/DL (13.3-17.7); LYMPHOCYTES # (AUTO) 1.6 X 10^3 (1.0-4.0); LYMPHOCYTES % (AUTO) 16 % (12-44); MEAN CORPUSCULAR HEMOGLOBIN 28 PG (25-34); MEAN CORPUSCULAR HGB CONC 32 G/DL (32-36); MEAN CORPUSCULAR VOLUME 86 FL (80-99); MEAN PLATELET VOLUME 10.6 FL (7.4-10.4); MONOCYTES # (AUTO) 1.2 X 10^3 (0.0-1.0); MONOCYTES % (AUTO) 13 % (0-12); NEUTROPHILS # (AUTO) 6.5 X 10^3 (1.8-7.8); NEUTROPHILS % (AUTO) 66 % (42-75); PLATELET COUNT 613 10^3/uL (130-400); WHITE BLOOD COUNT 9.9 10^3/uL (4.3-11.0)
[2020-02-28 08:18] LABS: ALBUMIN 2.9 GM/DL (3.2-4.5)
[2020-02-28 08:19] LABS: CHLORIDE 103 MMOL/L (98-107); POTASSIUM 4.2 MMOL/L (3.6-5.0); SODIUM 139 MMOL/L (135-145)
[2020-02-28 08:20] LABS: CALCIUM 8.8 MG/DL (8.5-10.1)
[2020-02-28 08:21] LABS: GLUCOSE 115 MG/DL (70-105); TOTAL PROTEIN 6.8 GM/DL (6.4-8.2)
[2020-02-28 08:22] LABS: CARBON DIOXIDE 25 MMOL/L (21-32)
[2020-02-28 08:23] LABS: BILIRUBIN,TOTAL 0.7 MG/DL (0.1-1.0)
[2020-02-28 08:24] LABS: ALKALINE PHOSPHATASE 329 U/L (40-136)
[2020-02-28 08:25] LABS: GFR ESTIMATED > 60
[2020-02-28 08:26] LABS: BUN/CREATININE RATIO 20
[2020-02-28 08:27] LABS: ALANINE AMINOTRANSFERASE 293 U/L (0-55)
[2020-02-28] MEDS ORDERED: fentaNYL INJECTION 100 MCG/2 ML AMP IVP ONE (11:15)
[2020-02-28] MEDS ORDERED: MIDAZOLAM 2 MG/2 ML (VERSED) VIAL IVP ONE (11:15)
[2020-02-28] MEDS ORDERED: LIDOCAINE 1% INJ 20 ML 20 ML VIAL INJ ONE (11:15)
--- NOTE | 2020-02-28 12:26 | NUR ---
PATIENT RETURNED TO ROOM 412 VIA CART FROM RADIOLOGY DRAIN INSERTION PROCEDURE. REPORT GIVEN TO SAILAJA CHESTER.
--- NOTE | 2020-02-28 13:02 | Pre-Op Note & Conscious Sedat ---
Pre-Operative Progress Note H&P Reviewed The H&P was reviewed, patient examined and no changes noted. Date H&P Reviewed: Feb 28, 2020 Time H&P Reviewed: 11:00 Pre-Op Diagnosis: abdominal abscess Conscious Sedation Pre-Proced Time 11:00 ASA Score 2 For ASA 3 and 4: Consider anesthesia and medical clearance. Also, for patients with a history of failed moderate sedation consider anesthesia. Airway Lungs Heart ASA score ASA 1: a normal healthy patient ASA 2: a patient with a mild systemic disease (mid diabetes, controlled hypertension, obesity ASA 3: a patient with a severe systemic disease that limits activity (angina, COPD, prior Myocardial infarction) ASA 4: a patient with an incapacitating disease that is a constant threat to life (CHF, renal failure) ASA 5: a moribund patient not expected to survive 24 hrs. (ruptured aneurysm) ASA 6: a declared brain- patient whose organs are being harvested. For emergent operations, add the letter E after the classification Mallampati Classification Grade 2 Sedation Plan Analgesia, Amnesia, Plan communicated to team members, Discussed options with p atient/fam, Discussed risks with patient/fam The patient is an appropriate candidate to undergo the planned procedure, sedation, and anesthesia. The patient immediately re-assessed prior to indication. NASIR ZAZUETA MD Feb 28, 2020 13:02
[2020-02-28] MEDS: 1/2 NS IV SOLUTION 1,000 ML IV SCH (13:12)
--- NOTE | 2020-02-28 13:38 | Diagnostic Imaging Report ---
INDICATION: Abdominal abscess. Patient presents for CT-guided percutaneous drain placement. TECHNIQUE: All CT scans use one or more of the following dose optimizing techniques: automated exposure control, MA and/or KvP adjustment based on patient size and exam type or iterative reconstruction. DETAILS OF THE PROCEDURE: The patient was brought to the CT suite and placed on the table in the supine position. Axial imaging through the abdomen and pelvis was performed to evaluate for an appropriate entry site. The study was performed utilizing conscious sedation with Radiology nursing and constant patient monitoring. The patient was administered a total of 1 mg of Versed and 50 mg of fentanyl intravenously. The total procedure time was 8 minutes. The right abdomen was prepped and draped in the usual sterile fashion. A small amount of 1% lidocaine was utilized for local anesthesia. A Yueh needle was advanced from a right lower quadrant approach into the large fluid collection. This was exchanged over an 035 Amplatz guidewire. The tract was then dilated with 6, 8, and 10-Tajik dilators. Next, a 10.2 Tajik all-purpose pigtail drain was placed over the Amplatz guidewire into the fluid collection. The wire and inner stiffener were removed. The loop was formed. A small amount of purulent fluid was aspirated and sent to the Lab for culture and sensitivity. The percutaneous pigtail drain was then affixed to the patient's skin and placed to an accordion drain. The patient tolerated the procedure well and left the Department in stable condition. IMPRESSION: Successful CT guided percutaneous drain placement into the large lower abdominal and pelvic fluid collection utilizing conscious sedation. Dictated by: Dictated on workstation # [id number]
[2020-02-28] MEDS: SODIUM CHLORIDE IV SCH ×11 (17:35)
[2020-02-28] MEDS: SODIUM ACETATE IV SCH ×11 (17:35)
[2020-02-28] MEDS: [UNRECOGNIZED DRUG - OTHER] IV SCH ×11 (17:35)
[2020-02-29] MEDS: morphine INJ 4 MG/ML 1 ML (VIAL/SYRINGE) IV PRN ×6 (00:08→23:56)
--- NOTE | 2020-02-29 00:16 | NUR ---
Flushed IR drain with 10mL NS. Patient tolerated well
[2020-02-29] MEDS: 1/2 NS IV SOLUTION 1,000 ML IV SCH ×2 (03:59→17:07)
[2020-02-29 05:32] LABS: HEMOGLOBIN 8.1 G/DL (13.3-17.7); MEAN PLATELET VOLUME 10.7 FL (7.4-10.4); WHITE BLOOD COUNT 9.5 10^3/uL (4.3-11.0)
[2020-02-29 05:45] LABS: CHLORIDE 103 MMOL/L (98-107); POTASSIUM 4.5 MMOL/L (3.6-5.0); SODIUM 138 MMOL/L (135-145)
[2020-02-29 05:46] LABS: CALCIUM 8.8 MG/DL (8.5-10.1); GLUCOSE 111 MG/DL (70-105)
[2020-02-29 05:48] LABS: CARBON DIOXIDE 25 MMOL/L (21-32)
[2020-02-29 05:50] LABS: CREATININE SERUM 0.62 MG/DL (0.60-1.30); GFR ESTIMATED > 60
[2020-02-29 05:51] LABS: BUN/CREATININE RATIO 18
[2020-02-29 05:52] LABS: MAGNESIUM 1.9 MG/DL (1.6-2.4)
[2020-02-29] MEDS: PIPERACILLIN/TAZOBACTAM (BULK) 4.5 GM in NS (IVPB) 100 ML IV SCH ×3 (06:24→23:15)
--- NOTE | 2020-02-29 07:25 | Progress Note - Surgery ---
NATALIE QUINONEZ MED STUDENT 02/29/20 0725: Subjective Date Seen by a Provider: Feb 29, 2020 Time Seen by a Provider: 07:00 Subjective/Events-last exam Pt states abdominal pain is unchanged. Denies CP/SOB, fever, chills. Has had belching and been passing gas, but no BM. Wound drain had 250 mL of output last night per nursing staff, but minimal since then. Pt has no complaints about the drain, but says he does not know what to do with it when he walks, so he has been walking less. Has been using IS. Pt has been NPO since drainage of abscess yesterday and pt is requesting that he be allowed to have ice chips. Hgb is 8.1 today from 8.9 yesterday. WBC 9.5 today from 9.9 yesterday. Objective Exam Vital Signs Date Time Temp Pulse Resp B/P (MAP) Pulse Ox O2 Delivery O2 Flow Rate FiO2 02/28/20 23:06 37.8 96 18 86/63 (71) 100 Room Air 02/28/20 20:00 36.8 106 18 100/67 (78) 99 Room Air 02/28/20 20:00 99 Room Air 02/28/20 18:30 37.4 84 18 96/65 (75) 99 Room Air 02/28/20 17:34 37.8 94 18 101/65 (77) 99 Room Air 02/28/20 16:28 37.2 97 18 100/67 (78) 99 Room Air 02/28/20 16:00 37.0 99 18 109/69 (82) 99 Room Air 02/28/20 15:30 37.0 97 18 107/71 (83) 100 Room Air 02/28/20 15:00 37.0 97 18 107/71 (83) 100 Room Air 02/28/20 14:35 114 108/69 (82) Room Air 02/28/20 14:20 96 103/67 (79) Room Air 02/28/20 14:05 99 104/69 (81) Room Air 02/28/20 13:35 92 100/66 (77) Room Air 02/28/20 12:35 108 18 121/75 96 Nasal Cannula 2.00 02/28/20 12:30 110 20 124/82 96 Nasal Cannula 2.00 02/28/20 12:25 101 22 123/77 97 Nasal Cannula 2.00 02/28/20 12:20 107 22 128/84 97 Nasal Cannula 2.00 02/28/20 08:00 Room Air 02/28/20 07:31 37.0 84 16 102/67 (79) 100 Room Air I & O 02/29/20 07:00 Intake Total 1000 ml Output Total 2550 ml Balance -1550 ml Capillary Refill : Less Than 3 SecondsLess Than 3 Seconds General Appearance: No Apparent Distress, Thin Neck: Normal Inspection Respiratory: Lungs Clear, Normal Breath Sounds, No Accessory Muscle Use, No Respiratory Distress Cardiovascular: Regular Rate, Rhythm Peripheral Pulses: 2+ Dorsalis Pedis (R), 2+ Left Dors-Pedis (L), 2+ Radial Pulses (R), 2+ Radial Pulses (L) Gastrointestinal: other (slight purulent drainage from midline incision, no surrounding erythema; pt will not allow palpation d/t pain, states left hurts worse than right; wound drain in place with no surrounding erythema) Extremity: Normal Inspection, Non Tender Neurologic/Psychiatric: Alert, Oriented x3 Skin: Normal Color, Warm/Dry Lymphatic: No Adenopathy Results Lab Laboratory Tests 02/28/20 07:55: White Blood Count 9.9, Red Blood Count 3.21L, Hemoglobin 8.9L, Hematocrit 28L, Mean Corpuscular Volume 86, Mean Corpuscular Hemoglobin 28, Mean Corpuscular Hemoglobin Concent 32, Red Cell Distribution Width 13.6, Platelet Count 613H, Mean Platelet Volume 10.6H, Neutrophils (%) (Auto) 66, Lymphocytes (%) (Auto) 16, Monocytes (%) (Auto) 13H, Eosinophils (%) (Auto) 5, Basophils (%) (Auto) 0, Neutrophils # (Auto) 6.5, Lymphocytes # (Auto) 1.6, Monocytes # (Auto) 1.2H, Eosinophils # (Auto) 0.5H, Basophils # (Auto) 0.0, Sodium Level 139, Potassium Level 4.2, Chloride Level 103, Carbon Dioxide Level 25, Anion Gap 11, Blood Urea Nitrogen 12, Creatinine 0.60, Estimat Glomerular Filtration Rate > 60, BUN/Creatinine Ratio 20, Glucose Level 115H, Calcium Level 8.8, Corrected Calcium 9.7, Total Bilirubin 0.7, Aspartate Amino Transf (AST/SGOT) 142H, Alanine Aminotransferase (ALT/SGPT) 293H, Alkaline Phosphatase 329H, Total Protein 6.8, Albumin 2.9L 02/29/20 05:15: White Blood Count 9.5, Red Blood Count 3.02L, Hemoglobin 8.1L, Hematocrit 26L, Mean Corpuscular Volume 86, Mean Corpuscular Hemoglobin 27, Mean Corpuscular Hemoglobin Concent 31L, Red Cell Distribution Width 13.7, Platelet Count 592H, Mean Platelet Volume 10.7H, Sodium Level 138, Potassium Level 4.5, Chloride Level 103, Carbon Dioxide Level 25, Anion Gap 10, Blood Urea Nitrogen 11, Creatinine 0.62, Estimat Glomerular Filtration Rate > 60, BUN/Creatinine Ratio 18, Glucose Level 111H, Calcium Level 8.8, Magnesium Level 1.9 Microbiology 02/28/20 Gram Stain, Resulted Pending 02/28/20 Anaerobic Culture, Resulted Pending 02/28/20 Surgical Culture - Preliminary, Resulted 02/16/20 Blood Culture - Final, Complete Staphylococcus hominis Assessment/Plan Assessment/Plan Assessment/Plan s/p small bowel resection intrabdominal abscess fever IR drain placed will need ct scan to re-evaluate in about 2 days npo flush drain every 8 hrs with 10 ml of saline continue Zosyn dvt prophylaxis Clinical Quality Measures DVT/VTE Risk/Contraindication: Risk Factor Score Per Nursin RFS Level Per Nursing on Admit: 2=Moderate MITALI JORDAN DO 02/29/206: Subjective Subjective/Events-last exam Patient no new complaints. Pain unchanged. Drain placed yesterday. NPO. On TPN. Passing flatus. Not walking this morning states he will though. WBC down to 9.5 on Zosyn. Objective Exam General Appearance: No Apparent Distress Neck: Normal Inspection Respiratory: Chest Non Tender, No Accessory Muscle Use, No Respiratory Distress Cardiovascular: Regular Rate, Rhythm, No JVD Gastrointestinal: soft, other (slight purulent drainage from midline incision, no surrounding erythema, small amount of drainge; draing with slighlty purulent drainage, incsioin no surrounding erythema) Extremity: Normal Inspection, Non Tender Neurologic/Psychiatric: Alert, Oriented x3 Skin: Normal Color, Warm/Dry Lymphatic: No Adenopathy Assessment/Plan Assessment/Plan Assessment/Plan s/p small bowel resection intrabdominal abscess fever IR drain placed will need ct scan to re-evaluate in about 2 days npo on TPN flush drain every 8 hrs with 10 ml of saline continue Zosyn dvt prophylaxis encouraged IS and ambulation Supervisory-Addendum Brief Verification & Attestation Participated in pt care: history, MDM, physical Personally performed: exam, history, MDM, supervision of care Care discussed with: Medical Student Procedures: n/a Results interpretation: Verified all documentation Verification and Attestation of Medical Student E/M Service A medical student performed and documented this service in my presence. I reviewed and verified all information documented by the medical student and made modifications to such information, when appropriate. I personally performed the physical exam and medical decision making. Mitali Jordan, Feb 29, 2020,19:36 NATALIE QUINONEZ MED STUDENT Feb 29, 2020 07:25 MITALI JORDAN DO Feb 29, 2020 19:36
[2020-02-29 08:12] VITALS: BP 101/60
[2020-02-29] MEDS: PANTOPRAZOLE 40 MG (PROTONIX) VIAL IV SCH (08:31)
[2020-02-29] MEDS: ENOXAPARIN 30 MG/0.3 ML (LOVENOX) SYR SC SCH (12:22)
[2020-02-29] MEDS: HYDROcodone/APAP 7.5MG-325 MG/15 ML (LORTAB) UDC PO PRN (12:22)
[2020-02-29 15:43] VITALS: BP 119/79
--- NOTE | 2020-02-29 15:50 | Physical Therapy Progress Note ---
Therapy Progress Note Evaluation order received due to patient refusing to ambulate. As PT was approaching his room he comes out ambulating, pushing his own IV pole, family walking behind him. He is ambulating independently. No PT eval for now unless condition changes. BARBY NUÑEZ PT Feb 29, 2020 15:50
[2020-02-29] MEDS: [UNRECOGNIZED DRUG - OTHER] IV SCH ×11 (17:07)
[2020-02-29] MEDS: SODIUM CHLORIDE IV SCH ×11 (17:07)
[2020-02-29] MEDS: SODIUM ACETATE IV SCH ×11 (17:07)
--- NOTE | 2020-02-29 18:03 | NUR ---
patient had been told numerous times today and yesterday to ambulate, today was attempted x3 to get the patient to ambulate and he refused, reported of severe pain even after morphine was administered, Dr. Jordan notified - stated that he has to ambulate to get better, patient ambulated x3 this evening
[2020-03-01] VITALS: BP 95/55
[2020-03-01] MEDS: morphine INJ 4 MG/ML 1 ML (VIAL/SYRINGE) IV PRN ×5 (03:56→21:52)
[2020-03-01 04:16] VITALS: BP 95/54
[2020-03-01] MEDS: PIPERACILLIN/TAZOBACTAM (BULK) 4.5 GM in NS (IVPB) 100 ML IV SCH ×3 (06:00→22:15)
--- NOTE | 2020-03-01 06:40 | NUR ---
This RN flushed this pt's right abdominal drain at 0600 with a 10 mL NS syringe. Drain/Tube was patent and draining adequately.
--- NOTE | 2020-03-01 07:16 | Progress Note - Surgery ---
NATALIE QUINONEZ MED STUDENT 03/01/20 0716: Subjective Date Seen by a Provider: Mar 01, 2020 Time Seen by a Provider: 07:00 Subjective/Events-last exam Pt states his abdominal pain is improved, but has new pain at the site of the abdominal drain, moreso with bending and certain positioning. Pt says the there is less drainage today than yesterday. States he walked 10 laps last night and 5 this morning. Has been burping and passing gas, but has not had a BM. Pt thinks this is because he is NPO and is again requesting ice chips or soft food. Objective Exam Vital Signs Date Time Temp Pulse Resp B/P (MAP) Pulse Ox O2 Delivery O2 Flow Rate FiO2 03/01/20 04:16 36.8 88 14 95/54 (68) 98 Room Air 03/01/20 00:00 36.7 98 16 95/55 (68) 98 Room Air 02/29/20 20:00 Room Air 02/29/20 15:43 36.3 81 18 119/79 (92) 99 Room Air 02/29/20 08:12 37.1 88 17 101/60 (74) 100 Room Air 02/29/20 08:00 Room Air I & O 03/01/20 07:00 Intake Total 0 ml Output Total 3210 ml Balance -3210 ml Capillary Refill : Less Than 3 SecondsLess Than 3 Seconds General Appearance: No Apparent Distress, Thin Neck: Normal Inspection Respiratory: Lungs Clear, Normal Breath Sounds, No Accessory Muscle Use, No Respiratory Distress Cardiovascular: Regular Rate, Rhythm Peripheral Pulses: 2+ Dorsalis Pedis (R), 2+ Left Dors-Pedis (L), 2+ Radial Pulses (R), 2+ Radial Pulses (L) Gastrointestinal: soft, other (slight purulent drainage from midline incision (less than yesterday), but no surrounding erythema; drain with slightly purulent drainage, so surrounding erythema at the skin, but pt notes tenderness; pt allows light palpation of abdomen, which does not elicit tenderness) Extremity: Normal Inspection Neurologic/Psychiatric: Alert, Oriented x3, Normal Mood/Affect Skin: Normal Color, Warm/Dry Lymphatic: No Adenopathy Results Lab Laboratory Tests 03/01/20 05:59: Glucometer 100 Microbiology 02/28/20 Gram Stain - Final, Resulted 02/28/20 Anaerobic Culture - Preliminary, Resulted Culture In Progress 02/28/20 Surgical Culture - Preliminary, Resulted No growth 02/16/20 Blood Culture - Final, Complete Staphylococcus hominis Assessment/Plan Assessment/Plan Assessment/Plan s/p small bowel resection intrabdominal abscess fever IR drain placed will need ct scan to re-evaluate in about 1 day npo on TPN flush drain every 8 hrs with 10 ml of saline continue Zosyn dvt prophylaxis encouraged IS and ambulation Clinical Quality Measures DVT/VTE Risk/Contraindication: Risk Factor Score Per Nursin RFS Level Per Nursing on Admit: 2=Moderate MITALI JORDAN DO 03/01/202107: Subjective Subjective/Events-last exam Abdominal pain improving he states. Ambulating some now. Feeling a little better. NPO. On TPN. Denies n/v fever sweats chills shortness of breath or chest pain. Less drainage from incsision. Drain is uncomfortable, but tolerable. Objective Exam General Appearance: No Apparent Distress, Thin HEENT: PERRL/EOMI, Normal ENT Inspection Neck: Normal Inspection, Non Tender, Supple Respiratory: Chest Non Tender, No Accessory Muscle Use Cardiovascular: Regular Rate, Rhythm, No JVD Gastrointestinal: soft, other (slight purulent drainage from midline incision (less than yesterday), but no surrounding erythema; drain with slightly purulent drainage, no surrounding erythema at the skin, minimal tenderness lower abdomen midline) Extremity: Normal Inspection Neurologic/Psychiatric: Alert, Oriented x3, Normal Mood/Affect Skin: Normal Color, Warm/Dry Lymphatic: No Adenopathy Assessment/Plan Assessment/Plan Assessment/Plan s/p small bowel resection intrabdominal abscess fever IR drain placed will need ct scan tomorrow re-evaluate with oral contrast npo on TPN flush drain every 8 hrs with 10 ml of saline continue Zosyn dvt prophylaxis encouraged IS and ambulation patient more willing to increase activity today Supervisory-Addendum Brief Verification & Attestation Participated in pt care: history, MDM, physical Personally performed: exam, history, MDM, supervision of care Care discussed with: Medical Student Procedures: n/a Results interpretation: Verified all documentation Verification and Attestation of Medical Student E/M Service A medical student performed and documented this service in my presence. I reviewed and verified all information documented by the medical student and made modifications to such information, when appropriate. I personally performed the physical exam and medical decision making. Mitali Jordan, Mar 01, 2020,21:08 NATALIE QUINONEZ MED STUDENT Mar 01, 2020 07:16 MITALI JORDAN DO Mar 01, 2020 21:08
[2020-03-01 08:00] VITALS: BP 91/55
[2020-03-01] MEDS: PANTOPRAZOLE 40 MG (PROTONIX) VIAL IV SCH (08:39)
[2020-03-01] MEDS: 1/2 NS IV SOLUTION 1,000 ML IV SCH ×2 (09:00→20:17)
--- NOTE | 2020-03-01 09:51 | NUR ---
Pt ambulating in [place] with nursing students.
[2020-03-01] MEDS: ENOXAPARIN 30 MG/0.3 ML (LOVENOX) SYR SC SCH ×2 (13:10→13:58)
--- NOTE | 2020-03-01 14:00 | NUR ---
RLQ DRAIN FLUSHED @ 1400. DRAIN PATENT NO ABNORMALITIES NOTED. WILL CONTINUE TO MONITOR
--- NOTE | 2020-03-01 14:30 | NUR ---
Pt ambulating in [place] with grandfather x 5 laps around North end of unit
[2020-03-01 16:05] VITALS: BP 98/58
[2020-03-01] MEDS: SODIUM ACETATE IV SCH ×11 (16:46)
[2020-03-01] MEDS: SODIUM CHLORIDE IV SCH ×11 (16:46)
[2020-03-01] MEDS: [UNRECOGNIZED DRUG - OTHER] IV SCH ×11 (16:46)
[2020-03-02] VITALS: BP 95/54
[2020-03-02] MEDS: morphine INJ 4 MG/ML 1 ML (VIAL/SYRINGE) IV PRN ×5 (01:52→20:42)
[2020-03-02] MEDS ORDERED: PIPERACILLIN/TAZO 4.5 GM VIAL (ZOSYN) IV ONE (06:19)
[2020-03-02] MEDS ORDERED: NS (IVPB) 100 ML ONE (06:20)
[2020-03-02] MEDS: PIPERACILLIN/TAZOBACTAM (BULK) 4.5 GM in NS (IVPB) 100 ML IV SCH ×3 (06:34→23:06)
--- NOTE | 2020-03-02 07:49 | Progress Note - Surgery ---
NATALIE QUINONEZ MED STUDENT 03/02/20 0749: Subjective Date Seen by a Provider: Mar 02, 2020 Time Seen by a Provider: 07:00 Subjective/Events-last exam Pt states abdominal pain is improved and is only having pain at the site of the drain tube, unchanged from yesterday's pain. Per nursing staff, 35 mL was emptied from drain bag this morning. Denies fever, chills, CP, SOB. Notes some mild burning with urination, but does not seem concerned about it and says it has been happening for the past couple days. States he walked 20 laps yesterday and feels like he is ready to walk this morning after nursing staff shift change at 7:00. Has been using incentive spirometer. Pt is anxious about CT scan today because laying down is painful. Objective Exam Vital Signs Date Time Temp Pulse Resp B/P (MAP) Pulse Ox O2 Delivery O2 Flow Rate FiO2 03/02/20 00:00 36.8 82 16 95/54 (68) Room Air 03/01/20 20:00 Room Air 03/01/20 16:05 36.6 89 18 98/58 (71) 99 Room Air 03/01/20 08:00 36.8 84 20 91/55 (67) 100 Room Air 03/01/20 08:00 Room Air I & O 03/02/20 07:00 Intake Total 120 ml Output Total 2110 ml Balance -1990 ml Capillary Refill : Less Than 3 SecondsLess Than 3 Seconds General Appearance: No Apparent Distress, Thin HEENT: Normal ENT Inspection Neck: Normal Inspection, Supple Respiratory: Lungs Clear, Normal Breath Sounds, No Accessory Muscle Use, No Respiratory Distress Cardiovascular: Regular Rate, Rhythm, No JVD Peripheral Pulses: 2+ Dorsalis Pedis (R), 2+ Left Dors-Pedis (L), 2+ Radial Pulses (R), 2+ Radial Pulses (L) Gastrointestinal: soft, other (very slight purulent drainage from midline incision (less than yesterday), but no surrounding erythema; drain with slightly purulent drainage into bag, no surrounding erythema at the skin; no abdominal tenderness to light palpation, except mild tenderness around drain) Extremity: Normal Inspection Neurologic/Psychiatric: Alert, Oriented x3, Normal Mood/Affect Skin: Normal Color, Warm/Dry Lymphatic: No Adenopathy Results Lab Laboratory Tests 03/02/20 05:28: Glucometer 121H Microbiology 02/28/20 Gram Stain - Final, Resulted 02/28/20 Anaerobic Culture - Preliminary, Resulted Bacteroides fragilis 02/28/20 Surgical Culture - Preliminary, Resulted No growth 02/16/20 Blood Culture - Final, Complete Staphylococcus hominis Assessment/Plan Assessment/Plan Assessment/Plan s/p small bowel resection intra-abdominal abscess fever IR drain placed ct scan today to re-evaluate with oral contrast npo on TPN flush drain every 8 hrs with 10 ml of saline continue Zosyn dvt prophylaxis encouraged IS and ambulation patient more willing to increase activity today Clinical Quality Measures DVT/VTE Risk/Contraindication: Risk Factor Score Per Nursin RFS Level Per Nursing on Admit: 2=Moderate MITALI JORDAN DO 03/02/20 1703: Subjective Subjective/Events-last exam Patient feeling a little better today. Passing flatus. Pain better controlled. Ambulating a lot more and feeling better about walking. Feels he is having a lot of issues with anxiety. Denies fever sweats chills shortness of breath or chest pain at this time. Objective Exam General Appearance: No Apparent Distress, Thin HEENT: Normal ENT Inspection Neck: Normal Inspection Respiratory: Chest Non Tender, No Accessory Muscle Use, No Respiratory Distress Cardiovascular: Regular Rate, Rhythm, No JVD Gastrointestinal: soft, other (very slight purulent drainage from midline incision (less than yesterday), but no surrounding erythema; drain with slightly purulent drainage into bag, no surrounding erythema at the skin, slihgt drainage from lower incsion) Extremity: Normal Inspection, Non Tender Neurologic/Psychiatric: Alert, Oriented x3, Normal Mood/Affect Skin: Normal Color, Warm/Dry Lymphatic: No Adenopathy Assessment/Plan Assessment/Plan Assessment/Plan s/p small bowel resection intra-abdominal abscess fever IR drain placed had repeat ct scan today with no extravasation of contrast and decreasing size of abscess we irrigated wound drain and repositioned to try to increase the amount of drainage. Will continue to flush drain and see if we can not improve drainage. May need another drain placed. npo on TPN flush drain every 4 hrs with 10 ml of saline continue Zosyn dvt prophylaxis encouraged IS and ambulation patient more willing to increase activity today Supervisory-Addendum Brief Verification & Attestation Participated in pt care: history, MDM, physical Personally performed: exam, history, MDM, supervision of care Care discussed with: Medical Student Procedures: n/a Results interpretation: Verified all documentation Verification and Attestation of Medical Student E/M Service A medical student performed and documented this service in my presence. I reviewed and verified all information documented by the medical student and made modifications to such information, when appropriate. I personally performed the physical exam and medical decision making. Mitali Jordan, Mar 02, 2020,17:03 NATALIE QUINONEZ MED STUDENT Mar 02, 2020 07:49 MITALI JORDAN DO Mar 02, 2020 17:03
[2020-03-02] MEDS: 1/2 NS IV SOLUTION 1,000 ML IV SCH ×2 (07:51→21:37)
[2020-03-02] MEDS: PANTOPRAZOLE 40 MG (PROTONIX) VIAL IV SCH (07:51)
[2020-03-02 08:00] VITALS: BP 107/67
[2020-03-02] MEDS ORDERED: DIATRIZOATE MEGLUM/SODIUM 37% 120 ML (GASTROGRAFIN) PO ONE (10:30)
[2020-03-02] MEDS: ENOXAPARIN 30 MG/0.3 ML (LOVENOX) SYR SC SCH (11:20)
--- NOTE | 2020-03-02 11:25 | Diagnostic Imaging Report ---
PROCEDURE: CT abdomen and pelvis without contrast. TECHNIQUE: Multiple contiguous axial images were obtained through the abdomen and pelvis without the use of intravenous contrast. Auto Exposure Controls were utilized during the CT exam to meet ALARA standards for radiation dose reduction. INDICATION: Pain, abscess, bowel obstruction. Compared with study 02/27/2020 and correlated with limited CT cuts obtained during CT-guided drainage catheter placement of 02/28/2020. FINDINGS: There is contrast media within the distal small bowel and throughout the length of the large intestine without its apparent extravasation. Pneumoperitoneum mildly decreased in volume from the prior. There is an indwelling drain within good position within a complex infraumbilical midline pelvic collection decreased in size from prior today measuring 10 cm transverse by 7 cm AP previously 15 x 9.2 cm. No new fluid collection is identified. There is no substantial over dilatation of small or large bowel. Urinary tracts unobstructed. Unopacified liver, gallbladder, spleen, adrenals and pancreas unremarkable. The aorta is nonaneurysmal. IMPRESSION: 1. The large midline complex pelvic fluid collection decreased in size from prior with its indwelling percutaneous drainage catheter within good position. 2. Mild reduction in pneumoperitoneum. Opacified colon without contrast extravasation. Dictated by: Dictated on workstation # [id number]
[2020-03-02] MEDS: HYDROmorphone 2 MG/ML VIAL (DILAUDID) IV PRN (14:19)
[2020-03-02 16:14] VITALS: BP 96/63
[2020-03-02] MEDS: SODIUM CHLORIDE IV SCH ×11 (16:38)
[2020-03-02] MEDS: SODIUM ACETATE IV SCH ×11 (16:38)
[2020-03-02] MEDS: [UNRECOGNIZED DRUG - OTHER] IV SCH ×11 (16:38)
--- NOTE | 2020-03-02 17:02 | NUR ---
CM DISCHARGE PLANNING: Dr. Jordan talked with me about seeing if J[facility] would be a candidate for LTAC in [place]. I contacted Chase at [facility] and we visited about the patient. He reports that from verbal inform given to him that the patient would likely qualify for their service. Clinical information faxed and they do have beds available. They will not be able to submit until Thursday. Updated Dr. Jordan at this time.
[2020-03-03] VITALS: BP 93/67
[2020-03-03] MEDS: morphine INJ 4 MG/ML 1 ML (VIAL/SYRINGE) IV PRN ×5 (02:58→20:28)
[2020-03-03 04:58] LABS: HEMOGLOBIN 7.7 G/DL (13.3-17.7); MEAN PLATELET VOLUME 10.5 FL (7.4-10.4); WHITE BLOOD COUNT 8.7 10^3/uL (4.3-11.0)
[2020-03-03 05:16] LABS: CHLORIDE 103 MMOL/L (98-107); POTASSIUM 4.3 MMOL/L (3.6-5.0); SODIUM 136 MMOL/L (135-145)
[2020-03-03 05:17] LABS: CALCIUM 8.6 MG/DL (8.5-10.1)
[2020-03-03 05:18] LABS: GLUCOSE 111 MG/DL (70-105); TOTAL PROTEIN 6.5 GM/DL (6.4-8.2)
[2020-03-03 05:19] LABS: CARBON DIOXIDE 24 MMOL/L (21-32)
[2020-03-03 05:20] LABS: BILIRUBIN,TOTAL 0.3 MG/DL (0.1-1.0)
[2020-03-03 05:22] LABS: ALKALINE PHOSPHATASE 532 U/L (40-136); CREATININE SERUM 0.64 MG/DL (0.60-1.30); GFR ESTIMATED > 60; PHOSPHORUS 4.7 MG/DL (2.3-4.7)
[2020-03-03 05:23] LABS: BUN/CREATININE RATIO 22
[2020-03-03 05:25] LABS: ALANINE AMINOTRANSFERASE 95 U/L (0-55); MAGNESIUM 1.9 MG/DL (1.6-2.4)
[2020-03-03] MEDS: PIPERACILLIN/TAZOBACTAM (BULK) 4.5 GM in NS (IVPB) 100 ML IV SCH ×3 (06:11→23:25)
[2020-03-03 08:00] VITALS: BP 95/52
[2020-03-03] MEDS: PANTOPRAZOLE 40 MG (PROTONIX) VIAL IV SCH (08:16)
--- NOTE | 2020-03-03 08:34 | Progress Note - Surgery ---
NATALIE QUINONEZ MED STUDENT 03/03/20 0834: Subjective Date Seen by a Provider: Mar 03, 2020 Time Seen by a Provider: 07:55 Subjective/Events-last exam Pt still complains of some abdominal pain near the drain tube, but no new complaints. Notes increased incisional drainage from yesterday. States he is not having the burning with urination that he reported yesterday. Denies fever, chills, CP, SOB, nausea, or vomiting. Pt says he walked 36 laps yesterday and has been using his incentive spirometer. Has been burping and passing gas, but no BMs. WBC today is 8.7 from 9.5 on 02/28 and Hgb is 7.7 from 8.1 on 02/28. Pt had CT abdomen/pelvis yesterday that showed mildly decreased pneumoperitoneum and midline fluid collection that has decreased in size from 15x9.[address] Dsouza and Dr. Zaman irrigated drain tube and removed about 100 mL of purulent material with a syringe as well as repositioned the tube. At that time, pt was encourage to keep walking and changing position to facilitate better drainage. In addition to the 100 mL drained, I&O shows 70 mL emptied from bag yesterday. Objective Exam Vital Signs Date Time Temp Pulse Resp B/P (MAP) Pulse Ox O2 Delivery O2 Flow Rate FiO2 03/03/20 00:00 36.7 103 18 93/67 (76) 98 Room Air 03/02/20 20:00 Room Air 03/02/20 16:14 36.7 93 20 96/63 (74) 99 Room Air I & O 03/03/20 07:00 Intake Total 0 ml Output Total 2913 ml Balance -2913 ml Capillary Refill : Less Than 3 SecondsLess Than 3 Seconds General Appearance: No Apparent Distress, Thin HEENT: Normal ENT Inspection Neck: Normal Inspection Respiratory: Lungs Clear, Normal Breath Sounds, No Accessory Muscle Use, No Respiratory Distress Cardiovascular: Regular Rate, Rhythm, No JVD Gastrointestinal: soft, other (minimal purulent drainage from midline incision at umbilicus (more than yesterday), but no surrounding erythema; drain with slightly purulent drainage into bag, no surrounding erythema at the skin) Extremity: Normal Inspection Neurologic/Psychiatric: Alert, Oriented x3, Normal Mood/Affect Skin: Normal Color, Warm/Dry Lymphatic: No Adenopathy Results Lab Laboratory Tests 03/03/20 04:30: White Blood Count 8.7, Red Blood Count 2.83L, Hemoglobin 7.7L, Hematocrit 25L, Mean Corpuscular Volume 88, Mean Corpuscular Hemoglobin 27, Mean Corpuscular Hemoglobin Concent 31L, Red Cell Distribution Width 14.0, Platelet Count 641H, Mean Platelet Volume 10.5H, Sodium Level 136, Potassium Level 4.3, Chloride Level 103, Carbon Dioxide Level 24, Anion Gap 9, Blood Urea Nitrogen 14, Creatinine 0.64, Estimat Glomerular Filtration Rate > 60, BUN/Creatinine Ratio 22, Glucose Level 111H, Calcium Level 8.6, Corrected Calcium 9.4, Phosphorus Level 4.7, Magnesium Level 1.9, Total Bilirubin 0.3, Aspartate Amino Transf (AST/SGOT) 29, Alanine Aminotransferase (ALT/SGPT) 95H, Alkaline Phosphatase 532H, Total Protein 6.5, Albumin 3.0L Microbiology 02/28/20 Gram Stain - Final, Complete 02/28/20 Anaerobic Culture - Final, Complete Bacteroides fragilis 02/28/20 Surgical Culture - Final, Complete No growth 02/16/20 Blood Culture - Final, Complete Staphylococcus hominis Assessment/Plan Assessment/Plan Assessment/Plan s/p small bowel resection intra-abdominal abscess fever Will continue to flush drain and see if we can not improve drainage. May need another drain placed. npo on TPN flush drain every 4 hrs with 10 ml of saline continue Zosyn dvt prophylaxis encouraged IS and ambulation patient more willing to increase activity today Clinical Quality Measures DVT/VTE Risk/Contraindication: Risk Factor Score Per Nursin RFS Level Per Nursing on Admit: 2=Moderate MITALI DSOUZA DO 03/03/20 1626: Subjective Subjective/Events-last exam Pain controlled but has pain around drain tube. Some drainage from lower part of incision. Has increased ambulation and usin IS. Is NPO and on TPN. Drain in place after we removed approximately 100 mL yesterday has had about 70 mL. Denies any other complaints at this time. Denies n/v fever sweats chills shortness of breath or chest pain. Objective Exam General Appearance: No Apparent Distress, Anxious, Thin HEENT: PERRL/EOMI, Normal ENT Inspection Neck: Normal Inspection, Non Tender Respiratory: Chest Non Tender, No Accessory Muscle Use, No Respiratory Distress Cardiovascular: Regular Rate, Rhythm, No JVD Gastrointestinal: soft, tenderness (lower abdomen), other (minimal purulent drainage from midline incision at umbilicus small opening with slight purulent drainage but no surrounding erythema; drain with slightly purulent drainage into bag, no surrounding erythema at the skin) Extremity: Normal Inspection, Non Tender Neurologic/Psychiatric: Alert, Oriented x3, Normal Mood/Affect Skin: Normal Color, Warm/Dry Lymphatic: No Adenopathy Assessment/Plan Assessment/Plan Assessment/Plan s/p small bowel resection intra-abdominal abscess s/p ir drain placement fever- resolved anxiety Will continue to flush drain and see if we can not improve drainage. Thursday discussed with Dr. Zaman, if not improved drainage will place another drain on Thursday. npo on TPN flush drain every 4 hrs with 10 ml of saline continue Zosyn dvt prophylaxis encouraged IS and ambulation patient has increased activity. Notified that patient wanted to be transferred to [place] by nursing for another opinion. I have tried [facility] in [place] which both are on diversion. He has asked that another opinion be obtained. He would like to see Dr. Simms. I have reached out to Dr. Simms who is unable to see until tomorrow. Patient is okay with waiting till tomorrow to see Dr. Simms for his opinion. Supervisory-Addendum Brief Verification & Attestation Participated in pt care: history, MDM, physical Personally performed: exam, history, MDM, supervision of care Care discussed with: Medical Student Procedures: n/a Results interpretation: Verified all documentation Verification and Attestation of Medical Student E/M Service A medical student performed and documented this service in my presence. I reviewed and verified all information documented by the medical student and made modifications to such information, when appropriate. I personally performed the physical exam and medical decision making. Mitali Dsouza, Mar 03, 2020,16:27 NATALIE QUINONEZ MED STUDENT Mar 03, 2020 08:34 MITALI DSOUZA DO Mar 03, 2020 16:26
[2020-03-03] MEDS: ENOXAPARIN 30 MG/0.3 ML (LOVENOX) SYR SC SCH (11:20)
--- NOTE | 2020-03-03 13:06 | NUR ---
Patient and Grandparent at bedside notified this RN that they feel like they need a new hospital, new doctor, and new surgical opinion regarding further treatment moving forward. patient expressed concern that he has been here for to long and feels like he isn't getting any better and is worried about another surgical procedure and/or drain placement. patient also stated that he called a family member who sees a GI doctor kelin mcknight , in [place] and said family member told him that he needs to transfer elsewhere and receive a second opinion from him. Dr. Jordan notified and spoke to patient and grandparent VIA phone call with this RN present about their concerns. Dr. Mcknight's nurse practitioner contacted by Nikki and she stated that in order to see patient he needs to be admitted via [facility] [place] ([facility] is currently on Diversion and patient is on their waiting list) Dr. Jordan also contacted [facility] which is on Diversion as well (patient is on their waiting list). patient notified of hospitals status and stated he would be interested in staying at [facility] for the time being and recieving a second opinion from Dr. Simms if no other hospital is available for care Will continue to follow up with care
[2020-03-03 16:30] VITALS: BP 99/61
[2020-03-03] MEDS: SODIUM ACETATE IV SCH ×11 (16:53)
[2020-03-03] MEDS: SODIUM CHLORIDE IV SCH ×11 (16:53)
[2020-03-03] MEDS: [UNRECOGNIZED DRUG - OTHER] IV SCH ×11 (16:53)
--- NOTE | 2020-03-03 17:20 | NUR ---
Patient encouraged to get up and ambulate at this time. patient refused saying he hurts too bad and ambulating will make him feel worse. This RN explained by not walking he is only hurting himself and will not get any better. patient stated if he walks now he will start to cry. Grandparent at bedside and stated if patient walks at this time he will have a mental breakdown and fall.
--- NOTE | 2020-03-03 18:25 | NUR ---
patient up ambulating at this time
[2020-03-03] MEDS: 1/2 NS IV SOLUTION 1,000 ML IV SCH (20:29)
[2020-03-03 23:28] VITALS: BP 101/64
[2020-03-04] MEDS: morphine INJ 4 MG/ML 1 ML (VIAL/SYRINGE) IV PRN ×4 (00:30→18:19)
[2020-03-04] MEDS: 1/2 NS IV SOLUTION 1,000 ML IV SCH (02:01)
[2020-03-04] MEDS: PIPERACILLIN/TAZOBACTAM (BULK) 4.5 GM in NS (IVPB) 100 ML IV SCH ×3 (06:52→22:36)
[2020-03-04 08:14] VITALS: BP 103/56
--- NOTE | 2020-03-04 08:45 | Progress Note - Surgery ---
NATALIE QUINONEZ MED STUDENT 03/04/20 0845: Subjective Date Seen by a Provider: Mar 04, 2020 Time Seen by a Provider: 08:00 Subjective/Events-last exam Pt having increased pain near drain tube last night and today after nurse used syringe to try to drain the abscess. Pt says he has only walked 20 laps yesterday and could not do more because of the pain and because he kept falling asleep. Has been changing positions in bed/chair. Has been taking a few sips of water. No N/V, CP, SOB, fever, or chills. Has been burping and passing gas, but no BM's. Has had less drainage from drain tube, but more from his incision. I&O documentation shows 23 mL emptied yesterday. Labs this morning show WBC of 11.4, increased from yesterday's 8.7. Hgb stable at 8.2 from yesterday's 7.7. Yesterday after discussion with his family, pt verbalized that he would like a second opinion about his care and potentially be transferred elsewhere. [facility] in [place] are on diversion and pt does not want to got to [place]. Objective Exam Vital Signs Date Time Temp Pulse Resp B/P (MAP) Pulse Ox O2 Delivery O2 Flow Rate FiO2 03/04/20 08:14 37.0 89 18 103/56 (72) 96 Room Air 03/03/20 23:28 37.0 94 18 101/64 (76) 98 Room Air 03/03/20 20:30 Room Air 03/03/20 16:30 36.8 102 18 99/61 (74) 97 Room Air I & O 03/04/20 07:00 Intake Total 10 ml Output Total 3745 ml Balance -3735 ml Capillary Refill : Less Than 3 SecondsLess Than 3 Seconds General Appearance: No Apparent Distress, Anxious, Thin HEENT: PERRL/EOMI, Normal ENT Inspection Neck: Normal Inspection, Supple Respiratory: Lungs Clear, Normal Breath Sounds, No Accessory Muscle Use, No Respiratory Distress Cardiovascular: Regular Rate, Rhythm, No JVD Gastrointestinal: soft, tenderness (diffuse pain, moreso at area around wound drain), other (incision draining purulent material, more than yesterday; there is a small open area below the umbilicus that the pt states the drainage is coming from; drain tube in place with no surrounding erythema) Extremity: Normal Inspection, Non Tender Neurologic/Psychiatric: Alert, Oriented x3, Other (anxious) Skin: Normal Color, Warm/Dry Lymphatic: No Adenopathy Results Lab Laboratory Tests 03/04/20 05:16: Glucometer 102 Microbiology 02/28/20 Gram Stain - Final, Complete 02/28/20 Anaerobic Culture - Final, Complete Bacteroides fragilis 02/28/20 Surgical Culture - Final, Complete No growth 02/16/20 Blood Culture - Final, Complete Staphylococcus hominis Assessment/Plan Assessment/Plan Assessment/Plan s/p small bowel resection intra-abdominal abscess s/p ir drain placement fever- resolved anxiety Will continue to flush drain; will possibly place new drain tomorrow if drainage still not improved npo on TPN flush drain every 4 hrs with 10 ml of saline continue Zosyn will give Lortab pills for pain control hold Lovenox encouraged IS and ambulation; pt had decreased ambulation yesterday Pt wanting second opinion and possible transfer. Dr. Simms will see pt today. Discussed with pt and family about option of surgery tomorrow to place another drain since his existing tube is not draining well. Also discussed option of transferring pt to LTAC facility. Clinical Quality Measures DVT/VTE Risk/Contraindication: Risk Factor Score Per Nursin RFS Level Per Nursing on Admit: 2=Moderate MITALI JORDAN DO 03/04/20 1046: Subjective Subjective/Events-last exam Still with pain at drain site. Ambulating and using incentive spirometer. Started on sips of clears yesterday and not having any nausea or vomiting. Not much out drain. Having slight drainage from lower incision. WBC slightly increased to 11.4. Patient wanted to be transferred to [place] but both hospitals on diversion which he and his grandmother understand. They would like another opinion which they would like to see Dr. Simms. Denies fever sweats chill shortness of breath or chest pain. 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 Also discussed possibility of going back to OR for exlporation wash out and draining abscess with placement of drains sips of clear and on TPN to improve nutritional status flush drain every 4 hrs with 10 ml of saline continue Zosyn will give Lortab pills for pain control hold Lovenox for possible procedure tomorrow encouraged IS and ambulation Pt wanting second opinion and possible transfer. Dr. Simms will see pt today as patient requested, will decide further what he wants to do after this. Also discussed option of transferring pt to LTAC facility. Supervisory-Addendum Brief Verification & Attestation Participated in pt care: history, MDM, physical Personally performed: exam, history, MDM, supervision of care Care discussed with: Medical Student Procedures: n/a Results interpretation: Verified all documentation Verification and Attestation of Medical Student E/M Service A medical student performed and documented this service in my presence. I revi ewed and verified all information documented by the medical student and made modifications to such information, when appropriate. I personally performed the physical exam and medical decision making. Mitali Jordan, Mar 04, 2020,10:46 NATALIE QUINONEZ MED STUDENT Mar 04, 2020 08:45 MITALI JORDAN DO Mar 04, 2020 10:46
[2020-03-04] MEDS: PANTOPRAZOLE 40 MG (PROTONIX) VIAL IV SCH (09:25)
[2020-03-04 09:55] LABS: HEMOGLOBIN 8.2 G/DL (13.3-17.7); MEAN PLATELET VOLUME 11.1 FL (7.4-10.4); WHITE BLOOD COUNT 11.4 10^3/uL (4.3-11.0)
[2020-03-04] MEDS: HYDROcodone/APAP 5 MG/325 MG (LORTAB) TAB PO PRN ×3 (10:03→22:36)
[2020-03-04 10:48] LABS: ALBUMIN 3.1 GM/DL (3.2-4.5)
[2020-03-04 10:49] LABS: CHLORIDE 101 MMOL/L (98-107); POTASSIUM 4.2 MMOL/L (3.6-5.0); SODIUM 134 MMOL/L (135-145)
[2020-03-04 10:50] LABS: CALCIUM 8.7 MG/DL (8.5-10.1)
[2020-03-04 10:51] LABS: GLUCOSE 99 MG/DL (70-105); TOTAL PROTEIN 6.8 GM/DL (6.4-8.2)
[2020-03-04 10:52] LABS: CARBON DIOXIDE 23 MMOL/L (21-32)
[2020-03-04 10:53] LABS: BILIRUBIN,TOTAL 0.4 MG/DL (0.1-1.0)
[2020-03-04 10:54] LABS: ALKALINE PHOSPHATASE 448 U/L (40-136); CREATININE SERUM 0.67 MG/DL (0.60-1.30); GFR ESTIMATED > 60
[2020-03-04 10:55] LABS: BUN/CREATININE RATIO 22
[2020-03-04 10:57] LABS: ALANINE AMINOTRANSFERASE 65 U/L (0-55)
[2020-03-04 10:58] LABS: MAGNESIUM 1.9 MG/DL (1.6-2.4)
[2020-03-04] MEDS: NS IV 1000 ML 1,000 ML IV SCH (12:23)
--- NOTE | 2020-03-04 12:26 | Consultation - Surgery ---
History of Present Illness History of Present Illness Patient Consulted On(opal/time) 03/04/20 12:16 Time Seen by Provider: 11:15 History of Present Illness I was asked to see pt as a second opinion. Pt is in his room with Grandmother, main complaints of pain from tube and drainage from midline incision. Grandmother has multiple questions about plan, care up til now, etc. Allergies and Home Medications Allergies Coded Allergies: No Known Drug Allergies (Unverified , 02/02/20) Home Medications Acetaminophen 325 Mg Tablet, 650 MG PO Q6H PRN for PAIN-MILD (1-4), (Reported) Docusate Sodium 100 Mg Capsule, 100 MG PO BID, (Reported) Ibuprofen 200 Mg Capsule, 400 MG PO Q8H PRN for PAIN-MILD (1-4), (Reported) Omeprazole Magnesium 20 Mg Tablet.dr, 20 MG PO DAILY, (Reported) Patient Home Medication List Home Medication List Reviewed: Yes Past Arvhpux-Sftjxz-Trgxfg Hx Patient Social History Alcohol Use: Denies Use Recreational Drug Use: No Smoking Status: Never a Smoker 2nd Hand Smoke Exposure: No Recent Foreign Travel: No Contact w/Someone Who Travel: No Recent Infectious Disease Expo: No Recent Hopitalizations: Yes (small bowel obstruction 02/03/20) Physical Abuse Screen: No Sexual Abuse: No Immunizations Up To Date Tetanus Booster (TDap): Unknown PED Vaccines UTD: Yes Seasonal Allergies Seasonal Allergies: No Surgeries History of Surgeries: Yes (intestine resection as ) Surgeries: Abdominal Respiratory History of Respiratory Disorde: No Cardiovascular History of Cardiac Disorders: No Neurological History of Neurological Disord: No Genitourinary History of Genitourinary Disor: No Gastrointestinal History of Gastrointestinal Di: Yes ( INTESTINAL SURG -- BOWEL SURG ) Musculoskeletal History of Musculoskeletal Dis: No Endocrine History of Endocrine Disorders: No HEENT History of HEENT Disorders: No Cancer History of Cancer: No Psychosocial History of Psychiatric Problem: No Integumentary History of Skin or Integumenta: No Blood Transfusions History of Blood Disorders: No Reviewed Nursing Assessment Reviewed/Agree w Nursing PMH: Yes Family Medical History Significant Family History: No Pertinent Family Hx Review of Systems-General Constitutional: malaise, weakness EENTM: No blurred vision, No double vision, No mouth pain, No mouth swelling Respiratory: No cough, No dyspnea on exertion Cardiovascular: No chest pain, No palpitations Gastrointestinal: abdominal pain; No jaundice; nausea; No vomiting Physical Exam-General Problems Physical Exam Vital Signs Vital Signs - First Documented 02/27/20 02/28/20 00:00 12:20 Temp 37.7 Pulse 112 Resp 18 B/P (MAP) 103/68 (80) Pulse Ox 98 O2 Delivery Room Air O2 Flow Rate 2.00 Capillary Refill : Less Than 3 SecondsLess Than 3 Seconds General Appearance: WD/WN, no apparent distress Eyes: Bilateral Eye PERRL, Bilateral Eye EOMI Respiratory: lungs clear, normal breath sounds, no respiratory distress, no accessory muscle use Cardiovascular: regular rate, rhythm, no murmur Gastrointestinal: soft, tenderness, other (some murky fluid coming from incision, not very thick) Data Review Labs Laboratory Tests 03/04/20 05:16: Glucometer 102 03/04/20 09:40: White Blood Count 11.4H, Red Blood Count 2.84L, Hemoglobin 8.2L, Hematocrit 27L, Mean Corpuscular Volume 94, Mean Corpuscular Hemoglobin 29, Mean Corpuscular Hemoglobin Concent 31L, Red Cell Distribution Width 15.1H, Platelet Count 601H, Mean Platelet Volume 11.1H 03/04/20 10:24: Sodium Level 134L, Potassium Level 4.2, Chloride Level 101, Carbon Dioxide Level 23, Anion Gap 10, Blood Urea Nitrogen 15, Creatinine 0.67, Estimat Glomerular Filtration Rate > 60, BUN/Creatinine Ratio 22, Glucose Level 99, Calcium Level 8.7, Corrected Calcium 9.4, Magnesium Level 1.9, Total Bilirubin 0.4, Aspartate Amino Transf (AST/SGOT) 20, Alanine Aminotransferase (ALT/SGPT) 65H, Alkaline Phosphatase 448H, Total Protein 6.8, Albumin 3.1L Microbiology 02/28/20 Gram Stain - Final, Complete 02/28/20 Anaerobic Culture - Final, Complete Bacteroides fragilis 02/28/20 Surgical Culture - Final, Complete No growth 02/16/20 Blood Culture - Final, Complete Staphylococcus hominis Radiology Date of Exam:03/02/20 CT ABDOMEN/PELVIS WO PROCEDURE: CT abdomen and pelvis without contrast. TECHNIQUE: Multiple contiguous axial images were obtained through the abdomen and pelvis without the use of intravenous contrast. Auto Exposure Controls were utilized during the CT exam to meet ALARA standards for radiation dose reduction. INDICATION: Pain, abscess, bowel obstruction. Compared with study 02/27/2020 and correlated with limited CT cuts obtained during CT-guided drainage catheter placement of 02/28/2020. FINDINGS: There is contrast media within the distal small bowel and throughout the length of the large intestine without its apparent extravasation. Pneumoperitoneum mildly decreased in volume from the prior. There is an indwelling drain within good position within a complex infraumbilical midline pelvic collection decreased in size from prior today measuring 10 cm transverse by 7 cm AP previously 15 x 9.2 cm. No new fluid collection is identified. There is no substantial over dilatation of small or large bowel. Urinary tracts unobstructed. Unopacified liver, gallbladder, spleen, adrenals and pancreas unremarkable. The aorta is nonaneurysmal. IMPRESSION: 1. The large midline complex pelvic fluid collection decreased in size from prior with its indwelling percutaneous drainage catheter within good position. 2. Mild reduction in pneumoperitoneum. Opacified colon without contrast extravasation. Dictated by: Dictated on workstation # [id number] Dict: 03/02/20 1046 Trans: 03/02/20 1133 [id number] Interpreted by: GIDEON BARNARD Electronically signed by: GIDEON BARNARD 03/02/20 1133 Assessment/Plan Assessment/Plan Assessment/Plan S/P SBR Abdominal abscess - s/p IR guided drainage I spent 20 minutes going over the chart to familiarize myself with pt and all his recent care and then spent about 50 minutes listening to him and his grandmother and answering all their questions. I explained the difference between another drainage tube and going to OR; pt is mainly concerned that he was awake and still in pain while getting tube. He also was concerned because he got Fentanyl during last tube placement and that gives him lucid dreams and he asked not to get it before hand. Grandmother is concerned about seeing a Motorcycle Racer and would that help pt; I explained that unfortunately there is no pill that helps with bowel function returning, the only thing to do is stop pain meds, ambulate, chew gum and get eating again. I also helped them understand the thinking behind going to LTAC/Rehab facility; may not need high level of care he is getting but still needs PT/OT, IV pain meds and IV ABX. Right now I think the plan we came up with together was to try eating some jello today, Morphine for pain - so that he walks, and repeat CT abd/pelvis tomorrow to asses the abscess collection. With more information they will be able to make decision of Drain tube vs. OR. I also explained our thinking on trying to cut down pain meds; don't want him addicted and can't go home on IV meds. Clinical Quality Measures DVT/VTE Risk/Contraindication: Risk Factor Score Per Nursin RFS Level Per Nursing on Admit: 2=Moderate TEODORA LANE DO Mar 04, 2020 12:26
[2020-03-04 16:00] VITALS: BP 101/54
[2020-03-04] MEDS: SODIUM CHLORIDE IV SCH ×11 (17:02)
[2020-03-04] MEDS: [UNRECOGNIZED DRUG - OTHER] IV SCH ×11 (17:02)
[2020-03-04] MEDS: SODIUM ACETATE IV SCH ×11 (17:02)
[2020-03-05] VITALS (7 sets, daily range): BP systolic 99–131; BP diastolic 58–91
[2020-03-05] MEDS: morphine INJ 4 MG/ML 1 ML (VIAL/SYRINGE) IV PRN ×4 (02:40→22:10)
[2020-03-05 04:52] LABS: HEMOGLOBIN 8.2 G/DL (13.3-17.7); MEAN PLATELET VOLUME 10.4 FL (7.4-10.4); WHITE BLOOD COUNT 12.5 10^3/uL (4.3-11.0)
[2020-03-05 05:25] LABS: CHLORIDE 105 MMOL/L (98-107); POTASSIUM 4.3 MMOL/L (3.6-5.0); SODIUM 138 MMOL/L (135-145)
[2020-03-05 05:26] LABS: CALCIUM 8.6 MG/DL (8.5-10.1)
[2020-03-05 05:27] LABS: GLUCOSE 85 MG/DL (70-105)
[2020-03-05 05:28] LABS: TOTAL PROTEIN 6.7 GM/DL (6.4-8.2)
[2020-03-05 05:29] LABS: BILIRUBIN,TOTAL 0.4 MG/DL (0.1-1.0); CARBON DIOXIDE 22 MMOL/L (21-32)
[2020-03-05 05:31] LABS: ALKALINE PHOSPHATASE 356 U/L (40-136); CREATININE SERUM 0.63 MG/DL (0.60-1.30); GFR ESTIMATED > 60
[2020-03-05 05:32] LABS: BUN/CREATININE RATIO 22
[2020-03-05 05:34] LABS: ALANINE AMINOTRANSFERASE 51 U/L (0-55)
[2020-03-05] MEDS: NS IV 1000 ML 1,000 ML IV SCH ×2 (05:52→16:31)
[2020-03-05] MEDS: HYDROcodone/APAP 5 MG/325 MG (LORTAB) TAB PO PRN ×3 (06:46→20:11)
[2020-03-05] MEDS: PIPERACILLIN/TAZOBACTAM (BULK) 4.5 GM in NS (IVPB) 100 ML IV SCH ×3 (06:46→23:18)
[2020-03-05] MEDS ORDERED: NS 100 ML (IVPB) BAG IV ONE (07:30)
[2020-03-05] MEDS ORDERED: HOLD METFORMIN - RECEIVED CONTRAST 20 ML VIAL IV SCH (07:30)
[2020-03-05] MEDS ORDERED: IOHEXOL 350 MG/ML 100 ML (OMNIPAQUE 350) VIAL IV ONE (07:30)
[2020-03-05] MEDS ORDERED: DIATRIZOATE MEGLUM/SODIUM 37% 120 ML (GASTROGRAFIN) PO ONE (07:45)
--- NOTE | 2020-03-05 08:14 | Progress Note - Surgery ---
NATALIE QUINONEZ MED STUDENT 03/05/20 0814: Subjective Date Seen by a Provider: Mar 05, 2020 Time Seen by a Provider: 07:00 Subjective/Events-last exam Pt still having abdominal pain. Ate small amount of jello with no nausea or vomiting. Also denies fever, chills, CP, SOB. Has been passing gas, but no BM's. Has had increased drainage from incision and less from drain tube. Walked 17 laps yesterday, said he couldn't walk more because of the drainage and pain. Seen by Dr. Simms yesterday for a second opinion. Current plan is to do CT today and go from there. WBC 12.5 today from 11.4 yesterday. Objective Exam Vital Signs Date Time Temp Pulse Resp B/P (MAP) Pulse Ox O2 Delivery O2 Flow Rate FiO2 03/05/20 07:40 36.8 104 16 103/63 (76) 99 Room Air 03/05/20 00:52 37.0 96 18 99/61 (74) 98 Room Air 03/04/20 20:45 Room Air 03/04/20 16:00 37.8 103 20 101/54 (70) 98 Room Air 03/04/20 09:05 Room Air 03/04/20 08:14 37.0 89 18 103/56 (72) 96 Room Air I & O 03/05/20 07:00 Intake Total 120 ml Output Total 2675 ml Balance -2555 ml Capillary Refill : Less Than 3 SecondsLess Than 3 Seconds General Appearance: No Apparent Distress, Thin HEENT: PERRL/EOMI, Normal ENT Inspection Neck: Normal Inspection, Supple Respiratory: Lungs Clear, Normal Breath Sounds, No Accessory Muscle Use, No Respiratory Distress Cardiovascular: Regular Rate, Rhythm, No JVD Gastrointestinal: soft, tenderness (diffuse), other (midline incision with purulent drainage from small opening below umbilicus, increased amount from yesterday; drain tube in place with no surrounding erythema) Extremity: Normal Inspection, Non Tender Neurologic/Psychiatric: Alert, Oriented x3, Normal Mood/Affect Skin: Normal Color, Warm/Dry Lymphatic: No Adenopathy Results Lab Laboratory Tests 03/04/20 09:40: White Blood Count 11.4H, Red Blood Count 2.84L, Hemoglobin 8.2L, Hematocrit 27L, Mean Corpuscular Volume 94, Mean Corpuscular Hemoglobin 29, Mean Corpuscular Hemoglobin Concent 31L, Red Cell Distribution Width 15.1H, Platelet Count 601H, Mean Platelet Volume 11.1H 03/04/20 10:24: Sodium Level 134L, Potassium Level 4.2, Chloride Level 101, Carbon Dioxide Level 23, Anion Gap 10, Blood Urea Nitrogen 15, Creatinine 0.67, Estimat Glomerular Filtration Rate > 60, BUN/Creatinine Ratio 22, Glucose Level 99, Calcium Level 8.7, Corrected Calcium 9.4, Magnesium Level 1.9, Total Bilirubin 0.4, Aspartate Amino Transf (AST/SGOT) 20, Alanine Aminotransferase (ALT/SGPT) 65H, Alkaline Phosphatase 448H, Total Protein 6.8, Albumin 3.1L 03/05/20 04:35: White Blood Count 12.5H, Red Blood Count 3.04L, Hemoglobin 8.2L, Hematocrit 26L, Mean Corpuscular Volume 87, Mean Corpuscular Hemoglobin 27, Mean Corpuscular Hemoglobin Concent 31L, Red Cell Distribution Width 14.3, Platelet Count 587H, Mean Platelet Volume 10.4, Sodium Level 138, Potassium Level 4.3, Chloride Level 105, Carbon Dioxide Level 22, Anion Gap 11, Blood Urea Nitrogen 14, Creatinine 0.63, Estimat Glomerular Filtration Rate > 60, BUN/Creatinine Ratio 22, Glucose Level 85, Calcium Level 8.6, Corrected Calcium 9.4, Magnesium Level 2.0, Total Bilirubin 0.4, Aspartate Amino Transf (AST/SGOT) 20, Alanine Aminotransferase (ALT/SGPT) 51, Alkaline Phosphatase 356H, Total Protein 6.7, Albumin 3.0L 03/05/20 06:27: Glucometer 123H Microbiology 02/28/20 Gram Stain - Final, Complete 02/28/20 Anaerobic Culture - Final, Complete Bacteroides fragilis 02/28/20 Surgical Culture - Final, Complete No growth 02/16/20 Blood Culture - Final, Complete Staphylococcus hominis Assessment/Plan Assessment/Plan Assessment/Plan S/P SBR Abdominal abscess - s/p IR guided drainage leukocytosis pain control CT today continue eating jello encourage ambulation Clinical Quality Measures DVT/VTE Risk/Contraindication: Risk Factor Score Per Nursin RFS Level Per Nursing on Admit: 2=Moderate PHILIPPE JORDAN DO 03/05/201938: Subjective Subjective/Events-last exam Patient still with complaint of abdominal pain. Lower part of abdomen. There is still drainage through lower part of incsion that is open. Patient ambulating and passing flatus. Is tolerating clears and on TPN to improve nutrition. Patient had CT scan today that still demonstrates abscess and drain was upsized. Patient asked later this evening how he was doing and still minimal out drain and having drainage from lower abdominal incision. Patient WBC up slightly. Got second opinion from Dr. Simms yesterday. and I discussed with Jabari and his Grandfather who is at bedside, plan and their concerns. Objective Exam General Appearance: No Apparent Distress, Anxious, Thin HEENT: PERRL/EOMI, Normal ENT Inspection Neck: Normal Inspection, Supple Respiratory: Chest Non Tender, No Accessory Muscle Use, No Respiratory Distress Cardiovascular: Regular Rate, Rhythm, No JVD Gastrointestinal: soft, tenderness (lower abdomen), other (midline incision with purulent drainage from small opening lower incsioin, increased amount from yesterday; drain tube in place with no surrounding erythema) Extremity: Normal Inspection, Non Tender Neurologic/Psychiatric: Alert, Oriented x3, Normal Mood/Affect Skin: Normal Color, Warm/Dry Lymphatic: No Adenopathy Assessment/Plan Assessment/Plan Assessment/Plan S/P SBR Abdominal abscess - s/p IR guided drainage leukocytosis we discussed the results of his CT scan today and the drain was manipulated but not having the drainage expected. We discussed exploratory laparotomy with drainage of intraabdominal abscess, possible wound vac and all other indicated procedures. Patient was discussed this plan with Dr. Simms and his grandfather with everyone in agreement this is the next best step, since the IR drainage is not quite accomplishing the amount of drainage needed. patient to be npo after midnight obtain consent Supervisory-Addendum Brief Verification & Attestation Participated in pt care: history, MDM, physical Personally performed: exam, history, MDM, supervision of care Care discussed with: Medical Student Procedures: n/a Results interpretation: Verified all documentation Verification and Attestation of Medical Student E/M Service A medical student performed and documented this service in my presence. I reviewed and verified all information documented by the medical student and made modifications to such information, when appropriate. I personally performed the physical exam and medical decision making. Philippe Jordan, Mar 05, 2020,20:30 NATALIE QUINONEZ MED STUDENT Mar 05, 2020 08:14 PHILIPPE JORDAN DO Mar 05, 2020 19:39
[2020-03-05] MEDS: PANTOPRAZOLE 40 MG (PROTONIX) VIAL IV SCH (08:21)
[2020-03-05] MEDS ORDERED: MIDAZOLAM 2 MG/2 ML (VERSED) VIAL IVP ONE (10:00)
[2020-03-05] MEDS ORDERED: fentaNYL INJECTION 100 MCG/2 ML AMP IVP ONE (10:00)
[2020-03-05] MEDS ORDERED: LIDOCAINE 1% INJ 20 ML 20 ML VIAL INJ ONE (10:00)
[2020-03-05 10:28] LABS: INR 1.7 (0.8-1.4)
--- NOTE | 2020-03-05 10:40 | NUR ---
OFF FLOOR AT THIS TIME FOR CT OF ABDOMEN AND POSSIBLE REVISION OF DRAIN PLACEMENT.
--- NOTE | 2020-03-05 11:45 | NUR ---
PATIENT BACK FROM RADIOLOGY UNIT AT THIS TIME, ACCOMPANIED BY SAILAJA SLATER VIA CART. 12 KOREAN JEANETTE DRAIN PLACED FOR DRAINAGE OF ABSCESS IN THE RIGHT LOWER QUADRANT. PATIENT TOLERATED WELL, THIS RN WILL CONT. MONITOR THIS PATIENT THROUGHOUT THE REMAINDER OF THIS SHIFT. GRANDFATHER IS AT BEDSIDE OF THIS PATIENT.
--- NOTE | 2020-03-05 11:49 | Diagnostic Imaging Report ---
PROCEDURE: CT abdomen and pelvis without contrast. TECHNIQUE: Multiple contiguous axial images were obtained through the abdomen and pelvis without the use of intravenous contrast. Auto Exposure Controls were utilized during the CT exam to meet ALARA standards for radiation dose reduction. INDICATION: Abdominal abscess, follow-up. COMPARISON: Correlation is made with prior CT from 03/02/2020. FINDINGS: Pneumoperitoneum appears similar to study three days earlier. Oral contrast is seen throughout the small and large bowel loops. No extravasation of contrast or evidence of abnormal contrast collection is seen. The gas and fluid collection in the midline lower abdomen and upper pelvis is again noted measuring approximately 10.0 cm transverse x 6.3 cm AP. This compares with approximately 10.6 x 6.9 cm on prior. This again does contain a pigtail percutaneous drain appropriately located within the collection. No new fluid collection is identified. The lung bases are clear. Liver, gallbladder, pancreas, spleen, adrenal glands, and kidneys are unremarkable. IMPRESSION: Mild decrease in size of lower abdominal abscess when compared with prior CT three days earlier. This does contain a percutaneous drain which appears to be appropriately centered within the abscess. No new fluid collection is identified. No abnormal contrast collection is seen to suggest leakage. The pneumoperitoneum previously described is about the same. Dictated by: Dictated on workstation # [id number]
--- NOTE | 2020-03-05 11:57 | Diagnostic Imaging Report ---
INDICATION: Percutaneous drain exchange. TECHNIQUE: All CT scans use one or more of the following dose optimizing techniques: automated exposure control, MA and/or KvP adjustment based on patient size and exam type or iterative reconstruction. DETAILS OF PROCEDURE: The procedure was performed utilizing conscious sedation with radiology nursing in constant patient monitoring. Patient was administered a total of 2 mg of Versed intravenously and 100 mcg of fentanyl intravenously. Patient was brought to the CT suite, placed in table in the supine position. The patient's indwelling 10-Belgian pigtail percutaneous drain was divided and exchanged over an 035 stiff Amplatz guidewire. Gramco catheter was advanced over the Amplatz wire. The Amplatz wire was vigorously removed throughout the abscess in order to break up any septations and complexity to the abscess. Next, the tract was dilated with a 12-Belgian dilator. A 12-Belgian all-purpose drain was then placed over the Amplatz guidewire into the abscess collection. The loop was formed. Small amount of purulent fluid was aspirated. This was affixed to the patient's skin and placed to Sara drain. A follow-up imaging demonstrated satisfactory location of the drain within the abscess. No comp getting features are identified. IMPRESSION: Upsizing of percutaneous drain to 12-Belgian catheter, utilizing conscious sedation. Dictated by: Dictated on workstation # [id number]
[2020-03-05] MEDS: metroNIDAZOLE 500MG/100ML IVPB 100 ML IV SCH ×2 (13:21→22:09)
--- NOTE | 2020-03-05 13:27 | NUR ---
"RD ASSESSMENT PMHx: gastrointestinal resection as ; SBO PT INTERACTION: Pt was awake and pleasant during nutrition follow-up. Note pt is on TPN, providing 2090 kcal (34 kcal/kg); and 100 g Pro (1.6 g Pro/kg). Pt is currently NPO, but allowed jello PRN for tolerance. Pt states he is tolerating the jello okay. Pt states no issues with nausea, vomiting, constipation, or diarrhea since last assessment. Pt states he has been having a lot of gas, but no BM. Note last BM was 02/25, per chart review. ABNORMAL NUTRITION-RELATED LAB VALUES LOW: alb 3.0 HIGH: alkphos 356 Est. kcal needs: 1850 kcal | 30 kcal/kg Est. Pro needs: 74 g Pro | 1.2 g Pro/kg PES STATEMENT: Inadequate oral intake (NI-2.1) related to NPO status as evidenced by chart review | pt interview INTERVENTION: Continue with current TPN, providing 2090 kcal and 100 g Pro. Continue with jello PRN. Monitor for tolerance. Will continue to follow and reassess as pt needs, intake, and status change. Cande Hubbard, MS, RD, LD"
--- NOTE | 2020-03-05 16:00 | NUR ---
CM/SS: Attempted to visit with pt as to possible placement at [facility] in [place], [place]. Pt was asleep. Grandfather at bedside and reported to this to worker that he thought pt would be going back to surgery. This worker will follow up.
[2020-03-05] MEDS: [UNRECOGNIZED DRUG - OTHER] IV SCH ×11 (17:32)
[2020-03-05] MEDS: SODIUM ACETATE IV SCH ×11 (17:32)
[2020-03-05] MEDS: SODIUM CHLORIDE IV SCH ×11 (17:32)
--- NOTE | 2020-03-05 18:36 | NUR ---
THIS RN COMPLETED 4 COMPLETE DRESSING CHANGES TO HIS MIDLINE INCISION TO MODERATE AMOUNT OF PURULENT DRAINAGE (FOUL SMELLING) COMING FROM HIS INCISION. PATIENT NEW DRAIN CONTINUES TO HAVE NO DRAINAGE NOTED FOR THIS RN IN THE COLLECTION BAG.
[2020-03-06] VITALS (11 sets, daily range): BP systolic 95–117; BP diastolic 50–80
[2020-03-06] MEDS: HYDROcodone/APAP 5 MG/325 MG (LORTAB) TAB PO PRN ×5 (00:14→22:39)
[2020-03-06] MEDS: morphine INJ 4 MG/ML 1 ML (VIAL/SYRINGE) IV PRN ×5 (02:24→20:23)
[2020-03-06] MEDS: metroNIDAZOLE 500MG/100ML IVPB 100 ML IV SCH ×3 (05:39→22:06)
[2020-03-06] MEDS: PIPERACILLIN/TAZOBACTAM (BULK) 4.5 GM in NS (IVPB) 100 ML IV SCH ×3 (06:57→23:16)
--- NOTE | 2020-03-06 07:34 | Progress Note - Surgery ---
NATALIE QUINONEZ MED STUDENT 03/06/20 0734: Subjective Date Seen by a Provider: Mar 06, 2020 Time Seen by a Provider: 06:55 Subjective/Events-last exam Pt reports increased abdominal pain after tube replacement yesterday. No fever, chills, nausea, vomiting, CP, or SOB. Did not walk yesterday due to pain. Yesterday morning, radiologist replaced 10 Dominican wound tube with a 12 Dominican tube to better facilitate drainage. However, pt has had minimal drainage into tube and increased drainage from incision. Nursing staff reports the dressing getting soaked quickly and having to change pt's dressing multiple times over the night. Pt has been NPO in anticipation of surgery today to drain the abscess. Objective Exam Vital Signs Date Time Temp Pulse Resp B/P (MAP) Pulse Ox O2 Delivery O2 Flow Rate FiO2 03/06/20 04:51 37.0 95 18 95/60 (72) 100 Room Air 03/06/20 00:00 37.0 98 20 96/62 (73) 99 Room Air 03/05/20 20:30 Room Air 03/05/20 16:00 38.0 104 18 111/58 (75) 99 Room Air 03/05/20 11:30 99 20 116/90 97 Nasal Cannula 2.00 03/05/20 11:25 101 20 118/73 97 Nasal Cannula 2.00 03/05/20 11:20 100 20 131/91 98 Nasal Cannula 2.00 03/05/20 11:15 98 20 117/72 100 Nasal Cannula 2.00 03/05/20 08:00 99 Room Air 2.00 03/05/20 07:40 36.8 104 16 103/63 (76) 99 Room Air I & O 03/06/20 07:00 Intake Total 800 ml Output Total 3275 ml Balance -2475 ml Capillary Refill : Less Than 3 SecondsLess Than 3 Seconds General Appearance: No Apparent Distress, Thin HEENT: PERRL/EOMI, Normal ENT Inspection Neck: Normal Inspection, Supple Respiratory: Lungs Clear, Normal Breath Sounds, No Accessory Muscle Use, No Respiratory Distress Cardiovascular: Regular Rate, Rhythm, No JVD Gastrointestinal: tenderness (reports pain, will not allow palpation), other (dressing taped over wound; wound drain in place with no surrounding erythema) Extremity: Normal Inspection, Non Tender Neurologic/Psychiatric: Alert, Oriented x3, Normal Mood/Affect Skin: Normal Color, Warm/Dry Lymphatic: No Adenopathy Results Lab Laboratory Tests 03/05/20 10:05: Prothrombin Time 20.0H, INR Comment 1.7H 03/06/20 06:18: Glucometer 116H Microbiology 02/28/20 Gram Stain - Final, Complete 02/28/20 Anaerobic Culture - Final, Complete Bacteroides fragilis 02/28/20 Surgical Culture - Final, Complete No growth 02/16/20 Blood Culture - Final, Complete Staphylococcus hominis Assessment/Plan Assessment/Plan Assessment/Plan S/P SBR Abdominal abscess - s/p IR guided drainage leukocytosis on Abx Lovenox being held has been npo after midnight in anticipation of surgery today Clinical Quality Measures DVT/VTE Risk/Contraindication: Risk Factor Score Per Nursin RFS Level Per Nursing on Admit: 2=Moderate MITALI JORDAN DO 03/06/20 1522: Subjective Subjective/Events-last exam Still with significant drainage from lower midline wound. Drain not having anything drain from it. No new complaints. NPO, TPN. To OR today. Objective Exam General Appearance: No Apparent Distress, Anxious, Thin HEENT: PERRL/EOMI, Normal ENT Inspection Neck: Normal Inspection, Supple Respiratory: Chest Non Tender, No Accessory Muscle Use, No Respiratory Distress Cardiovascular: Regular Rate, Rhythm, No JVD Gastrointestinal: soft, tenderness (lower abdomen), other (incision two small openings with purulent appearing drainage, no surrounding erythema) Extremity: Normal Inspection, Non Tender Neurologic/Psychiatric: Alert, Oriented x3, Normal Mood/Affect Skin: Normal Color, Warm/Dry Lymphatic: No Adenopathy Assessment/Plan Assessment/Plan Assessment/Plan S/P SBR Abdominal abscess - s/p IR guided drainage leukocytosis on antibiotics Lovenox on hold Plan to or today to evacuate abscess npo Supervisory-Addendum Brief Verification & Attestation Participated in pt care: history, MDM, physical Personally performed: exam, history, MDM, supervision of care Care discussed with: Medical Student Procedures: n/a Results interpretation: Verified all documentation Verification and Attestation of Medical Student E/M Service A medical student performed and documented this service in my presence. I reviewed and verified all information documented by the medical student and made modifications to such information, when appropriate. I personally performed the physical exam and medical decision making. Mitali Jordan Mar 06, 2020,10:21 NATALIE QUINONEZ STUDENT Mar 06, 2020 07:34 MITALI JORDAN DO Mar 06, 2020 15:22
[2020-03-06] MEDS: NS IV 1000 ML 1,000 ML IV SCH ×2 (08:11→17:53)
[2020-03-06] MEDS: PANTOPRAZOLE 40 MG (PROTONIX) VIAL IV SCH (08:13)
[2020-03-06] MEDS ORDERED: LIDOCAINE PF 2% 5 ML (XYLOCAINE) VIAL ONE (10:49)
[2020-03-06] MEDS ORDERED: ROCURONIUM 10 MG/ML 5 ML SYRINGE IV ONE (10:49)
[2020-03-06] MEDS ORDERED: proPOfol 200 MG/20 ML (DIPRIVAN) VIAL IV ONE (10:49)
[2020-03-06] MEDS ORDERED: fentaNYL INJECTION 100 MCG/2 ML AMP ONE (10:49)
[2020-03-06] MEDS ORDERED: ONDANSETRON 4 MG/2 ML (SDV) Z0FRAN ONE (10:49)
[2020-03-06] MEDS ORDERED: GLYCOPYRROLATE 0.2 MG/ML (ROBINUL) 2 ML VIAL ONE (10:50)
[2020-03-06] MEDS ORDERED: NEOSTIGMINE 3 MG/3 ML VIAL ONE (10:50)
[2020-03-06] MEDS ORDERED: MIDAZOLAM 2 MG/2 ML (VERSED) VIAL ONE (10:50)
[2020-03-06] MEDS ORDERED: SEVOFLURANE (ULTANE) 15 ML INHAL SOLN ONE ×2 (10:50→12:21)
[2020-03-06] MEDS ORDERED: HYDROmorphone 2 MG/ML VIAL (DILAUDID) ONE (11:26)
[2020-03-06] MEDS ORDERED: LACTATED RINGERS 1,000 ML IV PRN ×2 (11:27→11:54)
--- NOTE | 2020-03-06 11:29 | Progress Note - Hospitalist ---
Subjective HPI/CC On Admission Date Seen by Provider: Mar 06, 2020 Time Seen by Provider: 11:24 Jabari Santiago is a 19-year-old male who was recently admitted for small bowel obstruction who presented with worsening abdominal pain. His imaging upon arrival showed a high-grade obstruction. He was admitted to the surgery service. He reports that he has not had a bowel movement or passed gas and over 24 hours. He reports having nausea when he arrived to the hospital. He denies any nausea or vomiting since that time. He has an NG tube in place. He denies any fevers or chills. He denies any chest pain or shortness of breath. Subjective/Events-last exam Pt signing paperwork to go down for surgery. States significant drainage yesterday and overnight. Objective Exam Vital Signs Vital Signs Date Time Temp Pulse Resp B/P (MAP) Pulse Ox O2 Delivery O2 Flow Rate FiO2 03/06/20 08:00 37.3 100 16 98/61 (73) 100 Room Air 03/05/20 11:30 2.00 Capillary Refill : Less Than 3 SecondsLess Than 3 Seconds General Appearance: No Apparent Distress, Chronically ill Respiratory: No Accessory Muscle Use Gastrointestinal: Other (abd pad in place over surgical wound, wound was dry and intact) Neurologic/Psychiatric: Alert, Oriented x3 Results/Procedures Lab Patient resulted labs reviewed. Imaging: Reviewed Imaging Report Assessment/Plan Assessment and Plan Assess & Plan/Chief Complaint small bowel obstruction s/p resection intrabdominal abscess General Surgery primary - failed IR drainage twice - Plan to return to the OR today -await cultures to guide further abx - Continue TPN Pain regimen ordered incentive spirometry Clinical Quality Measures DVT/VTE Risk/Contraindication: Risk Factor Score Per Nursin RFS Level Per Nursing on Admit: 2=Moderate KRISTI HOUSER MD Mar 06, 2020 11:29
[2020-03-06 11:33] LABS: HEMOGLOBIN 13.9 g/dL (13.3-17.7); MEAN PLATELET VOLUME 10.1 fL (9.0-12.2); WHITE BLOOD COUNT 4.8 10^3/uL (4.3-11.0)
[2020-03-06 11:41] LABS: CHLORIDE 103 MMOL/L (98-107); POTASSIUM 4.1 MMOL/L (3.6-5.0); SODIUM 137 MMOL/L (135-145)
[2020-03-06 11:43] LABS: CALCIUM 8.6 MG/DL (8.5-10.1)
[2020-03-06 11:44] LABS: GLUCOSE 91 MG/DL (70-105); TOTAL PROTEIN 6.8 GM/DL (6.4-8.2)
[2020-03-06 11:45] LABS: CARBON DIOXIDE 27 MMOL/L (21-32)
[2020-03-06 11:46] LABS: BILIRUBIN,TOTAL 0.5 MG/DL (0.1-1.0)
[2020-03-06 11:47] LABS: ALKALINE PHOSPHATASE 369 U/L (40-136); CREATININE SERUM 0.61 MG/DL (0.60-1.30); GFR ESTIMATED > 60
[2020-03-06 11:48] LABS: BUN/CREATININE RATIO 21
[2020-03-06 11:50] LABS: ALANINE AMINOTRANSFERASE 43 U/L (0-55)
[2020-03-06] MEDS ORDERED: PHENYLEPHRINE 100 MCG/ML 10 ML (ANESTHESIA) SYR ONE (12:16)
[2020-03-06] MEDS ORDERED: BUPIVACAINE 0.5% 30 ML (SENSORCAINE) VIAL ONE (12:27)
--- NOTE | 2020-03-06 14:36 | Anesthesia-General Post-Op ---
General Patient Condition Mental Status/LOC: Same as Preop Cardiovascular: Satisfactory Nausea/Vomiting: Absent Respiratory: Satisfactory Pain: Controlled Complications: Absent Post Op Complications Complications None Follow Up Care/Instructions Patient Instructions None needed. Anesthesia/Patient Condition Patient Condition Patient is doing well, no complaints, stable vital signs, no apparent adverse anesthesia problems. No complications reported per nursing. NANO PARRISH CRNA Mar 06, 2020 14:36
--- NOTE | 2020-03-06 15:24 | Progress Note-Post Operative ---
Post-Operative Progess Note Surgeon (s)/Operations Analyst (s) Surgeon MITALI DSOUZA DO Operations Analyst: Dr. Simms Pre-Operative Diagnosis abdominal abscess Post-Operative Diagnosis same Procedure & Operative Findings Date of Procedure 03/06/20 Procedure Performed/Findings exploratory laparotomy, drainage of intrabdominal abscess, wound vac placement 18.5 x 2x2 cm Anesthesia Type general Estimated Blood Loss Estimated blood loss (mL): minimal Specimens/Packing Specimens Removed culture MITALI DSOUZA DO Mar 06, 2020 15:24
--- NOTE | 2020-03-06 15:50 | NUR ---
pt and parent ask multiple questions regarding wound vac. concerned 'why area wasn't sewn shut.' questions answered, education given. voiced understanding. will con't to monitor.
[2020-03-06] MEDS: SODIUM ACETATE IV SCH ×11 (17:53)
[2020-03-06] MEDS: [UNRECOGNIZED DRUG - OTHER] IV SCH ×11 (17:53)
[2020-03-06] MEDS: SODIUM CHLORIDE IV SCH ×11 (17:53)
[2020-03-06] MEDS ORDERED: morphine INJ 10 MG/ML 1ML (SYR OR VIAL) IVP STA (18:09)
[2020-03-06] MEDS ORDERED: morphine INJ 4 MG/ML 1 ML (VIAL/SYRINGE) IV NR (18:10)
--- NOTE | 2020-03-06 23:18 | OPERATIVE REPORT ---
DATE OF SERVICE: 03/06/2020 PREOPERATIVE DIAGNOSIS: Intraabdominal abscess. POSTOPERATIVE DIAGNOSIS: Intraabdominal abscess. PROCEDURE: Exploratory laparotomy, drainage of intraabdominal abscess, wound VAC placement 18.5 x 2 x 2 cm. SURGEON: Mitali Jordan DO IT SPECIALIST: Dr. Simms, assisted in retraction, dissection and closure. ANESTHESIA: General. ESTIMATED BLOOD LOSS: Minimal. COMPLICATIONS: None. SPECIMENS: Culture. INDICATIONS: The patient is a 19-year-old male who had a bowel obstruction due to internal hernia. He had a surgical intervention on the internal hernia, which were caused by adhesions. The patient had significant bowel distention, but did improve slightly and was able to be discharged home. The patient returned with significantly dilated small bowel, which the patient OR for a small bowel resection due to this being nonfunctioning. The patient then developed an intraabdominal abscess, which has had attempts of drainage by interventional radiology, which the abscess is unable to be completely evacuated. It has decreased in size; however, he is having more drainage from the lower midline of the incision with no output from the drain. The patient was discussed risks and benefits along with the patient's family in regard to procedure today. They all understand procedure and wished to proceed. Consent was signed in the chart. DESCRIPTION OF PROCEDURE: The patient was taken to the operating suite. He was prepped and draped in sterile fashion. Timeout was performed. [place] were removed on the lower portion of the incision. The suture was then cut on the inferior aspect and mobilized. The abdomen was then entered right into a large abscess cavity. There was significant multiloculated purulent pockets, which culture was obtained and the purulent material was then continued to be suctioned. Within this pocket, was significant fatty necrosis and loculated pockets that was scooped out. The significant phlegmon around the area as well. The drain that was placed by IR was within this pocket and was then removed. Copious amounts of irrigation was used to irrigate the wound and suctioned. A 19-Anguill[place] Law drain was then inserted through the right lower quadrant and placed within the cavity and secured in the usual fashion. The fascia was then closed using 1-0 looped PDS. The wound was then irrigated and suctioned and a wound VAC was then applied in the usual fashion with the overall dimensions being 18.5 x 2 x 2 cm. The patient tolerated procedure well without any complications. He was taken to recovery room in stable condition. Job ID: [id number] DocumentID: [id number] Dictated Date: 03/06/2020 15:29:29 Case Repairer Date: 03/06/2020 23:18:11 Dictated By: MITALI JORDAN DO
[2020-03-07] VITALS: BP 103/67
[2020-03-07] MEDS: morphine INJ 4 MG/ML 1 ML (VIAL/SYRINGE) IV PRN ×5 (00:36→22:50)
[2020-03-07] MEDS: HYDROcodone/APAP 5 MG/325 MG (LORTAB) TAB PO PRN ×4 (04:33→20:50)
[2020-03-07 04:52] VITALS: BP 98/61
[2020-03-07] MEDS: metroNIDAZOLE 500MG/100ML IVPB 100 ML IV SCH ×3 (05:38→22:09)
[2020-03-07 06:13] LABS: HEMOGLOBIN 7.8 g/dL (13.3-17.7); MEAN PLATELET VOLUME 10.7 fL (9.0-12.2); WHITE BLOOD COUNT 10.3 10^3/uL (4.3-11.0)
[2020-03-07 06:38] LABS: ALANINE AMINOTRANSFERASE 38 U/L (0-55); ALBUMIN 2.9 GM/DL (3.2-4.5); ALKALINE PHOSPHATASE 270 U/L (40-136); BILIRUBIN,TOTAL 0.3 MG/DL (0.1-1.0); BUN/CREATININE RATIO 26; CALCIUM 8.5 MG/DL (8.5-10.1); CARBON DIOXIDE 25 MMOL/L (21-32); CHLORIDE 106 MMOL/L (98-107); CREATININE SERUM 0.66 MG/DL (0.60-1.30); GFR ESTIMATED > 60; GLUCOSE 136 MG/DL (70-105); POTASSIUM 4.6 MMOL/L (3.6-5.0); SODIUM 140 MMOL/L (135-145); TOTAL PROTEIN 6.6 GM/DL (6.4-8.2)
[2020-03-07] MEDS: PIPERACILLIN/TAZOBACTAM (BULK) 4.5 GM in NS (IVPB) 100 ML IV SCH ×3 (07:04→23:15)
--- NOTE | 2020-03-07 07:32 | Progress Note - Surgery ---
NATALIE QUINONEZ MED STUDENT 03/07/20 0732: Subjective Date Seen by a Provider: Mar 07, 2020 Time Seen by a Provider: 07:05 Subjective/Events-last exam Pt notes abdominal pain today after surgery yesterday. Has been drinking liquids and eating jello with no difficulty. Says tubes have been draining well. 90 mL was emptied yesterday. Denies N/V, CP, SOB. WBC today is 10.3 from 4.8 yesterday. Hgb is 7.8 from 13.9 yesterday. Objective Exam Vital Signs Date Time Temp Pulse Resp B/P (MAP) Pulse Ox O2 Delivery O2 Flow Rate FiO2 03/07/20 04:52 36.9 67 20 98/61 (73) 100 Room Air 03/07/20 00:00 37.3 78 18 103/67 (79) 99 Room Air 03/06/20 20:25 Room Air 03/06/20 19:46 36.6 108 18 117/77 (90) 99 Room Air 03/06/20 15:41 36.8 85 18 108/69 (82) 97 Room Air 03/06/20 13:30 Room Air 03/06/20 13:27 36.7 16 116/80 (92) 100 Room Air 03/06/20 13:25 OxyMask 2 03/06/20 13:20 12 102/58 (73) 100 OxyMask 4 03/06/20 13:15 OxyMask 4 03/06/20 13:10 12 102/53 (69) 100 OxyMask 4 03/06/20 13:05 OxyMask 6 03/06/20 13:00 12 102/53 (69) 100 OxyMask 6 03/06/20 12:54 OxyMask 8 03/06/20 12:50 12 98/50 (66) 100 OxyMask 8 03/06/20 12:44 36.5 13 103/55 (71) 99 OxyMask 10 03/06/20 12:44 OxyMask 10 03/06/20 08:00 Room Air 03/06/20 08:00 37.3 100 16 98/61 (73) 100 Room Air I & O 03/07/20 07:00 Intake Total 120 ml Output Total 2365 ml Balance -2245 ml Capillary Refill : Less Than 3 SecondsLess Than 3 Seconds General Appearance: No Apparent Distress, Thin HEENT: PERRL/EOMI, Normal ENT Inspection Neck: Normal Inspection, Supple Respiratory: Lungs Clear, Normal Breath Sounds, No Accessory Muscle Use, No Respiratory Distress Cardiovascular: Regular Rate, Rhythm, No JVD Gastrointestinal: No distended; other (wound vac and drain tube in place with no surrounding erythema; pt will not allow palpation of abdomen d/t pain) Extremity: Normal Inspection, Non Tender Neurologic/Psychiatric: Alert, Oriented x3, Normal Mood/Affect Skin: Normal Color, Warm/Dry Lymphatic: No Adenopathy Results Lab Laboratory Tests 03/06/20 11:20: White Blood Count 4.8, Red Blood Count 5.20, Hemoglobin 13.9, Hematocrit 44, Mean Corpuscular Volume 85, Mean Corpuscular Hemoglobin 27, Mean Corpuscular Hemoglobin Concent 31L, Red Cell Distribution Width 14.1, Platelet Count 361, Mean Platelet Volume 10.1, Sodium Level 137, Potassium Level 4.1, Chloride Level 103, Carbon Dioxide Level 27, Anion Gap 7, Blood Urea Nitrogen 13, Creatinine 0.61, Estimat Glomerular Filtration Rate > 60, BUN/Creatinine Ratio 21, Glucose Level 91, Calcium Level 8.6, Corrected Calcium 9.4, Total Bilirubin 0.5, Aspartate Amino Transf (AST/SGOT) 20, Alanine Aminotransferase (ALT/SGPT) 43, Alkaline Phosphatase 369H, Total Protein 6.8, Albumin 3.0L 03/07/20 05:50: White Blood Count 10.3, Red Blood Count 2.93L, Hemoglobin 7.8#L, Hematocrit 25L, Mean Corpuscular Volume 87, Mean Corpuscular Hemoglobin 27, Mean Corpuscular Hemoglobin Concent 31L, Red Cell Distribution Width 14.3, Platelet Count 531H, Mean Platelet Volume 10.7, Sodium Level 140, Potassium Level 4.6, Chloride Level 106, Carbon Dioxide Level 25, Anion Gap 9, Blood Urea Nitrogen 17, Creatinine 0.66, Estimat Glomerular Filtration Rate > 60, BUN/Creatinine Ratio 26, Glucose Level 136H, Calcium Level 8.5, Corrected Calcium 9.4, Total Bilirubin 0.3, Aspartate Amino Transf (AST/SGOT) 17, Alanine Aminotransferase (ALT/SGPT) 38, Alkaline Phosphatase 270H, Total Protein 6.6, Albumin 2.9L Microbiology 02/28/20 Gram Stain - Final, Complete 02/28/20 Anaerobic Culture - Final, Complete Bacteroides fragilis 02/28/20 Surgical Culture - Final, Complete No growth 02/16/20 Blood Culture - Final, Complete Staphylococcus hominis Assessment/Plan Assessment/Plan Assessment/Plan S/P SBR s/p abscess removal leukocytosis on antibiotics tolerating liquids and small amount of jello wound vac in place encouraged ambulation pain control follow labs working on placement at LTAC Clinical Quality Measures DVT/VTE Risk/Contraindication: Risk Factor Score Per Nursin RFS Level Per Nursing on Admit: 2=Moderate TORY JORDANTT Sho DO 03/07/20 1447: Subjective Subjective/Events-last exam Patient having some abdominal pain at midline incision. Feeling better today. Taking small amount of liquids. Drain serosang. Woundvac at midline. Denies n/v fever sweats chills shortness of breath or chest pain at this time. Objective Exam General Appearance: No Apparent Distress, Thin HEENT: PERRL/EOMI, Normal ENT Inspection Neck: Normal Inspection, Supple Respiratory: Chest Non Tender, No Accessory Muscle Use, No Respiratory Distress Cardiovascular: Regular Rate, Rhythm, No JVD Gastrointestinal: No distended; other (wound vac midline and drain tube in place with no surrounding erythema; mild tenderness abdomen lower portion, drain serosang) Extremity: Normal Inspection, Non Tender Neurologic/Psychiatric: Alert, Oriented x3, Normal Mood/Affect Skin: Normal Color, Warm/Dry Lymphatic: No Adenopathy Assessment/Plan Assessment/Plan Assessment/Plan S/P SBR s/p exlap, drainage of intrabdominal abscess and wound vac placement leukocytosis tolerating liquids and small amount of jello On TPN currently to impove nutritional status Patient with wound vac, needs wound care recultured in surgery and will need extended antibiotic coverage encouraged ambulation pain control follow labs Supervisory-Addendum Brief Verification & Attestation Participated in pt care: history, MDM, physical Personally performed: exam, history, MDM, supervision of care Care discussed with: Medical Student Procedures: n/a Results interpretation: Verified all documentation Verification and Attestation of Medical Student E/M Service A medical student performed and documented this service in my presence. I reviewed and verified all information documented by the medical student and made modifications to such information, when appropriate. I personally performed the physical exam and medical decision making. Mitali Jordan, Mar 07, 2020,14:48 NATALIE QUINONEZ MED STUDENT Mar 07, 2020 07:32 MITALI JORDAN DO Mar 07, 2020 14:47
--- NOTE | 2020-03-07 07:40 | Anesthesia-General Post-Op ---
General Patient Condition Mental Status/LOC: Same as Preop Cardiovascular: Satisfactory Nausea/Vomiting: Absent Respiratory: Satisfactory Pain: Controlled Complications: Absent Post Op Complications Complications None Follow Up Care/Instructions Patient Instructions None needed. Anesthesia/Patient Condition Patient Condition Patient is doing well, no complaints, stable vital signs, no apparent adverse anesthesia problems. No complications reported per nursing. D/C home per [facility] Criteria: Yes ADRIANO CARRIZALES CRNA Mar 07, 2020 07:40
[2020-03-07] MEDS: NS IV 1000 ML 1,000 ML IV SCH ×2 (07:53→22:28)
[2020-03-07] MEDS: PANTOPRAZOLE 40 MG (PROTONIX) VIAL IV SCH (07:53)
[2020-03-07 08:00] VITALS: BP 95/56
[2020-03-07 12:00] VITALS: BP 101/64
[2020-03-07 15:56] VITALS: BP 95/62
[2020-03-07] MEDS: SODIUM ACETATE IV SCH ×11 (16:59)
[2020-03-07] MEDS: SODIUM CHLORIDE IV SCH ×11 (16:59)
[2020-03-07] MEDS: [UNRECOGNIZED DRUG - OTHER] IV SCH ×11 (16:59)
[2020-03-07 20:46] VITALS: BP 99/54
[2020-03-08] MEDS: HYDROcodone/APAP 5 MG/325 MG (LORTAB) TAB PO PRN ×4 (01:34→17:26)
[2020-03-08 03:58] VITALS: BP 94/60
[2020-03-08] MEDS: morphine INJ 4 MG/ML 1 ML (VIAL/SYRINGE) IV PRN ×4 (05:09→15:11)
[2020-03-08] MEDS: NS IV 1000 ML 1,000 ML IV SCH (06:07)
[2020-03-08] MEDS: metroNIDAZOLE 500MG/100ML IVPB 100 ML IV SCH ×2 (06:07→14:06)
--- NOTE | 2020-03-08 07:39 | Progress Note - Surgery ---
NATALIE QUINONEZ MED STUDENT 03/08/20 0739: Subjective Date Seen by a Provider: Mar 08, 2020 Time Seen by a Provider: 07:00 Subjective/Events-last exam Pt notes he is still in pain, but denies N/V, CP, SOB. Had 25 mL emptied from drain tube yesterday. Pt did not walk yesterday, but plans on walking today. Has been passing gas, but no BM's. Using incentive spirometer. Objective Exam Vital Signs Date Time Temp Pulse Resp B/P (MAP) Pulse Ox O2 Delivery O2 Flow Rate FiO2 03/08/20 03:58 37.0 71 14 94/60 (71) 99 03/07/20 20:46 37.3 73 12 99/54 (69) 99 Room Air 03/07/20 20:00 Room Air 03/07/20 15:56 37.0 70 20 95/62 (73) 98 Room Air 03/07/20 12:00 36.2 74 18 101/64 (76) 99 Room Air 03/07/20 08:00 Room Air 03/07/20 08:00 36.4 78 18 95/56 (69) 98 Room Air I & O 03/08/20 07:00 Intake Total 30 ml Output Total 2725 ml Balance -2695 ml Capillary Refill : Less Than 3 SecondsLess Than 3 Seconds General Appearance: No Apparent Distress, Thin HEENT: PERRL/EOMI, Normal ENT Inspection Neck: Normal Inspection, Supple Respiratory: Lungs Clear, Normal Breath Sounds, No Accessory Muscle Use, No Respiratory Distress Cardiovascular: Regular Rate, Rhythm, No JVD Gastrointestinal: No distended; other (wound vac midline and drain tube in place with no surrounding erythema; draining serosangenous fluid from tube) Extremity: Normal Inspection, Non Tender Neurologic/Psychiatric: Alert, Oriented x3, Normal Mood/Affect Skin: Normal Color, Warm/Dry Lymphatic: No Adenopathy Results Lab Laboratory Tests 03/08/20 06:16: Glucometer 104 Microbiology 03/06/20 Gram Stain - Final, Resulted 03/06/20 Anaerobic Culture, Resulted Pending 03/06/20 Surgical Culture - Preliminary, Resulted No growth 03/06/20 Fungal Culture 1, Resulted Pending 03/06/20 MRSA Screen - Final, Complete MRSA not isolated 02/16/20 Blood Culture - Final, Complete Staphylococcus hominis Assessment/Plan Assessment/Plan Assessment/Plan S/P SBR s/p exlap, drainage of intrabdominal abscess and wound vac placement leukocytosis tolerating liquids and small amount of jello On TPN currently to impove nutritional status Patient with wound vac, needs wound care recultured in surgery and Flagyl added encouraged ambulation pain control plan to transfer to [place] in [facility] Clinical Quality Measures DVT/VTE Risk/Contraindication: Risk Factor Score Per Nursin RFS Level Per Nursing on Admit: 2=Moderate MITALI JORDAN DO 03/08/20 1640: Subjective Subjective/Events-last exam Pain much better. Wound vac in place. Serosang drainage from COURT drain. Passing flatus. Denies n/v fever sweats chills shortness of breath or chest narcisa n. Objective Exam General Appearance: No Apparent Distress, Anxious, Thin HEENT: PERRL/EOMI, Normal ENT Inspection Neck: Normal Inspection, Supple Respiratory: Chest Non Tender, No Accessory Muscle Use, No Respiratory Distress Cardiovascular: Regular Rate, Rhythm, No JVD Gastrointestinal: soft; No distended; other (wound vac midline and drain tube in place with no surrounding erythema; draining serosangenous fluid from tube) Extremity: Normal Inspection, Non Tender Neurologic/Psychiatric: Alert, Oriented x3 Skin: Normal Color, Warm/Dry Lymphatic: No Adenopathy Assessment/Plan Assessment/Plan Assessment/Plan S/P SBR s/p exlap, drainage of intrabdominal abscess and wound vac placement leukocytosis tolerating liquids and small amount of jello On TPN currently to impove nutritional status Patient with wound vac, needs wound care recultured in surgery continue abx likely 10 days encouraged ambulation pain control plan to transfer to [place] in [place], [place] today Supervisory-Addendum Brief Verification & Attestation Participated in pt care: history, MDM, physical Personally performed: exam, history, MDM, supervision of care Care discussed with: Medical Student Procedures: n/a Results interpretation: Verified all documentation Verification and Attestation of Medical Student E/M Service A medical student performed and documented this service in my presence. I reviewed and verified all information documented by the medical student and made modifications to such information, when appropriate. I personally performed the physical exam and medical decision making. Mitali Jordan, Mar 08, 2020,16:38 NATALIE QUINONEZ STUDENT Mar 08, 2020 07:39 MITALI JORDAN DO Mar 08, 2020 16:40
[2020-03-08 07:50] VITALS: BP 95/50
[2020-03-08] MEDS: PANTOPRAZOLE 40 MG (PROTONIX) VIAL IV SCH (07:52)
[2020-03-08] MEDS: PIPERACILLIN/TAZOBACTAM (BULK) 4.5 GM in NS (IVPB) 100 ML IV SCH ×2 (08:00→15:22)
--- NOTE | 2020-03-08 09:18 | Progress Note - Hospitalist ---
Subjective HPI/CC On Admission Date Seen by Provider: Mar 08, 2020 Time Seen by Provider: 09:12 Jabari Santiago is a 19-year-old male who was recently admitted for small bowel obstruction who presented with worsening abdominal pain. His imaging upon arrival showed a high-grade obstruction. He was admitted to the surgery service. He reports that he has not had a bowel movement or passed gas and over 24 hours. He reports having nausea when he arrived to the hospital. He denies any nausea or vomiting since that time. He has an NG tube in place. He denies any fevers or chills. He denies any chest pain or shortness of breath. Subjective/Events-last exam Pt reports doing well. Plan is to transfer to [place] today. Objective Exam Vital Signs Vital Signs Date Time Temp Pulse Resp B/P (MAP) Pulse Ox O2 Delivery O2 Flow Rate FiO2 03/08/20 08:11 100 Room Air 03/08/20 07:50 36.2 18 18 95/50 (65) 03/06/20 13:25 2 Capillary Refill : Less Than 3 SecondsLess Than 3 Seconds General Appearance: No Apparent Distress, Thin Respiratory: Lungs Clear, No Respiratory Distress Cardiovascular: Regular Rate, Rhythm, No Murmur Gastrointestinal: Other (wound vac in place, serosanguinous fluid in COURT drain) Neurologic/Psychiatric: Alert, Oriented x3 Results/Procedures Lab Patient resulted labs reviewed. Imaging: Reviewed Imaging Report Assessment/Plan Assessment and Plan Assess & Plan/Chief Complaint small bowel obstruction s/p resection intrabdominal abscess General Surgery primary - failed IR drainage twice - Doing well post op -await cultures to guide further abx- still pending - Will need up to two weeks of abx - Continue TPN Pain regimen ordered incentive spirometry Clinical Quality Measures DVT/VTE Risk/Contraindication: Risk Factor Score Per Nursin RFS Level Per Nursing on Admit: 2=Moderate KRISTI HOUSER MD Mar 08, 2020 09:17
[2020-03-08] MEDS ORDERED: METR500T PO (09:25)
[2020-03-08] MEDS ORDERED: PIPE4.5F IV (09:25)
[2020-03-08] MEDS ORDERED: PANT40VI IV (09:25)
--- NOTE | 2020-03-08 09:27 | Discharge Inst-Simple/Standard ---
Discharge Inst-Standard Patient Instructions/Follow Up Plan of Care/Instructions/FU: f/u sybil 3 weeks Activity as Tolerated: No Discharge Diet: Other Diet (TPN) MITALI DSOUZA DO Mar 08, 2020 09:27
--- NOTE | 2020-03-08 10:00 | NUR ---
CM FINALIZED DISCHARGE PLAN: Patient is transferring to [facility] for continued need of skilled nursing acute hospitalization for IV abx, TPN, Wound Vac, and continued need of advancing diet with monitored tolerance. He will transport via EMS. Dr. Jordan asked that LTAC be explored and requested a referral be sent to [facility]. DALILA Matthews talked with patient et family about potential transfer and then ultimately the acceptance to [facility] and if they were agreeable to that. I faxed information and communicated with marketing research coordinator Chase at [facility], set up red packet, and helped to fill out transfer form for EMS transport. Updated the primary care nurse Chase and loading unit tool setter Delia on plan for transfer and timing of calling EMS and nurse to nurse report. No further interventions noted to be needed at this time.
[2020-03-08 12:00] VITALS: BP 100/64
--- NOTE | 2020-03-08 12:26 | NUR ---
CM/SS: Visited with pt as to plan for discharge and his going to a [facility] in [place], [place]. Plan: Pt will be transferred to [facility] in [place], [place] on today. Time of supervisor picking crew to be determined Summary: Pt's mood is good and he is eager to be able to go to [facility] in [place], [place] on today. He has some expressed anxiety about the ambulance ride and heard that it is really bumpy. Pt is encouraged that he can be given medications for his anxiety for the ride to [place]. Pt request that this worker return to his room. He is reminded that someone from [facility] will be over soon to answer all of his questions. He verbalizes understanding. Chase from [facility] here to talk with pt. This worker escorts him to pt's room to visit with pt about [facility]. Pt to be discharged today to [facility], time to be determined.
--- NOTE | 2020-03-08 14:30 | NUR ---
REPORT GIVEN TO SAILAJA GALARZA AT [facility] IN [place].
[2020-03-08] MEDS ORDERED: morphine INJ 10 MG/ML 1ML (SYR OR VIAL) IVP STA (14:32)
[2020-03-08 16:54] VITALS: BP 91/53
--- NOTE | 2020-03-08 17:20 | NUR ---
REPORT GIVEN TO SARAHI LOPEZ, EMS. PT TRANSFERRED VIA EMS TO [facility]. PT TRANSPORTED WITH CONTINUOUS TPN GOING VIA [facility]. EMS WILL RETURN [facility] TO [facility] ED. PT GIVEN PAIN MEDICATION PRIOR TO TRANSFER.
[2020-03-08] MEDS: [UNRECOGNIZED DRUG - OTHER] IV SCH ×11 (18:00)
[2020-03-08] MEDS: SODIUM ACETATE IV SCH ×11 (18:00)
[2020-03-08] MEDS: SODIUM CHLORIDE IV SCH ×11 (18:00)
== END 2020-03-08 18:00 | DRG 335 ==
LOC: EDUNIT# 03:39 → ER 03:45 → 4TH 06:00
PROVIDERS: ADMIT Surgery; ATTEND Surgery
PROC: 0DN80ZZ Release Small Intestine, Open Approach (ICD-10-PCS; 2020-02-17)
PROC: 02HV33Z Insertion of Infusion Device into Superior Vena Cava, Percutaneous Approach (ICD-10-PCS; 2020-02-17)
PROC: 0DB80ZX Excision of Small Intestine, Open Approach, Diagnostic (ICD-10-PCS; principal; 2020-02-17 07:56)
PROC: 0W9G0ZZ Drainage of Peritoneal Cavity, Open Approach (ICD-10-PCS; 2020-03-06)
DX: K56.2 Volvulus (principal); K65.1 Peritoneal abscess; K63.89 Other specified diseases of intestine; N50.811 Right testicular pain; R30.0 Dysuria; F41.9 Anxiety disorder, unspecified; D72.829 Elevated white blood cell count, unspecified
CPT/HCPCS: 36415; 36569; 71045; 74022; 74176; 74177; 76937; 77012; 80048; 80053; 80306; 81000; 82962; 83735; 84100; 84134; 84478; 85007; 85025; 85027; 85610; 86850; 86900; 86901; 87040; 87070; 87075; 87076; 87077; 87081; 87101; 87185; 87186; 87205; 88307; 94664; 96361; 96374; 96375; 96376; 99156

== ENCOUNTER 2020-05-12 02:46 | Emergency (ER) | payer BC ==
[~2020-05-12] VITALS: Ht 187 cm; Wt 65.0 kg
[~2020-05-12 02:46] MED LIST changes: +DCS100C PO; +METR500T PO; +PANT40VI IV; +PIPE4.5F IV
[2020-05-12 02:59] LABS: BASOPHILS % (AUTO) 0 % (0-10); EOSINOPHILS # (AUTO) 0.2 10^3/uL (0.0-0.3); EOSINOPHILS % (AUTO) 2 % (0-10); HEMATOCRIT 45 % (40-54); LYMPHOCYTES % (AUTO) 25 % (12-44); MEAN CORPUSCULAR HEMOGLOBIN 27 pg (25-34); MEAN CORPUSCULAR HGB CONC 31 g/dL (32-36); MEAN CORPUSCULAR VOLUME 89 fL (80-99); MONOCYTES # (AUTO) 0.4 10^3/uL (0.0-1.0); MONOCYTES % (AUTO) 5 % (0-12); NEUTROPHILS # (AUTO) 5.4 10^3/uL (1.8-7.8); NEUTROPHILS % (AUTO) 67 % (42-75); PLATELET COUNT 303 10^3/uL (130-400); WHITE BLOOD COUNT 8.1 10^3/uL (4.3-11.0)
[2020-05-12] MEDS ORDERED: LIDOCAINE/EPI 2% 1:100,00 (XYLOCAINE) 20 ML VIAL INJ ONE (03:00)
[2020-05-12 03:17] LABS: ALBUMIN 4.4 GM/DL (3.2-4.5); CHLORIDE 111 MMOL/L (98-107); POTASSIUM 3.8 MMOL/L (3.6-5.0); SODIUM 146 MMOL/L (135-145)
[2020-05-12 03:18] LABS: CALCIUM 8.6 MG/DL (8.5-10.1)
[2020-05-12 03:19] LABS: GLUCOSE 97 MG/DL (70-105); TOTAL PROTEIN 7.2 GM/DL (6.4-8.2)
[2020-05-12 03:20] LABS: CARBON DIOXIDE 22 MMOL/L (21-32)
[2020-05-12 03:21] LABS: BILIRUBIN,TOTAL 0.3 MG/DL (0.1-1.0)
[2020-05-12 03:23] LABS: ALKALINE PHOSPHATASE 75 U/L (40-136); CREATININE SERUM 0.81 MG/DL (0.60-1.30); GFR ESTIMATED > 60
[2020-05-12 03:24] LABS: BUN/CREATININE RATIO 15
[2020-05-12 03:26] LABS: ALANINE AMINOTRANSFERASE 36 U/L (0-55)
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
[2020-05-12] MEDS ORDERED: LACTATED RINGERS 1,000 ML IV ONE (03:29)
[2020-05-12] MEDS ORDERED: TETANUS,DIPTH,PERTUSS P/F (BOOSTRIX) 0.5 ML VIAL IM ONE (03:30)
[2020-05-12 04:13] LABS: AMPHETAMINE SCREEN, URINE NEGATIVE (NEGATIVE); BARBITURATE SCREEN URINE NEGATIVE (NEGATIVE); BENZODIAZEPINES SCREEN URINE NEGATIVE (NEGATIVE); CANNABINOID SCREEN, URINE NEGATIVE (NEGATIVE); COCAINE SCREEN URINE NEGATIVE (NEGATIVE); METHADONE STAT NEGATIVE (NEGATIVE); METHAMPHETAMINE SCREEN URINE S NEGATIVE (NEGATIVE); OPIATE SCREEN URINE NEGATIVE (NEGATIVE); OXYCODONE STAT NEGATIVE (NEGATIVE); PROPOXYPHENE STAT NEGATIVE (NEGATIVE); TRICYCLIC ANTIDEPRESSANTS SCRE NEGATIVE (NEGATIVE)
[2020-05-12] MEDS ORDERED: KETOROLAC 30 MG/ML VIAL IVP ONE (04:15)
[2020-05-12] MEDS ORDERED: KETOROLAC 30 MG/ML VIAL IM ONE (05:45)
[2020-05-12 06:10] VITALS: BP 106/62
--- NOTE | 2020-05-12 06:21 | Diagnostic Imaging Report ---
PROCEDURE: CT head and CT cervical spine without contrast. TECHNIQUE: Multiple contiguous axial images were obtained through the brain and cervical spine without the use of intravenous contrast. Sagittal and coronal reformations through the cervical spine were then performed. Auto Exposure Controls were utilized during the CT exam to meet ALARA standards for radiation dose reduction. INDICATION: Fall. Trauma. Neck and head pain. Scalp contusion. COMPARISON: None. FINDINGS: CT head: No large acute territorial ischemia, mass, or hemorrhage. No midline shift or mass effect. The ventricles, cortical sulci, and basilar cisterns are patent and unremarkable. The calvarium is intact. The visualized paranasal sinuses are clear. CT cervical spine: No acute fracture or dislocation is seen in the cervical spine. No focal osseous lesions. Vertebral body heights are well-maintained. The craniocervical junction is well-maintained. Mild degenerative changes are seen in the cervical spine with disc osteophyte complexes and uncovertebral arthropathy. Soft tissues of the neck are unremarkable. IMPRESSION: 1. No hemorrhage or focal intra-axial mass. No CT evidence of large acute territorial ischemia. 2. No acute fracture or dislocation in the cervical spine. Dictated by: Dictated on workstation # [id number]
== END 2020-05-12 06:15 | disposition home or self-care (01) ==
LOC: EDUNIT# 02:46 → ER 02:47
DX: S01.112A Laceration without foreign body of left eyelid and periocular area, initial encounter (principal); S01.111A Laceration without foreign body of right eyelid and periocular area, initial encounter; F10.129 Alcohol abuse with intoxication, unspecified; Z23 Encounter for immunization; W22.8XXA Striking against or struck by other objects, initial encounter
CPT/HCPCS: 12011; 70450; 72125; 80053; 80306; 85025; 99284; G0480; 36415; 80320; 90715

== ENCOUNTER 2020-05-16 16:17 | Emergency (ER) | payer BC ==
[~2020-05-16] VITALS: Ht 187 cm; Wt 67.0 kg
[2020-05-16 17:24] VITALS: BP 121/80
== END 2020-05-16 16:32 | disposition home or self-care (01) ==
LOC: EDUNIT# 16:17 → ER 16:18
DX: S01.81XD Laceration without foreign body of other part of head, subsequent encounter (principal); X58.XXXD Exposure to other specified factors, subsequent encounter

== ENCOUNTER 2021-03-12 05:29 | Emergency (ER) | payer OTHER, BC ==
[~2021-03-12] VITALS: Ht 187 cm; Wt 78.0 kg
[~2021-03-12 05:29] MED LIST changes: -DCS100C PO; +DOCU-239 PO
--- OUTSIDE RECORDS SUMMARY | 2021-03-12 05:40 | XMS REPORT ---
Author Author Jabari Genao Organization [facility] Address [address] [place], [place] [id number] Care Team Providers Care Senior Back End Java Developer Name Role Phone Petrona Genao PCP Allergies and Adverse Reactions Name Reaction Notes No known drug allergy Plan of Treatment Not available. Medications Active Name Start Date Estimated Completion Date SIG Co mments Prilosec OTC 20 mg oral tablet,delayed release (DR/EC) take 1 tablet by oral route daily Name Start Date Expiration Date SIG Comments montelukast 10 mg oral tablet 11/15/2018 06/13/2019 TA KE 1 TABLET BY MOUTH DAILY AT BEDTIME for 30 days ketorolac 10 mg oral tablet 11/15/2018 11/20/2018 take 1 tablet by oral route 2 times a day for 5 days Zofran 4 mg oral tablet 11/15/2018 11/20/2018 take 1 t ablet by oral route TID as needed for nausea. Cipro 500 mg oral tablet 11/15/2018 11/25/2018 take 1 tablet (500 mg) by oral route every 12 hours for 10 days dicyclomine 10 mg oral capsule 09/24/2019 10/24/2019 t sybil 1 capsule (10 mg) by oral route 3 times per day for 30 days promethazine 25 mg oral tablet 09/24/2019 09/30/2019 t sybil 1 tablet (25 mg) by oral route every 4 hours as needed for 3 days Phenergan compound 25 mg 09/24/2019 09/29/2019 Apply 25mg to wr ist QID prn nausea mesalamine 400 mg oral capsule (with del rel tablets) 09/24/2019 2019 take 2 capsules (800 mg) by oral route 3 times per day for 42 days Discontinued Name Start Date Discontinued Date SIG Comments Linzess 290 mcg oral capsule 07/25/2018 sharon e 1 capsule (290 mcg) by oral route once daily on an empty stomach at least 30 minutes before 1st meal of the day Problem List Not available. Vital Signs Date Time BP-Sys(mm[Hg] BP-Lisa(mm[Hg]) HR(bpm) RR(rpm) Temp WT HT HC BMI BSA BMI Percentile O2 Sat(%) 03/08/2021 4:23:00 PM 128 mm[Hg] 82 mm[Hg] 84 {beats}/min 18 rpm 99.3 F 172 lbs 73 in 22.6924 kg/m2 2.0046 m2 0 % 97 % 04/06/2020 10:43:00 AM 104 mm[Hg] 80 mm[Hg] 86 {beats}/min 18 rpm 97.5 F 138.312 lbs 73 in 18.25 kg/m2 1.80 m2 -1.8 % 100 % 09/24/2019 12:23:00 PM 97.7 F 11/15/2018 1:40:00 PM 128 mm[Hg] 80 mm[Hg] 102 {beats}/min 16 rpm 99.1 F 177.125 lbs 73 in 23.37 kg/m2 2.03 m2 67.9 % 99 % 09/28/2018 7:44:00 PM 122 mm[Hg] 70 mm[Hg] 76 {beats}/min 18 rpm 97.9 F 185 lbs 73 in 24.4076 kg/m2 2.079 m2 77.8 % 97 % 07/21/2018 3:58:00 PM 130 mm[Hg] 82 mm[Hg] 80 {beats}/min 16 rpm 98.8 F 185 lbs 73 in 24.41 kg/m2 2.08 m2 78.8 % 98 % 06/02/2018 10:54:00 AM 120 mm[Hg] 86 mm[Hg] 82 {beats}/min 16 rpm 99 F 186 lbs 73 in 24.5395 kg/m2 2.0846 m2 80.4 % 99 % Social History Name Description Comments Tobacco Current every day smoker 03/08/2021 - History of Procedures Date Ordered Description Order Status 06/02/2018 12:[address] ABD & PELV W/CONTRAST Returned 11/15/2018 2:37 PM URINALYSIS AUTO W/O SCOPE Reviewed 11/15/2018 12:00 AM Toradol 60 Mg Injection Reviewed 11/15/2018 12:00 AM THER/PROPH/DIAG INJ SC/IM Reviewed 01/10/2021 12:00 AM COVID-19 Testing Reviewed 03/08/2021 4:26 PM URINALYSIS AUTO W/O SCOPE Reviewed 03/08/2021 12:00 AM NO CHARGE OV Reviewed Results Summary Date and Description Results 11/15/2018 2:37 PM Clarity Ur clear Urine-Color yellow Glucose Ur-sCnc neg Bilirub Ur Ql neg Ketones Ur Ql Strip neg Sp Gr Ur Qn 1.015 Hgb Ur Ql Strip neg pH Ur- LsCnc 6.0 Prot Ur Ql Strip neg Urobilinogen Ur-mCnc 0.2 E.U./dl Nitrite Ur Ql Strip neg WBC # Ur neg 01/10/2021 2:51 PM [id number] NOT DETECTED 03/08/2021 4:33 PM Clarity Ur clear Urine-Color straw yellow Glucose Ur-sCnc neg Bilirub Ur Ql neg Ketones Ur Ql Strip 15mg Sp Gr Ur Qn 1.020 Hgb Ur Ql Strip large pH Ur-LsCnc 7.5 Prot Ur Ql Strip neg Urobilinogen Ur-mCnc 1.0 Nitrite Ur Ql Strip neg WBC # Ur neg History Of Immunizations Not available. History of Past Illness Name Date of Onset Comments Small bowel obstruction Constipation Diarrhea Abdominal pain Abdominal pain, diffuse Jun 02 2018 10:58AM History of resection of small bowel Jun 02 2018 10:58AM Small bowel motility disorder Jul 21 2018 3:58PM Palpitations Sep 28 2018 7:49PM Anxiety Sep 28 2018 7:49PM Flank pain Nov 15 2018 1:44PM UTI (urinary tract infection) Nov 15 2018 1:44PM Abdominal pain Sep 24 2019 11:24AM Nausea Sep 24 2019 11:24AM Vomiting Sep 24 2019 11:24AM IBS (irritable bowel syndrome) Sep 24 2019 11:24AM Colitis Sep 24 2019 11:24AM Colitis Apr 06 2020 10:48AM Anxiety Apr 06 2020 10:48AM Close exposure to severe acute respiratory syndrome co ronavirus 2 (SARS-CoV-2) Jan 10 2021 6:12PM Right flank pain Mar 08 2021 4:26PM Hematuria Mar 08 2021 4:26PM Right lower quadrant abdominal pain Mar 08 2021 4:26PM History of small bowel obstruction Mar 08 2021 4:26PM Payers Insurance Name Company Name Plan Name Plan Number Policy Number [place] Group Number Start Date [employer] [id number] N/ A History of Encounters Visit Date Visit Type Provider 03/08/2021 Office visit Petrona Genao APR N 01/10/2021 Nurse visit Katie Grimaldo SALES MANAGEMENT TRAINEE 04/06/2020 Office visit July Sadler SALES MANAGEMENT TRAINEE 09/24/2019 Office visit July Sadler SALES MANAGEMENT TRAINEE 11/15/2018 Office visit July Sadler SALES MANAGEMENT TRAINEE 09/28/2018 Office visit July Sadler SALES MANAGEMENT TRAINEE 07/21/2018 Office visit Clint Oleary MD 06/02/2018 Office visit Clint Oleary MD
--- OUTSIDE RECORDS SUMMARY | 2021-03-12 05:40 | XMS REPORT ---
Author Jabari Crews Organization [facility] Address [address] [place], [place] [id number] Care Team Providers Care [employer] Dispatcher Name Role Phone Katie Grimaldo PCP Allergies and Adverse Reactions Name Reaction Notes No known drug allergy Plan of Treatment Not available. Medications Name Start Date Expiration Date SIG Comments [...] HC BMI BSA BMI Percentile O2 Sat(%) 04/06/2020 10:43:00 AM 104 mm[Hg] 80 mm[Hg] 86 {beats}/min 18 rpm 97.5 F 138.312 lbs 73 in 18.2479 kg/m2 1.7976 m2 -1.8 % 100 % 09/24/2019 12:23:00 [...] % Social History Name Description Comments Tobacco Never smoker History of Procedures Date Ordered Description Order Status 06/02/2018 12:[address] ABD & PELV W/CONTRAST Returned 11/15/2018 2:37 PM URINALYSIS AUTO W/O SCOPE Reviewed 11/15/2018 12:00 AM Toradol 60 Mg Injection Reviewed 11/15/2018 12:00 AM THER/PROPH/DIAG INJ SC/IM Reviewed 01/10/2021 12:00 AM COVID-19 Testing Reviewed Results Summary Date and Description Results 11/15/2018 2:37 PM Clarity Ur clear Urine-Color yellow Glucose Ur-sCnc neg Bilirub Ur Ql neg Ketones Ur Ql Strip neg Sp Gr Ur Qn 1.015 Hgb Ur Ql Strip neg pH Ur- LsCnc 6.0 Prot Ur Ql Strip neg Urobilinogen Ur-mCnc 0.2 E.U./dl Nitrite Ur Ql Strip neg WBC # Ur neg 01/10/2021 2:51 PM [id number] NOT DETECTED History Of Immunizations Not available. History of [...] ronavirus 2 (SARS-CoV-2) Jan 10 2021 6:12PM Payers Insurance Name Company Name Plan Name Plan Number Policy Number [employer] Group Number [id number] N/ A History of Encounters Visit Date Visit Type Provider 01/10/2021 Nurse visit Katie Grimaldo END [employer]ISHER 04/06/2020 Office visit July Sadler END POLISHER 09/24/2019 Office visit July Sadler END POLISHER 11/15/2018 Office visit July Sadler END POLISHER 09/28/2018 Office visit July Sadler END POLISHER 07/21/2018 Office visit Clint Oleary MD 06/02/2018 Office visit Clint Oleary MD
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
[2021-03-12 06:06] LABS: HEMATOCRIT 46 % (40-54); HEMOGLOBIN 15.3 g/dL (13.3-17.7); MEAN CORPUSCULAR HEMOGLOBIN 29 pg (25-34); MEAN CORPUSCULAR HGB CONC 34 g/dL (32-36); MEAN CORPUSCULAR VOLUME 86 fL (80-99); MEAN PLATELET VOLUME 10.9 fL (9.0-12.2); PLATELET COUNT 218 10^3/uL (130-400); WHITE BLOOD COUNT 8.3 10^3/uL (4.3-11.0)
[2021-03-12 06:08] LABS: BILIRUBIN,URINE NEGATIVE (NEGATIVE); CLARITY,URINE CLEAR; COLOR,URINE YELLOW; GLUCOSE, URINE (UA) NEGATIVE (NEGATIVE); KETONES,URINE 1+ (NEGATIVE); LEUKOCYTE ESTERASE ,URINE NEGATIVE (NEGATIVE); NITRITE,URINE NEGATIVE (NEGATIVE); PROTEIN,URINE NEGATIVE (NEGATIVE)
[2021-03-12 06:14] LABS: ALBUMIN 4.4 GM/DL (3.2-4.5); CHLORIDE 104 MMOL/L (98-107); POTASSIUM 3.7 MMOL/L (3.6-5.0); SODIUM 140 MMOL/L (135-145)
[2021-03-12 06:15] LABS: BACTERIA,URINE NEGATIVE /HPF; WBC,URINE 0-2 /HPF
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
[2021-03-12 06:17] LABS: GLUCOSE 106 MG/DL (70-105); TOTAL PROTEIN 7.2 GM/DL (6.4-8.2)
[2021-03-12 06:18] LABS: AMPHETAMINE SCREEN, URINE NEGATIVE (NEGATIVE); BARBITURATE SCREEN URINE NEGATIVE (NEGATIVE); BENZODIAZEPINES SCREEN URINE NEGATIVE (NEGATIVE); CANNABINOID SCREEN, URINE NEGATIVE (NEGATIVE); COCAINE SCREEN URINE NEGATIVE (NEGATIVE); METHADONE STAT NEGATIVE (NEGATIVE); METHAMPHETAMINE SCREEN URINE S NEGATIVE (NEGATIVE); OPIATE SCREEN URINE NEGATIVE (NEGATIVE); OXYCODONE STAT NEGATIVE (NEGATIVE); PROPOXYPHENE STAT NEGATIVE (NEGATIVE); TRICYCLIC ANTIDEPRESSANTS SCRE NEGATIVE (NEGATIVE)
[2021-03-12 06:18] LABS: CARBON DIOXIDE 21 MMOL/L (21-32)
[2021-03-12 06:19] LABS: BILIRUBIN,TOTAL 1.2 MG/DL (0.1-1.0)
[2021-03-12 06:20] LABS: ALKALINE PHOSPHATASE 87 U/L (40-136)
[2021-03-12 06:21] LABS: CREATININE SERUM 0.88 MG/DL (0.60-1.30); GFR ESTIMATED 110
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
[2021-03-12 06:22] LABS: BILIRUBIN,DIRECT 0.5 MG/DL (0.0-0.3); BILIRUBIN,INDIRECT 0.7 MG/DL; BUN/CREATININE RATIO 10
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
[2021-03-12 06:24] LABS: ALANINE AMINOTRANSFERASE 30 U/L (0-55)
[2021-03-12 07:26] VITALS: BP 135/79
[2021-03-12] MEDS ORDERED: ACETAMINOPHEN 500 MG TAB (TYLENOL) PO ONE (07:30)
== END 2021-03-12 07:33 | disposition home or self-care (01) ==
LOC: EDUNIT# 05:29 → ER 05:36
DX: N20.1 Calculus of ureter (principal); F17.290 Nicotine dependence, other tobacco product, uncomplicated
CPT/HCPCS: 70450; 71045; 72125; 73502; 80048; 80076; 80306; 81000; 85027; 93041; 99283; G0480; 36415; 80320